=== PATIENT | male | born 1950 | race Caucasian/White ===

== ENCOUNTER 2016-05-26 12:42 | Inpatient (IN) | payer MEDICARE, MEDICAID ==
[~2016-05-26] VITALS: Ht 195.6 cm; Wt 54.9 kg
[~2016-05-26 12:42] MED LIST: ALPR0.254 PO; ASPI-482 PO; CLOP75TA PO; HYDR-2666 PO; LORA0.5T96 PO; METO100T11 PO; NITR1OIN TD; OMEP20CA5 PO; SIMV80TA3 PO; TAMS0.4C2 PO; [UNRECOGNIZED DRUG - OTHER]
[2016-05-26] MEDS ORDERED: IV NORMAL SALINE 1000ML BAG 1,000 ML IV SCH (13:03)
--- NOTE | 2016-05-26 13:03 | PHYS DOC ---
Past Medical History Past Medical History: Arthritis, GERD, High Cholesterol, Hypertension, NV, Other Additional Past Medical Histor: Marfan syndrome, chronic pain, prostate problems, VERTIGO Past Surgical History: Other Additional Past Surgical Histo: Lower Back, Neck Alcohol Use: None Drug Use: None Adult General Chief Complaint Chief Complaint: CHEST PAIN HPI HPI Patient is a 65 year old male who presents with chest pain and shortness of breath. Past medical history notable for Marfan syndrome. Patient reports he started having some sharp left-sided chest pain while lying down last night that radiates to his back. He also feels short of breath. No clear inciting or mitigating factors. He has not taken anything for symptoms. He received a phone call from the cardiology office today telling him to coming to the hospital since his cremator showed a heart rate in the 150s. Heart rate around 100 on arrival to ED. Review of Systems Review of Systems Constitutional: Denies fever or chills Eyes: Denies change in visual acuity or eye pain HENT: Denies nasal congestion or sore throat Respiratory: Shortness of breath Cardiovascular: L side chest pain GI: Denies abdominal pain, nausea, vomiting, bloody stools or diarrhea : Denies dysuria or hematuria Musculoskeletal: Denies back pain or joint pain Integument: Denies rash or skin lesions Neurologic: Denies headache, focal weakness or sensory changes Current Medications Current Medications Current Medications Medications (Trade) Dose Ordered Sig/Marcia Start Time Stop Time Status Last Admin Dose Admin Acetaminophen (Tylenol) 650 mg PRN Q4HRS PRN 05/26/16 15:30 05/27/16 15:29 Aspirin (Ecotrin) 81 mg DAILY 05/27/16 09:00 UNV Iohexol (Omnipaque 350 Mg/ml) 100 ml 1X ONCE 05/26/16 14:15 05/26/16 14:16 DC 05/26/16 14:13 100 ML Metoprolol Succinate (Toprol Xl) 50 mg 1X ONCE 05/26/16 17:00 05/26/16 17:01 Morphine Sulfate 4 mg PRN Q2HR PRN 05/26/16 15:30 05/27/16 15:29 Non-Formulary Medication 20 mg DAILY 05/27/16 09:00 UNV Ondansetron HCl (Zofran) 4 mg PRN Q8HRS PRN 05/26/16 15:30 05/27/16 15:29 Sodium Chloride (Iv Sodium Chloride 0.9% 1000ml Bag) 1,000 ml @ 1,000 mls/hr Q1H 05/26/16 13:03 05/26/16 14:02 DC 05/26/16 13:15 1,000 MLS/HR Allergies Allergies Allergies Coded Allergies Type Severity Reaction Last Updated Verified No Known Drug Allergies 02/10/16 No Physical Exam Physical Exam Constitutional: Well developed, well nourished, no acute distress, non-toxic appearance HENT: Normocephalic, atraumatic, bilateral external ears normal Eyes: EOMI, conjunctiva normal, no discharge Neck: Normal range of motion, no stridor Cardiovascular: Tachycardic HR ~103, regular rhythm, no murmur; b/l radial pulses equal Lungs & Thorax: Bilateral breath sounds clear to auscultation; pectus excavatum Abdomen: Bowel sounds normal, soft, non-distended, no TTP Skin: Warm, dry, no erythema, no rash Extremities: No obvious deformity, no edema Neurologic: Alert and oriented X 3, no gross deficits noted Current Patient Data Vital Signs Vital Signs Date Time Temp Pulse Resp B/P Pulse Ox O2 Delivery O2 Flow Rate FiO2 05/26/16 13:15 98 22 114/82 100 Room Air 05/26/16 12:50 97.5 97.5 Lab Values Laboratory Tests Test 05/26/16 12:51 White Blood Count 11.6x10^3/uL (4.0-11.0) H Red Blood Count 5.26x10^6/uL (4.30-5.70) Hemoglobin 16.0g/dL (13.0-17.5) Hematocrit 47.9% (39.0-53.0) Mean Corpuscular Volume 91fL (79-100) Mean Corpuscular Hemoglobin 30pg (25-35) Mean Corpuscular Hemoglobin Concent 33g/dL (31-37) Red Cell Distribution Width 13.2% (11.5-14.5) Platelet Count 131x10^3/uL (140-400) L Neutrophils (%) (Auto) 64% (31-73) Lymphocytes (%) (Auto) 24% (24-48) Monocytes (%) (Auto) 10% (0-9) H Eosinophils (%) (Auto) 2% (0-3) Basophils (%) (Auto) 1% (0-3) Neutrophils # (Auto) 7.5x10^3uL (1.8-7.7) Lymphocytes # (Auto) 2.8x10^3/uL (1.0-4.8) Monocytes # (Auto) 1.1x10^3/uL (0.0-1.1) Eosinophils # (Auto) 0.2x10^3/uL (0.0-0.7) Basophils # (Auto) 0.1x10^3/uL (0.0-0.2) Platelet Estimate Decreased (ADEQUATE) Sodium Level 141mmol/L (136-145) Potassium Level 3.5mmol/L (3.5-5.1) Chloride Level 101mmol/L (98-107) Carbon Dioxide Level 26mmol/L (21-32) Anion Gap 14 (6-14) Blood Urea Nitrogen 19mg/dL (8-26) Creatinine 1.1mg/dL (0.7-1.3) Estimated GFR (Cockcroft-Gault) 67.4 Glucose Level 116mg/dL (70-99) H Calcium Level 9.9mg/dL (8.5-10.1) Magnesium Level 1.8mg/dL (1.8-2.4) Troponin I Quantitative < 0.017ng/mL (0.000-0.055) Thyroid Stimulating Hormone (TSH) 1.328uIU/mL (0.358-3.74) Laboratory Tests 05/26/16 12:51 Laboratory Tests 05/26/16 12:51 EKG EKG EKG (my read): sinus rhythm, rate 108, borderline RAD, nonspecific ST/T changes Radiology/Procedures Radiology/Procedures CXR: Impression: Emphysematous lungs No acute cardiopulmonary process is detected. CTA chest: IMPRESSION: 1. No evidence of aortic aneurysm or dissection. 2. 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 3. Moderate bilateral apical pleural-parenchymal scarring. 4. Pectus excavatum. Course & Med Decision Making Course & Med Decision Making Pertinent Labs and Imaging studies reviewed. (See chart for details) Patient is 65-year-old male who presents with chest pain and shortness of breath. Also reportedly had high heart rate earlier, although this is around 100 right now. Will check EKG, chest x-ray, labs to evaluate. CTA chest ordered to rule out aortic dissection given history of Marfan syndrome. Will hold on aspirin until CTA results. Pain meds ordered for relief pain. EKG and imaging results as above. Labs notable for minimal leukocytosis. Discussed results with patient. Discussed with Dr. Potter, will admit under his care for further evaluation and treatment. Dragon Disclaimer Dragon Disclaimer This electronic medical record was generated, in whole or in part, using a voice recognition dictation system. Departure Departure Impression: Primary Impression: Chest pain Additional Impression: SOB (shortness of breath) Disposition: ADMITTED INPATIENT Admitting Physician: Tiana Potter Condition: STABLE Referrals: TIANA POTTER MD (PCP) Problem Qualifiers AUSTIN RHODES MD May 26, 2016 13:03
[2016-05-26] MEDS ORDERED: MORPHINE SULFATE 4 MG/ML DISP.SYRIN. IV ONE ×2 (13:15→14:00)
[2016-05-26 13:16] LABS: BASO # 0.1 x10^3/uL (0.0-0.2); BASO % 1 % (0-3); EOS % 2 % (0-3); HEMATOCRIT 47.9 % (39.0-53.0); LYMPH # 2.8 x10^3/uL (1.0-4.8); LYMPH % 24 % (24-48); MEAN CORPUSCULAR HEMOGLOBIN 30 pg (25-35); MEAN CORPUSCULAR HGB CONC 33 g/dL (31-37); MEAN CORPUSCULAR VOLUME 91 fL (79-100); MONO % 10 % (0-9); NEUT % 64 % (31-73); PLATELET COUNT 131 x10^3/uL (140-400); RED BLOOD COUNT 5.26 x10^6/uL (4.30-5.70); RED CELL DISTRIBUTION WIDTH 13.2 % (11.5-14.5); WHITE BLOOD COUNT 11.6 x10^3/uL (4.0-11.0)
--- NOTE | 2016-05-26 13:20 | RAD ---
Exam performed: One view chest. Indication: chest pain, SOB, r/o acute process Date of Service: 05/26/2016 3:03 PM Comparison: Single view chest from 03/13/15. Single AP upright portable view chest findings: Cardiomediastinal silhouette is within limits of normal. No acute infiltrates, effusion or pneumothorax is detected. Stable mild emphysematous changes are noted. The bony structures are normal. Impression: Emphysematous lungs No acute cardiopulmonary process is detected.
[2016-05-26 13:29] LABS: CALCIUM 9.9 mg/dL (8.5-10.1); CREATININE 1.1 mg/dL (0.7-1.3); GFR 67.4; MAGNESIUM 1.8 mg/dL (1.8-2.4); POTASSIUM 3.5 mmol/L (3.5-5.1)
--- NOTE | 2016-05-26 13:42 | EKG ---
[facility] [address] [place] [address] Test Date: 2016-05-26 Test Time: 12:56:29 Pat Name: MARNIE FRIEDMAN Department: Room: Gender: M Exhibits Manager: : [id number] Requested By: AUSTIN RHODES Order Number: [id number] Reading MD: Eder Villegas Measurements Intervals Payne Rate: 108 P: 79 [place]: 168 QRS: -52 QRSD: 86 T: 82 QT: 342 QTc: 462 Interpretive Statements SINUS TACHYCARDIA ATRIAL PREMATURE COMPLEX(ES) LEFT ATRIAL ABNORMALITY CONSIDER LEFT VENTRICULAR HYPERTROPHY QRS(T) CONTOUR ABNORMALITY CONSIDER ANTEROSEPTAL MYOCARDIAL DAMAGE T ABNORMALITY IN HIGH LATERAL LEADS RI6.01 Unconfirmed report Electronically Signed On 06-01-2016 10:53:58 THERMOMETER MAKER by Eder Villegas
[2016-05-26 14:09] LABS: PLT ESTIMATE DECREASED (ADEQUATE)
[2016-05-26] MEDS ORDERED: IOHEXOL 350 MG/ML 100ML VIAL. IV ONE (14:15)
--- NOTE | 2016-05-26 15:09 | RAD ---
CTA of the chest with and without contrast, 05/26/2016: History: Chest pain, Marfan's syndrome Multidetector CT imaging was performed prior to and following an IV bolus injection of iodinated contrast material. Multiplanar reconstructions were produced including 3-D volume rendered reconstructions of the aorta. There is a moderate pectus excavatum deformity. The ascending aorta is within normal limits in size measuring 3.7 cm in greatest width. There is no evidence of aortic dissection. The aortic arch and descending thoracic aorta are unremarkable. The left vertebral artery originates from the aortic arch between the left common carotid artery and the subclavian artery which is a normal variant. There appears to be severe stenosis at its origin. No mediastinal or hilar adenopathy is seen. Granulomatous calcifications are present in the right chest. There are moderate pleural-parenchymal opacities in both apices compatible with scarring on a postinflammatory basis. A few other scattered linear parenchymal scars are noted. No pulmonary mass or acute consolidation is seen. There is no evidence of pleural fluid. There is a mild thoracic scoliosis with mild scattered degenerative change. Postsurgical changes are incompletely delineated in the lower cervical spine. IMPRESSION: 1. No evidence of aortic aneurysm or dissection. 2. 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 3. Moderate bilateral apical pleural-parenchymal scarring. 4. Pectus excavatum. PQRS Compliance Statement: One or more of the following individualized dose reduction techniques were utilized for this examination: 1. Automated exposure control 2. Adjustment of the mA and/or kV according to patient size 3. Use of iterative reconstruction technique
[2016-05-26] MEDS ORDERED: ACETAMINOPHEN 325 MG TABLET. PO PRN (15:30)
[2016-05-26] MEDS ORDERED: MORPHINE SULFATE 4 MG/ML DISP.SYRIN. IV PRN (15:30)
[2016-05-26] MEDS ORDERED: ONDANSETRON PF 4 MG/2 ML VIAL. IV PRN (15:30)
--- NOTE | 2016-05-26 15:45 | PDOC2 ---
CARDIAC CONSULT DATE OF CONSULT Date of Consult DATE: 05/26/16 TIME: 15:36 REASON FOR CONSULT Reason for Consult: Chest Pain SOA REFERRING PHYSICIAN Referring Physician: Dr. Gama SOURCE Source: Chart review, Patient HISTORY OF PRESENT ILLNESS HISTORY OF PRESENT ILLNESS This is a 65 yo male, with a h/o Marfan's syndrome, NICM, mitral valve prolapse , and HTN, who presented due to fast heart rate. Patient on event monitor due to tachycardia. Was contacted by [facility] and our office this morning as HR was noted in the 150's and 160's. Lluvia reports chest pain and shortness of breath and was referred to the ED for further evaluation. Heart rate around 100 on arrival to ED. Patient reports sharp pain in his left chest this morning that was associated with shortness of breath, palpitations, and dizziness. Denies any diaphoresis, nausea/vomiting, orthopnea, or LE edema. Does report that he ran out of his "heart pill" about a week ago and did not have refilled. Appetite/intake has been decreased recently. Lives at home with bother, but takes care of his own medications. PAST MEDICAL HISTORY Cardiovascular: HTN, Hyperlipidemia, Valve insufficiency (mitral valve prolapse ), Other (Marfan's syndrome, NICM, ) Pulmonary: No pertinent hx, Other (emphysema ) GI: No pertinent hx Heme/Onc: Anemia NOS Musculoskeletal: Osteoarthritis Infectious disease: No pertinent hx ENT: No pertinent hx Renal/: Benign prostatic enlarg. Endocrine: No pertinent hx Dermatology: No pertinent hx PAST SURGICAL HISTORY Past Surgical History: Other (neck sx, back sx) FAMILY HISTORY Family History: Stroke SOCIAL HISTORY Smoke: No ALCOHOL: none Drugs: None Lives: with Family CURRENT MEDICATIONS CURRENT MEDICATIONS Current Medications Medications (Trade) Dose Ordered Sig/Marcia Route PRN Reason Start Time Stop Time Status Last Admin Dose Admin Sodium Chloride (Iv Sodium Chloride 0.9% 1000ml Bag) 1,000 ml @ 1,000 mls/hr Q1H IV 05/26/16 13:03 05/26/16 14:02 DC 05/26/16 13:15 Morphine Sulfate 4 mg 1X ONCE IV 05/26/16 13:15 05/26/16 13:16 DC 05/26/16 13:15 Morphine Sulfate 4 mg 1X ONCE IV 05/26/16 14:00 05/26/16 14:01 DC 05/26/16 14:10 Iohexol (Omnipaque 350 Mg/ml) 100 ml 1X ONCE IV 05/26/16 14:15 05/26/16 14:16 DC 05/26/16 14:13 ALLERGIES ALLERGIES: Coded Allergies: No Known Drug Allergies (Unverified , 02/10/16) ROS Review of System 14 point ROS conducted with pertinent positives noted above in HPI. PHYSICAL EXAM General: Alert, Oriented X3, Cooperative, No acute distress HEENT: Mucous membr. moist/pink Lungs: Clear to auscultation, Normal air movement, Other (central chest tender upon palpation) Heart: Regular rate, Normal S1, Normal S2 Abdomen: Soft, No tenderness Extremities: No edema, Normal pulses Skin: No significant lesion Neuro: Normal speech, Sensation intact Psych/Mental Status: Mental status NL, Mood NL MUSCULOSKELETAL: Osteoarthritic changes both hands VITALS VITALS Vital Signs Date Time Temp Pulse Resp B/P Pulse Ox O2 Delivery O2 Flow Rate FiO2 05/26/16 13:15 98 22 114/82 100 Room Air 05/26/16 12:50 97.5 97.5 LABS Lab: Laboratory Tests Test 05/26/16 12:51 White Blood Count 11.6x10^3/uL (4.0-11.0) Red Blood Count 5.26x10^6/uL (4.30-5.70) Hemoglobin 16.0g/dL (13.0-17.5) Hematocrit 47.9% (39.0-53.0) Mean Corpuscular Volume 91fL (79-100) Mean Corpuscular Hemoglobin 30pg (25-35) Mean Corpuscular Hemoglobin Concent 33g/dL (31-37) Red Cell Distribution Width 13.2% (11.5-14.5) Platelet Count 131x10^3/uL (140-400) Neutrophils (%) (Auto) 64% (31-73) Lymphocytes (%) (Auto) 24% (24-48) Monocytes (%) (Auto) 10% (0-9) Eosinophils (%) (Auto) 2% (0-3) Basophils (%) (Auto) 1% (0-3) Neutrophils # (Auto) 7.5x10^3uL (1.8-7.7) Lymphocytes # (Auto) 2.8x10^3/uL (1.0-4.8) Monocytes # (Auto) 1.1x10^3/uL (0.0-1.1) Eosinophils # (Auto) 0.2x10^3/uL (0.0-0.7) Basophils # (Auto) 0.1x10^3/uL (0.0-0.2) Platelet Estimate Decreased (ADEQUATE) Sodium Level 141mmol/L (136-145) Potassium Level 3.5mmol/L (3.5-5.1) Chloride Level 101mmol/L (98-107) Carbon Dioxide Level 26mmol/L (21-32) Anion Gap 14 (6-14) Blood Urea Nitrogen 19mg/dL (8-26) Creatinine 1.1mg/dL (0.7-1.3) Estimated GFR (Cockcroft-Gault) 67.4 Glucose Level 116mg/dL (70-99) Calcium Level 9.9mg/dL (8.5-10.1) Magnesium Level 1.8mg/dL (1.8-2.4) Troponin I Quantitative < 0.017ng/mL (0.000-0.055) Thyroid Stimulating Hormone (TSH) 1.328uIU/mL (0.358-3.74) ECHOCARDIOGRAM ECHOCARDIOGRAM Left ventricle systolic function is normal. The Ejection Fraction is 55-60%. There is normal LV segmental wall motion. The mitral valve leaflets are thickened and redundant with mild prolapse. Mild mitral regurgitation. Mild tricuspid regurgitation. The PA pressure was estimated at 17 mmHg. There is no evidence of significant pericardial effusion. DATE: 05/13/16 1510 STRESS TEST STRESS TEST Conclusion 1. Regadenoson cardioisotope stress test did not show any evidence of ischemia or infarct. 2. Normal left ventricular systolic function with ejection fraction calculated at 78%. 3. Low risk for cardiovascular events. DATE: 10/12/14 1626 ASSESSMENT/PLAN ASSESSMENT/PLAN 1. Chest Pain, atypical initial trop negative- continue with series. Doubt ACS. MPI 10/10 with no evidence of ischemia recent echo with normal wall motion; LVEF 55-60% pain likely MSK in origin 2. Sinus tachycardia event monitor noted HR 150-160 secondary to med noncompliance TSH WNL resume BB 3. Marfan syndrome 4. Non-ischemic cardiomyopathy clinically compensated most recent echo with normalized EF 5. Mitral valve prolapse associated with mitral regurg. stable 6. Hypertension controlled 7. Hyperlipidemia statin therapy resumed Problems: DESTINY HANNON APRN May 26, 2016 15:45
[2016-05-26] MEDS ORDERED: METOPROLOL SUCC 24HR ER 50 MG TAB.ER.24H. PO ONE (17:00)
[2016-05-26] MEDS ORDERED: ASPIRIN 81 MG TAB.CHEW PO ONE (17:00)
--- NOTE | 2016-05-26 17:47 | ACF ---
Admission Forms Criteria CHEST PAIN Clinical Indications for Admission to Inpatient Care (Place 'X' for any and all applicable criteria): Admission is indicated for chest pain and ANY ONE of the following(1)(2)(3)(4)(5 ): [ ]I. Angina with acute coronary syndrome (Also use Myocardial Infarction or Angina guideline) [ ]II. Hemodynamic instability [ ]III. Angina needing acute intervention as indicated by ALL of the following( 11)(12): [ ]a) Unstable angina is present as indicated by angina that is ANY ONE of the following: [ ]i) New onset [ ]ii) Nocturnal [ ]iii) Prolonged at rest [ ]iv) Progressive [ ]b) Angina warrants acute intervention as indicated by ANY ONE of the following: [ ]i) Recurrent angina (e.g, not responding as previously to treatment) [ ]ii) Angina at rest or with low-level activities despite initial medical therapy [ ]iii) New or presumably new ST-segment depression on ECG [ ]iv) Signs or symptoms of heart failure (eg, dyspnea, pulmonary edema) [ ]v) New or worsening mitral regurgitation [ ]vi) Hemodynamic instability [ ]vii) Dangerous arrhythmia (eg, sustained ventricular tachycardia) [ ]viii) History of percutaneous coronary intervention within 6 months [ ]ix) History of coronary artery bypass graft surgery [ ]x) GUNNER risk score of 2 or greater[A] [ ]xi) History of Diabetes(14) [ ]xii) High-risk cardiac ischemia findings on noninvasive testing (e.g, echocardiogram, treadmill testing, nuclear scan) [ ]xiii) Chronic renal insufficiency (ie, estimated GFR less than 60 mL/min/1.732m) [ ]xiv) Left ventricular ejection fraction less than 40% [ ]IV. Evidence of [place] (eg, cardiac biomarkers positive, ST-segment elevation on ECG) also use Myocardial Infarction Criteria Form. [ ]V. Pulmonary edema [ ]. Respiratory distress [ ]VII. Chest pain indicative of serious diagnosis other than coronary artery disease (eg, aortic dissection) [ ]VIII. Contraindications and/or Inappropriate clinical situations for Observational Care in patients with Chest Pain, when ANY ONE of the following is required: [ ]a) Patient with risk factor for pulmonary embolism, acute coronary syndrome and myocardial infarction (18) [ ]b) Patient with Pulmonary embolism require an average LOS of 4.3 days, therefore emergency department observation management is inappropriate 18,23 [ ]c) Painful condition/s in the elderly, have the highest rate of recidivism after emergency department observation management (10.8%) 20,21,22 [ ]d) Elevated cardiac biomarker requires intensive and exhaustive care (19) [X]IX. General contraindications and/or Inappropriate clinical situations for Observational Care in patients with Chest Pain, when ANY ONE of the following is required: [X]a) Prediction of prolongation of LOS based on ANY ONE of the following may be considered as a contraindication for observational care 2, 3, 4, 5, 6, 7, 8, 9, 10, 11 [ ]i) Age > 65 yrs. [ ]ii) Patient arriving by ambulance [ ]iii) Patient with high acuity [X]iv) Patient requiring vital sign monitoring [ ]v) Patient on IV medication [ ]b) Systolic blood pressures 180mmHg 3,12 [ ]c) Patient with altered mental status including delirium and other alteration of consciousness, (3) [ ]d) Patient whose discharge disposition will be to a custodial home or rehabilitation home should not be managed in Emergency Department Observation Unit. CMS rule requires 3 days hospital stay before such placement. 3,13 [ ]e) Patient with failure to thrive due to broad array of etiologies 3,16,17 [ ]f) Inability to ambulate 3,14 Extended stay beyond goal length of stay may be needed for (1)(28): [ ]a) Specific condition diagnosed after evaluation (eg, pulmonary embolism, aortic dissection) [ ]b) Unstable angina [ ]c) Continued suspicion of acute coronary syndrome with inability to complete needed cardiac evaluation (eg, patient clinically unable to undergo stress testing) [ ]d) Myocardial infarction (Contents from ANGINA and CHEST PAIN clinical indications for admission to inpatient care have been integrated in this form) The original [facility] content created by [employer] has been revised. The portions of the content which have been revised are identified through the use of italic text or in bold, and [facility] [employer] has neither reviewed nor approved the modified material. All other unmodified content is copyright [facility]. Please see references footnoted in the original [facility] [employer] edition 2016 Admission Criteria Met?: Yes BRAXTON WOODWARD May 26, 2016 17:47
[2016-05-26] MEDS ORDERED: INFLUENZA VAX SCREEN BY RX. MC ONE (18:30)
[2016-05-26 19:00] VITALS: BP 130/91
[2016-05-26] MEDS: SIMVASTATIN 20 MG TABLET PO SCH (21:29)
[2016-05-26 23:00] VITALS: BP 109/73
[2016-05-27] VITALS (7 sets, daily range): BP systolic 83–110; BP diastolic 50–64
[2016-05-27] MEDS ORDERED: ALPRAZOLAM 0.25 MG TABLET PO PRN (08:15)
--- NOTE | 2016-05-27 08:18 | PDOC1 ---
GAYATHRI FAIRCHILD MOTION DESIGNER 05/27/16 0818: HISTORY AND PHYSICAL Chief Complaint Chief Complaint This 65 year old male has been admitted with a chief complaint of chest pain. He reports pain onset 2 nights ago while he was just sitting and it was sharp, like someone sticking needles into chest. It was left sided and non radiating with dyspnea. There was no sweating, rapid HR, or palpitations. He was contacted by the boat camp operator to come to ED for increased HR in 150s. He has been out of his metoprolol succinate for almost 2 weeks. He continues to c/ o intermittent dizziness not dependent on position. Most of the time it occurs while he is walking. In the ED EKG was SR no acute changed, CE and troponin negative, and CXR emphysema changes. CTA of the chest severe L vertebral artery stenosis from aortic arch not mentioned in last CTA 10/21/15. He has intermittently c/o dizziness, numbness tingling bilateral hands/feet and acute weakness affecting his whole body. In the ED he was given Metoprolol Succinate 50mg x1, ASA 324mg x1 and IVF. Cardiology has been consulted. His WBC was noted to be 11.4 on admission. Denies any upper respiratory symptoms other than chronic intermittent sinus congestion, cough that is chronic/non productive and no urinary symptoms. He is admitted to [facility]. Problem List Problems Medical Problems: (1) Chest pain Status: Acute (2) SOB (shortness of breath) Status: Acute Past Medical History Cardiovascular: HTN, [place] (03/29/09), Hyperlipidemia, Valve insufficiency (mild MR, mild TR ), Other (Marfan's syndrome, NICM, mild pulmonary HTN ) Pulmonary: Asthma, Other (emphysema ) CENTRAL NERVOUS SYSTEM: Other (chronic dizziness) GI: Diverticulosis, GERD, Other (Schatski ring, esophageal stricture last dilation 02/10/16) Heme/Onc: Anemia NOS Psych: Anxiety Musculoskeletal: low back pain (lumbar stenosis with lumbar radiculopathy bilateral LE ), Osteoarthritis, Other (kyphosis/scoliosis/throacic spondylosis with myelopathy; cervical radiculopathy; chronic costochrondritis ) Renal/: Chronic renal insuff (CKD II ), Benign prostatic enlarg. Past Surgical History PSH cervical spine surgery, lumbar spine surgery. loop recorder. Past Surgical History: Other (neck sx, back sx) Past Family History PFH Brother - Marfan syndrome Family History: Coronary Artery Disease, Stroke Past Social History PSH lives with brother, remote h/o tobacco (quit 1984) neg ETOH or illicit drug use Review of Symptoms Review of Symptoms A 14 point ROS was completed with the following noted as positive: per HPI Other systems reviewed and negative. Medications Medications reviewed and reconciled. Allergy Allergies Coded Allergies Type Severity Reaction Last Updated Verified No Known Drug Allergies 02/10/16 No Physical Exam Physical Exam General appearance - alert, chronically ill appearing, and in no distress Mental Status - alert, oriented to person, place, and time, affect appropriate to mood Head - normal Chest - clear to auscultation, no wheezes, rales or rhonchi; loop recorder present Heart - S1 and S2 normal Abdomen - soft, nontender, nondistended, + BS Neurological - no acute focal neurological deficit noted Musculoskeletal - chest wall tenderness L sided chest wall similar to chest pain from 2 nights ago. tender LS and neck Extremities - no pedal edema Skin - warm and dry VTE Prophylaxis Ordered VTE Prophylaxis Devices: Yes VTE Pharmacological Prophylaxi: No Assessment Labs Laboratory Tests Test 05/26/16 12:51 05/26/16 21:35 05/27/16 03:38 White Blood Count 11.6x10^3/uL (4.0-11.0) Red Blood Count 5.26x10^6/uL (4.30-5.70) Hemoglobin 16.0g/dL (13.0-17.5) Hematocrit 47.9% (39.0-53.0) Mean Corpuscular Volume 91fL (79-100) Mean Corpuscular Hemoglobin 30pg (25-35) Mean Corpuscular Hemoglobin Concent 33g/dL (31-37) Red Cell Distribution Width 13.2% (11.5-14.5) Platelet Count 131x10^3/uL (140-400) Neutrophils (%) (Auto) 64% (31-73) Lymphocytes (%) (Auto) 24% (24-48) Monocytes (%) (Auto) 10% (0-9) Eosinophils (%) (Auto) 2% (0-3) Basophils (%) (Auto) 1% (0-3) Neutrophils # (Auto) 7.5x10^3uL (1.8-7.7) Lymphocytes # (Auto) 2.8x10^3/uL (1.0-4.8) Monocytes # (Auto) 1.1x10^3/uL (0.0-1.1) Eosinophils # (Auto) 0.2x10^3/uL (0.0-0.7) Basophils # (Auto) 0.1x10^3/uL (0.0-0.2) Platelet Estimate Decreased (ADEQUATE) Sodium Level 141mmol/L (136-145) Potassium Level 3.5mmol/L (3.5-5.1) Chloride Level 101mmol/L (98-107) Carbon Dioxide Level 26mmol/L (21-32) Anion Gap 14 (6-14) Blood Urea Nitrogen 19mg/dL (8-26) Creatinine 1.1mg/dL (0.7-1.3) Estimated GFR (Cockcroft-Gault) 67.4 Glucose Level 116mg/dL (70-99) Calcium Level 9.9mg/dL (8.5-10.1) Magnesium Level 1.8mg/dL (1.8-2.4) Troponin I Quantitative < 0.017ng/mL (0.000-0.055) < 0.017ng/mL (0.000-0.055) < 0.017ng/mL (0.000-0.055) Thyroid Stimulating Hormone (TSH) 1.328uIU/mL (0.358-3.74) Laboratory Tests Test 05/26/16 12:51 05/26/16 21:35 05/27/16 03:38 White Blood Count 11.6x10^3/uL (4.0-11.0) Red Blood Count 5.26x10^6/uL (4.30-5.70) Hemoglobin 16.0g/dL (13.0-17.5) Hematocrit 47.9% (39.0-53.0) Mean Corpuscular Volume 91fL (79-100) Mean Corpuscular Hemoglobin 30pg (25-35) Mean Corpuscular Hemoglobin Concent 33g/dL (31-37) Red Cell Distribution Width 13.2% (11.5-14.5) Platelet Count 131x10^3/uL (140-400) Neutrophils (%) (Auto) 64% (31-73) Lymphocytes (%) (Auto) 24% (24-48) Monocytes (%) (Auto) 10% (0-9) Eosinophils (%) (Auto) 2% (0-3) Basophils (%) (Auto) 1% (0-3) Neutrophils # (Auto) 7.5x10^3uL (1.8-7.7) Lymphocytes # (Auto) 2.8x10^3/uL (1.0-4.8) Monocytes # (Auto) 1.1x10^3/uL (0.0-1.1) Eosinophils # (Auto) 0.2x10^3/uL (0.0-0.7) Basophils # (Auto) 0.1x10^3/uL (0.0-0.2) Platelet Estimate Decreased (ADEQUATE) Sodium Level 141mmol/L (136-145) Potassium Level 3.5mmol/L (3.5-5.1) Chloride Level 101mmol/L (98-107) Carbon Dioxide Level 26mmol/L (21-32) Anion Gap 14 (6-14) Blood Urea Nitrogen 19mg/dL (8-26) Creatinine 1.1mg/dL (0.7-1.3) Estimated GFR (Cockcroft-Gault) 67.4 Glucose Level 116mg/dL (70-99) Calcium Level 9.9mg/dL (8.5-10.1) Magnesium Level 1.8mg/dL (1.8-2.4) Troponin I Quantitative < 0.017ng/mL (0.000-0.055) < 0.017ng/mL (0.000-0.055) < 0.017ng/mL (0.000-0.055) Thyroid Stimulating Hormone (TSH) 1.328uIU/mL (0.358-3.74) Plan Plan 1. chest pain with h/o CAD/ME 03/29/09 2. acute on chronic chest wall pain-costochondritis 3. cardiac arrhythmia managed with metoprolol succinate 4. severe L vertebral artery stenosis aortic arch 5. h/o hypotension/bradycardia with metoprolol 6. noncompliance with medication due to finances 7. BPH 8. chronic low back pain with radiculopathy, LE weakness bilaterally chronic 9. moderate chronic PCL malnutrition 10. neck pain chronic with radiculopathy bilateral arms, weakness chronic 11. CKD II 12. leukocytosis w/o fever 13. diverticulosis 14. GERD 15. Schatzki ring 16. HH 17. h/o esophageal stricture dilation 02/10/16 18, mild pulmonary HTN 19. valvular insufficiency mild MR TR 20 CAD with EF 55-60% 21. accelerated HTN POA 22. dizziness chronic 23. COPD with emphysema PLAN: chest pain cardiology consult CE/troponin, EKG negative suspect r/t chronic costochondritis h/o CAD -low dose ASA 81mg daily severe L vertebral artery stenosis aortic arch ?cardiac intervention-?stent cardiac arrhythmia med tele metoprolol succinate 50mg x 1 ED now SB-SR rate 50s low 60s monitor orthostatics dizziness cardiac arrhythmia vs vertebral artery stenosis a/c costochondritis resume voltaren gel topically continue pain medication oral leukocytosis w/o fever Admit WBC 11.6 recheck check UA CXR clear dyspnea multifactorial DVT/GI prophylaxis SCD/LUDMILA PPI For more details regarding further plans, please refer to the orders. TIANA POTTER MD 05/27/16 0958: HISTORY AND PHYSICAL Plan Plan Marfan syndrome Vertebral artery stenosis- consult vascular surgery- . The patient was seen and examined by me. Chart reviewed and plan of care formulated. Discussed with, reviewed and agree with MANAGER STORAGE's notes, plan of care and orders with modifications as necessary. For more details regarding further plans, please refer to the orders. GAYATHRI FAIRCHILD APRN May 27, 2016 08:18 TIANA POTTER MD May 27, 2016 09:58
[2016-05-27 08:46] LABS: BASO # 0.1 x10^3/uL (0.0-0.2); BASO % 1 % (0-3); EOS % 4 % (0-3); HEMATOCRIT 39.3 % (39.0-53.0); HEMOGLOBIN 12.9 g/dL (13.0-17.5); LYMPH # 2.4 x10^3/uL (1.0-4.8); LYMPH % 37 % (24-48); MEAN CORPUSCULAR HEMOGLOBIN 30 pg (25-35); MEAN CORPUSCULAR HGB CONC 33 g/dL (31-37); MEAN CORPUSCULAR VOLUME 91 fL (79-100); MONO % 9 % (0-9); NEUT % 50 % (31-73); PLATELET COUNT 101 x10^3/uL (140-400); RED CELL DISTRIBUTION WIDTH 13.5 % (11.5-14.5); WHITE BLOOD COUNT 6.6 x10^3/uL (4.0-11.0)
[2016-05-27 08:49] LABS: CALCIUM 8.9 mg/dL (8.5-10.1); CREATININE 0.9 mg/dL (0.7-1.3); POTASSIUM 3.9 mmol/L (3.5-5.1)
[2016-05-27] MEDS: HYDROCODONE/APAP 5/325MG TABLET. PO PRN ×2 (08:49→19:33)
[2016-05-27] MEDS: ASPIRIN ENTERIC COATED 81 MG TABLET.DR. PO SCH (08:50)
[2016-05-27] MEDS: PANTOPRAZOLE 40 MG TABLET. PO SCH (08:50)
[2016-05-27] MEDS: TAMSULOSIN 0.4 MG CAP.ER.24H. PO SCH (08:50)
[2016-05-27] MEDS ORDERED: FLU VACC QUAD 2016-17 (36MOS+)/PF 0.5 ML SYRINGE. VAX IM ONE (09:00)
[2016-05-27] MEDS ORDERED: METOPROLOL SUCC 24HR ER 50 MG TAB.ER.24H. PO SCH (09:30)
[2016-05-27] MEDS: DICLOFENAC SODIUM 1% TOPICAL GEL 100GM TUBE. TP SCH ×3 (10:09→21:23)
--- NOTE | 2016-05-27 10:36 | PDOC ---
VAHE ROTHMAN MAJOR ASSEMBLY LINEMAN 05/27/16 1036: CARDIO Progress Notes Date and Time Date of Service 05/27/2016 Time of Evaluation 0950 Subjective Subjective: No Chest Pain, No shortness of breath, No Palpitations, No Dizziness Vitals Vitals Vital Signs Date Time Temp Pulse Resp B/P Pulse Ox O2 Delivery O2 Flow Rate FiO2 05/27/16 09:50 Room Air 05/27/16 09:30 55 96/64 05/27/16 07:15 97.4 18 95 97.4 Weight Weight [ ] Input and Output Intake and Output Intake and Output 05/27/16 07:00 Intake Total 1150 ml Balance 1150 ml Intake Oral 150 ml IV Total 1000 ml Laboratory Labs Laboratory Tests Test 05/26/16 12:51 05/26/16 21:35 05/27/16 03:38 White Blood Count 11.6x10^3/uL (4.0-11.0) 6.6x10^3/uL (4.0-11.0) Red Blood Count 5.26x10^6/uL (4.30-5.70) 4.30x10^6/uL (4.30-5.70) Hemoglobin 16.0g/dL (13.0-17.5) 12.9g/dL (13.0-17.5) Hematocrit 47.9% (39.0-53.0) 39.3% (39.0-53.0) Mean Corpuscular Volume 91fL (79-100) 91fL (79-100) Mean Corpuscular Hemoglobin 30pg (25-35) 30pg (25-35) Mean Corpuscular Hemoglobin Concent 33g/dL (31-37) 33g/dL (31-37) Red Cell Distribution Width 13.2% (11.5-14.5) 13.5% (11.5-14.5) Platelet Count 131x10^3/uL (140-400) 101x10^3/uL (140-400) Neutrophils (%) (Auto) 64% (31-73) 50% (31-73) Lymphocytes (%) (Auto) 24% (24-48) 37% (24-48) Monocytes (%) (Auto) 10% (0-9) 9% (0-9) Eosinophils (%) (Auto) 2% (0-3) 4% (0-3) Basophils (%) (Auto) 1% (0-3) 1% (0-3) Neutrophils # (Auto) 7.5x10^3uL (1.8-7.7) 3.3x10^3uL (1.8-7.7) Lymphocytes # (Auto) 2.8x10^3/uL (1.0-4.8) 2.4x10^3/uL (1.0-4.8) Monocytes # (Auto) 1.1x10^3/uL (0.0-1.1) 0.6x10^3/uL (0.0-1.1) Eosinophils # (Auto) 0.2x10^3/uL (0.0-0.7) 0.2x10^3/uL (0.0-0.7) Basophils # (Auto) 0.1x10^3/uL (0.0-0.2) 0.1x10^3/uL (0.0-0.2) Platelet Estimate Decreased (ADEQUATE) Sodium Level 141mmol/L (136-145) 143mmol/L (136-145) Potassium Level 3.5mmol/L (3.5-5.1) 3.9mmol/L (3.5-5.1) Chloride Level 101mmol/L (98-107) 107mmol/L (98-107) Carbon Dioxide Level 26mmol/L (21-32) 23mmol/L (21-32) Anion Gap 14 (6-14) 13 (6-14) Blood Urea Nitrogen 19mg/dL (8-26) 21mg/dL (8-26) Creatinine 1.1mg/dL (0.7-1.3) 0.9mg/dL (0.7-1.3) Estimated GFR (Cockcroft-Gault) 67.4 85.0 Glucose Level 116mg/dL (70-99) 85mg/dL (70-99) Calcium Level 9.9mg/dL (8.5-10.1) 8.9mg/dL (8.5-10.1) Magnesium Level 1.8mg/dL (1.8-2.4) Troponin I Quantitative < 0.017ng/mL (0.000-0.055) < 0.017ng/mL (0.000-0.055) < 0.017ng/mL (0.000-0.055) Thyroid Stimulating Hormone (TSH) 1.328uIU/mL (0.358-3.74) Physical Exam HEENT: Neck Supple W Full Motion Chest: Symmetric, Other (pectus excavatum) LUNGS: Clear to Auscultation Heart: S1S2, RRR (SR/SB with PACs), murmurs (2/6 systolic murmur to apical site ) Abdomen: Soft N/T Extremities: No Edema, No Calf Tenderness Neurology: alert, oriented, follow commands Assessment Assessment 1. Atypical chest pain: doubt ACS, suspect due to anxiety and palpitations 2. SVT: Ran out of BB and stopped taking. noted via event monitor placed 2 days ago. 3. Asymptomatic bradycardia: HR noted 30-40s. likely from BB. 4. NICM: compensated and much better. Recent echo with normal wall motion; LVEF 55-60% 5. Marfan syndrome/pectus excavatum 6. Mitral valve prolapse: stable 6. Hypertension: controlled 7. Hyperlipidemia 8. Severe stenosis at the origin of the left vertebral artery from the aortic arch via current CTA not noted on previous imaging 02/2015 Recommendations 1. Decrease metoprolol 2. Continue secondary prevention 3. Continue with event monitor 4. Discussed adherence to treatment 5. Recommend vascular consult KAMARI MENON MD 05/28/16 0822: CARDIO Progress Notes Assessment Assessment Patient seen and examined 05/27/16. Agree with ANIMAL LABORATORY TECHNICIAN's assessment and plan. Telemetry did not show any further episodes of SVT. Start flecainide for rhythm maintenance. Chest pain atypical and most probably musculoskeletal. VAHE ROTHMAN APRN May 27, 2016 10:36 KAMARI MENON MD May 28, 2016 08:22
[2016-05-27 12:52] LABS: PLT ESTIMATE DECREASED (ADEQUATE)
[2016-05-27 13:21] LABS: BILIRUBIN,URINE NEGATIVE (NEG); GLUCOSE,URINE NEGATIVE (NEG); NITRITE,URINE POSITIVE (NEG); PH,URINE 5.5; PROTEIN,URINE NEGATIVE (NEG-TRACE); UROBILINOGEN,URINE 0.2 mg/dL (0.2 mg/dL)
[2016-05-27 13:35] LABS: BACTERIA,URINE 0 /HPF (0-FEW); RBC,URINE 0 /HPF (0-2); SQUAMOUS EPITHELIAL CELL,UR FEW /LPF
--- NOTE | 2016-05-27 19:12 | PDOC2 ---
CONSULT Date of Consult Date of Consult DATE: 05/27/16 TIME: 19:10 Past Medical History Cardiovascular: HTN, [place] (03/29/09), Hyperlipidemia, Valve insufficiency (mild MR, mild TR ), Other (Marfan's syndrome, NICM, mild pulmonary HTN ) Pulmonary: Asthma, Other (emphysema ) CENTRAL NERVOUS SYSTEM: Other (chronic dizziness) GI: Diverticulosis, GERD, Other (Schatski ring, esophageal stricture last dilation 02/10/16) Heme/Onc: Anemia NOS Psych: Anxiety Musculoskeletal: low back pain (lumbar stenosis with lumbar radiculopathy bilateral LE ), Osteoarthritis, Other (kyphosis/scoliosis/throacic spondylosis with myelopathy; cervical radiculopathy; chronic costochrondritis ) Renal/: Chronic renal insuff (CKD II ), Benign prostatic enlarg. Past Surgical History Past Surgical History: Other (neck sx, back sx) Family History Family History: Coronary Artery Disease, Stroke Social History No ALCOHOL: none Drugs: None Lives: with Family Domestic Violence: Neg Current Problem List Problem List Problems Medical Problems: (1) Chest pain Status: Acute (2) SOB (shortness of breath) Status: Acute Current Medications Current Medications Current Medications Sodium Chloride (Iv Sodium Chloride 0.9% 1000ml Bag) 1,000 ml @ 1,000 mls/hr Q1H IV Last administered on 05/26/16 13:15; Start 05/26/16 at 13:03; Stop at 14:02; Status DC Morphine Sulfate 4 mg 1X ONCE IV Last administered on 05/26/16 13:15; Start 05/26/16 at 13:15; Stop 05/26/16 at 13:16; Status DC Morphine Sulfate 4 mg 1X ONCE IV Last administered on 05/26/16 14:10; Start 05/26/16 at 14:00; Stop 05/26/16 at 14:01; Status DC Iohexol (Omnipaque 350 Mg/ml) 100 ml 1X ONCE IV Last administered on 14:13; Start 05/26/16 at 14:15; Stop 05/26/16 at 14:16; Status DC Ondansetron HCl (Zofran) 4 mg PRN Q8HRS PRN IV NAUSEA/VOMITING; Start 05/26/16 at 15:30; Stop 05/27/16 at 15:29; Status DC Morphine Sulfate 4 mg PRN Q2HR PRN IV PAIN Last administered on 05/26/16 21:38 ; Start 05/26/16 at 15:30; Stop 05/27/16 at 08:13; Status DC Acetaminophen (Tylenol) 650 mg PRN Q4HRS PRN PO FEVER; Start 05/26/16 at 15:30 ; Stop 05/27/16 at 15:29; Status DC Aspirin (Ecotrin) 81 mg DAILY PO Last administered on 05/27/16 08:50; Start 05/27/16 at 09:00 Simvastatin (Zocor) 20 mg HS PO Last administered on 05/26/16 21:29; Start at 21:00 Metoprolol Succinate (Toprol Xl) 50 mg 1X ONCE PO Last administered on 16:58; Start 05/26/16 at 17:00; Stop 05/26/16 at 17:01; Status DC Aspirin (Children'S Aspirin) 324 mg 1X ONCE PO Last administered on 05/26/16 16:57; Start 05/26/16 at 17:00; Stop 05/26/16 at 17:01; Status DC Info (Do NOT chart on this placeholder) 1 each 1X ONCE MC ; Start 05/26/16 at 18:30; Stop 05/26/16 at 18:31; Status UNV Influenza Virus Vaccine Quadrival (Fluarix Quad [id number] Syringe) 0.5 ml ONCE ONCE VAX IM ; Start 05/27/16 at 09:00; Stop 05/27/16 at 09:01; Status DC Alprazolam (Xanax) 0.5 mg PRN BID PRN PO ANXIETY / AGITATION; Start 05/27/16 at 08:15 Acetaminophen/ Hydrocodone Bitart (Lortab 5/325) 1 tab PRN Q6HRS PRN PO PAIN Last administered on 05/27/16 08:49; Start 05/27/16 at 08:15 Tamsulosin HCl (Flomax) 0.4 mg DAILY PO Last administered on 05/27/16 08:50; Start 05/27/16 at 09:00 Pantoprazole Sodium (Protonix) 40 mg DAILYAC PO Last administered on 05/27/16 08:50; Start 05/27/16 at 09:00 Diclofenac Sodium (Voltaren) 1 jesus TID TP Last administered on 05/27/16 13:46; Start 05/27/16 at 09:00 Metoprolol Succinate (Toprol Xl) 50 mg DAILY PO ; Start 05/27/16 at 09:30; Stop 05/27/16 at 12:41; Status DC Metoprolol Succinate (Toprol Xl) 25 mg DAILY PO ; Start 05/28/16 at 09:00 Active Scripts Active Reported Tamsulosin Hcl 0.4 Mg Cap.er.24h 0.4 Mg PO DAILY Alprazolam 0.25 Mg Tablet 1 Tab PO BID Hydrocodone-Apap 5-325 (Hydrocodone Bit/Acetaminophen) 1 Each Tablet 1 Each PO PRN Q6HRS PRN Simvastatin 80 Mg Tablet 20 Mg PO DAILY Aspir 81 (Aspirin) 81 Mg Tablet. 81 Mg PO DAILY Prilosec (Omeprazole) 20 Mg Capsule. 20 Mg PO DAILY Allergies Allergies: Coded Allergies: No Known Drug Allergies (Unverified , 02/10/16) Vitals VITALS Vital Signs Date Time Temp Pulse Resp B/P Pulse Ox O2 Delivery O2 Flow Rate FiO2 05/27/16 15:15 94 90/58 05/27/16 15:15 97.4 18 97 Room Air 97.4 Labs Labs Laboratory Tests Test 05/26/16 12:51 05/26/16 21:35 05/27/16 03:38 05/27/16 11:50 White Blood Count 11.6x10^3/uL (4.0-11.0) 6.6x10^3/uL (4.0-11.0) Red Blood Count 5.26x10^6/uL (4.30-5.70) 4.30x10^6/uL (4.30-5.70) Hemoglobin 16.0g/dL (13.0-17.5) 12.9g/dL (13.0-17.5) Hematocrit 47.9% (39.0-53.0) 39.3% (39.0-53.0) Mean Corpuscular Volume 91fL (79-100) 91fL (79-100) Mean Corpuscular Hemoglobin 30pg (25-35) 30pg (25-35) Mean Corpuscular Hemoglobin Concent 33g/dL (31-37) 33g/dL (31-37) Red Cell Distribution Width 13.2% (11.5-14.5) 13.5% (11.5-14.5) Platelet Count 131x10^3/uL (140-400) 101x10^3/uL (140-400) Neutrophils (%) (Auto) 64% (31-73) 50% (31-73) Lymphocytes (%) (Auto) 24% (24-48) 37% (24-48) Monocytes (%) (Auto) 10% (0-9) 9% (0-9) Eosinophils (%) (Auto) 2% (0-3) 4% (0-3) Basophils (%) (Auto) 1% (0-3) 1% (0-3) Neutrophils # (Auto) 7.5x10^3uL (1.8-7.7) 3.3x10^3uL (1.8-7.7) Lymphocytes # (Auto) 2.8x10^3/uL (1.0-4.8) 2.4x10^3/uL (1.0-4.8) Monocytes # (Auto) 1.1x10^3/uL (0.0-1.1) 0.6x10^3/uL (0.0-1.1) Eosinophils # (Auto) 0.2x10^3/uL (0.0-0.7) 0.2x10^3/uL (0.0-0.7) Basophils # (Auto) 0.1x10^3/uL (0.0-0.2) 0.1x10^3/uL (0.0-0.2) Platelet Estimate Decreased (ADEQUATE) Decreased (ADEQUATE) Sodium Level 141mmol/L (136-145) 143mmol/L (136-145) Potassium Level 3.5mmol/L (3.5-5.1) 3.9mmol/L (3.5-5.1) Chloride Level 101mmol/L (98-107) 107mmol/L (98-107) Carbon Dioxide Level 26mmol/L (21-32) 23mmol/L (21-32) Anion Gap 14 (6-14) 13 (6-14) Blood Urea Nitrogen 19mg/dL (8-26) 21mg/dL (8-26) Creatinine 1.1mg/dL (0.7-1.3) 0.9mg/dL (0.7-1.3) Estimated GFR (Cockcroft-Gault) 67.4 85.0 Glucose Level 116mg/dL (70-99) 85mg/dL (70-99) Calcium Level 9.9mg/dL (8.5-10.1) 8.9mg/dL (8.5-10.1) Magnesium Level 1.8mg/dL (1.8-2.4) Troponin I Quantitative < 0.017ng/mL (0.000-0.055) < 0.017ng/mL (0.000-0.055) < 0.017ng/mL (0.000-0.055) Thyroid Stimulating Hormone (TSH) 1.328uIU/mL (0.358-3.74) Large Platelets Present Urine Collection Type Unknown Urine Color Zoe Urine Clarity Clear Urine pH 5.5 Urine Specific [place] >=1.030 Urine Protein Negativemg/dL (NEG-TRACE) Urine Glucose (UA) Negativemg/dL (NEG) Urine Ketones (Stick) Negativemg/dL (NEG) Urine Blood Small (NEG) Urine Nitrite Positive (NEG) Urine Bilirubin Negative (NEG) Urine Urobilinogen Dipstick 0.2mg/dL (0.2 mg/dL) Urine Leukocyte Esterase Negative (NEG) Urine RBC 0/HPF (0-2) Urine WBC 1-4/HPF (0-4) Urine Squamous Epithelial Cells Few/LPF Urine Amorphous Sediment Present/HPF Urine Bacteria 0/HPF (0-FEW) Urine Mucus Marked/LPF Laboratory Tests Test 05/26/16 21:35 05/27/16 03:38 05/27/16 11:50 Troponin I Quantitative < 0.017ng/mL (0.000-0.055) < 0.017ng/mL (0.000-0.055) White Blood Count 6.6x10^3/uL (4.0-11.0) Red Blood Count 4.30x10^6/uL (4.30-5.70) Hemoglobin 12.9g/dL (13.0-17.5) Hematocrit 39.3% (39.0-53.0) Mean Corpuscular Volume 91fL (79-100) Mean Corpuscular Hemoglobin 30pg (25-35) Mean Corpuscular Hemoglobin Concent 33g/dL (31-37) Red Cell Distribution Width 13.5% (11.5-14.5) Platelet Count 101x10^3/uL (140-400) Neutrophils (%) (Auto) 50% (31-73) Lymphocytes (%) (Auto) 37% (24-48) Monocytes (%) (Auto) 9% (0-9) Eosinophils (%) (Auto) 4% (0-3) Basophils (%) (Auto) 1% (0-3) Neutrophils # (Auto) 3.3x10^3uL (1.8-7.7) Lymphocytes # (Auto) 2.4x10^3/uL (1.0-4.8) Monocytes # (Auto) 0.6x10^3/uL (0.0-1.1) Eosinophils # (Auto) 0.2x10^3/uL (0.0-0.7) Basophils # (Auto) 0.1x10^3/uL (0.0-0.2) Platelet Estimate Decreased (ADEQUATE) Large Platelets Present Sodium Level 143mmol/L (136-145) Potassium Level 3.9mmol/L (3.5-5.1) Chloride Level 107mmol/L (98-107) Carbon Dioxide Level 23mmol/L (21-32) Anion Gap 13 (6-14) Blood Urea Nitrogen 21mg/dL (8-26) Creatinine 0.9mg/dL (0.7-1.3) Estimated GFR (Cockcroft-Gault) 85.0 Glucose Level 85mg/dL (70-99) Calcium Level 8.9mg/dL (8.5-10.1) Urine Collection Type Unknown Urine Color Zoe Urine Clarity Clear Urine pH 5.5 Urine Specific [place] >=1.030 Urine Protein Negativemg/dL (NEG-TRACE) Urine Glucose (UA) Negativemg/dL (NEG) Urine Ketones (Stick) Negativemg/dL (NEG) Urine Blood Small (NEG) Urine Nitrite Positive (NEG) Urine Bilirubin Negative (NEG) Urine Urobilinogen Dipstick 0.2mg/dL (0.2 mg/dL) Urine Leukocyte Esterase Negative (NEG) Urine RBC 0/HPF (0-2) Urine WBC 1-4/HPF (0-4) Urine Squamous Epithelial Cells Few/LPF Urine Amorphous Sediment Present/HPF Urine Bacteria 0/HPF (0-FEW) Urine Mucus Marked/LPF Assessment/Plan Assessment/Plan Imp: 1. left origin vertebral artery stenosis. 2. Marfan's syndrome Rec: obtain carotid duplex scan with imaging of the right vertebral artery. It was not visualized on the CTA of the chest. F/u after results of that study. JUSTIN KUHN II, MD May 27, 2016 19:12
[2016-05-27] MEDS: SIMVASTATIN 20 MG TABLET PO SCH (21:22)
[2016-05-28] VITALS (10 sets, daily range): BP systolic 85–111; BP diastolic 46–66
[2016-05-28 03:35] LABS: BASO % 1 % (0-3); EOS % 5 % (0-3); HEMATOCRIT 38.3 % (39.0-53.0); HEMOGLOBIN 12.8 g/dL (13.0-17.5); LYMPH # 1.9 x10^3/uL (1.0-4.8); LYMPH % 31 % (24-48); MEAN CORPUSCULAR HEMOGLOBIN 30 pg (25-35); MEAN CORPUSCULAR HGB CONC 33 g/dL (31-37); MEAN CORPUSCULAR VOLUME 91 fL (79-100); MONO % 9 % (0-9); NEUT % 55 % (31-73); PLATELET COUNT 97 x10^3/uL (140-400); RED BLOOD COUNT 4.24 x10^6/uL (4.30-5.70); RED CELL DISTRIBUTION WIDTH 13.4 % (11.5-14.5); WHITE BLOOD COUNT 6.2 x10^3/uL (4.0-11.0)
[2016-05-28 03:58] LABS: ALBUMIN 3.3 g/dL (3.4-5.0); ALBUMIN/GLOBULIN RATIO 1.4 (1.0-1.7); GFR 75.2; POTASSIUM 4.2 mmol/L (3.5-5.1); TOTAL BILIRUBIN 0.2 mg/dL (0.2-1.0); TOTAL PROTEIN 5.7 g/dL (6.4-8.2)
--- NOTE | 2016-05-28 07:48 | PDOC ---
GAYATHRI FAIRCHILD ZIGZAGGER 05/28/16 0748: IM PROGRESS NOTES- Objective Vitals Vital Signs Date Time Temp Pulse Resp B/P Pulse Ox O2 Delivery O2 Flow Rate FiO2 05/28/16 06:00 97.5 93 16 95/62 98 Room Air 97.5 05/28/16 03:00 2.0 Input & Output Intake and Output 05/28/16 07:00 Intake Total 1240 ml Output Total 1251 ml Balance -11 ml Intake Oral 1240 ml Output Urine Total 1251 ml Physical Exam Physical Exam General appearance - alert,well appearing, and in no distress and oriented to person, place, and time Mental Status - alert, oriented to person, place, and time, affect appropriate to mood Head - normal Chest - clear to auscultation, no wheezes, rales or rhonchi, symmetric air entry Heart - S1 and S2 normal Abdomen - soft, nontender, nondistended, no masses or organomegaly Neurological - alert and oriented Musculoskeletal - no muscular tenderness noted Extremities - no pedal edema Skin - warm and dry Labs Laboratory Tests Test 05/26/16 12:51 05/26/16 21:35 05/27/16 03:38 05/27/16 11:50 White Blood Count 11.6x10^3/uL (4.0-11.0) 6.6x10^3/uL (4.0-11.0) Red Blood Count 5.26x10^6/uL (4.30-5.70) 4.30x10^6/uL (4.30-5.70) Hemoglobin 16.0g/dL (13.0-17.5) 12.9g/dL (13.0-17.5) Hematocrit 47.9% (39.0-53.0) 39.3% (39.0-53.0) Mean Corpuscular Volume 91fL (79-100) 91fL (79-100) Mean Corpuscular Hemoglobin 30pg (25-35) 30pg (25-35) Mean Corpuscular Hemoglobin Concent 33g/dL (31-37) 33g/dL (31-37) Red Cell Distribution Width 13.2% (11.5-14.5) 13.5% (11.5-14.5) Platelet Count 131x10^3/uL (140-400) 101x10^3/uL (140-400) Neutrophils (%) (Auto) 64% (31-73) 50% (31-73) Lymphocytes (%) (Auto) 24% (24-48) 37% (24-48) Monocytes (%) (Auto) 10% (0-9) 9% (0-9) Eosinophils (%) (Auto) 2% (0-3) 4% (0-3) Basophils (%) (Auto) 1% (0-3) 1% (0-3) Neutrophils # (Auto) 7.5x10^3uL (1.8-7.7) 3.3x10^3uL (1.8-7.7) Lymphocytes # (Auto) 2.8x10^3/uL (1.0-4.8) 2.4x10^3/uL (1.0-4.8) Monocytes # (Auto) 1.1x10^3/uL (0.0-1.1) 0.6x10^3/uL (0.0-1.1) Eosinophils # (Auto) 0.2x10^3/uL (0.0-0.7) 0.2x10^3/uL (0.0-0.7) Basophils # (Auto) 0.1x10^3/uL (0.0-0.2) 0.1x10^3/uL (0.0-0.2) Platelet Estimate Decreased (ADEQUATE) Decreased (ADEQUATE) Sodium Level 141mmol/L (136-145) 143mmol/L (136-145) Potassium Level 3.5mmol/L (3.5-5.1) 3.9mmol/L (3.5-5.1) Chloride Level 101mmol/L (98-107) 107mmol/L (98-107) Carbon Dioxide Level 26mmol/L (21-32) 23mmol/L (21-32) Anion Gap 14 (6-14) 13 (6-14) Blood Urea Nitrogen 19mg/dL (8-26) 21mg/dL (8-26) Creatinine 1.1mg/dL (0.7-1.3) 0.9mg/dL (0.7-1.3) Estimated GFR (Cockcroft-Gault) 67.4 85.0 Glucose Level 116mg/dL (70-99) 85mg/dL (70-99) Calcium Level 9.9mg/dL (8.5-10.1) 8.9mg/dL (8.5-10.1) Magnesium Level 1.8mg/dL (1.8-2.4) Troponin I Quantitative < 0.017ng/mL (0.000-0.055) < 0.017ng/mL (0.000-0.055) < 0.017ng/mL (0.000-0.055) Thyroid Stimulating Hormone (TSH) 1.328uIU/mL (0.358-3.74) Large Platelets Present Urine Collection Type Unknown Urine Color Zoe Urine Clarity Clear Urine pH 5.5 Urine Specific [place] >=1.030 Urine Protein Negativemg/dL (NEG-TRACE) Urine Glucose (UA) Negativemg/dL (NEG) Urine Ketones (Stick) Negativemg/dL (NEG) Urine Blood Small (NEG) Urine Nitrite Positive (NEG) Urine Bilirubin Negative (NEG) Urine Urobilinogen Dipstick 0.2mg/dL (0.2 mg/dL) Urine Leukocyte Esterase Negative (NEG) Urine RBC 0/HPF (0-2) Urine WBC 1-4/HPF (0-4) Urine Squamous Epithelial Cells Few/LPF Urine Amorphous Sediment Present/HPF Urine Bacteria 0/HPF (0-FEW) Urine Mucus Marked/LPF Test 05/28/16 03:00 White Blood Count 6.2x10^3/uL (4.0-11.0) Red Blood Count 4.24x10^6/uL (4.30-5.70) Hemoglobin 12.8g/dL (13.0-17.5) Hematocrit 38.3% (39.0-53.0) Mean Corpuscular Volume 91fL (79-100) Mean Corpuscular Hemoglobin 30pg (25-35) Mean Corpuscular Hemoglobin Concent 33g/dL (31-37) Red Cell Distribution Width 13.4% (11.5-14.5) Platelet Count 97x10^3/uL (140-400) Neutrophils (%) (Auto) 55% (31-73) Lymphocytes (%) (Auto) 31% (24-48) Monocytes (%) (Auto) 9% (0-9) Eosinophils (%) (Auto) 5% (0-3) Basophils (%) (Auto) 1% (0-3) Neutrophils # (Auto) 3.4x10^3uL (1.8-7.7) Lymphocytes # (Auto) 1.9x10^3/uL (1.0-4.8) Monocytes # (Auto) 0.6x10^3/uL (0.0-1.1) Eosinophils # (Auto) 0.3x10^3/uL (0.0-0.7) Basophils # (Auto) 0.0x10^3/uL (0.0-0.2) Sodium Level 141mmol/L (136-145) Potassium Level 4.2mmol/L (3.5-5.1) Chloride Level 106mmol/L (98-107) Carbon Dioxide Level 27mmol/L (21-32) Anion Gap 8 (6-14) Blood Urea Nitrogen 28mg/dL (8-26) Creatinine 1.0mg/dL (0.7-1.3) Estimated GFR (Cockcroft-Gault) 75.2 BUN/Creatinine Ratio 28 (6-20) Glucose Level 95mg/dL (70-99) Calcium Level 9.0mg/dL (8.5-10.1) Magnesium Level 1.9mg/dL (1.8-2.4) Total Bilirubin 0.2mg/dL (0.2-1.0) Aspartate Amino Transf (AST/SGOT) 15U/L (15-37) Alanine Aminotransferase (ALT/SGPT) 19U/L (16-63) Alkaline Phosphatase 61U/L (46-116) Total Protein 5.7g/dL (6.4-8.2) Albumin 3.3g/dL (3.4-5.0) Albumin/Globulin Ratio 1.4 (1.0-1.7) Laboratory Tests Test 05/27/16 11:50 05/28/16 03:00 Urine Collection Type Unknown Urine Color Zoe Urine Clarity Clear Urine pH 5.5 Urine Specific [place] >=1.030 Urine Protein Negativemg/dL (NEG-TRACE) Urine Glucose (UA) Negativemg/dL (NEG) Urine Ketones (Stick) Negativemg/dL (NEG) Urine Blood Small (NEG) Urine Nitrite Positive (NEG) Urine Bilirubin Negative (NEG) Urine Urobilinogen Dipstick 0.2mg/dL (0.2 mg/dL) Urine Leukocyte Esterase Negative (NEG) Urine RBC 0/HPF (0-2) Urine WBC 1-4/HPF (0-4) Urine Squamous Epithelial Cells Few/LPF Urine Amorphous Sediment Present/HPF Urine Bacteria 0/HPF (0-FEW) Urine Mucus Marked/LPF White Blood Count 6.2x10^3/uL (4.0-11.0) Red Blood Count 4.24x10^6/uL (4.30-5.70) Hemoglobin 12.8g/dL (13.0-17.5) Hematocrit 38.3% (39.0-53.0) Mean Corpuscular Volume 91fL (79-100) Mean Corpuscular Hemoglobin 30pg (25-35) Mean Corpuscular Hemoglobin Concent 33g/dL (31-37) Red Cell Distribution Width 13.4% (11.5-14.5) Platelet Count 97x10^3/uL (140-400) Neutrophils (%) (Auto) 55% (31-73) Lymphocytes (%) (Auto) 31% (24-48) Monocytes (%) (Auto) 9% (0-9) Eosinophils (%) (Auto) 5% (0-3) Basophils (%) (Auto) 1% (0-3) Neutrophils # (Auto) 3.4x10^3uL (1.8-7.7) Lymphocytes # (Auto) 1.9x10^3/uL (1.0-4.8) Monocytes # (Auto) 0.6x10^3/uL (0.0-1.1) Eosinophils # (Auto) 0.3x10^3/uL (0.0-0.7) Basophils # (Auto) 0.0x10^3/uL (0.0-0.2) Sodium Level 141mmol/L (136-145) Potassium Level 4.2mmol/L (3.5-5.1) Chloride Level 106mmol/L (98-107) Carbon Dioxide Level 27mmol/L (21-32) Anion Gap 8 (6-14) Blood Urea Nitrogen 28mg/dL (8-26) Creatinine 1.0mg/dL (0.7-1.3) Estimated GFR (Cockcroft-Gault) 75.2 BUN/Creatinine Ratio 28 (6-20) Glucose Level 95mg/dL (70-99) Calcium Level 9.0mg/dL (8.5-10.1) Magnesium Level 1.9mg/dL (1.8-2.4) Total Bilirubin 0.2mg/dL (0.2-1.0) Aspartate Amino Transf (AST/SGOT) 15U/L (15-37) Alanine Aminotransferase (ALT/SGPT) 19U/L (16-63) Alkaline Phosphatase 61U/L (46-116) Total Protein 5.7g/dL (6.4-8.2) Albumin 3.3g/dL (3.4-5.0) Albumin/Globulin Ratio 1.4 (1.0-1.7) Meds Current Medications Acetaminophen/ Hydrocodone Bitart (Lortab 5/325) 1 tab PRN Q6HRS PRN PO PAIN Last administered on 05/27/16 19:33; Start 05/27/16 at 08:15 Alprazolam (Xanax) 0.5 mg PRN BID PRN PO ANXIETY / AGITATION; Start 05/27/16 at 08:15 Aspirin (Ecotrin) 81 mg DAILY PO Last administered on 05/27/16 08:50; Start 05/27/16 at 09:00 Ceftriaxone Sodium/Sodium Chloride (Rocephin/Iv Sodium Chloride 0.9% 50ml) 50 ml @ 100 mls/hr Q24H IV ; Start 05/28/16 at 07:45; Status UNV Diclofenac Sodium (Voltaren) 1 jesus TID TP Last administered on 05/27/16 21:23; Start 05/27/16 at 09:00 Influenza Virus Vaccine Quadrival (Fluarix Quad 2111-1935 Syringe) 0.5 ml ONCE ONCE VAX IM ; Start 05/27/16 at 09:00; Stop 05/27/16 at 09:01; Status DC Metoprolol Succinate (Toprol Xl) 50 mg DAILY PO ; Start 05/27/16 at 09:30; Stop 05/27/16 at 12:41; Status DC Metoprolol Succinate 25 mg 25 mg DAILY PO ; Start 05/28/16 at 09:00 Pantoprazole Sodium (Protonix) 40 mg DAILYAC PO Last administered on 05/27/16 08:50; Start 05/27/16 at 09:00 Sodium Chloride 1,000 ml @ 75 mls/hr [id number] IV ; Start 05/28/16 at 07:45; Status UNV Tamsulosin HCl (Flomax) 0.4 mg DAILY PO Last administered on 05/27/16 08:50; Start 05/27/16 at 09:00 Assessment Assessment 1. chest pain with h/o CAD/IL 03/29/09 2. acute on chronic chest wall pain-costochondritis 3. cardiac arrhythmia managed with metoprolol succinate 4. severe L vertebral artery stenosis aortic arch 5. h/o hypotension/bradycardia with metoprolol 6. noncompliance with medication due to finances 7. BPH 8. chronic low back pain with radiculopathy, LE weakness bilaterally chronic 9. moderate chronic PCL malnutrition 10. neck pain chronic with radiculopathy bilateral arms, weakness chronic 11. CKD II 12. leukocytosis w/o fever 13. diverticulosis 14. GERD 15. Schatzki ring 16. HH 17. h/o esophageal stricture dilation 02/10/16 18, mild pulmonary HTN 19. valvular insufficiency mild MR TR 20 CAD with EF 55-60% 21. accelerated HTN POA 22. dizziness chronic 23. COPD with emphysema 24. UTI POA PLAN: chest pain-non cardiac cardiology consult CE/troponin, EKG negative suspect r/t chronic costochondritis h/o CAD -low dose ASA 81mg daily severe L vertebral artery stenosis aortic arch vascular surgeon consult carotid arterial duplex scan R vertebral artery -not seen on CTA cardiac arrhythmia med tele metoprolol succinate 50mg x 1 ED now SB-SR rate 50s low 60s monitor orthostatics ortho 05/27 90/58 lying, 89/61 sitting, 90/58 standing metoprolol held 05/28 SBP <100 HR sleeping 47-60s IV NS 75cc/hr dizziness cardiac arrhythmia vs vertebral artery stenosis hypotension IV NS 75cc/hr a/c costochondritis resume voltaren gel topically continue pain medication oral leukocytosis w/o fever Admit WBC 11.6 05/28 6.2 recheck check UA + nitrite CXR clear dyspnea multifactorial DVT/GI prophylaxis SCD/LUDMILA PPI UTI POA no sepsis UA +nitrite, small blood, WBC 1-4 Rocephin 1gm IV q12H await ID For more details regarding further plans, please refer to the orders. Plan Plan Marfan syndrome Vertebral artery stenosis- consult vascular surgery- . The patient was seen and examined by me. Chart reviewed and plan of care formulated. Discussed with, reviewed and agree with TITLE I TEACHER's notes, plan of care and orders with modifications as necessary. For more details regarding further plans, please refer to the orders. Nutrition Consultation Dietary Evaluation: Recommendations by RD: Protein supplementation Expected Outcomes/Goals: to meet > 75% est nutr needs Malnutrition Findings: Body Fat Depletion (Non Severe: Mild Depletion Weight Status: Underweight TIANA POTTER MD 05/28/16 1001: IM PROGRESS NOTES- Assessment Assessment The patient was seen and examined by me. Chart reviewed and plan of care formulated. Discussed with, reviewed and agree with TITLE I TEACHER's notes, plan of care and orders with modifications as necessary. For more details regarding further plans, please refer to the orders. GAYATHRI FAIRCHILD APRN May 28, 2016 07:48 TIANA POTTER MD May 28, 2016 10:01
--- NOTE | 2016-05-28 08:00 | RAD ---
Exam performed: Carotid Doppler. Clinical indication: Chest pain, dizziness, history of Marfan syndrome Date of Service: 05/28/16. Comparison :None available. Technique: Real-time grayscale and Doppler evaluation of the carotid system was performed and images are obtained. Color flow and spectral analysis was observed. Findings: There is mild atheromatous plaquing within both distal common carotid arteries, carotid bulbs extending into the internal carotid artery bilaterally. Doppler interrogation reveals normal waveforms and velocities as follows . Peak systolic velocity within the right common carotid artery measures 98.0 cm/sec whereas on the left measures 102.0 cm/sec . The peak systolic velocity within the right ICA measures 77.0 cm/sec whereas on the left measures 75.0 cm/sec. The ICA to CCA ratio on the right measures 0.84 whereas on the left measures 0.74. There is antegrade flow in both vertebral arteries. There is suggestion of stenosis of the left vertebral artery origin Impression: 1.Mild plaquing involving both carotid systems without any flow-limiting stenosis. 2. Suggestion of stenosis of the left vertebral artery origin. Evaluation with CT angiogram carotids may be of additional benefit to evaluate the exact extent of stenosis Note: Stenosis calculations for CT, MR and conventional angiography are based upon determination of the distal ICA diameter in accordance with the NASCET methodology. Stenosis calculations for doppler studies are derived from validated velocity criteria which are known to correlate with NASCET methodology of determining stenosis.
[2016-05-28] MEDS: CEFTRIAXONE SODIUM 1 GM in IV NORMAL SALINE 50ML 50 ML IV SCH (08:55)
[2016-05-28] MEDS: PANTOPRAZOLE 40 MG TABLET. PO SCH (08:56)
[2016-05-28] MEDS: ASPIRIN ENTERIC COATED 81 MG TABLET.DR. PO SCH (08:56)
[2016-05-28] MEDS: IV NORMAL SALINE 1000ML BAG 1,000 ML IV SCH (08:56)
[2016-05-28] MEDS: TAMSULOSIN 0.4 MG CAP.ER.24H. PO SCH (08:56)
[2016-05-28] MEDS: FLECAINIDE 50 MG TABLET. PO SCH ×2 (08:58→21:55)
[2016-05-28] MEDS: DICLOFENAC SODIUM 1% TOPICAL GEL 100GM TUBE. TP SCH ×3 (08:59→21:53)
[2016-05-28] MEDS: METOPROLOL SUCC 24HR ER 25 MG TAB.ER.24H. PO SCH (09:00)
--- NOTE | 2016-05-28 09:27 | PDOC ---
Provider Note Provider Note Vascular S: Patient without complaints O: alert and Ox3 VSS HR 50s palpable emerald radial pulses Carotid US: The ICA to CCA ratio on the right measures 0.84 whereas on the left measures 0.74. There is antegrade flow in both vertebral arteries. There is suggestion of stenosis of the left vertebral artery origin Impression: 1.Mild plaquing involving both carotid systems without any flow-limiting stenosis. 2. Suggestion of stenosis of the left vertebral artery origin. Evaluation with CT angiogram carotids may be of additional benefit to evaluate the exact extent of stenosis A/P: 1. left origin vertebral artery stenosis. 2. Marfan's syndrome Rec: obtain CT angio with imaging of the right vertebral artery. It was not visualized on the CTA of the chest and non-specific on US. F/u after results of that study. PAPITO STEWART APRN May 28, 2016 09:27
[2016-05-28] MEDS ORDERED: CONTRAST GIVEN MC PRN (10:00)
[2016-05-28] MEDS ORDERED: IOHEXOL 350 MG/ML 100ML VIAL. IV ONE (10:30)
--- NOTE | 2016-05-28 12:54 | EKG ---
[facility] [address] [place] [address] Test Date: 2016-05-28 Test Time: 12:52:48 Pat Name: MARNIE FRIEDMAN Department: Room: 512 1 Gender: M Analytics Leader: MICHAEL : 1950 Requested By: VAHE ROTHMAN Order Number: [id number] Reading MD: Eder Villegas Measurements Intervals [place] Rate: 62 P: 62 SD: 184 QRS: 63 QRSD: 88 T: 89 QT: 404 QTc: 412 Interpretive Statements SINUS RHYTHM LEFT ATRIAL ABNORMALITY S1,S2,S3 PATTERN NONSPECIFIC ST-T WAVE CHANGES. RI6.01 Electronically Signed On 06-01-2016 13:48:26 DATABASE MODELER by Eder Villegas
--- NOTE | 2016-05-28 13:53 | RAD ---
CTA of neck and CTA [place] dated 05/28/16. Comparison: [None available] Clinical Indication: Chest pain, dizziness, history of Marfan syndrome. Technical factors: Routine CTA of the neck and [place] was performed after the bolus administration of 75 cc of Omnipaque 300. Sagittal and coronal MIP images were obtained and reviewed. Study was post processed at a reformatted 3-D workstation. Findings: The contrast bolus is adequate. Aortic Arch: The aortic arch is not included on the images, however a normal three-vessel origin is seen. Left subclavian artery: [Demonstrates normal course and caliber. No atheromatous plaquing or stenosis seen.]. Left vertebral artery:: [Left vertebral artery origin is not clearly noted on the images. Normal intraforaminal and intradural course is seen. No atheromatous plaquing or stenosis identified. Left carotid artery: [Origin not clearly seen. The visualized common carotid artery, carotid bulb and internal carotid artery appears normal in course and caliber. No atheromatous plaquing or stenosis seen.] Innominate artery: Origin is not seen, however a normal bifurcation into right subclavian and right common carotid artery is seen.]. Right subclavian artery:: [Normal course and caliber without atheromatous plaquing or stenosis.]. Right vertebral artery: [Normal origin of the right vertebral artery from the right subclavian artery demonstrating normal intraforaminal and intravertebral course]. Right Carotid Artery: [Normal origin of the right common carotid artery from the innominate artery. Normal common carotid artery, carotid bifurcation and internal carotid artery is noted. No focal stenosis or aneurysm seen. [place]: [Normal bilateral distal internal carotid arteries demonstrating normal bifurcation into anterior and middle cerebral arteries is seen. No focal stenosis or aneurysm is identified. Co dominant bilateral vertebral arteries with a normal vertebrobasilar confluence. Normal basilar artery bifurcation into posterior cerebral arteries is seen. Dominant right posterior communicating artery. No focal stenosis or aneurysm is seen. The ventricles are midline without evidence of dilatation. No enhancing mass lesion is seen. The paranasal sinuses are clear. The orbits are bilaterally symmetric. The evaluated portions of the neck appears normal thyroid gland appears symmetric. Lung apices are clear. Impression CTA Neck: [Essentially unremarkable bilateral carotid arteries without evidence of atheromatous plaquing or stenosis Impression CTA [place]: [Normal [place] without evidence of stenosis or aneurysm.] Note: Stenosis calculations for CT, MR and conventional angiography are based upon determination of the distal ICA diameter in accordance with the NASCET methodology. Stenosis calculations for doppler studies are derived from validated velocity criteria which are known to correlate with NASCET methodology of determining stenosis. PQRS Compliance Statement: One or more of the following individualized dose reduction techniques were utilized for this examination: 1. Automated exposure control 2. Adjustment of the mA and/or kV according to patient size 3. Use of iterative reconstruction technique
--- NOTE | 2016-05-28 17:23 | CONS ---
DATE OF CONSULTATION: 05/27/2016 HISTORY OF PRESENT ILLNESS: A 65-year-old gentleman who was admitted with a chief complaint of chest pain. We have been asked to see him because a CT angiogram was done of the chest and proximal neck. 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 The right vertebral artery was not visualized on the study. He is not having stroke-like symptoms. He does have occasional dizziness. PAST MEDICAL HISTORY: Significant for Marfan syndrome, hyperlipidemia, mitral and tricuspid regurgitation, mild pulmonary hypertension, and lumbar stenosis and lumbar radiculopathy affecting the left leg. PAST SURGICAL HISTORY: Includes cervical spine procedure, lumbar spine operation. FAMILY HISTORY: Significant for brother who also has Marfan syndrome. Family history of coronary artery disease. SOCIAL HISTORY: He is a nonsmoker. REVIEW OF SYSTEMS: A fourteen-point review of systems, he has some numbness in the left leg, but again no stroke-like symptoms and otherwise negative. PHYSICAL EXAMINATION: GENERAL: The patient is alert and awake, edentulous, a bit hard to understand. He has pectus excavatum. ABDOMEN: Soft and nontender. He has palpable femoral, popliteal, and pedal pulses. There is no edema. NEUROLOGIC: Unremarkable. DIAGNOSTIC RADIOLOGY TESTS: As above. IMPRESSION: 1. Left origin stenosis of the vertebral artery arising from the arch of the aorta between the left subclavian and left common carotid arteries. 2. Nonvisualization of the right vertebral artery because of the imaging limitations. The brachiocephalic, right subclavian, right carotid arteries, and common carotid arteries were not visualized on this study. PLAN: Obtain a carotid duplex scan to assess the flow in the right vertebral artery. In the absence of significant stenosis there, then he would not necessarily need anything from a vascular standpoint. We will follow up after the results of the carotid duplex scan. Thank you for allowing us to evaluate him. JUSTIN KUHN MD DR: GRANT/jarocho JOB#: [id number] / [id number]
[2016-05-28] MEDS: SIMVASTATIN 20 MG TABLET PO SCH (21:56)
[2016-05-29 03:00] VITALS: BP 118/68
[2016-05-29] MEDS: IV NORMAL SALINE 1000ML BAG 1,000 ML IV SCH ×2 (04:29→10:40)
[2016-05-29] MEDS: PANTOPRAZOLE 40 MG TABLET. PO SCH (05:37)
[2016-05-29 06:29] LABS: BASO % 1 % (0-3); EOS % 5 % (0-3); HEMATOCRIT 37.9 % (39.0-53.0); HEMOGLOBIN 12.6 g/dL (13.0-17.5); LYMPH # 1.5 x10^3/uL (1.0-4.8); LYMPH % 26 % (24-48); MEAN CORPUSCULAR HEMOGLOBIN 30 pg (25-35); MEAN CORPUSCULAR HGB CONC 33 g/dL (31-37); MEAN CORPUSCULAR VOLUME 91 fL (79-100); MONO % 10 % (0-9); NEUT % 58 % (31-73); PLATELET COUNT 96 x10^3/uL (140-400); RED BLOOD COUNT 4.18 x10^6/uL (4.30-5.70); RED CELL DISTRIBUTION WIDTH 13.2 % (11.5-14.5); WHITE BLOOD COUNT 5.8 x10^3/uL (4.0-11.0)
[2016-05-29 06:44] LABS: ALBUMIN 3.3 g/dL (3.4-5.0); ALBUMIN/GLOBULIN RATIO 1.3 (1.0-1.7); CALCIUM 8.9 mg/dL (8.5-10.1); CREATININE 0.9 mg/dL (0.7-1.3); POTASSIUM 3.9 mmol/L (3.5-5.1); TOTAL BILIRUBIN 0.4 mg/dL (0.2-1.0); TOTAL PROTEIN 5.9 g/dL (6.4-8.2)
[2016-05-29 07:30] VITALS: BP_SYST 103; BP_SYST 107; BP_SYST 91; BP_DIAS 59; BP_DIAS 60; BP_DIAS 67
[2016-05-29] MEDS: CEFTRIAXONE SODIUM 1 GM in IV NORMAL SALINE 50ML 50 ML IV SCH (07:50)
--- NOTE | 2016-05-29 08:44 | PDOC3 ---
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 chest pain with h/o CAD/CA 03/29/09 secondary to chronic costochondritis 2. acute on chronic chest wall pain-costochondritis 3. cardiac arrhythmia managed with metoprolol succinate 4. severe L vertebral artery stenosis aortic arch negative per CTA 5. h/o hypotension/bradycardia with metoprolol 6. noncompliance with medication due to finances 7. BPH 8. chronic low back pain with radiculopathy, LE weakness bilaterally chronic 9. moderate chronic PCL malnutrition 10. neck pain chronic with radiculopathy bilateral arms, weakness chronic 11. CKD II 12. leukocytosis w/o fever reactive 13. diverticulosis 14. GERD 15. Schatzki ring 16. HH 17. h/o esophageal stricture dilation 02/10/16 18, mild pulmonary HTN 19. valvular insufficiency mild MR TR 20 CAD with EF 55-60% 21. accelerated HTN POA 22. dizziness chronic 23. COPD with emphysema 24. UTI negative 25. mild mitral valve prolapse Consults Consults Marquis Patricio MD Labs Labs Laboratory Tests Test 05/26/16 12:51 05/26/16 21:35 05/27/16 03:38 05/27/16 11:50 White Blood Count 11.6x10^3/uL (4.0-11.0) 6.6x10^3/uL (4.0-11.0) Red Blood Count 5.26x10^6/uL (4.30-5.70) 4.30x10^6/uL (4.30-5.70) Hemoglobin 16.0g/dL (13.0-17.5) 12.9g/dL (13.0-17.5) Hematocrit 47.9% (39.0-53.0) 39.3% (39.0-53.0) Mean Corpuscular Volume 91fL (79-100) 91fL (79-100) Mean Corpuscular Hemoglobin 30pg (25-35) 30pg (25-35) Mean Corpuscular Hemoglobin Concent 33g/dL (31-37) 33g/dL (31-37) Red Cell Distribution Width 13.2% (11.5-14.5) 13.5% (11.5-14.5) Platelet Count 131x10^3/uL (140-400) 101x10^3/uL (140-400) Neutrophils (%) (Auto) 64% (31-73) 50% (31-73) Lymphocytes (%) (Auto) 24% (24-48) 37% (24-48) Monocytes (%) (Auto) 10% (0-9) 9% (0-9) Eosinophils (%) (Auto) 2% (0-3) 4% (0-3) Basophils (%) (Auto) 1% (0-3) 1% (0-3) Neutrophils # (Auto) 7.5x10^3uL (1.8-7.7) 3.3x10^3uL (1.8-7.7) Lymphocytes # (Auto) 2.8x10^3/uL (1.0-4.8) 2.4x10^3/uL (1.0-4.8) Monocytes # (Auto) 1.1x10^3/uL (0.0-1.1) 0.6x10^3/uL (0.0-1.1) Eosinophils # (Auto) 0.2x10^3/uL (0.0-0.7) 0.2x10^3/uL (0.0-0.7) Basophils # (Auto) 0.1x10^3/uL (0.0-0.2) 0.1x10^3/uL (0.0-0.2) Platelet Estimate Decreased (ADEQUATE) Decreased (ADEQUATE) Sodium Level 141mmol/L (136-145) 143mmol/L (136-145) Potassium Level 3.5mmol/L (3.5-5.1) 3.9mmol/L (3.5-5.1) Chloride Level 101mmol/L (98-107) 107mmol/L (98-107) Carbon Dioxide Level 26mmol/L (21-32) 23mmol/L (21-32) Anion Gap 14 (6-14) 13 (6-14) Blood Urea Nitrogen 19mg/dL (8-26) 21mg/dL (8-26) Creatinine 1.1mg/dL (0.7-1.3) 0.9mg/dL (0.7-1.3) Estimated GFR (Cockcroft-Gault) 67.4 85.0 Glucose Level 116mg/dL (70-99) 85mg/dL (70-99) Calcium Level 9.9mg/dL (8.5-10.1) 8.9mg/dL (8.5-10.1) Magnesium Level 1.8mg/dL (1.8-2.4) Troponin I Quantitative < 0.017ng/mL (0.000-0.055) < 0.017ng/mL (0.000-0.055) < 0.017ng/mL (0.000-0.055) Thyroid Stimulating Hormone (TSH) 1.328uIU/mL (0.358-3.74) Large Platelets Present Urine Collection Type Unknown Urine Color Zoe Urine Clarity Clear Urine pH 5.5 Urine Specific [place] >=1.030 Urine Protein Negativemg/dL (NEG-TRACE) Urine Glucose (UA) Negativemg/dL (NEG) Urine Ketones (Stick) Negativemg/dL (NEG) Urine Blood Small (NEG) Urine Nitrite Positive (NEG) Urine Bilirubin Negative (NEG) Urine Urobilinogen Dipstick 0.2mg/dL (0.2 mg/dL) Urine Leukocyte Esterase Negative (NEG) Urine RBC 0/HPF (0-2) Urine WBC 1-4/HPF (0-4) Urine Squamous Epithelial Cells Few/LPF Urine Amorphous Sediment Present/HPF Urine Bacteria 0/HPF (0-FEW) Urine Mucus Marked/LPF Test 05/28/16 03:00 05/29/16 05:50 White Blood Count 6.2x10^3/uL (4.0-11.0) 5.8x10^3/uL (4.0-11.0) Red Blood Count 4.24x10^6/uL (4.30-5.70) 4.18x10^6/uL (4.30-5.70) Hemoglobin 12.8g/dL (13.0-17.5) 12.6g/dL (13.0-17.5) Hematocrit 38.3% (39.0-53.0) 37.9% (39.0-53.0) Mean Corpuscular Volume 91fL (79-100) 91fL (79-100) Mean Corpuscular Hemoglobin 30pg (25-35) 30pg (25-35) Mean Corpuscular Hemoglobin Concent 33g/dL (31-37) 33g/dL (31-37) Red Cell Distribution Width 13.4% (11.5-14.5) 13.2% (11.5-14.5) Platelet Count 97x10^3/uL (140-400) 96x10^3/uL (140-400) Neutrophils (%) (Auto) 55% (31-73) 58% (31-73) Lymphocytes (%) (Auto) 31% (24-48) 26% (24-48) Monocytes (%) (Auto) 9% (0-9) 10% (0-9) Eosinophils (%) (Auto) 5% (0-3) 5% (0-3) Basophils (%) (Auto) 1% (0-3) 1% (0-3) Neutrophils # (Auto) 3.4x10^3uL (1.8-7.7) 3.4x10^3uL (1.8-7.7) Lymphocytes # (Auto) 1.9x10^3/uL (1.0-4.8) 1.5x10^3/uL (1.0-4.8) Monocytes # (Auto) 0.6x10^3/uL (0.0-1.1) 0.6x10^3/uL (0.0-1.1) Eosinophils # (Auto) 0.3x10^3/uL (0.0-0.7) 0.3x10^3/uL (0.0-0.7) Basophils # (Auto) 0.0x10^3/uL (0.0-0.2) 0.0x10^3/uL (0.0-0.2) Sodium Level 141mmol/L (136-145) 142mmol/L (136-145) Potassium Level 4.2mmol/L (3.5-5.1) 3.9mmol/L (3.5-5.1) Chloride Level 106mmol/L (98-107) 107mmol/L (98-107) Carbon Dioxide Level 27mmol/L (21-32) 25mmol/L (21-32) Anion Gap 8 (6-14) 10 (6-14) Blood Urea Nitrogen 28mg/dL (8-26) 22mg/dL (8-26) Creatinine 1.0mg/dL (0.7-1.3) 0.9mg/dL (0.7-1.3) Estimated GFR (Cockcroft-Gault) 75.2 85.0 BUN/Creatinine Ratio 28 (6-20) 24 (6-20) Glucose Level 95mg/dL (70-99) 88mg/dL (70-99) Calcium Level 9.0mg/dL (8.5-10.1) 8.9mg/dL (8.5-10.1) Magnesium Level 1.9mg/dL (1.8-2.4) Total Bilirubin 0.2mg/dL (0.2-1.0) 0.4mg/dL (0.2-1.0) Aspartate Amino Transf (AST/SGOT) 15U/L (15-37) 15U/L (15-37) Alanine Aminotransferase (ALT/SGPT) 19U/L (16-63) 17U/L (16-63) Alkaline Phosphatase 61U/L (46-116) 56U/L (46-116) Total Protein 5.7g/dL (6.4-8.2) 5.9g/dL (6.4-8.2) Albumin 3.3g/dL (3.4-5.0) 3.3g/dL (3.4-5.0) Albumin/Globulin Ratio 1.4 (1.0-1.7) 1.3 (1.0-1.7) Medications Medications Medications reviewed and reconciled for discharge. Brief hospital course Brief hospital course This 65 year old male who presented with chest pain was admitted. The follow is a summary of his treatment: chest pain-non cardiac r/t chronic costochondritis cardiology consult CE/troponin, EKG negative h/o CAD -low dose ASA 81mg daily chest wall pain improved severe L vertebral artery stenosis aortic arch-negative per CTA vascular surgeon consult carotid arterial duplex scan R vertebral artery -not seen on CTA CTA-negative vertebral artery stenosis cardiac arrhythmia med tele metoprolol succinate 50mg x 1 ED now SB-SR rate 50s low 60s monitor orthostatics ortho 05/27 90/58 lying, 89/61 sitting, 90/58 standing 05/28 metoprolol held 05/28 SBP <100 HR sleeping 47-60s IV NS 100cc/hr Orthos 05/29/16 107/60-72 lying, 91/59 -69 sitting, 103/67 - 97 standing. HR 50s sleeping, 60s-100 awake, trends up with activity Flecainide 50mg daily, metoprolol Succ 25mg daily BP last 24h 85/60-118/58-?not tolerating metoprolol dizziness cardiac arrhythmia vs vertebral artery stenosis hypotension-BP last 24h 85/60-118/58 IV NS 100cc/hr a/c costochondritis resume voltaren gel topically continue pain medication oral improved leukocytosis w/o fever Admit WBC 11.6 05/29 5.8 recheck check UA + nitrite, culture negative CXR clear stop rocephin dyspnea multifactorial DVT/GI prophylaxis SCD/LUDMILA PPI UTI POA no sepsis-URINE C/S neg UA +nitrite, small blood, WBC 1-4 Rocephin 1gm IV q12H await ID -negative, stop Rocephin thrombocytopenia, chronic Admit Plt 131 05/29 96 For more details regarding the past history, family history, social history, surgical history and other details, please refer to History and Physical. Will plan home discharge with HHN PT OT when consultants in agreement. Medications adjust per cardiology. Will need updated on discharge medications if changes made. F/U in office Wednesday. Please refer to discharge orders. Subjective alert, feeling better, back hurting (chronic pain) Objective no distress Vitals Vital Signs Date Time Temp Pulse Resp B/P Pulse Ox O2 Delivery O2 Flow Rate FiO2 05/29/16 07:30 72 103/67 05/29/16 07:30 97.7 18 94 Room Air 97.7 Physical Exam General appearance - alert,well appearing, and in no distress Mental Status - alert, oriented to person, place, and time, affect appropriate to mood Head - normal Chest - clear to auscultation, no wheezes, rales or rhonchi, pectus excavatum present Heart - S1 and S2 normal Abdomen - soft, nontender, nondistended, BS+ Neurological - no acute focal neurological deficit noted Musculoskeletal - chest wall pain decreased L side, tender LS with mild pain with ROM Extremities - no pedal edema Skin - warm and dry Medications Medications reviewed. Allergy Allergies Coded Allergies Type Severity Reaction Last Updated Verified No Known Drug Allergies 02/10/[address] Potter or Riky on Wednesday Disposition: Home health services Comments Discharge Management - 35 minutes. For other details please refer to discharge instructions TIANA POTTER MD 05/29/16 1009: IM DISCHARGE & PROGRESS NOTES Brief hospital course Brief hospital course Doing better.No vertebral artery stenosis. The patient was seen and examined by me. Chart reviewed and plan of care formulated. Discussed with, reviewed and agree with PRESSER HAND's notes, plan of care and orders with modifications as necessary. Discharge Management - 35 minutes. GAYATHRI FAIRCHILD APRN May 29, 2016 08:44 TIANA POTTER MD May 29, 2016 10:09
--- NOTE | 2016-05-29 08:45 | DISCH ---
DISCHARGE FINAL DIAGNOSIS Problems Medical Problems: (1) Chest pain Status: Acute (2) SOB (shortness of breath) Status: Acute CONDITION ON DISCHARGE: Stable HOME HEALTH: Yes (PT OT) PT. HAS FUNCTIONAL LIMITATIONS: Yes FACE TO FACE ENCOUNTER: Yes POST DISCHARGE ORDERS ACTIVITY ORDERS: Activity as tolerated, Walk in house WEIGHT BEARING STATUS: No restrictions DIET AFTER DISCHARGE: Cardiac FOLLOW-UP PHYSICIAN FOLLOW-UP: Dr. Tyler or Riky on Wednesday TREATMENT/EQUIPMENT ORDERS ADAPTIVE EQUIPMENT NEEDED: Qamar Lunsford JANICE M APRN May 29, 2016 08:45
[2016-05-29] MEDS ORDERED: ASPI-482 PO (08:46)
[2016-05-29] MEDS: METOPROLOL SUCC 24HR ER 25 MG TAB.ER.24H. PO SCH (09:00)
--- NOTE | 2016-05-29 09:18 | DISCH ---
DISCHARGE WITH HOME HEALTH DISCHARGE INFORMATION: Final Diagnosis: Problems Medical Problems: (1) Chest pain Status: Acute (2) SOB (shortness of breath) Status: Acute Condition on Discharge: Stable HOME HEALTH: Face to Face: I certify this patient is under my care and that I, or a nurse practitioner or physician's res habilitation assistant working with me, had a face to face encounter that meets the physician face to face encounter requirements with this patient on 05/29/16. Medical Condition(s): Falls Intermediate For: Assess/Skilled Observatio Physical Therapy For: Evalulation/Treatment Occupational Therapy For: Evaluation/Treatment Patient meets Homebound Statu: Unsteady balance w/ amb, FOLLOW-UP: Follow up with: Dr. Tyler or Riky Wednesday TREATMENT/EQUIPMENT ORDERS Adaptive Equipment Issued: Qamar CERTIFICATION STATEMENT: Certification Statement: Certification Statement: Based on the above finding, I certify that this patient is confined to the home and needs intermittent detention care, physical therapy and/or speech therapy, or continues to need occupational therapy.~ This patient is under my care, and I have initiated the establishment of the plan of care.~ This patient will be followed by myself or a community physician who will periodically review the plan of care. GAYATHRI FAIRCHILD APRN May 29, 2016 09:18
[2016-05-29] MEDS: TAMSULOSIN 0.4 MG CAP.ER.24H. PO SCH (09:24)
[2016-05-29] MEDS: DICLOFENAC SODIUM 1% TOPICAL GEL 100GM TUBE. TP SCH (09:24)
[2016-05-29] MEDS: FLECAINIDE 50 MG TABLET. PO SCH (09:24)
[2016-05-29] MEDS: ASPIRIN ENTERIC COATED 81 MG TABLET.DR. PO SCH (09:25)
[2016-05-29] MEDS: HYDROCODONE/APAP 5/325MG TABLET. PO PRN (09:28)
[2016-05-29 10:20] VITALS: BP 108/66
--- NOTE | 2016-05-29 10:20 | PDOC ---
Provider Note Provider Note VascularVascular S: Patient without complaints, states he is d/c today O: alert and Ox3 VSS HRR palpable emerald radial pulses CTA Aortic Arch: The aortic arch is not included on the images, however a normal three-vessel origin is seen. Left subclavian artery: [Demonstrates normal course and caliber. No atheromatous plaquing or stenosis seen.]. Left vertebral artery:: [Left vertebral artery origin is not clearly noted on the images. Normal intraforaminal and intradural course is seen. No atheromatous plaquing or stenosis identified. Left carotid artery: [Origin not clearly seen. The visualized common carotid artery, carotid bulb and internal carotid artery appears normal in course and caliber. No atheromatous plaquing or stenosis seen.] Innominate artery: Origin is not seen, however a normal bifurcation into right subclavian and right common carotid artery is seen.]. Right subclavian artery:: [Normal course and caliber without atheromatous plaquing or stenosis.]. Right vertebral artery: [Normal origin of the right vertebral artery from the right subclavian artery demonstrating normal intraforaminal and intravertebral course]. Right Carotid Artery: [Normal origin of the right common carotid artery from the innominate artery. Normal common carotid artery, carotid bifurcation and internal carotid artery is noted. No focal stenosis or aneurysm seen. [place]: [Normal bilateral distal internal carotid arteries demonstrating normal bifurcation into anterior and middle cerebral arteries is seen. No focal stenosis or aneurysm is identified. Co dominant bilateral vertebral arteries with a normal vertebrobasilar confluence. Normal basilar artery bifurcation into posterior cerebral arteries is seen. Dominant right posterior communicating artery. No focal stenosis or aneurysm is seen. Impression CTA Neck: [Essentially unremarkable bilateral carotid arteries without evidence of atheromatous plaquing or stenosis Impression CTA [place]: [Normal [place] without evidence of stenosis or aneurysm.] A/P: 1. left origin vertebral artery stenosis. 2. Marfan's syndrome Rec: Discussed imaging results with Dr. Buitrago, no surgical intervention recommended for left vertebral stenosis, normal vertebrobasilar forward flow. Will sign off for now. PAPITO STEWART APRN May 29, 2016 10:20
--- NOTE | 2016-05-29 10:37 | PDOC ---
CARDIO Progress Notes Date and Time Date of Service 05/29/2016 Time of Evaluation 1030 Subjective Subjective: No Chest Pain, No shortness of breath, No Palpitations, No Dizziness Vitals Vitals Vital Signs Date Time Temp Pulse Resp B/P Pulse Ox O2 Delivery O2 Flow Rate FiO2 05/29/16 09:28 Room Air 05/29/16 09:24 72 103/67 05/29/16 07:30 97.7 18 94 97.7 Weight Weight [ ] Input and Output Intake and Output Intake and Output 05/29/16 07:00 Intake Total 1300 ml Output Total 1350 ml Balance -50 ml Intake Oral 1300 ml Output Urine Total 1350 ml Laboratory Labs Laboratory Tests Test 05/29/16 05:50 White Blood Count 5.8x10^3/uL (4.0-11.0) Red Blood Count 4.18x10^6/uL (4.30-5.70) Hemoglobin 12.6g/dL (13.0-17.5) Hematocrit 37.9% (39.0-53.0) Mean Corpuscular Volume 91fL (79-100) Mean Corpuscular Hemoglobin 30pg (25-35) Mean Corpuscular Hemoglobin Concent 33g/dL (31-37) Red Cell Distribution Width 13.2% (11.5-14.5) Platelet Count 96x10^3/uL (140-400) Neutrophils (%) (Auto) 58% (31-73) Lymphocytes (%) (Auto) 26% (24-48) Monocytes (%) (Auto) 10% (0-9) Eosinophils (%) (Auto) 5% (0-3) Basophils (%) (Auto) 1% (0-3) Neutrophils # (Auto) 3.4x10^3uL (1.8-7.7) Lymphocytes # (Auto) 1.5x10^3/uL (1.0-4.8) Monocytes # (Auto) 0.6x10^3/uL (0.0-1.1) Eosinophils # (Auto) 0.3x10^3/uL (0.0-0.7) Basophils # (Auto) 0.0x10^3/uL (0.0-0.2) Sodium Level 142mmol/L (136-145) Potassium Level 3.9mmol/L (3.5-5.1) Chloride Level 107mmol/L (98-107) Carbon Dioxide Level 25mmol/L (21-32) Anion Gap 10 (6-14) Blood Urea Nitrogen 22mg/dL (8-26) Creatinine 0.9mg/dL (0.7-1.3) Estimated GFR (Cockcroft-Gault) 85.0 BUN/Creatinine Ratio 24 (6-20) Glucose Level 88mg/dL (70-99) Calcium Level 8.9mg/dL (8.5-10.1) Total Bilirubin 0.4mg/dL (0.2-1.0) Aspartate Amino Transf (AST/SGOT) 15U/L (15-37) Alanine Aminotransferase (ALT/SGPT) 17U/L (16-63) Alkaline Phosphatase 56U/L (46-116) Total Protein 5.9g/dL (6.4-8.2) Albumin 3.3g/dL (3.4-5.0) Albumin/Globulin Ratio 1.3 (1.0-1.7) Microbiology Micro Microbiology 05/27/16 Urine Culture - Final, Complete 05/27/16 Urine Culture Result 1 (ABRAM) - Final, Complete Physical Exam HEENT: Neck Supple W Full Motion Chest: Symmetric, Other (pectus excavatum) LUNGS: Clear to Auscultation Heart: S1S2, RRR (SR/ST), murmurs (2/6 systolic murmur to apical site) Abdomen: Soft N/T Extremities: No Edema, No Calf Tenderness Neurology: alert, oriented, follow commands Assessment Assessment 1. Atypical chest pain: doubt ACS, suspect due to anxiety and palpitations 2. SVT: Due to missed doses of BB. intermittent sinus tach with activity otherwise no further SVTs. 3. Asymptomatic bradycardia: BB not given yesterday due to low BP. No further episodes of SB overnight 4. NICM: compensated and much better. Recent echo with normal wall motion; LVEF 55-60% 5. Marfan syndrome/pectus excavatum 6. Mitral valve prolapse: stable 6. Hypertension: no orthostasis. BP at low end. Poor hydration. No orthostasis 7. Hyperlipidemia Recommendations 1. Continue with toprol lower dose at 12.5 mg and flecainide 2. Continue secondary prevention 3. Continue with event monitor, follow up in office as scheduled. Further recommendation upon completion of event monitor. 4. Discussed adherence to treatment 5. Encourage support stocking if it fits. 6. Significant discussion regarding hydration adequacy VAHE ROTHMAN APRN May 29, 2016 10:37
[2016-05-30] MEDS ORDERED: METOPROLOL SUCC 24HR ER 25 MG TAB.ER.24H. PO SCH (09:00)
== END 2016-05-29 13:01 | disposition home health service (06) | DRG 206 ==
LOC: ER 12:42 → 5 NORTH 15:28
PROVIDERS: ADMIT Internal Medicine; ATTEND Internal Medicine
DX: M94.0 Chondrocostal junction syndrome [Tietze] (principal); N39.0 Urinary tract infection, site not specified; Z68.1 Body mass index [BMI] 19.9 or less, adult; I42.9 Cardiomyopathy, unspecified; I47.1 Supraventricular tachycardia; E44.0 Moderate protein-calorie malnutrition; D69.6 Thrombocytopenia, unspecified; E78.00 Pure hypercholesterolemia, unspecified; E78.5 Hyperlipidemia, unspecified; G89.4 Chronic pain syndrome; I08.1 Rheumatic disorders of both mitral and tricuspid valves; I12.9 Hypertensive chronic kidney disease with stage 1 through stage 4 chronic kidney disease, or unspecified chronic kidney disease; I25.10 Atherosclerotic heart disease of native coronary artery without angina pectoris; I27.2 Other secondary pulmonary hypertension; F41.9 Anxiety disorder, unspecified; K57.90 Diverticulosis of intestine, part unspecified, without perforation or abscess without bleeding; M19.90 Unspecified osteoarthritis, unspecified site; M54.5 Low back pain; I49.9 Cardiac arrhythmia, unspecified; J44.9 Chronic obstructive pulmonary disease, unspecified; J45.909 Unspecified asthma, uncomplicated; K21.9 Gastro-esophageal reflux disease without esophagitis; K22.2 Esophageal obstruction; M41.9 Scoliosis, unspecified; M54.10 Radiculopathy, site unspecified; N18.2 Chronic kidney disease, stage 2 (mild); N40.0 Benign prostatic hyperplasia without lower urinary tract symptoms; I25.2 Old myocardial infarction; Z82.3 Family history of stroke; Z82.49 Family history of ischemic heart disease and other diseases of the circulatory system; Z91.14 Patient's other noncompliance with medication regimen; Z79.899 Other long term (current) drug therapy
CPT/HCPCS: 36415; 70496; 70498; 71010; 71275; 80048; 80053; 81001; 83735; 84443; 84484; 85007; 85027; 87086; 93005; 93880; 96361; 96374; 96376; J0696; J2270; J7030; Q9967; 97110; 97535; 99285-25

== ENCOUNTER 2016-06-25 11:36 | Inpatient (IN) | payer MEDICARE, MEDICAID ==
[~2016-06-25] VITALS: Ht 195.6 cm; Wt 59.4 kg
[2016-06-25] MEDS ORDERED: ASPIRIN 325 MG TABLET PO ONE (11:45)
[2016-06-25 12:33] LABS: BASO # 0.1 x10^3/uL (0.0-0.2); BASO % 1 % (0-3); EOS % 2 % (0-3); HEMATOCRIT 44.5 % (39.0-53.0); HEMOGLOBIN 14.8 g/dL (13.0-17.5); LYMPH # 1.3 x10^3/uL (1.0-4.8); LYMPH % 15 % (24-48); MEAN CORPUSCULAR HEMOGLOBIN 30 pg (25-35); MEAN CORPUSCULAR HGB CONC 33 g/dL (31-37); MEAN CORPUSCULAR VOLUME 92 fL (79-100); MONO % 11 % (0-9); NEUT % 72 % (31-73); PLATELET COUNT 117 x10^3/uL (140-400); RED BLOOD COUNT 4.86 x10^6/uL (4.30-5.70); RED CELL DISTRIBUTION WIDTH 13.4 % (11.5-14.5); WHITE BLOOD COUNT 8.3 x10^3/uL (4.0-11.0)
--- NOTE | 2016-06-25 12:33 | RAD ---
Portable chest, 06/25/2016: History: Chest pain, shortness of breath Comparison is made to a study from 05/26/2016. The heart size is normal. The lungs are hyperexpanded. There is bilateral apical pleural/parenchymal scarring, right great than left. There are calcified granulomata in the right chest. No acute infiltrate is seen. There is no evidence of pleural fluid. IMPRESSION: No acute cardiopulmonary abnormality is detected.
--- NOTE | 2016-06-25 12:54 | EKG ---
[facility] [address] [place] [address] Test Date: 2016-06-25 Test Time: 11:48:53 Pat Name: MARNIE FRIEDMAN Department: Room: Gender: M Account Leader: : 1950 Requested By: ANGIE OHARA Order Number: [id number] Reading MD: Glo Acosta Measurements Intervals [place] Rate: 84 P: 67 MT: 184 QRS: 71 QRSD: 92 T: 88 QT: 386 QTc: 460 Interpretive Statements SINUS RHYTHM LEFT ATRIAL ABNORMALITY ABNORMAL ECG Electronically Signed On 06-28-2016 18:36:39 CDT by Glo Acosta
[2016-06-25 13:12] LABS: INR 1.2 (0.8-1.1); PROTHROMBIN TIME PATIENT 14.5 SEC (11.7-14.0)
[2016-06-25 13:14] LABS: CALCIUM 9.6 mg/dL (8.5-10.1); CREATININE 0.9 mg/dL (0.7-1.3); POTASSIUM 3.8 mmol/L (3.5-5.1)
[2016-06-25 13:20] LABS: ALBUMIN/GLOBULIN RATIO 1.1 (1.0-1.7); TOTAL BILIRUBIN 0.5 mg/dL (0.2-1.0); TOTAL PROTEIN 7.5 g/dL (6.4-8.2)
[2016-06-25] MEDS ORDERED: NITROGLYCERIN SUBLINGUAL 0.4 MG BOTTLE OF 25. SL PRN (13:45)
[2016-06-25] MEDS ORDERED: MORPHINE SULFATE 2 MG/ML DISP.SYRIN. IV PRN (13:45)
[2016-06-25] MEDS ORDERED: ONDANSETRON PF 4 MG/2 ML VIAL. IV PRN (13:45)
[2016-06-25] MEDS ORDERED: ACETAMINOPHEN 325 MG TABLET. PO PRN (13:45)
--- NOTE | 2016-06-25 14:05 | PDOC2 ---
CARDIAC CONSULT DATE OF CONSULT Date of Consult DATE: 06/25/16 TIME: 13:20 REASON FOR CONSULT Reason for Consult: Chest pain REFERRING PHYSICIAN Referring Physician: Felicitas SOURCE Source: Chart review, Patient HISTORY OF PRESENT ILLNESS HISTORY OF PRESENT ILLNESS This is a pleasant 65 yo male admitted for complains of chest pain. His chest pain is intermittent and midsternal without radiation. Reports getting dizzy at home and felt some palpitations. Also some mild SOA which all have resolved. No n/v. He has multiple hospitalization in relation to SVTs with multiple modifications on his PSVT controlling medications due to recurrent symptoms of dizziness and low BP. Event monitor was then able to warehouse picker further information and he has been deemed with SSS, tachy jay type. Pacemaker has been scheduled for tomorrow and this has been discussed with pt and is agreeable to proceed. Denies any recent fever, chills, no recent falls. Pls see recent attached office note for further details. CURRENT MEDICATIONS CURRENT MEDICATIONS Current Medications Medications (Trade) Dose Ordered Sig/Marcia Route PRN Reason Start Time Stop Time Status Last Admin Dose Admin Aspirin (Andie Aspirin) 325 mg 1X ONCE PO 06/25/16 11:45 06/25/16 11:46 DC 06/25/16 12:49 ALLERGIES ALLERGIES: Coded Allergies: No Known Drug Allergies (Unverified , 02/10/16) ROS Review of System 14 point ROS evaluated with pertinent positives noted per HPI PHYSICAL EXAM General: Alert, Oriented X3, Cooperative, No acute distress HEENT: Atraumatic, Mucous membr. moist/pink Lungs: Clear to auscultation Heart: Regular rate, Normal S1, Normal S2, Other (2-3/6 systolic murmur to apex /LLS border) Abdomen: Soft Extremities: No cyanosis, Other (trace LE edema) Skin: No breakdown, No significant lesion Neuro: Normal speech, Sensation intact Psych/Mental Status: Mental status NL, Mood NL MUSCULOSKELETAL: Osteoarthritic changes both hands, Other (pectus excavatum; Marfan features) VITALS VITALS Vital Signs Date Time Temp Pulse Resp B/P Pulse Ox O2 Delivery O2 Flow Rate FiO2 06/25/16 11:51 98.0 83 20 118/66 98 Room Air 98.0 LABS Lab: Laboratory Tests Test 06/25/16 12:20 White Blood Count 8.3x10^3/uL (4.0-11.0) Red Blood Count 4.86x10^6/uL (4.30-5.70) Hemoglobin 14.8g/dL (13.0-17.5) Hematocrit 44.5% (39.0-53.0) Mean Corpuscular Volume 92fL (79-100) Mean Corpuscular Hemoglobin 30pg (25-35) Mean Corpuscular Hemoglobin Concent 33g/dL (31-37) Red Cell Distribution Width 13.4% (11.5-14.5) Platelet Count 117x10^3/uL (140-400) Neutrophils (%) (Auto) 72% (31-73) Lymphocytes (%) (Auto) 15% (24-48) Monocytes (%) (Auto) 11% (0-9) Eosinophils (%) (Auto) 2% (0-3) Basophils (%) (Auto) 1% (0-3) Neutrophils # (Auto) 6.0x10^3uL (1.8-7.7) Lymphocytes # (Auto) 1.3x10^3/uL (1.0-4.8) Monocytes # (Auto) 0.9x10^3/uL (0.0-1.1) Eosinophils # (Auto) 0.2x10^3/uL (0.0-0.7) Basophils # (Auto) 0.1x10^3/uL (0.0-0.2) Prothrombin Time 14.5SEC (11.7-14.0) Prothromb Time International Ratio 1.2 (0.8-1.1) Activated Partial Thromboplast Time 32SEC (24-38) Sodium Level 144mmol/L (136-145) Potassium Level 3.8mmol/L (3.5-5.1) Chloride Level 104mmol/L (98-107) Carbon Dioxide Level 26mmol/L (21-32) Anion Gap 14 (6-14) Blood Urea Nitrogen 22mg/dL (8-26) Creatinine 0.9mg/dL (0.7-1.3) Estimated GFR (Cockcroft-Gault) 85.0 BUN/Creatinine Ratio 24 (6-20) Glucose Level 97mg/dL (70-99) Calcium Level 9.6mg/dL (8.5-10.1) Total Bilirubin 0.5mg/dL (0.2-1.0) Aspartate Amino Transf (AST/SGOT) 17U/L (15-37) Alanine Aminotransferase (ALT/SGPT) 27U/L (16-63) Alkaline Phosphatase 76U/L (46-116) Troponin I Quantitative < 0.017ng/mL (0.000-0.055) ED-Pat-X-Type Natriuretic Peptide 83pg/mL (0-124) Total Protein 7.5g/dL (6.4-8.2) Albumin 4.0g/dL (3.4-5.0) Albumin/Globulin Ratio 1.1 (1.0-1.7) ASSESSMENT/PLAN ASSESSMENT/PLAN 1. Chest pain with dizziness: related to palpitations and likely SVT episodes at home. Troponin normal, EKG SR without acute changes. 2. Tachy-Jay syndrome with known PSVT: verified with event monitor. 3. Hx of NICM: EF now at 55-60% 4. Marfan syndrome/pectus excavatum 5. MVP/MR: stable 6. Hypertension: controlled 7. Hyperlipidemia 8. Recently known left vertebral artery stenosis, no surgical recommendation at that time per vascular surgery. Noted with normal vertebrobasilar forward flow. 9. Recent UTI Recommendations 1. Planned PPM, discussed with pt and agreeable. 2. Continue secondary prevention 3. Discussed adherence to treatment 4. Repeat UA. Problems: VAHE ROTHMAN APRN Jun 25, 2016 14:05
--- NOTE | 2016-06-25 15:21 | PHYS DOC ---
Past Medical History Past Medical History: Arthritis, GERD, High Cholesterol, Hypertension, [place], Other Additional Past Medical Histor: Marfan syndrome, chronic pain, prostate problems, VERTIGO Past Surgical History: Other Additional Past Surgical Histo: Lower Back, Neck Additional Information: chews Alcohol Use: None Drug Use: None Adult General Chief Complaint Chief Complaint: CHEST PAIN HPI HPI Patient is a 65 year old female who presents with chest pain & dizziness. Patient reports substernal chest pressure since this morning at unknown time, radiating to left arm. Reports nausea & shortness of breath, denies diaphoresis. Similar to previous chest pain, states he has had "mild heart attack" in the past. Denies fevers/chills, cough, vomiting, lower extremity pain/swelling. Also reports dizziness, no syncope or falls. Has history of sick sinus syndrome & scheduled to have pacemaker placed in the morning by Dr. Perales, wearing a holter monitor today. PCP is Dr. Tyler. Review of Systems Review of Systems Constitutional: Denies fever or chills Eyes: Denies change in visual acuity HENT: Denies nasal congestion or sore throat Respiratory: Denies cough, reports shortness of breath Cardiovascular: Reports chest pain, denies edema GI: Denies abdominal pain, nausea, vomiting, bloody stools or diarrhea : Denies dysuria Musculoskeletal: Denies back pain or joint pain Integument: Denies rash or skin lesions Neurologic: Reports dizziness. Denies headache, focal weakness or sensory changes Current Medications Current Medications Current Medications Medications (Trade) Dose Ordered Sig/Marcia Start Time Stop Time Status Last Admin Dose Admin Aspirin (Andie Aspirin) 325 mg 1X ONCE 06/25/16 11:45 06/25/16 11:46 DC 06/25/16 12:49 325 MG Allergies Allergies Allergies Coded Allergies Type Severity Reaction Last Updated Verified No Known Drug Allergies 02/10/16 No Physical Exam Physical Exam Constitutional: thin, no acute distress, non-toxic appearance. HENT: Normocephalic, atraumatic, bilateral external ears normal, oropharynx moist, nose normal. Eyes: conjunctiva normal, no discharge. Neck: supple, no stridor. Cardiovascular: RRR, no murmurs, no edema. Lungs & Thorax: LCTAB, no wheezing, no respiratory distress. reproducible tenderness with palpation over the sternum. Abdomen: soft, nontender, nondistended. Skin: Warm, dry, no erythema, no rash. Back: No tenderness. Extremities: No tenderness, no edema. no calf tenderness or swelling. Neurologic: Alert and oriented X 3, CN2-12 grossly intact, symmetric strength/ sensation to UE & LE, no focal deficits noted. Psychologic: Affect normal, judgement normal, mood normal. Current Patient Data Vital Signs Vital Signs Date Time Temp Pulse Resp B/P Pulse Ox O2 Delivery O2 Flow Rate FiO2 06/25/16 11:51 98.0 83 20 118/66 98 Room Air 98.0 Lab Values Laboratory Tests Test 06/25/16 12:20 White Blood Count 8.3x10^3/uL (4.0-11.0) Red Blood Count 4.86x10^6/uL (4.30-5.70) Hemoglobin 14.8g/dL (13.0-17.5) Hematocrit 44.5% (39.0-53.0) Mean Corpuscular Volume 92fL (79-100) Mean Corpuscular Hemoglobin 30pg (25-35) Mean Corpuscular Hemoglobin Concent 33g/dL (31-37) Red Cell Distribution Width 13.4% (11.5-14.5) Platelet Count 117x10^3/uL (140-400) L Neutrophils (%) (Auto) 72% (31-73) Lymphocytes (%) (Auto) 15% (24-48) L Monocytes (%) (Auto) 11% (0-9) H Eosinophils (%) (Auto) 2% (0-3) Basophils (%) (Auto) 1% (0-3) Neutrophils # (Auto) 6.0x10^3uL (1.8-7.7) Lymphocytes # (Auto) 1.3x10^3/uL (1.0-4.8) Monocytes # (Auto) 0.9x10^3/uL (0.0-1.1) Eosinophils # (Auto) 0.2x10^3/uL (0.0-0.7) Basophils # (Auto) 0.1x10^3/uL (0.0-0.2) Prothrombin Time 14.5SEC (11.7-14.0) H Prothrombin Time INR 1.2 (0.8-1.1) H PTT 32SEC (24-38) Sodium Level 144mmol/L (136-145) Potassium Level 3.8mmol/L (3.5-5.1) Chloride Level 104mmol/L (98-107) Carbon Dioxide Level 26mmol/L (21-32) Anion Gap 14 (6-14) Blood Urea Nitrogen 22mg/dL (8-26) Creatinine 0.9mg/dL (0.7-1.3) Estimated GFR (Cockcroft-Gault) 85.0 BUN/Creatinine Ratio 24 (6-20) H Glucose Level 97mg/dL (70-99) Calcium Level 9.6mg/dL (8.5-10.1) Total Bilirubin 0.5mg/dL (0.2-1.0) Aspartate Amino Transferase (AST) 17U/L (15-37) Alanine Aminotransferase (ALT) 27U/L (16-63) Alkaline Phosphatase 76U/L (46-116) Troponin I Quantitative < 0.017ng/mL (0.000-0.055) LS-Efv-Z-Type Natriuretic Peptide 83pg/mL (0-124) Total Protein 7.5g/dL (6.4-8.2) Albumin 4.0g/dL (3.4-5.0) Albumin/Globulin Ratio 1.1 (1.0-1.7) Laboratory Tests 06/25/16 12:20 Laboratory Tests 06/25/16 12:20 EKG EKG Abdomen the: Normal sinus rhythm rate 84, no acute ST or T wave changes, normal intervals, no ectopy, artifact present throughout [] Radiology/Procedures Radiology/Procedures PROCEDURE: CHEST AP ONLY Portable chest, 06/25/2016: History: Chest pain, shortness of breath Comparison is made to a study from 05/26/2016. The heart size is normal. The lungs are hyperexpanded. There is bilateral apical pleural/parenchymal scarring, right great than left. There are calcified granulomata in the right chest. No acute infiltrate is seen. There is no evidence of pleural fluid. IMPRESSION: No acute cardiopulmonary abnormality is detected. DICTATED and SIGNED BY: JANAY SMITH MD DATE: 06/25/16 1228[] Course & Med Decision Making Course & Med Decision Making Pertinent Labs and Imaging studies reviewed. (See chart for details) Patient doesn't with chest pain and dizziness. Vitals stable here. Administered aspirin upon arrival. Obtained labs, EKG, chest x-ray. No acute abnormality was identified. Consulted with Zachariah Pierre of cardiology who in turn consulted with Dr. Perales, recommends admission to the hospital for further evaluation and treatment, to undergo pacemaker placement in the morning as scheduled. Patient agrees with plan of care. Patient admitted in stable condition. [] Dragon Disclaimer Dragon Disclaimer This electronic medical record was generated, in whole or in part, using a voice recognition dictation system. Departure Departure Referrals: TIANA TYLER MD (PCP) ANGIE OHARA MD Jun 25, 2016 15:21
[2016-06-25 17:55] VITALS: BP 119/70
--- NOTE | 2016-06-25 18:37 | ACF ---
Admission Forms Criteria CHEST PAIN Clinical Indications for Admission to Inpatient Care (Place 'X' for any and all applicable criteria): Admission is indicated for chest pain and ANY ONE of the following(1)(2)(3)(4)(5 ): [ ]I. Angina with acute coronary syndrome (Also use Myocardial Infarction or Angina guideline) [ ]II. Hemodynamic instability [ ]III. Angina needing acute intervention as indicated by ALL of the following( 11)(12): [ ]a) Unstable angina is present as indicated by angina that is ANY ONE of the following: [ ]i) New onset [ ]ii) Nocturnal [ ]iii) Prolonged at rest [ ]iv) Progressive [ ]b) Angina warrants acute intervention as indicated by ANY ONE of the following: [ ]i) Recurrent angina (e.g, not responding as previously to treatment) [ ]ii) Angina at rest or with low-level activities despite initial medical therapy [ ]iii) New or presumably new ST-segment depression on ECG [ ]iv) Signs or symptoms of heart failure (eg, dyspnea, pulmonary edema) [ ]v) New or worsening mitral regurgitation [ ]vi) Hemodynamic instability [ ]vii) Dangerous arrhythmia (eg, sustained ventricular tachycardia) [ ]viii) History of percutaneous coronary intervention within 6 months [ ]ix) History of coronary artery bypass graft surgery [ ]x) GUNNER risk score of 2 or greater[A] [ ]xi) History of Diabetes(14) [ ]xii) High-risk cardiac ischemia findings on noninvasive testing (e.g, echocardiogram, treadmill testing, nuclear scan) [ ]xiii) Chronic renal insufficiency (ie, estimated GFR less than 60 mL/min/1.732m) [ ]xiv) Left ventricular ejection fraction less than 40% [ ]IV. Evidence of MD (eg, cardiac biomarkers positive, ST-segment elevation on ECG) also use Myocardial Infarction Criteria Form. [ ]V. Pulmonary edema [ ]. Respiratory distress [ ]VII. Chest pain indicative of serious diagnosis other than coronary artery disease (eg, aortic dissection) [ ]VIII. Contraindications and/or Inappropriate clinical situations for Observational Care in patients with Chest Pain, when ANY ONE of the following is required: [ ]a) Patient with risk factor for pulmonary embolism, acute coronary syndrome and myocardial infarction (18) [ ]b) Patient with Pulmonary embolism require an average LOS of 4.3 days, therefore emergency department observation management is inappropriate 18,23 [ ]c) Painful condition/s in the elderly, have the highest rate of recidivism after emergency department observation management (10.8%) 20,21,22 [ ]d) Elevated cardiac biomarker requires intensive and exhaustive care (19) [X]IX. General contraindications and/or Inappropriate clinical situations for Observational Care in patients with Chest Pain, when ANY ONE of the following is required: [X]a) Prediction of prolongation of LOS based on ANY ONE of the following may be considered as a contraindication for observational care 2, 3, 4, 5, 6, 7, 8, 9, 10, 11 [ ]i) Age > 65 yrs. [ ]ii) Patient arriving by ambulance [ ]iii) Patient with high acuity [ ]iv) Patient requiring vital sign monitoring [X]v) Patient on IV medication [ ]b) Systolic blood pressures 180mmHg 3,12 [ ]c) Patient with altered mental status including delirium and other alteration of consciousness, (3) [ ]d) Patient whose discharge disposition will be to a half-way home or rehabilitation home should not be managed in Emergency Department Observation Unit. CMS rule requires 3 days hospital stay before such placement. 3,13 [ ]e) Patient with failure to thrive due to broad array of etiologies 3,16,17 [ ]f) Inability to ambulate 3,14 Extended stay beyond goal length of stay may be needed for (1)(28): [ ]a) Specific condition diagnosed after evaluation (eg, pulmonary embolism, aortic dissection) [ ]b) Unstable angina [ ]c) Continued suspicion of acute coronary syndrome with inability to complete needed cardiac evaluation (eg, patient clinically unable to undergo stress testing) [ ]d) Myocardial infarction (Contents from ANGINA and CHEST PAIN clinical indications for admission to inpatient care have been integrated in this form) The original [facility] content created by [employer] has been revised. The portions of the content which have been revised are identified through the use of italic text or in bold, and [facility] has neither reviewed nor approved the modified material. All other unmodified content is copyright [facility]. Please see references footnoted in the original [facility] edition 2016 Admission Criteria Met?: Yes LAMAR ABBOTT Jun 25, 2016 18:37
[2016-06-25 19:25] VITALS: BP 104/68
[2016-06-25] MEDS: SIMVASTATIN 20 MG TABLET PO SCH (21:27)
[2016-06-25] MEDS: ALPRAZOLAM 0.25 MG TABLET. PO SCH (21:27)
[2016-06-25 23:35] VITALS: BP 99/64
[2016-06-26] VITALS (18 sets, daily range): BP systolic 82–127; BP diastolic 58–82
[2016-06-26 03:16] LABS: BASO # 0.1 x10^3/uL (0.0-0.2); BASO % 1 % (0-3); EOS % 4 % (0-3); HEMATOCRIT 41.1 % (39.0-53.0); HEMOGLOBIN 13.5 g/dL (13.0-17.5); LYMPH # 2.3 x10^3/uL (1.0-4.8); LYMPH % 27 % (24-48); MEAN CORPUSCULAR HEMOGLOBIN 30 pg (25-35); MEAN CORPUSCULAR HGB CONC 33 g/dL (31-37); MEAN CORPUSCULAR VOLUME 92 fL (79-100); MONO % 12 % (0-9); NEUT % 56 % (31-73); PLATELET COUNT 116 x10^3/uL (140-400); RED BLOOD COUNT 4.48 x10^6/uL (4.30-5.70); RED CELL DISTRIBUTION WIDTH 13.6 % (11.5-14.5); WHITE BLOOD COUNT 8.4 x10^3/uL (4.0-11.0)
[2016-06-26 04:12] LABS: ALBUMIN 3.4 g/dL (3.4-5.0); ALBUMIN/GLOBULIN RATIO 1.1 (1.0-1.7); CALCIUM 8.8 mg/dL (8.5-10.1); CREATININE 0.9 mg/dL (0.7-1.3); POTASSIUM 4.1 mmol/L (3.5-5.1); TOTAL BILIRUBIN 0.5 mg/dL (0.2-1.0); TOTAL PROTEIN 6.6 g/dL (6.4-8.2)
[2016-06-26] MEDS ORDERED: CEFAZOLIN 1GM IVPB FOR OMNI 50 ML IV ONE ×2 (06:00→08:30)
[2016-06-26] MEDS ORDERED: CEFAZOLIN SODIUM 1 GM in IV NORMAL SALINE 50ML 50 ML IV ONE ×2 (06:00→17:00)
[2016-06-26] MEDS ORDERED: ACETAMINOPHEN 325 MG TABLET. PO PRN (08:00)
[2016-06-26] MEDS ORDERED: ONDANSETRON PF 4 MG/2 ML VIAL. IV PRN (08:00)
[2016-06-26] MEDS ORDERED: NITROGLYCERIN SUBLINGUAL 0.4 MG BOTTLE OF 25. SL PRN (08:00)
--- NOTE | 2016-06-26 08:26 | PDOC1 ---
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 He has a h/o costochondritis L chest wall. This morning he reports chest pain is associated with chest wall pain. His dizziness has been a chronic issue with orthostatic hypotension. He was started on Florinef 0.1mg within the last 3 weeks. When he takes his BB for his SVT he is orthostatic and Florinef was started to attempt to stabilize BP while taking BB. He reports he has been contacted by cardiology for fast HR and slow HR. A PPM was scheduled to be placed today. In the ED he c/o intermittent chest pain mid sternal with radiation to L shoulder along with nausea and SOA. Cardiology noted he c/o chest pain intermittent without radiation, dizzy, palpitations, and SOA. This morning he reports the chest pain is L sided non radiating and similar to past admissions for costochondritis. His L chest wall is persistently tender and he has used Voltaren Gel in the past with relief of chest pain. He has been admitted to [facility]. Problem List Problems Medical Problems: (1) Chest pain Status: Acute Past Medical History PMH Marfan syndrome, NICM, pulmonary HTN, orthostatic hypotension Cardiovascular: HTN, [place] (03/29/09), Hyperlipidemia, Valve insufficiency (trace MR, TR), Other Pulmonary: Asthma, COPD (emphysema ), Other CENTRAL NERVOUS SYSTEM: Other GI: Diverticulosis, GERD, Other (Schatski ring, esophageal stricture with last dilation 02/10/16) Heme/Onc: Anemia NOS Psych: Anxiety Musculoskeletal: low back pain (lumbar stenosis with radiculopathy bilateral LE, kyphosis and scoliosis, thoracic spondylosis/myleopathy, cervical neck pain with radicuolpathy bilateral UE, chornic costrochondritis ), Osteoarthritis, Other Renal/: Chronic renal insuff (CKD II ), Benign prostatic enlarg. Past Surgical History PSH loop recorder, lumbar and cervical surgeries. Past Surgical History: Other Past Family History PFH Brother Marfan syndrome Family History: Coronary Artery Disease, Stroke Past Social History PSH lives with brother, no h/o tobacco, ETOH, or illicit drug use Review of Symptoms Review of Symptoms A 14 point ROS was completed with the following noted as positive: per HPI and chronic neck pain, low back pain, dizziness, and chronic L chest wall pain Other systems reviewed and negative. Medications Medications reviewed and reconciled Allergy Allergies Coded Allergies Type Severity Reaction Last Updated Verified No Known Drug Allergies 02/10/16 No Physical Exam Physical Exam General appearance - alert,well appearing, and in no distress Mental Status - alert, oriented to person, place, and time, affect appropriate to mood Head - normal Chest - clear to auscultation, no wheezes, rales or rhonchi, symmetric air entry , pectus excavatum Heart - S1 and S2 normal Abdomen - soft, nontender, nondistended, BS + Neurological - no acute focal neurological deficit Musculoskeletal - tender neck and lumbar, + pain with palpation L chest wall Extremities - no pedal edema Skin - warm and dry VTE Prophylaxis Ordered VTE Prophylaxis Devices: Yes VTE Pharmacological Prophylaxi: No Assessment Labs Laboratory Tests Test 06/25/16 12:20 06/25/16 19:00 06/26/16 01:30 White Blood Count 8.3x10^3/uL (4.0-11.0) 8.4x10^3/uL (4.0-11.0) Red Blood Count 4.86x10^6/uL (4.30-5.70) 4.48x10^6/uL (4.30-5.70) Hemoglobin 14.8g/dL (13.0-17.5) 13.5g/dL (13.0-17.5) Hematocrit 44.5% (39.0-53.0) 41.1% (39.0-53.0) Mean Corpuscular Volume 92fL (79-100) 92fL (79-100) Mean Corpuscular Hemoglobin 30pg (25-35) 30pg (25-35) Mean Corpuscular Hemoglobin Concent 33g/dL (31-37) 33g/dL (31-37) Red Cell Distribution Width 13.4% (11.5-14.5) 13.6% (11.5-14.5) Platelet Count 117x10^3/uL (140-400) 116x10^3/uL (140-400) Neutrophils (%) (Auto) 72% (31-73) 56% (31-73) Lymphocytes (%) (Auto) 15% (24-48) 27% (24-48) Monocytes (%) (Auto) 11% (0-9) 12% (0-9) Eosinophils (%) (Auto) 2% (0-3) 4% (0-3) Basophils (%) (Auto) 1% (0-3) 1% (0-3) Neutrophils # (Auto) 6.0x10^3uL (1.8-7.7) 4.8x10^3uL (1.8-7.7) Lymphocytes # (Auto) 1.3x10^3/uL (1.0-4.8) 2.3x10^3/uL (1.0-4.8) Monocytes # (Auto) 0.9x10^3/uL (0.0-1.1) 1.0x10^3/uL (0.0-1.1) Eosinophils # (Auto) 0.2x10^3/uL (0.0-0.7) 0.4x10^3/uL (0.0-0.7) Basophils # (Auto) 0.1x10^3/uL (0.0-0.2) 0.1x10^3/uL (0.0-0.2) Prothrombin Time 14.5SEC (11.7-14.0) Prothromb Time International Ratio 1.2 (0.8-1.1) Activated Partial Thromboplast Time 32SEC (24-38) Sodium Level 144mmol/L (136-145) 142mmol/L (136-145) Potassium Level 3.8mmol/L (3.5-5.1) 4.1mmol/L (3.5-5.1) Chloride Level 104mmol/L (98-107) 106mmol/L (98-107) Carbon Dioxide Level 26mmol/L (21-32) 26mmol/L (21-32) Anion Gap 14 (6-14) 10 (6-14) Blood Urea Nitrogen 22mg/dL (8-26) 25mg/dL (8-26) Creatinine 0.9mg/dL (0.7-1.3) 0.9mg/dL (0.7-1.3) Estimated GFR (Cockcroft-Gault) 85.0 85.0 BUN/Creatinine Ratio 24 (6-20) 28 (6-20) Glucose Level 97mg/dL (70-99) 86mg/dL (70-99) Calcium Level 9.6mg/dL (8.5-10.1) 8.8mg/dL (8.5-10.1) Total Bilirubin 0.5mg/dL (0.2-1.0) 0.5mg/dL (0.2-1.0) Aspartate Amino Transf (AST/SGOT) 17U/L (15-37) 15U/L (15-37) Alanine Aminotransferase (ALT/SGPT) 27U/L (16-63) 26U/L (16-63) Alkaline Phosphatase 76U/L (46-116) 66U/L (46-116) Troponin I Quantitative < 0.017ng/mL (0.000-0.055) < 0.017ng/mL (0.000-0.055) < 0.017ng/mL (0.000-0.055) DJ-Gul-I-Type Natriuretic Peptide 83pg/mL (0-124) Total Protein 7.5g/dL (6.4-8.2) 6.6g/dL (6.4-8.2) Albumin 4.0g/dL (3.4-5.0) 3.4g/dL (3.4-5.0) Albumin/Globulin Ratio 1.1 (1.0-1.7) 1.1 (1.0-1.7) Laboratory Tests Test 06/25/16 12:20 06/25/16 19:00 06/26/16 01:30 White Blood Count 8.3x10^3/uL (4.0-11.0) 8.4x10^3/uL (4.0-11.0) Red Blood Count 4.86x10^6/uL (4.30-5.70) 4.48x10^6/uL (4.30-5.70) Hemoglobin 14.8g/dL (13.0-17.5) 13.5g/dL (13.0-17.5) Hematocrit 44.5% (39.0-53.0) 41.1% (39.0-53.0) Mean Corpuscular Volume 92fL (79-100) 92fL (79-100) Mean Corpuscular Hemoglobin 30pg (25-35) 30pg (25-35) Mean Corpuscular Hemoglobin Concent 33g/dL (31-37) 33g/dL (31-37) Red Cell Distribution Width 13.4% (11.5-14.5) 13.6% (11.5-14.5) Platelet Count 117x10^3/uL (140-400) 116x10^3/uL (140-400) Neutrophils (%) (Auto) 72% (31-73) 56% (31-73) Lymphocytes (%) (Auto) 15% (24-48) 27% (24-48) Monocytes (%) (Auto) 11% (0-9) 12% (0-9) Eosinophils (%) (Auto) 2% (0-3) 4% (0-3) Basophils (%) (Auto) 1% (0-3) 1% (0-3) Neutrophils # (Auto) 6.0x10^3uL (1.8-7.7) 4.8x10^3uL (1.8-7.7) Lymphocytes # (Auto) 1.3x10^3/uL (1.0-4.8) 2.3x10^3/uL (1.0-4.8) Monocytes # (Auto) 0.9x10^3/uL (0.0-1.1) 1.0x10^3/uL (0.0-1.1) Eosinophils # (Auto) 0.2x10^3/uL (0.0-0.7) 0.4x10^3/uL (0.0-0.7) Basophils # (Auto) 0.1x10^3/uL (0.0-0.2) 0.1x10^3/uL (0.0-0.2) Prothrombin Time 14.5SEC (11.7-14.0) Prothromb Time International Ratio 1.2 (0.8-1.1) Activated Partial Thromboplast Time 32SEC (24-38) Sodium Level 144mmol/L (136-145) 142mmol/L (136-145) Potassium Level 3.8mmol/L (3.5-5.1) 4.1mmol/L (3.5-5.1) Chloride Level 104mmol/L (98-107) 106mmol/L (98-107) Carbon Dioxide Level 26mmol/L (21-32) 26mmol/L (21-32) Anion Gap 14 (6-14) 10 (6-14) Blood Urea Nitrogen 22mg/dL (8-26) 25mg/dL (8-26) Creatinine 0.9mg/dL (0.7-1.3) 0.9mg/dL (0.7-1.3) Estimated GFR (Cockcroft-Gault) 85.0 85.0 BUN/Creatinine Ratio 24 (6-20) 28 (6-20) Glucose Level 97mg/dL (70-99) 86mg/dL (70-99) Calcium Level 9.6mg/dL (8.5-10.1) 8.8mg/dL (8.5-10.1) Total Bilirubin 0.5mg/dL (0.2-1.0) 0.5mg/dL (0.2-1.0) Aspartate Amino Transf (AST/SGOT) 17U/L (15-37) 15U/L (15-37) Alanine Aminotransferase (ALT/SGPT) 27U/L (16-63) 26U/L (16-63) Alkaline Phosphatase 76U/L (46-116) 66U/L (46-116) Troponin I Quantitative < 0.017ng/mL (0.000-0.055) < 0.017ng/mL (0.000-0.055) < 0.017ng/mL (0.000-0.055) DR-Bwp-Y-Type Natriuretic Peptide 83pg/mL (0-124) Total Protein 7.5g/dL (6.4-8.2) 6.6g/dL (6.4-8.2) Albumin 4.0g/dL (3.4-5.0) 3.4g/dL (3.4-5.0) Albumin/Globulin Ratio 1.1 (1.0-1.7) 1.1 (1.0-1.7) Plan Plan IMPRESSION: 1. cardiac arrythmia with tachy/b zahida syndrome 2. chest pain with h/o CAD/[place] 03/29/09 secondary to chronic costochondritis 3. chronic chest wall pain-costochondritis 4. cardiac arrhythmia SVT/ metoprolol succinate tx 5. severe L vertebral artery stenosis aortic arch negative per CTA 6. orthostatic hypotension with/bradycardia with metoprolol 6. noncompliance with medication due to finances 7. BPH 8. chronic low back pain with radiculopathy, LE weakness bilaterally chronic 9. moderate chronic PCL malnutrition 10. neck pain chronic with radiculopathy bilateral arms, weakness chronic 11. CKD II 12. mild mitral valve prolapse 13. diverticulosis 14. GERD 15. Schatzki ring 16. HH 17. h/o esophageal stricture dilation 02/10/16 18, mild pulmonary HTN 19. valvular insufficiency mild MR TR 20 CAD with EF 55-60% 21. HTN 22. dizziness chronic r/t orthostatic hypotension 23. COPD with emphysema PLAN: chest pain/tachy zahida syndrome cardiology consult PPM planned today orthostatic hypotension/dizziness hold Florinef PPM to be placed check orthostatic BP daily costochondritis PPM planned to L chest wall hold Voltaren gel DVT/GI prophylaxis SCD/LUDMILA PPI For more details regarding further plans, please refer to the orders. TIANA POTTER MD 06/26/16 1048: HISTORY AND PHYSICAL Plan Plan Marfan syndrome. The patient was seen and examined by me. Chart reviewed and plan of care formulated. 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 For more details regarding further plans, please refer to the orders. GAYATHRI FAIRCHILD APRN Jun 26, 2016 08:26 TIANA POTTER MD Jun 26, 2016 10:48
[2016-06-26] MEDS ORDERED: BACITRACIN 50,000 UNIT in IV NORMAL SALINE 250ML 250 ML IRR ONE (08:30)
--- NOTE | 2016-06-26 09:14 | PDOC ---
MODERATE SEDATION ASSESSMENT RISKS/ALTERNATIVES Risks/Alternatives Risks and alternatives of this type of sedation and procedure discussed with: RISK/ALTERNATIVES: Patient H & P ON CHART H & P H & P on chart and reviewed for co-morbid conditions and appropriate labs. H&P ON CHART: Yes STATUS PREG STATUS ASSESSED: N/A MEDS/ALLERGIES REVIEWED Meds/Allergies Reviewed Medications and Allergies including time and route of recently administered narcotics and sedatives. MEDS/ALLERGIES REVIEWED: Yes ASA RATING ASA RATING: II AIRWAY ASSESSMENT Airway Assessment Airway patency, oral function limitations, presence of caps, crowns, dentures, partials, and ability to extend neck assessed. AIRWAY ASSESSMENT: Yes MALLAMPATI SCORE MALLAMPATI SCORE: II PRE-SEDATION ASSESSMENT PRE-SEDATION ASSESSMENT: Yes KAMARI MENON MD Jun 26, 2016 09:14
[2016-06-26] MEDS ORDERED: LIDOCAINE 2%/EPI 1:100,000 20 ML VIAL. IJ ONE (09:15)
[2016-06-26] MEDS ORDERED: FENTANYL PF 250 MCG/5 ML VIAL. IV ONE (09:15)
[2016-06-26] MEDS ORDERED: MIDAZOLAM HCL/PF 5 MG/5 ML VIAL. IV ONE (09:15)
--- NOTE | 2016-06-26 10:10 | CARD ---
APPROVED REPORT PROCEDURES Successful implantation of Biotronik dual-chamber permanent pacemaker INDICATIONS Symptomatic Tachycardia-bradycardia syndrome, sick sinus syndrome PROCEDURE After explaining the risks, benefits, and alternative options, informed consent was obtained from the patient. The patient was brought to the cardiac catheterization lab and the left chest and shoulder were prepp ed and draped in a sterile manner. 30 mL of 2% lidocaine was infiltrated into the skin and subcutaneous tissues for local anesthesia. A n incision was made over the left infraclavicular fossa and using blunt dissection and cautery a pock et was created. Venous access was obtained in the left subclavian vein and 9 and 7 Tunisian sheaths we re inserted. Subsequently, a Biotronik bipolar active fixation right ventricular lead model Solia serial number [id number] was advanced under fluoroscopic guidance and the tip was positioned in the right ventricular a pex. Following this, a Biotronik bipolar active fixation right atrial lead model Solia serial number [id number] was placed in the right atrial appendage under fluoroscopy guidance. The leads were secure d into place and were attached to a ....dual-chamber permanent pacemaker generator model .... serial number ..... This was placed in the pocket that was subsequently closed in 3 layers. Hemostasis was secured. At the end of procedure, the right ventricular lead showed sensing amplitude of 20 mV, impedance of 8 21 ohms and a threshold of 0.5 volts. The right atrial lead showed a sensing amplitude of 5 millivol ts, impedance of 521 ohms and a threshold of 0.7 volts. Patient tolerated the procedure well. There were no immediate complications. CONCLUSION Successful implantation of Biotronik dual-chamber permanent pacemaker for symptomatic tachycardia-bra dycardia syndrome.
--- NOTE | 2016-06-26 10:46 | RAD ---
Indication post pacemaker placement. A single view of the chest was obtained and is compared to a study one day earlier. In the interval a bipolar cardiac pacing device has been placed. No complication is seen and specifically there is no evidence of pneumothorax. An acute finding in the chest is not apparent. There are marked background changes compatible with emphysema. IMPRESSION: Interval placement of bipolar cardiac pacing device. No complication seen
[2016-06-26] MEDS: ALPRAZOLAM 0.25 MG TABLET. PO SCH ×2 (10:59→20:17)
[2016-06-26] MEDS: PANTOPRAZOLE 40 MG TABLET.DR. PO SCH (10:59)
[2016-06-26] MEDS: ASPIRIN ENTERIC COATED 81 MG TABLET.DR. PO SCH (10:59)
[2016-06-26] MEDS: TAMSULOSIN 0.4 MG CAP.ER.24H. PO SCH (10:59)
[2016-06-26] MEDS: HYDROCODONE/APAP 5/325MG TABLET. PO PRN ×2 (14:50→20:18)
[2016-06-26] MEDS: SIMVASTATIN 20 MG TABLET PO SCH (20:18)
[2016-06-26] MEDS: MORPHINE SULFATE 2 MG/ML DISP.SYRIN. IV PRN ×2 (20:19→23:39)
[2016-06-27] VITALS (8 sets, daily range): BP systolic 85–130; BP diastolic 55–72
[2016-06-27 05:27] LABS: CALCIUM 8.9 mg/dL (8.5-10.1); CREATININE 0.9 mg/dL (0.7-1.3); POTASSIUM 3.9 mmol/L (3.5-5.1)
[2016-06-27 05:51] LABS: BASO # 0.1 x10^3/uL (0.0-0.2); BASO % 1 % (0-3); EOS % 2 % (0-3); HEMATOCRIT 39.5 % (39.0-53.0); HEMOGLOBIN 12.9 g/dL (13.0-17.5); LYMPH % 22 % (24-48); MEAN CORPUSCULAR HEMOGLOBIN 30 pg (25-35); MEAN CORPUSCULAR HGB CONC 33 g/dL (31-37); MEAN CORPUSCULAR VOLUME 92 fL (79-100); MONO % 13 % (0-9); NEUT % 63 % (31-73); PLATELET COUNT 103 x10^3/uL (140-400); RED BLOOD COUNT 4.29 x10^6/uL (4.30-5.70); RED CELL DISTRIBUTION WIDTH 13.5 % (11.5-14.5); WHITE BLOOD COUNT 9.3 x10^3/uL (4.0-11.0)
--- NOTE | 2016-06-27 08:00 | PDOC ---
TRESALalyJUSTINGAYATHRI JOINTER SUBMARINE CABLE 06/27/16 0800: IM PROGRESS NOTES- Subjective Subjective pain L chest wall worse since PPM Morphine and pain pill help Objective Objective mild distress Vitals Vital Signs Date Time Temp Pulse Resp B/P Pulse Ox O2 Delivery O2 Flow Rate FiO2 06/27/16 03:40 97.7 69 16 96/66 98 Room Air 97.7 06/26/16 09:49 2.0 Input & Output Intake and Output 06/27/16 07:00 Intake Total 750 ml Output Total 950 ml Balance -200 ml Intake Oral 700 ml IV Total 50 ml Output Urine Total 950 ml Physical Exam Physical Exam General appearance - alert,well appearing, and in no distress Mental Status - alert, oriented to person, place, and time, affect appropriate to mood Head - normal Chest - clear to auscultation, no wheezes, rales or rhonchi, symmetric air entry , pectus excavatum, PPM L chest wall + tenderness Heart - S1 and S2 normal Abdomen - soft, nontender, nondistended, BS + Neurological - no acute focal neurological deficit Musculoskeletal - tender neck and lumbar, + pain with palpation L chest wall, arm immobilizer LA Extremities - no pedal edema Skin - warm and dry Labs Laboratory Tests Test 06/25/16 12:20 06/25/16 19:00 06/26/16 01:30 06/27/16 03:15 White Blood Count 8.3x10^3/uL (4.0-11.0) 8.4x10^3/uL (4.0-11.0) Red Blood Count 4.86x10^6/uL (4.30-5.70) 4.48x10^6/uL (4.30-5.70) Hemoglobin 14.8g/dL (13.0-17.5) 13.5g/dL (13.0-17.5) Hematocrit 44.5% (39.0-53.0) 41.1% (39.0-53.0) Mean Corpuscular Volume 92fL (79-100) 92fL (79-100) Mean Corpuscular Hemoglobin 30pg (25-35) 30pg (25-35) Mean Corpuscular Hemoglobin Concent 33g/dL (31-37) 33g/dL (31-37) Red Cell Distribution Width 13.4% (11.5-14.5) 13.6% (11.5-14.5) Platelet Count 117x10^3/uL (140-400) 116x10^3/uL (140-400) Neutrophils (%) (Auto) 72% (31-73) 56% (31-73) Lymphocytes (%) (Auto) 15% (24-48) 27% (24-48) Monocytes (%) (Auto) 11% (0-9) 12% (0-9) Eosinophils (%) (Auto) 2% (0-3) 4% (0-3) Basophils (%) (Auto) 1% (0-3) 1% (0-3) Neutrophils # (Auto) 6.0x10^3uL (1.8-7.7) 4.8x10^3uL (1.8-7.7) Lymphocytes # (Auto) 1.3x10^3/uL (1.0-4.8) 2.3x10^3/uL (1.0-4.8) Monocytes # (Auto) 0.9x10^3/uL (0.0-1.1) 1.0x10^3/uL (0.0-1.1) Eosinophils # (Auto) 0.2x10^3/uL (0.0-0.7) 0.4x10^3/uL (0.0-0.7) Basophils # (Auto) 0.1x10^3/uL (0.0-0.2) 0.1x10^3/uL (0.0-0.2) Prothrombin Time 14.5SEC (11.7-14.0) Prothromb Time International Ratio 1.2 (0.8-1.1) Activated Partial Thromboplast Time 32SEC (24-38) Sodium Level 144mmol/L (136-145) 142mmol/L (136-145) 139mmol/L (136-145) Potassium Level 3.8mmol/L (3.5-5.1) 4.1mmol/L (3.5-5.1) 3.9mmol/L (3.5-5.1) Chloride Level 104mmol/L (98-107) 106mmol/L (98-107) 103mmol/L (98-107) Carbon Dioxide Level 26mmol/L (21-32) 26mmol/L (21-32) 25mmol/L (21-32) Anion Gap 14 (6-14) 10 (6-14) 11 (6-14) Blood Urea Nitrogen 22mg/dL (8-26) 25mg/dL (8-26) 19mg/dL (8-26) Creatinine 0.9mg/dL (0.7-1.3) 0.9mg/dL (0.7-1.3) 0.9mg/dL (0.7-1.3) Estimated GFR (Cockcroft-Gault) 85.0 85.0 85.0 BUN/Creatinine Ratio 24 (6-20) 28 (6-20) Glucose Level 97mg/dL (70-99) 86mg/dL (70-99) 94mg/dL (70-99) Calcium Level 9.6mg/dL (8.5-10.1) 8.8mg/dL (8.5-10.1) 8.9mg/dL (8.5-10.1) Total Bilirubin 0.5mg/dL (0.2-1.0) 0.5mg/dL (0.2-1.0) Aspartate Amino Transf (AST/SGOT) 17U/L (15-37) 15U/L (15-37) Alanine Aminotransferase (ALT/SGPT) 27U/L (16-63) 26U/L (16-63) Alkaline Phosphatase 76U/L (46-116) 66U/L (46-116) Troponin I Quantitative < 0.017ng/mL (0.000-0.055) < 0.017ng/mL (0.000-0.055) < 0.017ng/mL (0.000-0.055) [id number]-Type Natriuretic Peptide 83pg/mL (0-124) Total Protein 7.5g/dL (6.4-8.2) 6.6g/dL (6.4-8.2) Albumin 4.0g/dL (3.4-5.0) 3.4g/dL (3.4-5.0) Albumin/Globulin Ratio 1.1 (1.0-1.7) 1.1 (1.0-1.7) Magnesium Level 2.0mg/dL (1.8-2.4) Test 06/27/16 05:00 White Blood Count 9.3x10^3/uL (4.0-11.0) Red Blood Count 4.29x10^6/uL (4.30-5.70) Hemoglobin 12.9g/dL (13.0-17.5) Hematocrit 39.5% (39.0-53.0) Mean Corpuscular Volume 92fL (79-100) Mean Corpuscular Hemoglobin 30pg (25-35) Mean Corpuscular Hemoglobin Concent 33g/dL (31-37) Red Cell Distribution Width 13.5% (11.5-14.5) Platelet Count 103x10^3/uL (140-400) Neutrophils (%) (Auto) 63% (31-73) Lymphocytes (%) (Auto) 22% (24-48) Monocytes (%) (Auto) 13% (0-9) Eosinophils (%) (Auto) 2% (0-3) Basophils (%) (Auto) 1% (0-3) Neutrophils # (Auto) 5.8x10^3uL (1.8-7.7) Lymphocytes # (Auto) 2.0x10^3/uL (1.0-4.8) Monocytes # (Auto) 1.2x10^3/uL (0.0-1.1) Eosinophils # (Auto) 0.2x10^3/uL (0.0-0.7) Basophils # (Auto) 0.1x10^3/uL (0.0-0.2) Laboratory Tests Test 06/27/16 03:15 06/27/16 05:00 Sodium Level 139mmol/L (136-145) Potassium Level 3.9mmol/L (3.5-5.1) Chloride Level 103mmol/L (98-107) Carbon Dioxide Level 25mmol/L (21-32) Anion Gap 11 (6-14) Blood Urea Nitrogen 19mg/dL (8-26) Creatinine 0.9mg/dL (0.7-1.3) Estimated GFR (Cockcroft-Gault) 85.0 Glucose Level 94mg/dL (70-99) Calcium Level 8.9mg/dL (8.5-10.1) Magnesium Level 2.0mg/dL (1.8-2.4) White Blood Count 9.3x10^3/uL (4.0-11.0) Red Blood Count 4.29x10^6/uL (4.30-5.70) Hemoglobin 12.9g/dL (13.0-17.5) Hematocrit 39.5% (39.0-53.0) Mean Corpuscular Volume 92fL (79-100) Mean Corpuscular Hemoglobin 30pg (25-35) Mean Corpuscular Hemoglobin Concent 33g/dL (31-37) Red Cell Distribution Width 13.5% (11.5-14.5) Platelet Count 103x10^3/uL (140-400) Neutrophils (%) (Auto) 63% (31-73) Lymphocytes (%) (Auto) 22% (24-48) Monocytes (%) (Auto) 13% (0-9) Eosinophils (%) (Auto) 2% (0-3) Basophils (%) (Auto) 1% (0-3) Neutrophils # (Auto) 5.8x10^3uL (1.8-7.7) Lymphocytes # (Auto) 2.0x10^3/uL (1.0-4.8) Monocytes # (Auto) 1.2x10^3/uL (0.0-1.1) Eosinophils # (Auto) 0.2x10^3/uL (0.0-0.7) Basophils # (Auto) 0.1x10^3/uL (0.0-0.2) Meds Current Medications Acetaminophen (Tylenol) 650 mg PRN Q4HRS PRN PO FEVER Last administered on 06/26 23:35; Start 06/26/16 at 08:00 Aspirin (Ecotrin) 81 mg [id number] PO Last administered on 06/26/16 10:59; Start 06/26/16 at 08:00 Bacitracin 50253 unit/Sodium Chloride 250 ml @ 0 mls/hr 1X ONCE IRR Last administered on 06/26/16 09:47; Start 06/26/16 at 08:30; Stop 06/26/16 at 08:43 ; Status DC Cefazolin Sodium (Ancef 1gm Ivpb For Omni) 50 ml @ 100 mls/hr 1X ONCE IV ; Start 06/26/16 at 08:30; Stop 06/26/16 at 08:59; Status Cancel Cefazolin Sodium/ Sodium Chloride (Ancef/Iv Sodium Chloride 0.9% 50ml) 50 ml @ 100 mls/hr 1X ONCE IV Last administered on 06/26/16 16:21; Start 06/26/16 at 17:00; Stop 06/26/16 at 17:29; Status DC Fentanyl Citrate (Fentanyl 5ml Vial) 200 mcg 1X ONCE IV Last administered on 09:48; Start 06/26/16 at 09:15; Stop 06/26/16 at 09:16; Status DC Lidocaine/ Epinephrine 20 ml 20 ml 1X ONCE IJ Last administered on 06/26/16 09:47; Start 06/26/16 at 09:15; Stop 06/26/16 at 09:16; Status DC Midazolam HCl (Versed) 5 mg 1X ONCE IV Last administered on 06/26/16 09:48; Start 06/26/16 at 09:15; Stop 06/26/16 at 09:16; Status DC Morphine Sulfate 2 mg PRN Q2HR PRN IV PAIN SEVERE Last administered on 23:39; Start 06/26/16 at 08:00 Nitroglycerin (Nitrostat) 0.4 mg PRN Q5MIN PRN SL CHEST PAIN; Start 06/26/16 at 08:00 Ondansetron HCl 4 mg 4 mg PRN Q8HRS PRN IV NAUSEA/VOMITING; Start 06/26/16 at 08:00 Tamsulosin HCl (Flomax) 0.4 mg DAILY PO Last administered on 06/26/16 10:59; Start 06/26/16 at 09:00 Assessment Assessment IMPRESSION: 1. cardiac arrythmia with tachy/b zahida syndrome 2. chest pain with h/o CAD/HI 03/29/09 secondary to chronic costochondritis 3. chronic chest wall pain-costochondritis 4. cardiac arrhythmia SVT/ metoprolol succinate tx 5. severe L vertebral artery stenosis aortic arch negative per CTA 6. orthostatic hypotension with/bradycardia with metoprolol 6. noncompliance with medication due to finances 7. BPH 8. chronic low back pain with radiculopathy, LE weakness bilaterally chronic 9. moderate chronic PCL malnutrition 10. neck pain chronic with radiculopathy bilateral arms, weakness chronic 11. CKD II 12. mild mitral valve prolapse 13. diverticulosis 14. GERD 15. Schatzki ring 16. HH 17. h/o esophageal stricture dilation 02/10/16 18, mild pulmonary HTN 19. valvular insufficiency mild MR TR 20 CAD with EF 55-60% 21. HTN 22. 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 thrombocytopenia PLAN: chest pain/tachy zahida syndrome cardiology consult PPM placed 06/26 Biotronik dual-chamber permanent pacemaker orthostatic hypotension/dizziness hold Florinef PPM placed 06/26 check orthostatic BP daily orthostatic 06/26: lying 114/79 -91, sitting 95/47-76; 82/58 -66 dizzy when ambulated in room 06/26 with staff, near fall place abdominal binder ?restart Florinef-staff advised to check with cardiology MS for pain contributing? IV NS 1L to be infused costochondritis PPM planned to L chest wall hold Voltaren gel staff advised to check with cardio about restarting voltaren gel to L chest wall DVT/GI prophylaxis SCD/LUDMILA PPI thrombocytopenia POA Admit Plt 117 06/27 103 For more details regarding further plans, please refer to the orders. May need SNU at discharge due to self care deficits, orthostasis and risk for falls. Plan Plan For more details regarding further plans, please refer to the orders. TIANA POTTER MD 06/27/16 1016: PROGRESS NOTES- Assessment Assessment The patient was seen and examined by me. Chart reviewed and plan of care formulated. Discussed with, reviewed and agree with RECEPTIONIST's notes, plan of care and orders with modifications as necessary. For more details regarding further plans, please refer to the orders. GAYATHRI FAIRCHILD JOINTER SUBMARINE CABLE Jun 27, 2016 08:00 TIANA POTTER MD Jun 27, 2016 10:16
--- NOTE | 2016-06-27 08:33 | RAD ---
EXAM: Chest, single view. HISTORY: Cardiac pacemaker placement. COMPARISON: 06/26/2016. FINDINGS: A frontal view of the chest is obtained. There is a left cardiac pacemaker with leads unchanged in position. There is right apical pleural parenchymal scarring. There is emphysema. There are a few calcified granulomas. The heart is normal in size. There is no pleural effusion or pneumothorax. There is cervical spinal fusion instrumentation. IMPRESSION: 1. Dual lead left cardiac pacemaker unchanged in position. 2. Emphysema with right apical scarring.
[2016-06-27] MEDS: PANTOPRAZOLE 40 MG TABLET.DR. PO SCH (09:20)
[2016-06-27] MEDS: ALPRAZOLAM 0.25 MG TABLET. PO SCH ×2 (09:20→21:00)
[2016-06-27] MEDS: ASPIRIN ENTERIC COATED 81 MG TABLET.DR. PO SCH (09:20)
[2016-06-27] MEDS: TAMSULOSIN 0.4 MG CAP.ER.24H. PO SCH (09:20)
--- NOTE | 2016-06-27 10:04 | PDOC ---
CARDIO Progress Notes Date and Time Date of Service 06/27/2016 Time of Evaluation 1004 Subjective Subjective: No shortness of breath, No Palpitations, No Dizziness Vitals Vitals Vital Signs Date Time Temp Pulse Resp B/P Pulse Ox O2 Delivery O2 Flow Rate FiO2 06/27/16 07:40 93 85/58 06/27/16 07:30 97.6 20 Room Air 97.6 06/27/16 03:40 98 06/26/16 09:49 2.0 Weight Weight [ ] Input and Output Intake and Output Intake and Output 06/27/16 06:59 Intake Total 750 ml Output Total 950 ml Balance -200 ml Intake Oral 700 ml IV Total 50 ml Output Urine Total 950 ml Laboratory Labs Laboratory Tests Test 06/27/16 03:15 06/27/16 05:00 Sodium Level 139mmol/L (136-145) Potassium Level 3.9mmol/L (3.5-5.1) Chloride Level 103mmol/L (98-107) Carbon Dioxide Level 25mmol/L (21-32) Anion Gap 11 (6-14) Blood Urea Nitrogen 19mg/dL (8-26) Creatinine 0.9mg/dL (0.7-1.3) Estimated GFR (Cockcroft-Gault) 85.0 Glucose Level 94mg/dL (70-99) Calcium Level 8.9mg/dL (8.5-10.1) Magnesium Level 2.0mg/dL (1.8-2.4) White Blood Count 9.3x10^3/uL (4.0-11.0) Red Blood Count 4.29x10^6/uL (4.30-5.70) Hemoglobin 12.9g/dL (13.0-17.5) Hematocrit 39.5% (39.0-53.0) Mean Corpuscular Volume 92fL (79-100) Mean Corpuscular Hemoglobin 30pg (25-35) Mean Corpuscular Hemoglobin Concent 33g/dL (31-37) Red Cell Distribution Width 13.5% (11.5-14.5) Platelet Count 103x10^3/uL (140-400) Neutrophils (%) (Auto) 63% (31-73) Lymphocytes (%) (Auto) 22% (24-48) Monocytes (%) (Auto) 13% (0-9) Eosinophils (%) (Auto) 2% (0-3) Basophils (%) (Auto) 1% (0-3) Neutrophils # (Auto) 5.8x10^3uL (1.8-7.7) Lymphocytes # (Auto) 2.0x10^3/uL (1.0-4.8) Monocytes # (Auto) 1.2x10^3/uL (0.0-1.1) Eosinophils # (Auto) 0.2x10^3/uL (0.0-0.7) Basophils # (Auto) 0.1x10^3/uL (0.0-0.2) Physical Exam HEENT: Neck Supple W Full Motion Chest: Symmetric LUNGS: Clear to Auscultation Heart: RRR, other (PPM site in left pectoral - C/D/I; steri-strips intact; no erythema, edema, ecchymosis) Abdomen: Other Extremities: No Edema Neurology: alert Assessment Assessment 1. Tachy-Jay syndrome with known PSVT: verified with event monitor s/p dual chamber PPM interrogation this a.m. without events CXR without evidence of ptx this a.m. ABSOLUTELY NO creams, oils, lotions, ointments to left pectoral region for at least 6 weeks or until site is completely healed 2. NICM EF recovered & now at 55-60% continue medical management 3. Marfan syndrome/pectus excavatum 4. MVP/MR: stable 5. Hypertension: controlled now with orthostatic hypotension - may resume florinef per primary service May discharge Follow up in one week for wound check Follow up with commercial energy auditor in 3 months. CAROLINA BOOKER APRN Jun 27, 2016 10:04
[2016-06-27] MEDS: HYDROCODONE/APAP 5/325MG TABLET. PO PRN ×2 (12:46→21:03)
[2016-06-27] MEDS: MORPHINE SULFATE 2 MG/ML DISP.SYRIN. IV PRN (18:13)
[2016-06-27] MEDS ORDERED: HYDROCODONE/APAP 5/325MG TABLET. PO PRN (18:15)
[2016-06-27] MEDS: SIMVASTATIN 20 MG TABLET PO SCH (21:00)
[2016-06-28 03:50] VITALS: BP 116/74
[2016-06-28] MEDS: HYDROCODONE/APAP 5/325MG TABLET. PO PRN ×4 (04:05→22:46)
[2016-06-28 05:31] LABS: CALCIUM 9.1 mg/dL (8.5-10.1); CREATININE 0.9 mg/dL (0.7-1.3); POTASSIUM 4.3 mmol/L (3.5-5.1)
[2016-06-28 06:11] LABS: BASO % 1 % (0-3); EOS % 3 % (0-3); HEMATOCRIT 41.9 % (39.0-53.0); HEMOGLOBIN 13.9 g/dL (13.0-17.5); LYMPH # 2.2 x10^3/uL (1.0-4.8); LYMPH % 28 % (24-48); MEAN CORPUSCULAR HEMOGLOBIN 30 pg (25-35); MEAN CORPUSCULAR HGB CONC 33 g/dL (31-37); MEAN CORPUSCULAR VOLUME 92 fL (79-100); MONO % 12 % (0-9); NEUT % 57 % (31-73); PLATELET COUNT 103 x10^3/uL (140-400); RED BLOOD COUNT 4.58 x10^6/uL (4.30-5.70); RED CELL DISTRIBUTION WIDTH 13.4 % (11.5-14.5); WHITE BLOOD COUNT 7.8 x10^3/uL (4.0-11.0)
[2016-06-28 07:24] LABS: PLT ESTIMATE DECREASED (ADEQUATE)
[2016-06-28 07:59] VITALS: BP_SYST 117; BP_SYST 82; BP_SYST 86; BP_DIAS 64; BP_DIAS 65; BP_DIAS 72
[2016-06-28] MEDS: PANTOPRAZOLE 40 MG TABLET.DR. PO SCH (08:57)
[2016-06-28] MEDS: ASPIRIN ENTERIC COATED 81 MG TABLET.DR. PO SCH (08:57)
[2016-06-28] MEDS: TAMSULOSIN 0.4 MG CAP.ER.24H. PO SCH (08:57)
[2016-06-28] MEDS: ALPRAZOLAM 0.25 MG TABLET. PO SCH ×2 (08:57→20:45)
--- NOTE | 2016-06-28 10:01 | PDOC ---
IM PROGRESS NOTES- Subjective Subjective Left upper chest pain worse. Objective Vitals Vital Signs Date Time Temp Pulse Resp B/P Pulse Ox O2 Delivery O2 Flow Rate FiO2 06/28/16 08:56 18 Room Air 06/28/16 07:59 97.5 73 117/72 98 97.5 86/65 82/64 Input & Output Intake and Output 06/28/16 07:00 Intake Total 1200 ml Output Total 1625 ml Balance -425 ml Intake Oral 1200 ml Output Urine Total 1625 ml Physical Exam Physical Exam General appearance - alert,well appearing, and in no distress Mental Status - alert, oriented to person, place, and time, affect appropriate to mood Head - normal Chest - clear to auscultation, no wheezes, rales or rhonchi, symmetric air entry , pectus excavatum, PPM L chest wall + tenderness Heart - S1 and S2 normal Abdomen - soft, nontender, nondistended, BS + Neurological - no acute focal neurological deficit Musculoskeletal - tender neck and lumbar, + pain with palpation L chest wall, arm immobilizer LA Extremities - no pedal edema Skin - warm and dry Labs Laboratory Tests Test 06/27/16 03:15 06/27/16 05:00 06/28/16 04:00 06/28/16 05:00 Sodium Level 139mmol/L (136-145) 138mmol/L (136-145) Potassium Level 3.9mmol/L (3.5-5.1) 4.3mmol/L (3.5-5.1) Chloride Level 103mmol/L (98-107) 103mmol/L (98-107) Carbon Dioxide Level 25mmol/L (21-32) 26mmol/L (21-32) Anion Gap 11 (6-14) 9 (6-14) Blood Urea Nitrogen 19mg/dL (8-26) 20mg/dL (8-26) Creatinine 0.9mg/dL (0.7-1.3) 0.9mg/dL (0.7-1.3) Estimated GFR (Cockcroft-Gault) 85.0 85.0 Glucose Level 94mg/dL (70-99) 91mg/dL (70-99) Calcium Level 8.9mg/dL (8.5-10.1) 9.1mg/dL (8.5-10.1) Magnesium Level 2.0mg/dL (1.8-2.4) White Blood Count 9.3x10^3/uL (4.0-11.0) 7.8x10^3/uL (4.0-11.0) Red Blood Count 4.29x10^6/uL (4.30-5.70) 4.58x10^6/uL (4.30-5.70) Hemoglobin 12.9g/dL (13.0-17.5) 13.9g/dL (13.0-17.5) Hematocrit 39.5% (39.0-53.0) 41.9% (39.0-53.0) Mean Corpuscular Volume 92fL (79-100) 92fL (79-100) Mean Corpuscular Hemoglobin 30pg (25-35) 30pg (25-35) Mean Corpuscular Hemoglobin Concent 33g/dL (31-37) 33g/dL (31-37) Red Cell Distribution Width 13.5% (11.5-14.5) 13.4% (11.5-14.5) Platelet Count 103x10^3/uL (140-400) 103x10^3/uL (140-400) Neutrophils (%) (Auto) 63% (31-73) 57% (31-73) Lymphocytes (%) (Auto) 22% (24-48) 28% (24-48) Monocytes (%) (Auto) 13% (0-9) 12% (0-9) Eosinophils (%) (Auto) 2% (0-3) 3% (0-3) Basophils (%) (Auto) 1% (0-3) 1% (0-3) Neutrophils # (Auto) 5.8x10^3uL (1.8-7.7) 4.4x10^3uL (1.8-7.7) Lymphocytes # (Auto) 2.0x10^3/uL (1.0-4.8) 2.2x10^3/uL (1.0-4.8) Monocytes # (Auto) 1.2x10^3/uL (0.0-1.1) 0.9x10^3/uL (0.0-1.1) Eosinophils # (Auto) 0.2x10^3/uL (0.0-0.7) 0.3x10^3/uL (0.0-0.7) Basophils # (Auto) 0.1x10^3/uL (0.0-0.2) 0.0x10^3/uL (0.0-0.2) Platelet Estimate Decreased (ADEQUATE) Giant Platelets Few Laboratory Tests Test 06/28/16 04:00 06/28/16 05:00 Sodium Level 138mmol/L (136-145) Potassium Level 4.3mmol/L (3.5-5.1) Chloride Level 103mmol/L (98-107) Carbon Dioxide Level 26mmol/L (21-32) Anion Gap 9 (6-14) Blood Urea Nitrogen 20mg/dL (8-26) Creatinine 0.9mg/dL (0.7-1.3) Estimated GFR (Cockcroft-Gault) 85.0 Glucose Level 91mg/dL (70-99) Calcium Level 9.1mg/dL (8.5-10.1) White Blood Count 7.8x10^3/uL (4.0-11.0) Red Blood Count 4.58x10^6/uL (4.30-5.70) Hemoglobin 13.9g/dL (13.0-17.5) Hematocrit 41.9% (39.0-53.0) Mean Corpuscular Volume 92fL (79-100) Mean Corpuscular Hemoglobin 30pg (25-35) Mean Corpuscular Hemoglobin Concent 33g/dL (31-37) Red Cell Distribution Width 13.4% (11.5-14.5) Platelet Count 103x10^3/uL (140-400) Neutrophils (%) (Auto) 57% (31-73) Lymphocytes (%) (Auto) 28% (24-48) Monocytes (%) (Auto) 12% (0-9) Eosinophils (%) (Auto) 3% (0-3) Basophils (%) (Auto) 1% (0-3) Neutrophils # (Auto) 4.4x10^3uL (1.8-7.7) Lymphocytes # (Auto) 2.2x10^3/uL (1.0-4.8) Monocytes # (Auto) 0.9x10^3/uL (0.0-1.1) Eosinophils # (Auto) 0.3x10^3/uL (0.0-0.7) Basophils # (Auto) 0.0x10^3/uL (0.0-0.2) Platelet Estimate Decreased (ADEQUATE) Giant Platelets Few Meds Current Medications Acetaminophen/ Hydrocodone Bitart (Lortab 5/325) 1 tab PRN Q4HRS PRN PO MILD PAIN; Start 06/27/16 at 18:15 Acetaminophen/ Hydrocodone Bitart (Lortab 5/325) 2 tab PRN Q4HRS PRN PO SEVERE PAIN Last administered on 06/28/16t 08:56; Start 06/27/16 at 18:15 Assessment Assessment 1. cardiac arrythmia with tachy/b zahida syndrome 2. chest pain with h/o CAD/MO 03/29/09 secondary to chronic costochondritis 3. chronic chest wall pain-costochondritis 4. cardiac arrhythmia SVT/ metoprolol succinate tx 5. severe L vertebral artery stenosis aortic arch negative per CTA 6. orthostatic hypotension with/bradycardia with metoprolol 6. noncompliance with medication due to finances 7. BPH 8. chronic low back pain with radiculopathy, LE weakness bilaterally chronic 9. moderate chronic PCL malnutrition 10. neck pain chronic with radiculopathy bilateral arms, weakness chronic 11. CKD II 12. mild mitral valve prolapse 13. diverticulosis 14. GERD 15. Schatzki ring 16. HH 17. h/o esophageal stricture dilation 02/10/16 18, mild pulmonary HTN 19. valvular insufficiency mild MR TR 20 CAD with EF 55-60% 21. HTN 22. 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 thrombocytopenia PLAN: chest pain/tachy zahida syndrome cardiology consult PPM placed 06/26 Biotronik dual-chamber permanent pacemaker orthostatic hypotension/dizziness hold Florinef PPM placed 06/26 check orthostatic BP daily orthostatic 06/26: lying 114/79 -91, sitting 95/47-76; 82/58 -66 dizzy when ambulated in room 06/26 with staff, near fall place abdominal binder MS for pain contributing? IV NS 1L to be infused costochondritis PPM planned to L chest wall hold Voltaren gel for 6 weeks. DVT/GI prophylaxis SCD/LUDMILA PPI thrombocytopenia POA Admit Plt 117 06/27 103 Chest pain worse- Hydrocodone increased. Plan Plan For more details regarding further plans, please refer to the orders. TIANA POTTER MD Jun 28, 2016 10:01
[2016-06-28 11:02] VITALS: BP 105/73
[2016-06-28 15:00] VITALS: BP 112/75
[2016-06-28 19:35] VITALS: BP 117/67
[2016-06-28] MEDS: SIMVASTATIN 20 MG TABLET PO SCH (20:45)
[2016-06-28 23:40] VITALS: BP 103/85
[2016-06-29 03:10] VITALS: BP 131/77
[2016-06-29] MEDS: HYDROCODONE/APAP 5/325MG TABLET. PO PRN ×2 (03:58→09:25)
[2016-06-29 04:02] LABS: BASO # 0.1 x10^3/uL (0.0-0.2); BASO % 1 % (0-3); EOS % 4 % (0-3); HEMOGLOBIN 13.5 g/dL (13.0-17.5); LYMPH # 1.9 x10^3/uL (1.0-4.8); LYMPH % 29 % (24-48); MEAN CORPUSCULAR HEMOGLOBIN 30 pg (25-35); MEAN CORPUSCULAR HGB CONC 33 g/dL (31-37); MEAN CORPUSCULAR VOLUME 91 fL (79-100); MONO % 12 % (0-9); NEUT % 55 % (31-73); PLATELET COUNT 107 x10^3/uL (140-400); RED CELL DISTRIBUTION WIDTH 13.2 % (11.5-14.5); WHITE BLOOD COUNT 6.8 x10^3/uL (4.0-11.0)
[2016-06-29 04:22] LABS: CALCIUM 9.2 mg/dL (8.5-10.1); CREATININE 0.9 mg/dL (0.7-1.3); POTASSIUM 4.4 mmol/L (3.5-5.1)
[2016-06-29] MEDS: PANTOPRAZOLE 40 MG TABLET.DR. PO SCH (06:32)
[2016-06-29 07:00] VITALS: BP 131/77
--- NOTE | 2016-06-29 07:45 | PDOC ---
GAYATHRI FAIRCHILD CHEMIST PHYSICAL 06/29/16 0745: IM PROGRESS NOTES- Subjective Subjective L chest wall pain r/t pacemaker and costochondritis Objective Objective no distress Vitals Vital Signs Date Time Temp Pulse Resp B/P Pulse Ox O2 Delivery O2 Flow Rate FiO2 06/29/16 05:00 16 Room Air 06/29/16 03:58 97 06/29/16 03:10 98.4 80 131/77 98.4 06/28/16 08:00 2.0 Input & Output Intake and Output 06/29/16 07:00 Intake Total 1920 ml Output Total 200 ml Balance 1720 ml Intake Oral 1920 ml Output Urine Total 200 ml # Voids 2 Physical Exam Physical Exam General appearance - alert,well appearing, and in no distress Mental Status - alert, oriented to person, place, and time, affect appropriate to mood Head - normal Chest - clear to auscultation, no wheezes, rales or rhonchi, symmetric air entry , pectus excavatum, PPM L chest wall + tenderness Heart - S1 and S2 normal 100% paced per telemetry Abdomen - soft, nontender, nondistended, BS + Neurological - no acute focal neurological deficit Musculoskeletal - tender neck and lumbar, + pain with palpation L chest wall, arm immobilizer LA Extremities - no pedal edema Skin - warm and dry Labs Laboratory Tests Test 06/28/16 04:00 06/28/16 05:00 06/29/16 03:40 Sodium Level 138mmol/L (136-145) 138mmol/L (136-145) Potassium Level 4.3mmol/L (3.5-5.1) 4.4mmol/L (3.5-5.1) Chloride Level 103mmol/L (98-107) 102mmol/L (98-107) Carbon Dioxide Level 26mmol/L (21-32) 29mmol/L (21-32) Anion Gap 9 (6-14) 7 (6-14) Blood Urea Nitrogen 20mg/dL (8-26) 21mg/dL (8-26) Creatinine 0.9mg/dL (0.7-1.3) 0.9mg/dL (0.7-1.3) Estimated GFR (Cockcroft-Gault) 85.0 85.0 Glucose Level 91mg/dL (70-99) 93mg/dL (70-99) Calcium Level 9.1mg/dL (8.5-10.1) 9.2mg/dL (8.5-10.1) White Blood Count 7.8x10^3/uL (4.0-11.0) 6.8x10^3/uL (4.0-11.0) Red Blood Count 4.58x10^6/uL (4.30-5.70) 4.50x10^6/uL (4.30-5.70) Hemoglobin 13.9g/dL (13.0-17.5) 13.5g/dL (13.0-17.5) Hematocrit 41.9% (39.0-53.0) 41.0% (39.0-53.0) Mean Corpuscular Volume 92fL (79-100) 91fL (79-100) Mean Corpuscular Hemoglobin 30pg (25-35) 30pg (25-35) Mean Corpuscular Hemoglobin Concent 33g/dL (31-37) 33g/dL (31-37) Red Cell Distribution Width 13.4% (11.5-14.5) 13.2% (11.5-14.5) Platelet Count 103x10^3/uL (140-400) 107x10^3/uL (140-400) Neutrophils (%) (Auto) 57% (31-73) 55% (31-73) Lymphocytes (%) (Auto) 28% (24-48) 29% (24-48) Monocytes (%) (Auto) 12% (0-9) 12% (0-9) Eosinophils (%) (Auto) 3% (0-3) 4% (0-3) Basophils (%) (Auto) 1% (0-3) 1% (0-3) Neutrophils # (Auto) 4.4x10^3uL (1.8-7.7) 3.8x10^3uL (1.8-7.7) Lymphocytes # (Auto) 2.2x10^3/uL (1.0-4.8) 1.9x10^3/uL (1.0-4.8) Monocytes # (Auto) 0.9x10^3/uL (0.0-1.1) 0.8x10^3/uL (0.0-1.1) Eosinophils # (Auto) 0.3x10^3/uL (0.0-0.7) 0.2x10^3/uL (0.0-0.7) Basophils # (Auto) 0.0x10^3/uL (0.0-0.2) 0.1x10^3/uL (0.0-0.2) Platelet Estimate Decreased (ADEQUATE) Giant Platelets Few Laboratory Tests Test 06/29/16 03:40 White Blood Count 6.8x10^3/uL (4.0-11.0) Red Blood Count 4.50x10^6/uL (4.30-5.70) Hemoglobin 13.5g/dL (13.0-17.5) Hematocrit 41.0% (39.0-53.0) Mean Corpuscular Volume 91fL (79-100) Mean Corpuscular Hemoglobin 30pg (25-35) Mean Corpuscular Hemoglobin Concent 33g/dL (31-37) Red Cell Distribution Width 13.2% (11.5-14.5) Platelet Count 107x10^3/uL (140-400) Neutrophils (%) (Auto) 55% (31-73) Lymphocytes (%) (Auto) 29% (24-48) Monocytes (%) (Auto) 12% (0-9) Eosinophils (%) (Auto) 4% (0-3) Basophils (%) (Auto) 1% (0-3) Neutrophils # (Auto) 3.8x10^3uL (1.8-7.7) Lymphocytes # (Auto) 1.9x10^3/uL (1.0-4.8) Monocytes # (Auto) 0.8x10^3/uL (0.0-1.1) Eosinophils # (Auto) 0.2x10^3/uL (0.0-0.7) Basophils # (Auto) 0.1x10^3/uL (0.0-0.2) Sodium Level 138mmol/L (136-145) Potassium Level 4.4mmol/L (3.5-5.1) Chloride Level 102mmol/L (98-107) Carbon Dioxide Level 29mmol/L (21-32) Anion Gap 7 (6-14) Blood Urea Nitrogen 21mg/dL (8-26) Creatinine 0.9mg/dL (0.7-1.3) Estimated GFR (Cockcroft-Gault) 85.0 Glucose Level 93mg/dL (70-99) Calcium Level 9.2mg/dL (8.5-10.1) Assessment Assessment 1. 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 chest pain with h/o CAD/AZ 03/29/09 secondary to chronic costochondritis on admission 3. chronic chest wall pain-costochondritis 4. cardiac arrhythmia SVT/ metoprolol succinate tx 5. severe L vertebral artery stenosis aortic arch negative per CTA 6. orthostatic hypotension with/bradycardia with metoprolol 6. noncompliance with medication due to finances 7. BPH 8. chronic low back pain with radiculopathy, LE weakness bilaterally chronic 9. moderate chronic PCL malnutrition 10. neck pain chronic with radiculopathy bilateral arms, weakness chronic 11. CKD II 12. mild mitral valve prolapse 13. diverticulosis 14. GERD 15. Schatzki ring 16. HH 17. h/o esophageal stricture dilation 02/10/16 18, mild pulmonary HTN 19. valvular insufficiency mild MR TR 20 CAD with EF 55-60% 21. HTN 22. 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 thrombocytopenia PLAN: chest pain/tachy zahida syndrome cardiology consult PPM placed 06/26 Biotronik dual-chamber permanent pacemaker orthostatic hypotension/dizziness chronic ongoing hold Florinef PPM placed 06/26 check orthostatic BP daily orthostatic 06/26: lying 114/79 -91, sitting 95/47-76; 82/58 -66 dizzy when ambulated in room 06/26 with staff, near fall place abdominal binder 06/27-not placed MS for pain contributing? IV NS 1L to be infused 06/27 Last partial orthostatics 06/28 lying 117/72; standing 86/65 abdominal binder not used-?someone to assist in home with placement. Resume Florinef 0.1mg daily costochondritis PPM planned to L chest wall hold Voltaren gel for 6 weeks. Chest pain worse- Hydrocodone increased. DVT/GI prophylaxis SCD/LUDMILA PPI thrombocytopenia POA Admit Plt 117 06/29 107 For continued plan of care, please refer to the orders. Plan Plan For more details regarding further plans, please refer to the orders. TIANA POTTER MD 06/29/16 0939: IM PROGRESS NOTES- Assessment Assessment Systolic BP 70 when standing. started on Florinef.With his multiple issues and cognitive deficits- it would be appropriate to go to SNF. The patient was seen and examined by me. Chart reviewed and plan of care formulated. Discussed with, reviewed and agree with HANDICRAFT [employer] MANAGER's notes, plan of care and orders with modifications as necessary. Discharge Management - 35 minutes. GAYATHRI FAIRCHILD APRN Jun 29, 2016 07:45 TIANA POTTER MD Jun 29, 2016 09:39
--- NOTE | 2016-06-29 07:47 | DISCH ---
DISCHARGE INSTRUCTIONS Condition on Discharge Condition on Discharge: Stable Activity After Discharge Activity Instructions for Disc: Activity as tolerated Diet after Discharge Diet after Discharge: Cardiac Wound Incision Care Other wound/incision instructi: wound care instructions per cardiology Contacting the after DC Call your doctor for: Concerns you may have Follow-Up Follow up with: Dr. Masoud Tyler in 3 days GAYATHRI FAIRCHILD APRN Jun 29, 2016 07:47
[2016-06-29] MEDS ORDERED: FLUD0.1T PO (07:50)
[2016-06-29] MEDS ORDERED: HYDR-963 PO (07:50)
[2016-06-29] MEDS ORDERED: FLUDROCORTISONE 0.1 MG TABLET PO SCH (09:00)
[2016-06-29] MEDS: ASPIRIN ENTERIC COATED 81 MG TABLET.DR. PO SCH (09:21)
[2016-06-29] MEDS: ALPRAZOLAM 0.25 MG TABLET. PO SCH (09:22)
[2016-06-29] MEDS: TAMSULOSIN 0.4 MG CAP.ER.24H. PO SCH (09:22)
[2016-06-29 11:00] VITALS: BP 126/76
== END 2016-06-29 16:00 | DRG 243 ==
LOC: ER 11:36 → 2 NORTH 13:22
PROVIDERS: ADMIT Internal Medicine; ATTEND Internal Medicine
PROC: 0JH606Z Insertion of Pacemaker, Dual Chamber into Chest Subcutaneous Tissue and Fascia, Open Approach (ICD-10-PCS; principal; 2016-06-26)
PROC: 02H63JZ Insertion of Pacemaker Lead into Right Atrium, Percutaneous Approach (ICD-10-PCS; 2016-06-26)
PROC: 02HK3JZ Insertion of Pacemaker Lead into Right Ventricle, Percutaneous Approach (ICD-10-PCS; 2016-06-26)
DX: I49.5 Sick sinus syndrome (principal); E44.0 Moderate protein-calorie malnutrition; Z68.1 Body mass index [BMI] 19.9 or less, adult; I47.1 Supraventricular tachycardia; Q87.418 Marfan syndrome with other cardiovascular manifestations; D69.6 Thrombocytopenia, unspecified; E78.00 Pure hypercholesterolemia, unspecified; E78.5 Hyperlipidemia, unspecified; G89.4 Chronic pain syndrome; N18.2 Chronic kidney disease, stage 2 (mild); I12.9 Hypertensive chronic kidney disease with stage 1 through stage 4 chronic kidney disease, or unspecified chronic kidney disease; I25.10 Atherosclerotic heart disease of native coronary artery without angina pectoris; I27.2 Other secondary pulmonary hypertension; I34.1 Nonrheumatic mitral (valve) prolapse; I42.9 Cardiomyopathy, unspecified; I95.1 Orthostatic hypotension; J44.9 Chronic obstructive pulmonary disease, unspecified; J45.909 Unspecified asthma, uncomplicated; K21.9 Gastro-esophageal reflux disease without esophagitis; K57.90 Diverticulosis of intestine, part unspecified, without perforation or abscess without bleeding; M41.9 Scoliosis, unspecified; M54.10 Radiculopathy, site unspecified; F41.9 Anxiety disorder, unspecified; M19.90 Unspecified osteoarthritis, unspecified site; M94.0 Chondrocostal junction syndrome [Tietze]; N40.0 Benign prostatic hyperplasia without lower urinary tract symptoms; M54.5 Low back pain; Z82.3 Family history of stroke; Z82.49 Family history of ischemic heart disease and other diseases of the circulatory system; Z87.440 Personal history of urinary (tract) infections
CPT/HCPCS: 33208; 36415; 71010; 80048; 80053; 83735; 83880; 84484; 85007; 85027; 85610; 85730; 93005; C1785; C1898; J0690; J2250; J2270; J3010; J3490; J7050; 97116; 97530; 97535; 99285-25; J7030

== ENCOUNTER 2016-07-24 16:03 | Emergency (ER) | payer MEDICARE, MEDICAID ==
[~2016-07-24 16:03] MED LIST changes: +FLUD0.1T PO; +HYDR-963 PO
--- NOTE | 2016-07-24 16:48 | PHYS DOC ---
Past Medical History Past Medical History: Arthritis, GERD, High Cholesterol, Hypertension, [place], Other Additional Past Medical Histor: Marfan syndrome, chronic pain, prostate problems, VERTIGO Past Surgical History: Other Additional Past Surgical Histo: Lower Back, Neck Alcohol Use: None Drug Use: None Adult General Chief Complaint Chief Complaint: MECHANICAL FALL HPI HPI Patient is a 65 year old male who presents with a fall. He stood up and felt lightheaded dizzy and then fell injuring his left foot. He denies any other injuries. He denies any headache, neck pain or other concerns. He states it hurts too much to ambulate on it. Review of Systems Review of Systems Constitutional: Denies fever or chills [] Eyes: Denies change in visual acuity, redness, or eye pain [] HENT: Denies nasal congestion or sore throat [] Respiratory: Denies cough or shortness of breath [] Cardiovascular: No additional information not addressed in HPI [] GI: Denies abdominal pain, nausea, vomiting, bloody stools or diarrhea [] : Denies dysuria or hematuria [] Musculoskeletal: Denies back pain, positive for left foot pain Integument: Denies rash or skin lesions [] Neurologic: Denies headache, focal weakness or sensory changes [] Endocrine: Denies polyuria or polydipsia [] Allergies Allergies Allergies Coded Allergies Type Severity Reaction Last Updated Verified No Known Drug Allergies 02/10/16 No Physical Exam Physical Exam Constitutional: Well developed, well nourished, no acute distress, non-toxic appearance. [] HENT: Normocephalic, atraumatic, bilateral external ears normal, oropharynx moist, no oral exudates, nose normal. [] Eyes: PERRLA, EOMI, conjunctiva normal, no discharge. [] Neck: Normal range of motion, no tenderness, supple, no stridor. [] Cardiovascular:Heart rate regular rhythm, no murmur [] Lungs & Thorax: Bilateral breath sounds clear to auscultation [] Abdomen: Bowel sounds normal, soft, no tenderness, no masses, no pulsatile masses. [] Skin: Warm, dry, no erythema, no rash. [] Back: No tenderness, no CVA tenderness. [] Extremities: Tender to palpation over the left dorsum of the foot no obvious deformities noted,, no cyanosis, no clubbing, ROM intact, no edema. [] Neurologic: Alert and oriented X 3, normal motor function, normal sensory function, no focal deficits noted. [] Psychologic: Affect normal, judgement normal, mood normal. [] Current Patient Data Vital Signs Vital Signs Date Time Temp Pulse Resp B/P Pulse Ox O2 Delivery O2 Flow Rate FiO2 07/24/16 16:10 98.8 83 20 168/98 100 Room Air 98.8 Lab Values Laboratory Tests Test 07/24/16 16:15 07/24/16 17:29 Sodium Level 144mmol/L (136-145) Potassium Level 3.6mmol/L (3.5-5.1) Chloride Level 106mmol/L (98-107) Carbon Dioxide Level 28mmol/L (21-32) Anion Gap 10 (6-14) Blood Urea Nitrogen 19mg/dL (8-26) Creatinine 1.0mg/dL (0.7-1.3) Estimated GFR (Cockcroft-Gault) 75.2 Glucose Level 92mg/dL (70-99) Calcium Level 9.2mg/dL (8.5-10.1) Urine Color Yellow Urine Clarity Clear Urine pH 7.5 Urine Specific [place] 1.025 Urine Protein Negativemg/dL (NEG-TRACE) Urine Glucose (UA) Negativemg/dL (NEG) Urine Ketones (Stick) Negativemg/dL (NEG) Urine Blood Negative (NEG) Urine Nitrite Negative (NEG) Urine Bilirubin Negative (NEG) Urine Urobilinogen Dipstick 1.0mg/dL (0.2 mg/dL) Urine Leukocyte Esterase Small (NEG) Urine RBC 0/HPF (0-2) Urine WBC 1-4/HPF (0-4) Urine Squamous Epithelial Cells Occ/LPF Urine Bacteria 0/HPF (0-FEW) Urine Mucus Mod/LPF Laboratory Tests 07/24/16 16:15 EKG EKG [] Radiology/Procedures Radiology/Procedures [facility] [address] [place] [address] IMAGING REPORT Signed PATIENT: MARNIE FRIEDMAN ACCOUNT: [id number] : 1950 LOCATION: ER AGE: 65 SEX: M EXAM [id number] STATUS: PRE ER ORD. PHYSICIAN: CODIE MONTE MD REASON: lt ankle pain PROCEDURE: ANKLE LEFT 3V; FOOT LEFT 3V Left foot, 2 views, 07/24/2016: History: Anterior foot pain No fracture or dislocation is identified. There are mild scattered degenerative changes. There is mild soft tissue swelling. IMPRESSION: No acute bony abnormality is detected. Left ankle, 3 views, 07/24/2016: No acute fracture or dislocation is identified. A small calcific density at the tip of the lateral malleolus appears to be old. The soft tissues are unremarkable. IMPRESSION: No acute left ankle abnormality is detected. DICTATED and SIGNED BY: JANAY SMITH MD DATE: 07/24/16 9595 CC: CODIE MONTE MD; TIANA POTTER MD ~ Impressions: Left foot sprain Course & Med Decision Making Course & Med Decision Making Pertinent Labs and Imaging studies reviewed. (See chart for details) Reason left foot left ankle do not show anything fracture. Basic labs are checked and do not show any acute abnormalities. Patient is being discharged home with crutches. He can use [place] as needed for pain. He is agreeable plan and follow-up with primary care physician within next few days. Return precautions given. For worsening pain, or other concerns. Dragon Disclaimer Dragon Disclaimer This electronic medical record was generated, in whole or in part, using a voice recognition dictation system. Departure Departure Impression: Primary Impression: Foot sprain Disposition: 01 HOME, SELF-CARE Condition: STABLE Referrals: TIANA POTTER MD (PCP) GREG REGALADO MD Patient Instructions: Foot Sprain Additional Instructions: The x-rays of your foot and ankle do not show anything broken. Your blood work also do not show any acute abnormalities. He can use crutches as needed. He can take [place] for pain. [place] is a narcotic pain medicine and can impair your judgment and make you sleepy. Please be careful while taking this medicine don' t drive your car. The pain gets worse, your foot turns blue or purple you have other concerns please return back to emergency department. He otherwise follow- up with Dr. Chakraborty for your foot if it continues body. Scripts Hydrocodone/Apap 5-325 ([place] 5-325 Tablet)1 Each Tablet1-2 Tab PO Q6HRS PRN PAIN #20 TAB Prov:CODIE MONTE MD 07/24/16 CODIE MONTE MD Jul 24, 2016 16:48
--- NOTE | 2016-07-24 17:08 | RAD ---
Left foot, 2 views, 07/24/2016: History: Anterior foot pain No fracture or dislocation is identified. There are mild scattered degenerative changes. There is mild soft tissue swelling. IMPRESSION: No acute bony abnormality is detected. Left ankle, 3 views, 07/24/2016: No acute fracture or dislocation is identified. A small calcific density at the tip of the lateral malleolus appears to be old. The soft tissues are unremarkable. IMPRESSION: No acute left ankle abnormality is detected.
[2016-07-24 17:45] LABS: BILIRUBIN,URINE NEGATIVE (NEG); GLUCOSE,URINE NEGATIVE (NEG); NITRITE,URINE NEGATIVE (NEG); PH,URINE 7.5; PROTEIN,URINE NEGATIVE (NEG-TRACE)
[2016-07-24 17:56] LABS: BACTERIA,URINE 0 /HPF (0-FEW); RBC,URINE 0 /HPF (0-2); SQUAMOUS EPITHELIAL CELL,UR OCC /LPF
[2016-07-24 19:10] VITALS: BP 158/91
[2016-07-24 19:44] LABS: CALCIUM 9.2 mg/dL (8.5-10.1); GFR 75.2; POTASSIUM 3.6 mmol/L (3.5-5.1)
[2016-07-24] MEDS ORDERED: HYDR-971 PO (19:57)
--- NOTE | 2016-07-25 08:39 | EKG ---
[facility] [address] [place] [address] Test Date: 2016-07-24 Test Time: 16:22:16 Pat Name: MARNIE FRIEDMAN Department: Room: Gender: M Guide Travel: : 1950 Requested By: CODIE MONTE Order Number: [id number] Reading MD: Measurements Intervals [place] Rate: 80 P: 55 MS: 190 QRS: 65 QRSD: 98 T: 87 QT: 388 QTc: 451 Interpretive Statements SINUS RHYTHM QRS(T) CONTOUR ABNORMALITY CONSIDER ANTEROSEPTAL MYOCARDIAL DAMAGE RI6.01 Unconfirmed report No previous ECG available for comparison
--- NOTE | 2016-07-27 17:10 | VNOTE ---
CALL BACK NOTE CALL BACK Microbiology 07/24/16 Urine Culture - Final, Complete 07/24/16 Urine Culture Result 1 (ABRAM) - Final, Complete 07/24/16 Antimicrobic Susceptibility - Final, Complete Positive urine culture, prescription for MicroBid called into his local pharmacy [facility] [address] [facility] ADAM KENNEY APRN July 27, 2016 17:10
== END 2016-07-24 20:19 | disposition home or self-care (01) ==
LOC: ER 16:03
DX: S93.602A Unspecified sprain of left foot, initial encounter (principal); M19.90 Unspecified osteoarthritis, unspecified site; K21.9 Gastro-esophageal reflux disease without esophagitis; E78.00 Pure hypercholesterolemia, unspecified; I10 Essential (primary) hypertension; I25.2 Old myocardial infarction; Q87.40 Marfan syndrome, unspecified; G89.29 Other chronic pain; W18.39XA Other fall on same level, initial encounter; Y93.89 Activity, other specified; Y92.89 Other specified places as the place of occurrence of the external cause; Y99.8 Other external cause status
CPT/HCPCS: 36415; 73610; 73630; 80048; 81001; 87086; 93005; 99285-25

== ENCOUNTER 2016-08-12 19:10 | Inpatient (IN) | payer MEDICAID, MEDICARE ==
[~2016-08-12] VITALS: Ht 195.6 cm; Wt 60.5 kg
[~2016-08-12 19:10] MED LIST changes: +HYDR-971 PO
[2016-08-12 19:45] LABS: BASO # 0.1 x10^3/uL (0.0-0.2); BASO % 1 % (0-3); EOS % 5 % (0-3); HEMOGLOBIN 13.4 g/dL (13.0-17.5); LYMPH # 2.1 x10^3/uL (1.0-4.8); LYMPH % 28 % (24-48); MEAN CORPUSCULAR HEMOGLOBIN 31 pg (25-35); MEAN CORPUSCULAR HGB CONC 34 g/dL (31-37); MEAN CORPUSCULAR VOLUME 90 fL (79-100); MONO % 10 % (0-9); NEUT % 56 % (31-73); PLATELET COUNT 118 x10^3/uL (140-400); RED BLOOD COUNT 4.33 x10^6/uL (4.30-5.70); RED CELL DISTRIBUTION WIDTH 13.7 % (11.5-14.5); WHITE BLOOD COUNT 7.3 x10^3/uL (4.0-11.0)
[2016-08-12 19:52] LABS: INR 1.1 (0.8-1.1); PROTHROMBIN TIME PATIENT 13.8 SEC (11.7-14.0)
[2016-08-12 19:54] LABS: CALCIUM 8.5 mg/dL (8.5-10.1); CREATININE 0.8 mg/dL (0.7-1.3); GFR 97.3; POTASSIUM 3.2 mmol/L (3.5-5.1)
[2016-08-12 19:58] LABS: ETHANOL < 10 mg/dL (0-10)
[2016-08-12 20:00] LABS: ALBUMIN 3.6 g/dL (3.4-5.0); ALBUMIN/GLOBULIN RATIO 1.1 (1.0-1.7); TOTAL BILIRUBIN 0.3 mg/dL (0.2-1.0); TOTAL PROTEIN 6.9 g/dL (6.4-8.2)
[2016-08-12 20:10] LABS: BARBITURATES NEG (NEG); BENZODIAZEPINES POS (NEG); CANNABINOIDS NEG (NEG); COCAINE NEG (NEG); METHADONE NEG (NEG); OPIATES POS (NEG); PHENCYCLIDINE NEG (NEG)
--- NOTE | 2016-08-12 21:29 | PHYS DOC ---
Past Medical History Past Medical History: Arthritis, GERD, High Cholesterol, Hypertension, [place], Other Additional Past Medical Histor: Marfan syndrome, chronic pain, prostate problems, VERTIGO Past Surgical History: Other Additional Past Surgical Histo: Lower Back, Neck Alcohol Use: None Drug Use: None Adult General Chief Complaint Chief Complaint: INGESTION HPI HPI Patient is a 65 year old male brought to the ED for by ambulance from home with the complaint of ingestion of medication. Patient states that he has some medication that he does not know the name of but it is 7.5 mg, it was prescribed yesterday, he filled it at [facility]. Today, he took 10 of them. He states he took 10 pills because he was depressed and his ankle was hurting. When I asked the patient if he felt like he wanted to hurt or kill himself he said yes, but the patient was smiling, chatty, did not seem to have a depressed and certainly not suicidal affect. Patient states he has never taken an overdose before. He lives with his brother. He believes that a family member thought that he was too sleepy and called 911. It's somewhat unclear who called 911. They found him to be alert and appropriate and did not administer Narcan. They also did not bring with him the medication or the empty bottle so I was not able to ascertain exactly what he did take. I discussed the patient with Dr. Potter, his PCP. Dr. Potter knows him well. He has not known him to be depressed or suicidal, states he is usually a happy fitz. He believes the medication in question is hydrocodone 7.5 mg. Patient states that about 3 weeks ago he fell and injured his left ankle and foot. It still bothering him and hurting. He was seen here after that and x- rays were negative. Patient states he has a history of Marfan syndrome. He recently got a pacemaker. Review of Systems Review of Systems Constitutional: Denies fever or chills [] Eyes: Denies change in visual acuity, redness, or eye pain [] HENT: Denies nasal congestion or sore throat [] Respiratory: Denies cough or shortness of breath [] Cardiovascular: Denies chest pain GI: Denies abdominal pain, nausea, vomiting, bloody stools or diarrhea [] : Denies dysuria or hematuria [] Musculoskeletal: Left ankle and foot pain for 3 weeks Integument: Denies rash or skin lesions [] Neurologic: Denies headache, focal weakness or sensory changes [] Allergies Allergies Allergies Coded Allergies Type Severity Reaction Last Updated Verified No Known Drug Allergies 02/10/16 No Physical Exam Physical Exam Constitutional: Thin, cachectic appearing, alert, mentating normally, does not appear to be sedated or intoxicated HENT: Normocephalic, atraumatic, bilateral external ears normal, nose normal. [ ] Eyes: conjunctiva normal, no discharge. [] Neck: Normal range of motion, no stridor. [] Cardiovascular:Heart rate regular rhythm, no murmur [] Lungs & Thorax: Bilateral breath sounds clear to auscultation [] Abdomen: Bowel sounds normal, soft, no tenderness, no masses, no pulsatile masses. [] Skin: Warm, dry, no erythema, no rash. [] Extremities: Left foot with mild swelling and mild tenderness, no redness, no evidence of cellulitis or gout, left ankle with no bony tenderness, ankle is not swollen Neurologic: Alert and oriented X 3, normal motor function, normal sensory function, no focal deficits noted. [] Current Patient Data Vital Signs Vital Signs Date Time Temp Pulse Resp B/P (MAP) Pulse Ox O2 Delivery O2 Flow Rate FiO2 08/12/16 19:19 97.6 67 16 160/90 (113) 98 Room Air 97.6 Lab Values Laboratory Tests Test 08/12/16 19:15 08/12/16 19:56 White Blood Count 7.3 x10^3/uL (4.0-11.0) Red Blood Count 4.33 x10^6/uL (4.30-5.70) Hemoglobin 13.4 g/dL (13.0-17.5) Hematocrit 39.0 % (39.0-53.0) Mean Corpuscular Volume 90 fL (79-100) Mean Corpuscular Hemoglobin 31 pg (25-35) Mean Corpuscular Hemoglobin Concent 34 g/dL (31-37) Red Cell Distribution Width 13.7 % (11.5-14.5) Platelet Count 118 x10^3/uL (140-400) L Neutrophils (%) (Auto) 56 % (31-73) Lymphocytes (%) (Auto) 28 % (24-48) Monocytes (%) (Auto) 10 % (0-9) H Eosinophils (%) (Auto) 5 % (0-3) H Basophils (%) (Auto) 1 % (0-3) Neutrophils # (Auto) 4.1 x10^3uL (1.8-7.7) Lymphocytes # (Auto) 2.1 x10^3/uL (1.0-4.8) Monocytes # (Auto) 0.7 x10^3/uL (0.0-1.1) Eosinophils # (Auto) 0.4 x10^3/uL (0.0-0.7) Basophils # (Auto) 0.1 x10^3/uL (0.0-0.2) Prothrombin Time 13.8 SEC (11.7-14.0) Prothrombin Time INR 1.1 (0.8-1.1) PTT 36 SEC (24-38) Sodium Level 143 mmol/L (136-145) Potassium Level 3.2 mmol/L (3.5-5.1) L Chloride Level 107 mmol/L (98-107) Carbon Dioxide Level 30 mmol/L (21-32) Anion Gap 6 (6-14) Blood Urea Nitrogen 20 mg/dL (8-26) Creatinine 0.8 mg/dL (0.7-1.3) Estimated GFR (Cockcroft-Gault) 97.3 BUN/Creatinine Ratio 25 (6-20) H Glucose Level 91 mg/dL (70-99) Calcium Level 8.5 mg/dL (8.5-10.1) Magnesium Level 2.0 mg/dL (1.8-2.4) Total Bilirubin 0.3 mg/dL (0.2-1.0) Aspartate Amino Transferase (AST) 18 U/L (15-37) Alanine Aminotransferase (ALT) 20 U/L (16-63) Alkaline Phosphatase 82 U/L (46-116) Total Protein 6.9 g/dL (6.4-8.2) Albumin 3.6 g/dL (3.4-5.0) Albumin/Globulin Ratio 1.1 (1.0-1.7) Salicylates Level < 2.8 mg/dL (2.8-20.0) L Salicylate Last Dose Date Salicylate Last Dose Time Acetaminophen Level < 2 mcg/ml (10-30) L Acetaminophen Last Dose Date Acetaminophen Last Dose Time Ethyl Alcohol Level < 10 mg/dL (0-10) Urine Opiates Screen Pos (NEG) Urine Methadone Screen Neg (NEG) Urine Barbiturates Neg (NEG) Urine Phencyclidine Screen Neg (NEG) Urine Amphetamine/Methamphetamine Neg (NEG) Urine Benzodiazepines Screen Pos (NEG) Urine Cocaine Screen Neg (NEG) Urine Cannabinoids Screen Neg (NEG) Urine Ethyl Alcohol Neg (NEG) Laboratory Tests 08/12/16 19:15 Laboratory Tests 08/12/16 19:15 EKG EKG 12-lead EKG read by me. Sinus rhythm. Heart rate 81. There are no acute ST or T wave changes indicative of ischemia or infarction. No STEMI. 191 [] Radiology/Procedures Radiology/Procedures Two-view x-ray of the left foot read by me. There are no acute or subacute bony findings. [] Course & Med Decision Making Course & Med Decision Making Pertinent Labs and Imaging studies reviewed. (See chart for details) 65-year-old male brought by EMS after he reportedly ingested 10 pills of what is likely hydrocodone 7.5 mg. We don't know what time this occurred. We don't know for sure how many or what he took. The patient at first said that he was suicidal and depressed, however the patient does not exhibit any indication of appearing depressed or suicidal. He is smiling and chatty. He wanted something to eat, he ate a sandwich, he asked for coffee. He is very stable in the emergency department. There is no indication of serious or toxic ingestion. Urine drug screen positive for opiates and benzos, he does have these prescribed. Other labs unremarkable. I discussed the case with Dr. Potter, his PCP, who knows the patient well. He will admit him. I wrote bridge orders. I don't believe the patient is acutely at risk for suicide attempt. I don't believe the patient requires one-on-one observation at this time, I believe he is safe to be admitted to a [facility] bed, Dr. Potter agrees with that plan. [] Dragon Disclaimer Dragon Disclaimer This electronic medical record was generated, in whole or in part, using a voice recognition dictation system. Departure Departure Impression: Primary Impression: Purposeful non-suicidal drug ingestion Disposition: ADMITTED INPATIENT Admitting Physician: Tiana Potter Condition: STABLE Referrals: TIANA POTTER MD (PCP) RENETTA BRYANT MD August 12, 2016 21:29
[2016-08-12 22:10] VITALS: BP 160/84
[2016-08-12] MEDS ORDERED: PNEUMOCOCCAL VAX SCREEN BY RX. MC ONE (23:00)
[2016-08-12] MEDS ORDERED: hydrALAZINE 25 MG TABLET PO PRN (23:30)
[2016-08-12] MEDS ORDERED: IBUPROFEN 400 MG TABLET. PO PRN (23:30)
[2016-08-12] MEDS ORDERED: LIDOCAINE (700MG/PATCH) PATCH. TD ONE (23:45)
[2016-08-13] MEDS: POTASSIUM CHLORIDE 10MEQ 100 ML IV SCH ×4 (00:02→02:45)
--- NOTE | 2016-08-13 00:24 | EKG ---
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
[2016-08-13 02:44] VITALS: BP 148/89
[2016-08-13 05:50] LABS: CALCIUM 8.4 mg/dL (8.5-10.1); CREATININE 0.7 mg/dL (0.7-1.3); GFR 113.5; POTASSIUM 3.6 mmol/L (3.5-5.1)
[2016-08-13 07:00] VITALS: BP 156/91
--- NOTE | 2016-08-13 08:15 | RAD ---
Left foot, 2 views, 08/12/2016: History: Foot injury 3 weeks ago, pain There is mild patchy bony demineralization. There is a small cortical fracture along the plantar aspect of the first cuneiform bone near the first tarsal-metatarsal joint, as seen on the lateral view. In retrospect it was present on the 07/24/2016 exam but is more clearly demonstrated on today's study. The tarsal-metatarsal articulations are not optimally demonstrated on today's 2 views. No other fracture or dislocation is identified. There is a mild hallux valgus deformity. There is mild diffuse soft tissue swelling about the foot. IMPRESSION: Small cortical fracture of the distal aspect of the first cuneiform bone. If an additional significant occult tarsal-metatarsal region fracture is clinically suspected, CT scanning may be useful for further evaluation. Note: The findings were called to personnel in the [facility] ER at 8:11 AM on 08/13/2016.
[2016-08-13] MEDS ORDERED: PNEUMOC CONJ VACC 23-VALENT 0.5 ML VIAL. VAX IM ONE (09:00)
[2016-08-13] MEDS: METOPROLOL TART IMMED RELEASE 25 MG TABLET. PO SCH ×2 (09:00→20:53)
--- NOTE | 2016-08-13 09:09 | PDOC1 ---
GAYATHRI FAICRHILD RELIGIOUS ASSISTANT 08/13/16 0909: HISTORY AND PHYSICAL Chief Complaint Chief Complaint This 65 year old male has been admitted with a chief complaint of hydrocodone overdose. ED: reported taking 10 hydrocodone 7.5mg to kill himself b /c of his L ankle pain. Affect and interactions with staff did not support desire to commit suicide. This morning Ezekiel denies trying to commit suicide and remembers taking one hydrocodone. He does not recall what he reported in the ED. He was seen in the ED on 07/24/16 for L ankle pain. He was getting out of chair and when he stood he was dizzy and tripped resulting in L ankle pain that was severe. His brother brought him to the ED for evaluation. Xrays were negative and he was discharged home. This ER evaluation ankle xray was repeated. Initially it was reviewed as negative. This morning BRANDEN Lind contacted this FAMILY SUPPORT SPECIALIST and reported Dr. Piña has identified a cuneiform fracture on the left foot. Ezekiel is admitted to the medical surgical floor for further evaluation. . Problem List Problems Medical Problems: (1) Purposeful non-suicidal drug ingestion Status: Acute Past Medical History Cardiovascular: HTN, MT (03/29/09), Hyperlipidemia, Valve insufficiency (tr MR , Tr ), Pulmonary hypertension (mild ), Other (Marfan syndrome, NICM, pulmonary HTN, orthotatic hypotension ) Pulmonary: Asthma, COPD (emphysema ), Other CENTRAL NERVOUS SYSTEM: Other GI: Diverticulosis, GERD, Other (Schatski ring, esophageal stricture with last dilation 02/10/16) Heme/Onc: Anemia NOS, Other (chronic thrombocytopenia ) Psych: Anxiety Musculoskeletal: low back pain (lumbar stenosis with radiculopathy bilateral LE, hyphosis and scoliosis, thoracic spondylosis/myleopathy, cervical neck pain with racidulopathy bilateral UE, chronic costochrondirits ), Osteoarthritis, Other Renal/: Chronic renal insuff, Benign prostatic enlarg. Past Surgical History PSH lumbar and cervical surgeries Past Surgical History: Pacemaker (SSS ), Other Past Family History PFH Brother Marfan syndrome Family History: Coronary Artery Disease, Stroke Past Social History PSH Lives with brother, no h/o tobacco, ETOH or illicit drug use Review of Symptoms Review of Symptoms A 14 point ROS was completed with the following noted as positive: per HPI Other systems reviewed and negative. Medications Medications reviewed and reconciled Allergy Allergies Coded Allergies Type Severity Reaction Last Updated Verified No Known Drug Allergies 02/10/16 No Physical Exam Physical Exam General appearance - alert, thin appearing, Mental Status - alert, oriented to person, place, and time, affect appropriate to mood Head - normal Chest - clear to auscultation, no wheezes, rales or rhonchi, +pectus excavatum Heart - S1 and S2 normal Abdomen - soft, nontender, nondistended, BS+ Neurological - no acute focal neurological deficits Musculoskeletal - L foot warm, trace swelling. tender calf. chronic LBP unchanged, neck pain chronic unchanged Extremities - no pedal edema Skin - warm and dry Psych - affect bright, talkative. + eye contact. VTE Prophylaxis Ordered VTE Prophylaxis Devices: Yes VTE Pharmacological Prophylaxi: No Assessment Labs Laboratory Tests Test 08/12/16 19:15 08/12/16 19:56 08/13/16 04:30 White Blood Count 7.3 x10^3/uL (4.0-11.0) Red Blood Count 4.33 x10^6/uL (4.30-5.70) Hemoglobin 13.4 g/dL (13.0-17.5) Hematocrit 39.0 % (39.0-53.0) Mean Corpuscular Volume 90 fL (79-100) Mean Corpuscular Hemoglobin 31 pg (25-35) Mean Corpuscular Hemoglobin Concent 34 g/dL (31-37) Red Cell Distribution Width 13.7 % (11.5-14.5) Platelet Count 118 x10^3/uL (140-400) Neutrophils (%) (Auto) 56 % (31-73) Lymphocytes (%) (Auto) 28 % (24-48) Monocytes (%) (Auto) 10 % (0-9) Eosinophils (%) (Auto) 5 % (0-3) Basophils (%) (Auto) 1 % (0-3) Neutrophils # (Auto) 4.1 x10^3uL (1.8-7.7) Lymphocytes # (Auto) 2.1 x10^3/uL (1.0-4.8) Monocytes # (Auto) 0.7 x10^3/uL (0.0-1.1) Eosinophils # (Auto) 0.4 x10^3/uL (0.0-0.7) Basophils # (Auto) 0.1 x10^3/uL (0.0-0.2) Prothrombin Time 13.8 SEC (11.7-14.0) Prothromb Time International Ratio 1.1 (0.8-1.1) Activated Partial Thromboplast Time 36 SEC (24-38) Sodium Level 143 mmol/L (136-145) 141 mmol/L (136-145) Potassium Level 3.2 mmol/L (3.5-5.1) 3.6 mmol/L (3.5-5.1) Chloride Level 107 mmol/L (98-107) 106 mmol/L (98-107) Carbon Dioxide Level 30 mmol/L (21-32) 27 mmol/L (21-32) Anion Gap 6 (6-14) 8 (6-14) Blood Urea Nitrogen 20 mg/dL (8-26) 15 mg/dL (8-26) Creatinine 0.8 mg/dL (0.7-1.3) 0.7 mg/dL (0.7-1.3) Estimated GFR (Cockcroft-Gault) 97.3 113.5 BUN/Creatinine Ratio 25 (6-20) Glucose Level 91 mg/dL (70-99) 76 mg/dL (70-99) Calcium Level 8.5 mg/dL (8.5-10.1) 8.4 mg/dL (8.5-10.1) Magnesium Level 2.0 mg/dL (1.8-2.4) Total Bilirubin 0.3 mg/dL (0.2-1.0) Aspartate Amino Transf (AST/SGOT) 18 U/L (15-37) Alanine Aminotransferase (ALT/SGPT) 20 U/L (16-63) Alkaline Phosphatase 82 U/L (46-116) Total Protein 6.9 g/dL (6.4-8.2) Albumin 3.6 g/dL (3.4-5.0) Albumin/Globulin Ratio 1.1 (1.0-1.7) Salicylates Level < 2.8 mg/dL (2.8-20.0) Salicylate Last Dose Date Salicylate Last Dose Time Acetaminophen Level < 2 mcg/ml (10-30) Acetaminophen Last Dose Date Acetaminophen Last Dose Time Ethyl Alcohol Level < 10 mg/dL (0-10) Urine Opiates Screen Pos (NEG) Urine Methadone Screen Neg (NEG) Urine Barbiturates Neg (NEG) Urine Phencyclidine Screen Neg (NEG) Urine Amphetamine/Methamphetamine Neg (NEG) Urine Benzodiazepines Screen Pos (NEG) Urine Cocaine Screen Neg (NEG) Urine Cannabinoids Screen Neg (NEG) Urine Ethyl Alcohol Neg (NEG) Laboratory Tests Test 08/12/16 19:15 08/12/16 19:56 08/13/16 04:30 White Blood Count 7.3 x10^3/uL (4.0-11.0) Red Blood Count 4.33 x10^6/uL (4.30-5.70) Hemoglobin 13.4 g/dL (13.0-17.5) Hematocrit 39.0 % (39.0-53.0) Mean Corpuscular Volume 90 fL (79-100) Mean Corpuscular Hemoglobin 31 pg (25-35) Mean Corpuscular Hemoglobin Concent 34 g/dL (31-37) Red Cell Distribution Width 13.7 % (11.5-14.5) Platelet Count 118 x10^3/uL (140-400) Neutrophils (%) (Auto) 56 % (31-73) Lymphocytes (%) (Auto) 28 % (24-48) Monocytes (%) (Auto) 10 % (0-9) Eosinophils (%) (Auto) 5 % (0-3) Basophils (%) (Auto) 1 % (0-3) Neutrophils # (Auto) 4.1 x10^3uL (1.8-7.7) Lymphocytes # (Auto) 2.1 x10^3/uL (1.0-4.8) Monocytes # (Auto) 0.7 x10^3/uL (0.0-1.1) Eosinophils # (Auto) 0.4 x10^3/uL (0.0-0.7) Basophils # (Auto) 0.1 x10^3/uL (0.0-0.2) Prothrombin Time 13.8 SEC (11.7-14.0) Prothromb Time International Ratio 1.1 (0.8-1.1) Activated Partial Thromboplast Time 36 SEC (24-38) Sodium Level 143 mmol/L (136-145) 141 mmol/L (136-145) Potassium Level 3.2 mmol/L (3.5-5.1) 3.6 mmol/L (3.5-5.1) Chloride Level 107 mmol/L (98-107) 106 mmol/L (98-107) Carbon Dioxide Level 30 mmol/L (21-32) 27 mmol/L (21-32) Anion Gap 6 (6-14) 8 (6-14) Blood Urea Nitrogen 20 mg/dL (8-26) 15 mg/dL (8-26) Creatinine 0.8 mg/dL (0.7-1.3) 0.7 mg/dL (0.7-1.3) Estimated GFR (Cockcroft-Gault) 97.3 113.5 BUN/Creatinine Ratio 25 (6-20) Glucose Level 91 mg/dL (70-99) 76 mg/dL (70-99) Calcium Level 8.5 mg/dL (8.5-10.1) 8.4 mg/dL (8.5-10.1) Magnesium Level 2.0 mg/dL (1.8-2.4) Total Bilirubin 0.3 mg/dL (0.2-1.0) Aspartate Amino Transf (AST/SGOT) 18 U/L (15-37) Alanine Aminotransferase (ALT/SGPT) 20 U/L (16-63) Alkaline Phosphatase 82 U/L (46-116) Total Protein 6.9 g/dL (6.4-8.2) Albumin 3.6 g/dL (3.4-5.0) Albumin/Globulin Ratio 1.1 (1.0-1.7) Salicylates Level < 2.8 mg/dL (2.8-20.0) Salicylate Last Dose Date Salicylate Last Dose Time Acetaminophen Level < 2 mcg/ml (10-30) Acetaminophen Last Dose Date Acetaminophen Last Dose Time Ethyl Alcohol Level < 10 mg/dL (0-10) Urine Opiates Screen Pos (NEG) Urine Methadone Screen Neg (NEG) Urine Barbiturates Neg (NEG) Urine Phencyclidine Screen Neg (NEG) Urine Amphetamine/Methamphetamine Neg (NEG) Urine Benzodiazepines Screen Pos (NEG) Urine Cocaine Screen Neg (NEG) Urine Cannabinoids Screen Neg (NEG) Urine Ethyl Alcohol Neg (NEG) Plan Plan IMPRESSION: 1. narcotic overdosage with questionable intent 2. L foot pain with fracture L cuneiform bone identified this admission post fall 07/24/16 3. hypokalemia 4. severe L vertebral artery stenosis aortic arch negative per CTA in past 5. orthostatic hypotension treated with florinef 6. mild mitral valve prolapse 7. BPH 8. chronic low back pain with radiculopathy, LE weakness bilaterally chronic 9. moderate chronic PCL malnutrition 10. neck pain chronic with radiculopathy bilateral arms, weakness chronic 11. 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 diverticulosis 14. GERD 15. Schatzki ring 16. HH 17. h/o esophageal stricture dilation 02/10/16 18, mild pulmonary HTN 19. valvular insufficiency mild MR TR 20 CAD with EF 55-60% 21. HTN 22. dizziness chronic 23. chronic thrombocytopenia 24. SSS PPM 25. mild pulmonary HTN PLAN: L foot pain consult ortho dose one time Ancef 08/13 check venous doppler DVT narcotic overdose questionable intent: remembers taking one, does not remember additional meds currently Motrin 400mg every 4 hours as needed for pain hypokalemia ADmit 3.2 08/13 3.6 anxiety xanax -continue ?if stopping, will need titrated off SCD/GI prophylaxis SCD/LUDMILA PPI For more details regarding further plans, please refer to the orders. TIANA POTTER MD 08/13/16 1039: HISTORY AND PHYSICAL Plan Plan Patient denies any suicidal thoughts.His answers range from 1 to 5 to 10 tablets - of Hydrocodone- not at the same time. He does not remember. He was found less responsive and sleeping by his brother and he was sent to the ER. Discharge tomorrow if stable. For more details regarding further plans, please refer to the orders.The patient was seen and examined by me. Chart reviewed and plan of care formulated. Discussed with, reviewed and agree with PICKER PACKER's notes, plan of care and orders with modifications as necessary. GAYATHRI FAIRCHILD APRN August 13, 2016 09:09 TIANA POTTER MD August 13, 2016 10:39
--- NOTE | 2016-08-13 09:15 | RAD ---
Exam performed: Left lower extremity venous Doppler. Clinical Indication: Left leg swelling, pain Comparison: None Technique: Grayscale, color Doppler 2-D, spectral waveform analysis of the left lower extremity venous system were performed. Findings: The common femoral, superficial femoral, popliteal and proximal calf veins are all patent and demonstrate normal flow and compressibility. Normal respiratory phasicity and augmentation is present. Impression: No evidence of deep venous thrombosis identified in the visualized left lower extremity venous system.
[2016-08-13] MEDS: TAMSULOSIN 0.4 MG CAP.ER.24H. PO SCH (09:29)
[2016-08-13] MEDS: PANTOPRAZOLE 40 MG TABLET.DR. PO SCH (09:29)
[2016-08-13] MEDS: ASPIRIN ENTERIC COATED 81 MG TABLET.DR. PO SCH (09:29)
[2016-08-13] MEDS: ALPRAZolam 0.25 MG TABLET PO SCH ×2 (09:30→20:52)
[2016-08-13] MEDS: FLUDROCORTISONE 0.1 MG TABLET PO SCH (09:30)
[2016-08-13 11:00] VITALS: BP 135/82
[2016-08-13] MEDS: DICLOFENAC SODIUM 1% TOPICAL GEL 100GM TUBE. TP SCH ×2 (12:56→20:54)
--- NOTE | 2016-08-13 13:15 | PDOC ---
ORTHO PROGRESS NOTES Vitals Vital Signs Date Time Temp Pulse Resp B/P (MAP) Pulse Ox O2 Delivery O2 Flow Rate FiO2 08/13/16 11:00 98.0 68 18 135/82 (99) 99 Room Air 98.0 Labs Laboratory Tests Test 08/12/16 19:15 08/12/16 19:56 08/13/16 04:30 08/13/16 10:20 White Blood Count 7.3 x10^3/uL (4.0-11.0) Red Blood Count 4.33 x10^6/uL (4.30-5.70) Hemoglobin 13.4 g/dL (13.0-17.5) Hematocrit 39.0 % (39.0-53.0) Mean Corpuscular Volume 90 fL (79-100) Mean Corpuscular Hemoglobin 31 pg (25-35) Mean Corpuscular Hemoglobin Concent 34 g/dL (31-37) Red Cell Distribution Width 13.7 % (11.5-14.5) Platelet Count 118 x10^3/uL (140-400) Neutrophils (%) (Auto) 56 % (31-73) Lymphocytes (%) (Auto) 28 % (24-48) Monocytes (%) (Auto) 10 % (0-9) Eosinophils (%) (Auto) 5 % (0-3) Basophils (%) (Auto) 1 % (0-3) Neutrophils # (Auto) 4.1 x10^3uL (1.8-7.7) Lymphocytes # (Auto) 2.1 x10^3/uL (1.0-4.8) Monocytes # (Auto) 0.7 x10^3/uL (0.0-1.1) Eosinophils # (Auto) 0.4 x10^3/uL (0.0-0.7) Basophils # (Auto) 0.1 x10^3/uL (0.0-0.2) Prothrombin Time 13.8 SEC (11.7-14.0) Prothromb Time International Ratio 1.1 (0.8-1.1) Activated Partial Thromboplast Time 36 SEC (24-38) Sodium Level 143 mmol/L (136-145) 141 mmol/L (136-145) Potassium Level 3.2 mmol/L (3.5-5.1) 3.6 mmol/L (3.5-5.1) Chloride Level 107 mmol/L (98-107) 106 mmol/L (98-107) Carbon Dioxide Level 30 mmol/L (21-32) 27 mmol/L (21-32) Anion Gap 6 (6-14) 8 (6-14) Blood Urea Nitrogen 20 mg/dL (8-26) 15 mg/dL (8-26) Creatinine 0.8 mg/dL (0.7-1.3) 0.7 mg/dL (0.7-1.3) Estimated GFR (Cockcroft-Gault) 97.3 113.5 BUN/Creatinine Ratio 25 (6-20) Glucose Level 91 mg/dL (70-99) 76 mg/dL (70-99) Calcium Level 8.5 mg/dL (8.5-10.1) 8.4 mg/dL (8.5-10.1) Magnesium Level 2.0 mg/dL (1.8-2.4) Total Bilirubin 0.3 mg/dL (0.2-1.0) Aspartate Amino Transf (AST/SGOT) 18 U/L (15-37) Alanine Aminotransferase (ALT/SGPT) 20 U/L (16-63) Alkaline Phosphatase 82 U/L (46-116) Total Protein 6.9 g/dL (6.4-8.2) Albumin 3.6 g/dL (3.4-5.0) Albumin/Globulin Ratio 1.1 (1.0-1.7) Salicylates Level < 2.8 mg/dL (2.8-20.0) Salicylate Last Dose Date Salicylate Last Dose Time Acetaminophen Level < 2 mcg/ml (10-30) Acetaminophen Last Dose Date Acetaminophen Last Dose Time Ethyl Alcohol Level < 10 mg/dL (0-10) Urine Opiates Screen Pos (NEG) Urine Methadone Screen Neg (NEG) Urine Barbiturates Neg (NEG) Urine Phencyclidine Screen Neg (NEG) Urine Amphetamine/Methamphetamine Neg (NEG) Urine Benzodiazepines Screen Pos (NEG) Urine Cocaine Screen Neg (NEG) Urine Cannabinoids Screen Neg (NEG) Urine Ethyl Alcohol Neg (NEG) Erythrocyte Sedimentation Rate 7 (0-15) Laboratory Tests Test 08/12/16 19:15 08/12/16 19:56 08/13/16 04:30 08/13/16 10:20 White Blood Count 7.3 x10^3/uL (4.0-11.0) Red Blood Count 4.33 x10^6/uL (4.30-5.70) Hemoglobin 13.4 g/dL (13.0-17.5) Hematocrit 39.0 % (39.0-53.0) Mean Corpuscular Volume 90 fL (79-100) Mean Corpuscular Hemoglobin 31 pg (25-35) Mean Corpuscular Hemoglobin Concent 34 g/dL (31-37) Red Cell Distribution Width 13.7 % (11.5-14.5) Platelet Count 118 x10^3/uL (140-400) Neutrophils (%) (Auto) 56 % (31-73) Lymphocytes (%) (Auto) 28 % (24-48) Monocytes (%) (Auto) 10 % (0-9) Eosinophils (%) (Auto) 5 % (0-3) Basophils (%) (Auto) 1 % (0-3) Neutrophils # (Auto) 4.1 x10^3uL (1.8-7.7) Lymphocytes # (Auto) 2.1 x10^3/uL (1.0-4.8) Monocytes # (Auto) 0.7 x10^3/uL (0.0-1.1) Eosinophils # (Auto) 0.4 x10^3/uL (0.0-0.7) Basophils # (Auto) 0.1 x10^3/uL (0.0-0.2) Prothrombin Time 13.8 SEC (11.7-14.0) Prothromb Time International Ratio 1.1 (0.8-1.1) Activated Partial Thromboplast Time 36 SEC (24-38) Sodium Level 143 mmol/L (136-145) 141 mmol/L (136-145) Potassium Level 3.2 mmol/L (3.5-5.1) 3.6 mmol/L (3.5-5.1) Chloride Level 107 mmol/L (98-107) 106 mmol/L (98-107) Carbon Dioxide Level 30 mmol/L (21-32) 27 mmol/L (21-32) Anion Gap 6 (6-14) 8 (6-14) Blood Urea Nitrogen 20 mg/dL (8-26) 15 mg/dL (8-26) Creatinine 0.8 mg/dL (0.7-1.3) 0.7 mg/dL (0.7-1.3) Estimated GFR (Cockcroft-Gault) 97.3 113.5 BUN/Creatinine Ratio 25 (6-20) Glucose Level 91 mg/dL (70-99) 76 mg/dL (70-99) Calcium Level 8.5 mg/dL (8.5-10.1) 8.4 mg/dL (8.5-10.1) Magnesium Level 2.0 mg/dL (1.8-2.4) Total Bilirubin 0.3 mg/dL (0.2-1.0) Aspartate Amino Transf (AST/SGOT) 18 U/L (15-37) Alanine Aminotransferase (ALT/SGPT) 20 U/L (16-63) Alkaline Phosphatase 82 U/L (46-116) Total Protein 6.9 g/dL (6.4-8.2) Albumin 3.6 g/dL (3.4-5.0) Albumin/Globulin Ratio 1.1 (1.0-1.7) Salicylates Level < 2.8 mg/dL (2.8-20.0) Salicylate Last Dose Date Salicylate Last Dose Time Acetaminophen Level < 2 mcg/ml (10-30) Acetaminophen Last Dose Date Acetaminophen Last Dose Time Ethyl Alcohol Level < 10 mg/dL (0-10) Urine Opiates Screen Pos (NEG) Urine Methadone Screen Neg (NEG) Urine Barbiturates Neg (NEG) Urine Phencyclidine Screen Neg (NEG) Urine Amphetamine/Methamphetamine Neg (NEG) Urine Benzodiazepines Screen Pos (NEG) Urine Cocaine Screen Neg (NEG) Urine Cannabinoids Screen Neg (NEG) Urine Ethyl Alcohol Neg (NEG) Erythrocyte Sedimentation Rate 7 (0-15) Assessment and Plan He has a cuneiform fracture. No surgery needed. He can weight-bear as tolerated in a cam boot. From my standpoint he can go home once medically stable and he has the cam boot SEFERINO JAMES II, MD August 13, 2016 13:14
[2016-08-13] MEDS ORDERED: SIMV20TA3 PO (14:51)
[2016-08-13] MEDS ORDERED: FLUD0.1T PO (14:51)
[2016-08-13 14:56] VITALS: BP 134/84
[2016-08-13] MEDS: IBUPROFEN 600 MG TABLET. PO SCH ×2 (14:58→20:52)
[2016-08-13 19:00] VITALS: BP 136/89
[2016-08-13] MEDS ORDERED: SIMVASTATIN 40 MG TABLET. PO SCH (21:00)
[2016-08-13 23:00] VITALS: BP 131/79
--- NOTE | 2016-08-14 01:51 | CONS ---
DATE OF CONSULTATION: 08/13/2016 ATTENDING PHYSICIAN: Dr. Masoud Tyler. The patient was seen at the request of Dr. Tyler for rehab evaluation. 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 He was admitted through the Emergency Room on 08/12/2016, with questionable overdose of hydrocodone. The patient complains of pain in his left ankle since he fell and injured it on 07/24/2016. He felt dizzy and dripped. The patient was seen in the Emergency Room, had x-rays and they missed small hip fracture involving ____ at that time and he was sent home with crutches. The patient is having significant pain and x-rays done yesterday revealed small cortical fracture of the distal aspect of the first cuneiform bone. The patient denies any numbness and weakness in the extremities. He had stairs to manage at home. PAST MEDICAL HISTORY: Significant for hypertension, myocardial infarction in 03/2009, hyperlipidemia, trace mitral regurgitation and tricuspid regurgitation, pulmonary hypertension mild, Marfan syndrome, which he inherited from his mother, also had problems with orthostatic hypotension in the past, asthmatic bronchitis, chronic obstructive pulmonary disease, diverticulosis, gastroesophageal reflux disease, Schatzki ring, esophageal stricture, last dilatation on 02/10/2016, anemia, chronic thrombocytopenia, anxiety, lower back pain from lumbar spinal stenosis with lumbar radiculitis, kyphosis and scoliosis of thoracolumbar vertebrae, thoracic spondylosis with myelopathy, cervical neck pain with radiculopathy of both upper extremities, chronic costochondritis, chronic renal insufficiency, benign prostatic hypertrophy status post cervical and lumbar spine surgeries, permanent pacemaker placement, brother also had Marfan syndrome. FAMILY HISTORY: Coronary artery disease, cerebrovascular accident. He lives with his brother. PHYSICAL EXAMINATION: The patient on physical examination today revealed a middle-aged male. He is alert, oriented to time, place, person and circumstance and follows commands appropriately, moves all 4 extremities voluntarily where he had 5/5 grade muscle strength. Deep tendon reflexes are 2+ and symmetrical and he had equal perception of touch and pinprick sensation bilaterally. He had edema of his left ankle and left foot and diffuse tenderness to palpation at left ankle and left foot more so over anterior lateral aspect of left ankle and mid foot. His skin is intact at this time. He had overgrown toenails. He is independent with bed mobility and transfers. I have not tested his ambulation skills at this time. No significant tenderness to palpation over cervical, thoracic or lumbar spine area and straight leg raising test is negative bilaterally. ASSESSMENT: 1. Recent fall and sprain, left ankle and left foot with also hip fracture, first cuneiform bone, left foot, onset 07/24/2016. 2. History of chronic obstructive pulmonary disease. 3. Hypertension. 4. Myocardial infarction. 5. Hyperlipidemia. 6. Valvular heart disease. 7. Pulmonary hypertension. 8. Marfan syndrome. 9. Orthostatic hypotension. 10. Gastroesophageal reflux disease. 11. Diverticulosis. 12. Esophageal stricture, status post dilatation. 13. Anemia. 14. Chronic thrombocytopenia. 15. Chronic lower back, upper back and neck pain status post cervical and lumbar spine surgeries. 16. Anxiety. 17. Chronic renal insufficiency. 18. Benign prostatic hypertrophy. 19. Status post permanent pacemaker placement. RECOMMENDATIONS: To obtain him Cam walker boot for use while up and encouraged him to use a roller walker while up. Agree with the plan for physical therapy and occupational therapy and to ask Dr. Kelley to take care of his toenails. Hopefully, home with home health followup when he is medically stable. Dr. Tyler, I appreciate asking me to participate in the care of this interesting patient. I will be glad to follow him with you as needed for his rehabilitation. SAMSON SCHREIBER MD DR: TATI/jarocho JOB#: [id number] / [id number]
--- NOTE | 2016-08-14 01:51 | CONS ---
DATE OF CONSULTATION: 08/13/2016 REFERRING PROVIDER: Dr. Tyler. CONSULTING PROVIDER: Lavelle James MD REASON FOR CONSULTATION: Left foot fracture. CHIEF COMPLAINT: Left foot pain. HISTORY OF PRESENT ILLNESS: The patient is a very pleasant 65-year-old who was brought in by ambulance to the Emergency Department after taking too many narcotics. He took the pain medicines because he told me his foot hurts. He first injured his foot several weeks ago and he presented to the Emergency Department and x-rays then were negative for fracture. Subsequently, his foot has not gotten better, does hurt him in his mid foot and over the top and bottom of his foot around this area. It is worse with any attempted weightbearing. He denies any abnormal sensation or pain elsewhere. ALLERGIES: None. MEDICATIONS: Reviewed. Please see MRAD. REVIEW OF SYSTEMS: Twelve point review of systems negative except as per HPI. PAST MEDICAL HISTORY: Arthritis, GERD, hypercholesterolemia, hypertension, AR, Marfan syndrome, vertigo. PAST SURGICAL HISTORY: Lumbar surgery, C-spine surgery. FAMILY HISTORY: Noncontributory. SOCIAL HISTORY: No alcohol or tobacco. PHYSICAL EXAMINATION: GENERAL: The patient is alert and oriented, no acute distress. Mood and affect are appropriate. HEENT: Head normocephalic, atraumatic. Extraocular muscles are intact. CARDIOVASCULAR: Regular rate and rhythm and no edema in his lower extremities. Dorsalis pedis 2+. LUNGS: Respirations are unlabored with symmetric chest rise. ABDOMEN: Soft, nondistended. EXTREMITIES: Examination of bilateral lower extremities reveals mild edema over the medial border of his left foot in the arch. He can wiggle his toes. Normal sensations throughout bilateral feet. He has tenderness over his medial left arch. No tenderness elsewhere at feet, ankles or knees. IMAGING: X-rays were interpreted by myself. X-rays were compared to 07/16/2016. He has a small fracture at the base of his medial cuneiform. Ultrasound for DVT was negative. IMPRESSION: Closed left medial cuneiform fracture. PLAN: From my standpoint, he can weightbear as tolerated in a walking boot. He can be discharged once medically stable. He should follow up with myself or my nurse practitioner here in 2-3 weeks. LAVELLE JAMES MD DR: CAMMY/jarocho JOB#: [id number] / [id number] [place]
[2016-08-14 03:00] VITALS: BP 126/96
[2016-08-14] MEDS: PANTOPRAZOLE 40 MG TABLET.DR. PO SCH (06:34)
[2016-08-14 07:00] VITALS: BP 138/96
--- NOTE | 2016-08-14 08:07 | PDOC ---
ORTHO PROGRESS NOTES Subjective Left foot pain, little worse this am. CAM boot in place Vitals Vital Signs Date Time Temp Pulse Resp B/P (MAP) Pulse Ox O2 Delivery O2 Flow Rate FiO2 08/14/16 07:00 97.7 61 18 138/96 (110) 100 Room Air 97.7 Labs Laboratory Tests Test 08/12/16 19:15 08/12/16 19:56 08/13/16 04:30 08/13/16 10:20 White Blood Count 7.3 x10^3/uL (4.0-11.0) Red Blood Count 4.33 x10^6/uL (4.30-5.70) Hemoglobin 13.4 g/dL (13.0-17.5) Hematocrit 39.0 % (39.0-53.0) Mean Corpuscular Volume 90 fL (79-100) Mean Corpuscular Hemoglobin 31 pg (25-35) Mean Corpuscular Hemoglobin Concent 34 g/dL (31-37) Red Cell Distribution Width 13.7 % (11.5-14.5) Platelet Count 118 x10^3/uL (140-400) Neutrophils (%) (Auto) 56 % (31-73) Lymphocytes (%) (Auto) 28 % (24-48) Monocytes (%) (Auto) 10 % (0-9) Eosinophils (%) (Auto) 5 % (0-3) Basophils (%) (Auto) 1 % (0-3) Neutrophils # (Auto) 4.1 x10^3uL (1.8-7.7) Lymphocytes # (Auto) 2.1 x10^3/uL (1.0-4.8) Monocytes # (Auto) 0.7 x10^3/uL (0.0-1.1) Eosinophils # (Auto) 0.4 x10^3/uL (0.0-0.7) Basophils # (Auto) 0.1 x10^3/uL (0.0-0.2) Prothrombin Time 13.8 SEC (11.7-14.0) Prothromb Time International Ratio 1.1 (0.8-1.1) Activated Partial Thromboplast Time 36 SEC (24-38) Sodium Level 143 mmol/L (136-145) 141 mmol/L (136-145) Potassium Level 3.2 mmol/L (3.5-5.1) 3.6 mmol/L (3.5-5.1) Chloride Level 107 mmol/L (98-107) 106 mmol/L (98-107) Carbon Dioxide Level 30 mmol/L (21-32) 27 mmol/L (21-32) Anion Gap 6 (6-14) 8 (6-14) Blood Urea Nitrogen 20 mg/dL (8-26) 15 mg/dL (8-26) Creatinine 0.8 mg/dL (0.7-1.3) 0.7 mg/dL (0.7-1.3) Estimated GFR (Cockcroft-Gault) 97.3 113.5 BUN/Creatinine Ratio 25 (6-20) Glucose Level 91 mg/dL (70-99) 76 mg/dL (70-99) Calcium Level 8.5 mg/dL (8.5-10.1) 8.4 mg/dL (8.5-10.1) Magnesium Level 2.0 mg/dL (1.8-2.4) Total Bilirubin 0.3 mg/dL (0.2-1.0) Aspartate Amino Transf (AST/SGOT) 18 U/L (15-37) Alanine Aminotransferase (ALT/SGPT) 20 U/L (16-63) Alkaline Phosphatase 82 U/L (46-116) Total Protein 6.9 g/dL (6.4-8.2) Albumin 3.6 g/dL (3.4-5.0) Albumin/Globulin Ratio 1.1 (1.0-1.7) Salicylates Level < 2.8 mg/dL (2.8-20.0) Salicylate Last Dose Date Salicylate Last Dose Time Acetaminophen Level < 2 mcg/ml (10-30) Acetaminophen Last Dose Date Acetaminophen Last Dose Time Ethyl Alcohol Level < 10 mg/dL (0-10) Urine Opiates Screen Pos (NEG) Urine Methadone Screen Neg (NEG) Urine Barbiturates Neg (NEG) Urine Phencyclidine Screen Neg (NEG) Urine Amphetamine/Methamphetamine Neg (NEG) Urine Benzodiazepines Screen Pos (NEG) Urine Cocaine Screen Neg (NEG) Urine Cannabinoids Screen Neg (NEG) Urine Ethyl Alcohol Neg (NEG) Erythrocyte Sedimentation Rate 7 (0-15) Laboratory Tests Test 08/13/16 10:20 Erythrocyte Sedimentation Rate 7 (0-15) Notes A and A in bed LLE: CAM, TTP medial arch, skin intact Assessment and Plan Ok to remove CAM while in bed ok to WBAT in CAM ok to D/C from my standpoint SEFERINO JAMES II, MD August 14, 2016 08:07
--- NOTE | 2016-08-14 09:08 | PDOC3 ---
GURINDERGAYATHRI [employer] 08/14/16 0908: IM DISCHARGE & PROGRESS NOTES Date of Admission Date of Admission Date of Admission: August 12, 2016 at 21:25 Date of Discharge Date of Discharge 08/14/16 Primary Diagnosis Primary Diagnosis 1. narcotic overdosage with negative suicidal intent 2. L foot pain with fracture L cuneiform bone identified this admission post fall 07/24/16 3. hypokalemia resolved 4. severe L vertebral artery stenosis aortic arch negative per CTA in past 5. orthostatic hypotension treated with florinef 6. mild mitral valve prolapse 7. BPH 8. chronic low back pain with radiculopathy, LE weakness bilaterally chronic 9. moderate chronic PCL malnutrition 10. neck pain chronic with radiculopathy bilateral arms, weakness chronic 11. 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 diverticulosis 14. GERD 15. Schatzki ring 16. HH 17. h/o esophageal stricture dilation 02/10/16 18, mild pulmonary HTN 19. valvular insufficiency mild MR TR 20 CAD with EF 55-60% 21. HTN 22. dizziness chronic 23. chronic thrombocytopenia 24. SSS PPM 25. mild pulmonary HTN Consults Consults Mayo Kebede MD Procedures Procedures None Labs Labs Laboratory Tests Test 08/12/16 19:15 08/12/16 19:56 08/13/16 04:30 08/13/16 10:20 White Blood Count 7.3 x10^3/uL (4.0-11.0) Red Blood Count 4.33 x10^6/uL (4.30-5.70) Hemoglobin 13.4 g/dL (13.0-17.5) Hematocrit 39.0 % (39.0-53.0) Mean Corpuscular Volume 90 fL (79-100) Mean Corpuscular Hemoglobin 31 pg (25-35) Mean Corpuscular Hemoglobin Concent 34 g/dL (31-37) Red Cell Distribution Width 13.7 % (11.5-14.5) Platelet Count 118 x10^3/uL (140-400) Neutrophils (%) (Auto) 56 % (31-73) Lymphocytes (%) (Auto) 28 % (24-48) Monocytes (%) (Auto) 10 % (0-9) Eosinophils (%) (Auto) 5 % (0-3) Basophils (%) (Auto) 1 % (0-3) Neutrophils # (Auto) 4.1 x10^3uL (1.8-7.7) Lymphocytes # (Auto) 2.1 x10^3/uL (1.0-4.8) Monocytes # (Auto) 0.7 x10^3/uL (0.0-1.1) Eosinophils # (Auto) 0.4 x10^3/uL (0.0-0.7) Basophils # (Auto) 0.1 x10^3/uL (0.0-0.2) Prothrombin Time 13.8 SEC (11.7-14.0) Prothromb Time International Ratio 1.1 (0.8-1.1) Activated Partial Thromboplast Time 36 SEC (24-38) Sodium Level 143 mmol/L (136-145) 141 mmol/L (136-145) Potassium Level 3.2 mmol/L (3.5-5.1) 3.6 mmol/L (3.5-5.1) Chloride Level 107 mmol/L (98-107) 106 mmol/L (98-107) Carbon Dioxide Level 30 mmol/L (21-32) 27 mmol/L (21-32) Anion Gap 6 (6-14) 8 (6-14) Blood Urea Nitrogen 20 mg/dL (8-26) 15 mg/dL (8-26) Creatinine 0.8 mg/dL (0.7-1.3) 0.7 mg/dL (0.7-1.3) Estimated GFR (Cockcroft-Gault) 97.3 113.5 BUN/Creatinine Ratio 25 (6-20) Glucose Level 91 mg/dL (70-99) 76 mg/dL (70-99) Calcium Level 8.5 mg/dL (8.5-10.1) 8.4 mg/dL (8.5-10.1) Magnesium Level 2.0 mg/dL (1.8-2.4) Total Bilirubin 0.3 mg/dL (0.2-1.0) Aspartate Amino Transf (AST/SGOT) 18 U/L (15-37) Alanine Aminotransferase (ALT/SGPT) 20 U/L (16-63) Alkaline Phosphatase 82 U/L (46-116) Total Protein 6.9 g/dL (6.4-8.2) Albumin 3.6 g/dL (3.4-5.0) Albumin/Globulin Ratio 1.1 (1.0-1.7) Salicylates Level < 2.8 mg/dL (2.8-20.0) Salicylate Last Dose Date Salicylate Last Dose Time Acetaminophen Level < 2 mcg/ml (10-30) Acetaminophen Last Dose Date Acetaminophen Last Dose Time Ethyl Alcohol Level < 10 mg/dL (0-10) Urine Opiates Screen Pos (NEG) Urine Methadone Screen Neg (NEG) Urine Barbiturates Neg (NEG) Urine Phencyclidine Screen Neg (NEG) Urine Amphetamine/Methamphetamine Neg (NEG) Urine Benzodiazepines Screen Pos (NEG) Urine Cocaine Screen Neg (NEG) Urine Cannabinoids Screen Neg (NEG) Urine Ethyl Alcohol Neg (NEG) Erythrocyte Sedimentation Rate 7 (0-15) Medications Medications Medications reviewed and reconciled for discharge. Brief hospital course Brief hospital course This 65 year old male who presented with altered mental status was admitted. The following is a summary of his treatment: L foot pain consult ortho consult Dr. Kebede dose one time Ancef 08/13 check venous doppler DVT-08/13 negative CAM boot L foot f/u ortho 2-3 weeks narcotic overdose questionable intent: remembers taking one, does not remember additional meds currently Motrin 400mg every 4 hours as needed for pain Variable answers regarding amount lortab taking-will stop and begin Tramadol for pain hypokalemia ADmit 3.2 08/14 3.6 anxiety xanax -continue ?if stopping, will need titrated off continue SCD/GI prophylaxis SCD/LUDMILA PPI For more details regarding the past history, family history, social history, surgical history and other details, please refer to History and Physical. Will plan home with N PT OT. Advised to use roller walker with CAM boot to decrease risk fall. Not suicidal-home pain med/anxiety med resumed. Subjective Pain improved Objective alert no distress Vitals Vital Signs Date Time Temp Pulse Resp B/P (MAP) Pulse Ox O2 Delivery O2 Flow Rate FiO2 08/14/16 07:00 97.7 61 18 138/96 (110) 100 Room Air 97.7 Physical Exam General appearance - alert, chronically ill appearing, and in no distress and oriented to person, place, and time Mental Status - alert, oriented to person, place, and time, affect appropriate to mood Head - normal Chest - clear to auscultation, no wheezes, rales or rhonchi, symmetric air entry Heart - S1 and S2 normal Abdomen - soft, nontender, nondistended, no masses or organomegaly Neurological - alert and oriented Musculoskeletal - no muscular tenderness noted Extremities - no pedal edema, cam boot L foot Skin - warm and dry Medications Medications reviewed. Allergy Allergies Coded Allergies Type Severity Reaction Last Updated Verified No Known Drug Allergies 02/10/16 No Follow up in 5 days. Disposition: Home Comments Discharge Management - 35 minutes. For other details please refer to discharge instructions TIANA POTTER MD 08/14/16 0924: IM DISCHARGE & PROGRESS NOTES Brief hospital course Brief hospital course The patient was seen and examined by me. Chart reviewed and plan of care formulated. Discussed with, reviewed and agree with EXHIBIT PREPARATOR's notes, plan of care and orders with modifications as necessary. For more details regarding further plans, please refer to the orders. will stop Hydrocodone. May give Tramadol for pain. Patient is not suicidal.Safe to go home.Long and short term prognosis is poor due to multiple medical problems. The patient was seen and examined by me. Chart reviewed and plan of care formulated. Discussed with, reviewed and agree with EXHIBIT PREPARATOR's notes, plan of care and orders with modifications as necessary. For more details regarding further plans, please refer to the orders. GAYATHRI FAIRCHILD APRN August 14, 2016 09:08 TIANA POTTER MD August 14, 2016 09:24
--- NOTE | 2016-08-14 09:10 | DISCH ---
DISCHARGE INSTRUCTIONS Condition on Discharge Condition on Discharge: Stable Activity After Discharge Activity Instructions for Disc: Activity as tolerated Diet after Discharge Diet after Discharge: Cardiac Wound Incision Care Other wound/incision instructi: CAM boot in day, off at night. Encouraged to use roller walker. Contacting the [facility] after DC Call your doctor for: Concerns you may have Follow-Up Follow up with: Dr. Tyler in 5 days. Treatment/Equipment after DC Adaptive Equipment Issued: Qamar (Matteo) GAYATHRI FAIRCHILD FLOOR WINDER August 14, 2016 09:10
[2016-08-14] MEDS ORDERED: TRAM50TA PO (09:12)
[2016-08-14] MEDS ORDERED: METO25TA4 PO (09:18)
--- NOTE | 2016-08-14 09:40 | PDOC ---
PROGRESS NOTES Subjective Subjective No new complaints. Objective Objective Vital Signs Date Time Temp Pulse Resp B/P (MAP) Pulse Ox O2 Delivery O2 Flow Rate FiO2 08/14/16 07:00 97.7 61 18 138/96 (110) 100 Room Air 97.7 Intake and Output 08/14/16 07:00 Intake Total 1400 ml Output Total 1050 ml Balance 350 ml Intake Oral 1400 ml Output Urine Total 1050 ml Physical Exam Physical Exam He is independent with his mobility using cam walker boot to left ankle and roller walker. Assessment Assessment Problems Medical Problems: (1) Purposeful non-suicidal drug ingestion Status: Acute Plan Plan of Longterm when medically stable. Comment Review of Relevant I have reviewed the following items sandra (where applicable) has been applied. Labs Laboratory Tests Test 08/12/16 19:15 08/12/16 19:56 08/13/16 04:30 08/13/16 10:20 White Blood Count 7.3 x10^3/uL (4.0-11.0) Red Blood Count 4.33 x10^6/uL (4.30-5.70) Hemoglobin 13.4 g/dL (13.0-17.5) Hematocrit 39.0 % (39.0-53.0) Mean Corpuscular Volume 90 fL (79-100) Mean Corpuscular Hemoglobin 31 pg (25-35) Mean Corpuscular Hemoglobin Concent 34 g/dL (31-37) Red Cell Distribution Width 13.7 % (11.5-14.5) Platelet Count 118 x10^3/uL (140-400) Neutrophils (%) (Auto) 56 % (31-73) Lymphocytes (%) (Auto) 28 % (24-48) Monocytes (%) (Auto) 10 % (0-9) Eosinophils (%) (Auto) 5 % (0-3) Basophils (%) (Auto) 1 % (0-3) Neutrophils # (Auto) 4.1 x10^3uL (1.8-7.7) Lymphocytes # (Auto) 2.1 x10^3/uL (1.0-4.8) Monocytes # (Auto) 0.7 x10^3/uL (0.0-1.1) Eosinophils # (Auto) 0.4 x10^3/uL (0.0-0.7) Basophils # (Auto) 0.1 x10^3/uL (0.0-0.2) Prothrombin Time 13.8 SEC (11.7-14.0) Prothromb Time International Ratio 1.1 (0.8-1.1) Activated Partial Thromboplast Time 36 SEC (24-38) Sodium Level 143 mmol/L (136-145) 141 mmol/L (136-145) Potassium Level 3.2 mmol/L (3.5-5.1) 3.6 mmol/L (3.5-5.1) Chloride Level 107 mmol/L (98-107) 106 mmol/L (98-107) Carbon Dioxide Level 30 mmol/L (21-32) 27 mmol/L (21-32) Anion Gap 6 (6-14) 8 (6-14) Blood Urea Nitrogen 20 mg/dL (8-26) 15 mg/dL (8-26) Creatinine 0.8 mg/dL (0.7-1.3) 0.7 mg/dL (0.7-1.3) Estimated GFR (Cockcroft-Gault) 97.3 113.5 BUN/Creatinine Ratio 25 (6-20) Glucose Level 91 mg/dL (70-99) 76 mg/dL (70-99) Calcium Level 8.5 mg/dL (8.5-10.1) 8.4 mg/dL (8.5-10.1) Magnesium Level 2.0 mg/dL (1.8-2.4) Total Bilirubin 0.3 mg/dL (0.2-1.0) Aspartate Amino Transf (AST/SGOT) 18 U/L (15-37) Alanine Aminotransferase (ALT/SGPT) 20 U/L (16-63) Alkaline Phosphatase 82 U/L (46-116) Total Protein 6.9 g/dL (6.4-8.2) Albumin 3.6 g/dL (3.4-5.0) Albumin/Globulin Ratio 1.1 (1.0-1.7) Salicylates Level < 2.8 mg/dL (2.8-20.0) Salicylate Last Dose Date Salicylate Last Dose Time Acetaminophen Level < 2 mcg/ml (10-30) Acetaminophen Last Dose Date Acetaminophen Last Dose Time Ethyl Alcohol Level < 10 mg/dL (0-10) Urine Opiates Screen Pos (NEG) Urine Methadone Screen Neg (NEG) Urine Barbiturates Neg (NEG) Urine Phencyclidine Screen Neg (NEG) Urine Amphetamine/Methamphetamine Neg (NEG) Urine Benzodiazepines Screen Pos (NEG) Urine Cocaine Screen Neg (NEG) Urine Cannabinoids Screen Neg (NEG) Urine Ethyl Alcohol Neg (NEG) Erythrocyte Sedimentation Rate 7 (0-15) Laboratory Tests Test 08/13/16 10:20 Erythrocyte Sedimentation Rate 7 (0-15) Medications Current Medications Pneumococcal Polyvalent Vaccine (Do NOT chart on this placeholder) 1 each 1X ONCE MC ; Start 08/12/16 at 23:00; Stop 08/12/16 at 23:01; Status UNV Pneumococcal Polyvalent Vaccine (Pneumovax 23) 0.5 ml ONCE ONCE VAX IM Last administered on 08/13/16 20:58; Start 08/13/16 at 09:00; Stop 08/13/16 at 09:01 ; Status DC Hydralazine HCl (Apresoline) 25 mg PRN Q6HRS PRN PO hypertension; Start at 23:30 Lidocaine (Lidoderm) 1 patch 1X ONCE TD Last administered on 08/13/16 00:01; Start 08/12/16 at 23:45; Stop 08/12/16 at 23:46; Status DC Ibuprofen (Motrin) 400 mg PRN Q6HRS PRN PO INFLAMMATION Last administered on 00:01; Start 08/12/16 at 23:30; Stop 08/13/16 at 14:00; Status DC Potassium Chloride 100 ml @ 100 mls/hr Q1H IV Last administered on 08/13/16 02:45; Start 08/12/16 at 23:45; Stop 08/13/16 at 03:44; Status DC Alprazolam (Xanax) 0.25 mg BID PO Last administered on 08/13/16 20:52; Start 08/13/16 at 09:00 Aspirin (Ecotrin) 81 mg [id number] PO Last administered on 08/13/16 09:29; Start 08/13/16 at 09:00 Tamsulosin HCl (Flomax) 0.4 mg DAILY PO Last administered on 08/13/16 09:29; Start 08/13/16 at 09:00 Simvastatin (Zocor) 40 mg QHS PO Last administered on 08/13/16 20:52; Start at 21:00 Metoprolol Tartrate (Lopressor) 25 mg BID PO Last administered on 08/13/16 20: 53; Start 08/13/16 at 09:00 Fludrocortisone Acetate (Florinef) 0.2 mg DAILY PO Last administered on 09:30; Start 08/13/16 at 09:00 Pantoprazole Sodium (Protonix) 40 mg DAILYAC PO Last administered on 08/14/16 06:34; Start 08/13/16 at 09:00 Cefazolin Sodium/ Dextrose 50 ml @ 100 mls/hr 1X ONCE IV Last administered on 08/13/16 15:20; Start 08/13/16 at 09:15; Stop 08/13/16 at 09:44; Status DC Ibuprofen (Motrin) 600 mg TID PO Last administered on 08/13/16 20:52; Start at 14:00 Diclofenac Sodium (Voltaren) 1 jesus BID TP Last administered on 08/13/16 20:54 ; Start 08/13/16 at 10:30 Active Scripts Active Metoprolol Tartrate 25 Mg Tablet 25 Mg PO BID Take one tablet two times daily by mouth Tramadol Hcl 50 Mg Tablet 1 Tab PO PRN Q6HRS [place] 10-325 Tablet (Acetaminophen/Hydrocodone Bitart) 1 Each Tablet 1 Tab PO PRN Q6HRS PRN Aspir 81 (Aspirin) 81 Mg Tablet. 1 Tab PO DAILY Reported Fludrocortisone Acetate 0.1 Mg Tablet 0.2 Mg PO DAILY Simvastatin 20 Mg Tablet 20 Mg PO HS Tamsulosin Hcl 0.4 Mg Cap.er.24h 0.4 Mg PO DAILY Alprazolam 0.25 Mg Tablet 1 Tab PO BID Prilosec (Omeprazole) 20 Mg Capsule. 20 Mg PO DAILY Vitals/I & O Vital Sign - Last 24 Hours 08/13/16 08/13/16 08/13/16 08/13/16 11:00 14:56 19:00 20:06 Temp 98.0 97.7 98.1 98.0 97.7 98.1 Pulse 68 74 70 Resp 18 18 18 B/P (MAP) 135/82 (99) 134/84 (101) 136/89 (105) Pulse Ox 99 99 97 O2 Delivery Room Air Room Air Room Air 08/13/16 08/13/16 08/14/16 08/14/16 20:53 23:00 03:00 07:00 Temp 97.9 97.8 97.7 97.9 97.8 97.7 Pulse 70 64 66 61 Resp 16 16 18 B/P (MAP) 136/89 131/79 (96) 126/96 (106) 138/96 (110) Pulse Ox 97 98 100 O2 Delivery Room Air Intake and Output 08/13/16 08/13/16 08/14/16 15:00 23:00 07:00 Intake Total 450 ml 850 ml 100 ml Output Total 150 ml 300 ml 600 ml Balance 300 ml 550 ml -500 ml SAMSON SCHREIBER MD August 14, 2016 09:40
[2016-08-14] MEDS: ALPRAZolam 0.25 MG TABLET PO SCH (10:06)
[2016-08-14] MEDS: ASPIRIN ENTERIC COATED 81 MG TABLET.DR. PO SCH (10:06)
[2016-08-14] MEDS: TAMSULOSIN 0.4 MG CAP.ER.24H. PO SCH (10:06)
[2016-08-14] MEDS: IBUPROFEN 600 MG TABLET. PO SCH (10:06)
[2016-08-14] MEDS: DICLOFENAC SODIUM 1% TOPICAL GEL 100GM TUBE. TP SCH (10:07)
[2016-08-14] MEDS: FLUDROCORTISONE 0.1 MG TABLET PO SCH (10:07)
[2016-08-14] MEDS: METOPROLOL TART IMMED RELEASE 25 MG TABLET. PO SCH (10:07)
[2016-08-14 11:02] VITALS: BP 137/84
== END 2016-08-14 13:02 | disposition home or self-care (01) | DRG 917 ==
LOC: ER 19:10 → 5 SOUTH 21:25
PROVIDERS: ADMIT Internal Medicine; ATTEND Internal Medicine
DX: T40.2X1A Poisoning by other opioids, accidental (unintentional), initial encounter (principal); G93.40 Encephalopathy, unspecified; E44.0 Moderate protein-calorie malnutrition; I42.9 Cardiomyopathy, unspecified; Q87.40 Marfan syndrome, unspecified; S92.222A Displaced fracture of lateral cuneiform of left foot, initial encounter for closed fracture; D64.9 Anemia, unspecified; D69.6 Thrombocytopenia, unspecified; E78.5 Hyperlipidemia, unspecified; E87.6 Hypokalemia; F41.9 Anxiety disorder, unspecified; G89.4 Chronic pain syndrome; I12.9 Hypertensive chronic kidney disease with stage 1 through stage 4 chronic kidney disease, or unspecified chronic kidney disease; I25.2 Old myocardial infarction; I25.10 Atherosclerotic heart disease of native coronary artery without angina pectoris; I27.2 Other secondary pulmonary hypertension; I95.1 Orthostatic hypotension; J44.9 Chronic obstructive pulmonary disease, unspecified; K21.9 Gastro-esophageal reflux disease without esophagitis; K22.2 Esophageal obstruction; K57.90 Diverticulosis of intestine, part unspecified, without perforation or abscess without bleeding; M54.10 Radiculopathy, site unspecified; N18.2 Chronic kidney disease, stage 2 (mild); N40.0 Benign prostatic hyperplasia without lower urinary tract symptoms; S92.242A Displaced fracture of medial cuneiform of left foot, initial encounter for closed fracture; Z82.3 Family history of stroke; Z82.49 Family history of ischemic heart disease and other diseases of the circulatory system; Z82.5 Family history of asthma and other chronic lower respiratory diseases; Z95.0 Presence of cardiac pacemaker; I34.0 Nonrheumatic mitral (valve) insufficiency; T40.601A Poisoning by unspecified narcotics, accidental (unintentional), initial encounter; M19.90 Unspecified osteoarthritis, unspecified site; X58.XXXA Exposure to other specified factors, initial encounter; Y93.89 Activity, other specified; Y92.89 Other specified places as the place of occurrence of the external cause; Y99.8 Other external cause status
CPT/HCPCS: 36415; 73620; 80048; 80053; 83735; 85027; 85610; 85651; 85730; 90732; 93005; 93971; G0480; G0481; G6038; J0690; J3480; 80196; 99285-25

== ENCOUNTER 2017-03-08 17:07 | Inpatient (IN) | payer BC ==
[~2017-03-08] VITALS: Ht 195.6 cm; Wt 58.5 kg
[~2017-03-08 17:07] MED LIST changes: -HYDR-2666 PO; +HYDR-2758 PO; +METO-247 PO; -METO100T11 PO; +METO25TA4 PO; +SIMV20TA3 PO; +TRAM50TA PO
[2017-03-08 19:10] LABS: BILIRUBIN,URINE NEGATIVE (NEG); GLUCOSE,URINE NEGATIVE (NEG); NITRITE,URINE NEGATIVE (NEG); PROTEIN,URINE NEGATIVE (NEG-TRACE)
[2017-03-08] MEDS ORDERED: IOHEXOL 300 MG/ML 100ML VIAL. IV ONE (19:15)
[2017-03-08 19:19] LABS: BASO # 0.1 x10^3/uL (0.0-0.2); BASO % 1 % (0-3); EOS % 2 % (0-3); HEMATOCRIT 41.6 % (39.0-53.0); HEMOGLOBIN 13.9 g/dL (13.0-17.5); LYMPH # 2.1 x10^3/uL (1.0-4.8); LYMPH % 27 % (24-48); MEAN CORPUSCULAR HEMOGLOBIN 30 pg (25-35); MEAN CORPUSCULAR HGB CONC 33 g/dL (31-37); MEAN CORPUSCULAR VOLUME 91 fL (79-100); MONO % 10 % (0-9); NEUT % 60 % (31-73); PLATELET COUNT 104 x10^3/uL (140-400); RED BLOOD COUNT 4.59 x10^6/uL (4.30-5.70); RED CELL DISTRIBUTION WIDTH 13.6 % (11.5-14.5); WHITE BLOOD COUNT 8.1 x10^3/uL (4.0-11.0)
[2017-03-08 19:25] LABS: BACTERIA,URINE 0 /HPF (0-FEW); SQUAMOUS EPITHELIAL CELL,UR FEW /LPF
[2017-03-08 19:31] LABS: INR 1.1 (0.8-1.1); PROTHROMBIN TIME PATIENT 13.1 SEC (11.7-14.0)
[2017-03-08 19:33] LABS: CALCIUM 8.9 mg/dL (8.5-10.1); CREATININE 0.8 mg/dL (0.7-1.3); POTASSIUM 3.3 mmol/L (3.5-5.1)
[2017-03-08 19:38] LABS: ALBUMIN 3.8 g/dL (3.4-5.0); ALBUMIN/GLOBULIN RATIO 1.3 (1.0-1.7); MAGNESIUM 1.9 mg/dL (1.8-2.4); TOTAL BILIRUBIN 0.2 mg/dL (0.2-1.0); TOTAL PROTEIN 6.7 g/dL (6.4-8.2)
[2017-03-08 20:36] LABS: NEG OBC FOB NEG; POS OBC FOB POS
--- NOTE | 2017-03-08 21:10 | RAD ---
CT Head W/O Contrast: History: weakness, prior sent. Comparison: none Axial images were obtained without contrast. The reyez and white matter appears normal and symmetrical for the patients age. There is no mass effect, extraaxial fluid collections or hydrocephalus. There is no gross bleed. There is no focal loss of reyez-white matter distinction to suggest acute ischemia, i.e. stroke. Impression: No acute findings. RS Compliance Statement: One or more of the following individualized dose reduction techniques were utilized for this examination: 1. Automated exposure control 2. Adjustment of the mA and/or kV according to patient size 3. Use of iterative reconstruction technique Electronically signed by: Enrique Muniz III, MD (03/08/2017 9:07 PM) [facility]
[2017-03-08] MEDS ORDERED: traMADol 50 MG TABLET PO ONE (21:15)
--- NOTE | 2017-03-08 21:54 | RAD ---
CTA chest abdomen and pelvis with contrast: History: Upper chest and abdominal pain Axial helical images of the chest abdomen and pelvis were obtained after the administration of 90 cc IV Omni 300 contrast. Timing is appropriate for arterial evaluation and multiplanar reconstruction was performed on a separate imaging workstation including 3-D maximum intensity projected imaging and 3-D arterial surface rendering. This study was performed to exclude possible aortic dissection. Oral contrast was not utilized. Comparison: May 26, 2016 CT of the chest CTA OF THE CHEST WITH IV CONTRAST: There is no mediastinal lymphadenopathy or hematoma. There is no hilar lymphadenopathy. There is pectus excavatum. The lungs are clear. Impression: No acute findings. End Impression CTA OF THE ABDOMEN WITH IV CONTRAST: Findings: Evaluation of solid organs is limited by the arterial phase imaging. The aorta and great vessels appear normal. Liver: Unremarkable Spleen: Unremarkable Pancreas: Unremarkable Adrenal Glands: Unremarkable Kidneys: Unremarkable Evaluation of stomach and bowel is limited without oral contrast. There is no mass or lymphadenopathy. There is no free air. There is no free fluid. Impression: No acute findings. End Impression CTA OF THE PELVIS WITH IV CONTRAST: There is no lymphadenopathy or free fluid. The bladder appears normal without extravasation of contrast. There is no pericolonic inflammation. There is moderate sigmoid diverticulosis without surrounding inflammation. The iliac arteries appear normal. Impression: No acute findings. End impression PQRS Compliance Statement: One or more of the following individualized dose reduction techniques were utilized for this examination: 1. Automated exposure control 2. Adjustment of the mA and/or kV according to patient size 3. Use of iterative reconstruction technique Electronically signed by: Enrique Muniz III, MD (03/08/2017 9:50 PM) [facility]
--- NOTE | 2017-03-08 22:05 | ED.ADGEN ---
Past Medical History Past Medical History: Arthritis, GERD, High Cholesterol, Hypertension, [place], Other Additional Past Medical Histor: Marfan syndrome, chronic pain, prostate problems, VERTIGO Past Surgical History: Pacemaker, Other Additional Past Surgical Histo: Lower Back, Neck Alcohol Use: None Drug Use: None Adult General Chief Complaint Chief Complaint: LOWER EXT PAIN HPI HPI Patient is a 66 year old man, history of chronic back pain, Marfan syndrome, hypertension, who presents to the emergency department with complaint of lower back pain, and numbness in his left lower extremity. Patient states began a day or so ago, states that he is having trouble ambulating secondary to numbness in his leg, states that he does feel as though there is some weakness as well, but is more "a numb sensation", along with back pain. He denies any loss of bowel or bladder control, any saddle anesthesia, he states he is also experiencing occasional diarrhea, and abdominal pain. Denies any chest pain or shortness of breath, this size any symptoms in any other extremities, denies any swelling extremities, any injuries, any recent travel, surgery, states he has had some similar to previously, but "not like this". Patient states he is able to ambulate with his walker, but due to the numbness in his leg and the pain in his back he is having trouble ambulating safely but denies any falls or other complaints. Review of Systems Review of Systems Constitutional: Denies fever or chills. [] Eyes: Denies change in visual acuity. [] HENT: Denies nasal congestion or sore throat. [] Respiratory: Denies cough or shortness of breath. [] Cardiovascular: Denies chest pain or edema. [] GI: Denies abdominal pain, nausea, vomiting, bloody stools or diarrhea. [] : Denies dysuria. [] Musculoskeletal: Chronic low back pain, numbness in the left lower extremity. Integument: Denies rash. [] Neurologic: Denies headache, Numbness in the left lower extremity.[] Endocrine: Denies polyuria or polydipsia. [] Lymphatic: Denies swollen glands. [] Psychiatric: Denies depression or anxiety. [] Current Medications Current Medications Current Medications Medications (Trade) Dose Ordered Sig/Marcia Start Time Stop Time Status Last Admin Dose Admin Iohexol (Omnipaque 300 Mg/ml) 90 ml 1X ONCE 03/08/17 19:15 03/08/17 19:16 DC 03/08/17 19:42 90 ML Tramadol HCl (Ultram) 50 mg 1X ONCE 03/08/17 21:15 03/08/17 21:16 DC 03/08/17 21:07 50 MG Allergies Allergies Allergies Coded Allergies Type Severity Reaction Last Updated Verified No Known Drug Allergies 02/10/16 No Physical Exam Physical Exam Constitutional: Well developed, well nourished, no acute distress, non-toxic appearance. [] HENT: Normocephalic, atraumatic, bilateral external ears normal, oropharynx moist, no oral exudates, nose normal. []Patient is edentulous. Eyes: PERRLA, EOMI, conjunctiva normal, no discharge. [] Neck: Normal range of motion, no tenderness, supple, no stridor. [] Cardiovascular:Heart rate regular rhythm, no murmur, S1, S2, patient with 3-5 murmur, no rubs or gallops. Lungs & Thorax: Bilateral breath sounds clear to auscultation, no wheezing, rhonchi, rales. No chest wall crepitus or tenderness. [] Abdomen: Bowel sounds normal, soft, mild initial patient struck the periumbilical and lower abdominal region, no rebound, rigidity, no guarding, no external abnormalities. No masses, no pulsatile masses. [] Skin: Warm, dry, no erythema, no rash. [] Back: Patient with mild tenderness palpation along the paraspinal muscles bilaterally in the lumbar spine, no midline tenderness or step-offs or deformities, mild tenderness of the piriformis region bilaterally, no CVA tenderness. [] Extremities: No tenderness, no cyanosis, no clubbing, ROM intact, no edema. [] Neurologic: Alert and oriented X 3, patient states he has difficulty lifting leg , although he is able to bend the knee and lift the leg off the bed while rolling onto his side spontaneously, states that he is diminished sensation throughout the entire leg from the hip circumferentially all the way down the left side, with normal function sensation on the right. Psychologic: Affect normal, judgement normal, mood normal. [] Rectal examination: Patient with good tone, no tenderness. Brown stool in vault. Current Patient Data Vital Signs Vital Signs Date Time Temp Pulse Resp B/P (MAP) Pulse Ox O2 Delivery O2 Flow Rate FiO2 03/08/17 20:42 65 18 149/85 (106) 100 Room Air 03/08/17 17:35 97.5 97.5 Lab Values Laboratory Tests Test 03/08/17 18:45 03/08/17 19:00 03/08/17 19:05 Urine Collection Type Unknown Urine Color Yellow Urine Clarity Clear Urine pH 6.0 Urine Specific [place] 1.020 Urine Protein Negative mg/dL (NEG-TRACE) Urine Glucose (UA) Negative mg/dL (NEG) Urine Ketones (Stick) Negative mg/dL (NEG) Urine Blood Trace (NEG) Urine Nitrite Negative (NEG) Urine Bilirubin Negative (NEG) Urine Urobilinogen Dipstick 1.0 mg/dL (0.2 mg/dL) Urine Leukocyte Esterase Negative (NEG) Urine RBC 3-5 /HPF (0-2) Urine WBC 1-4 /HPF (0-4) Urine Squamous Epithelial Cells Few /LPF Urine Bacteria 0 /HPF (0-FEW) Urine Mucus Marked /LPF Stool Occult Blood Negative (NEG) White Blood Count 8.1 x10^3/uL (4.0-11.0) Red Blood Count 4.59 x10^6/uL (4.30-5.70) Hemoglobin 13.9 g/dL (13.0-17.5) Hematocrit 41.6 % (39.0-53.0) Mean Corpuscular Volume 91 fL (79-100) Mean Corpuscular Hemoglobin 30 pg (25-35) Mean Corpuscular Hemoglobin Concent 33 g/dL (31-37) Red Cell Distribution Width 13.6 % (11.5-14.5) Platelet Count 104 x10^3/uL (140-400) L Neutrophils (%) (Auto) 60 % (31-73) Lymphocytes (%) (Auto) 27 % (24-48) Monocytes (%) (Auto) 10 % (0-9) H Eosinophils (%) (Auto) 2 % (0-3) Basophils (%) (Auto) 1 % (0-3) Neutrophils # (Auto) 4.9 x10^3uL (1.8-7.7) Lymphocytes # (Auto) 2.1 x10^3/uL (1.0-4.8) Monocytes # (Auto) 0.8 x10^3/uL (0.0-1.1) Eosinophils # (Auto) 0.2 x10^3/uL (0.0-0.7) Basophils # (Auto) 0.1 x10^3/uL (0.0-0.2) Prothrombin Time 13.1 SEC (11.7-14.0) Prothrombin Time INR 1.1 (0.8-1.1) PTT 29 SEC (24-38) Sodium Level 144 mmol/L (136-145) Potassium Level 3.3 mmol/L (3.5-5.1) L Chloride Level 106 mmol/L (98-107) Carbon Dioxide Level 26 mmol/L (21-32) Anion Gap 12 (6-14) Blood Urea Nitrogen 17 mg/dL (8-26) Creatinine 0.8 mg/dL (0.7-1.3) Estimated GFR (Cockcroft-Gault) 97.0 BUN/Creatinine Ratio 21 (6-20) H Glucose Level 86 mg/dL (70-99) Calcium Level 8.9 mg/dL (8.5-10.1) Magnesium Level 1.9 mg/dL (1.8-2.4) Total Bilirubin 0.2 mg/dL (0.2-1.0) Aspartate Amino Transferase (AST) 18 U/L (15-37) Alanine Aminotransferase (ALT) 21 U/L (16-63) Alkaline Phosphatase 82 U/L (46-116) Troponin I Quantitative < 0.017 ng/mL (0.000-0.055) OQ-Mkp-Q-Type Natriuretic Peptide 229 pg/mL (0-124) H Total Protein 6.7 g/dL (6.4-8.2) Albumin 3.8 g/dL (3.4-5.0) Albumin/Globulin Ratio 1.3 (1.0-1.7) Laboratory Tests 03/08/17 19:05 Laboratory Tests 03/08/17 19:05 EKG EKG EC: Sinus rhythm, heart rate 60 beats are minute, patient with incomplete right bundle-branch block noted, QTc of 449, NV of 246, QRS of 94, no ST elevations or depressions, abnormal ECG as stated, does not meet STEMI criteria. As interpreted by me.[] Radiology/Procedures Radiology/Procedures [][facility] [address] [place] [address] IMAGING REPORT Signed PATIENT: MRANIE FRIEDMAN ACCOUNT: [id number] : 1950 LOCATION: ER AGE: 66 SEX: M EXAM STATUS: REG ER ORD. PHYSICIAN: KELLY WOOTEN DO REASON: LLE weakness PROCEDURE: CT HEAD WO CONTRAST CT Head W/O Contrast: History: weakness, prior sent. Comparison: none Axial images were obtained without contrast. The reyez and white matter appears normal and symmetrical for the patients age. There is no mass effect, extraaxial fluid collections or hydrocephalus. There is no gross bleed. There is no focal loss of reyez-white matter distinction to suggest acute ischemia, i.e. stroke. Impression: No acute findings. PQRS Compliance Statement: One or more of the following individualized dose reduction techniques were utilized for this examination: 1. Automated exposure control 2. Adjustment of the mA and/or kV according to patient size 3. Use of iterative reconstruction technique Electronically signed by: Greg Martin III, MD (03/08/2017 9:07 PM) [facility] DICTATED and SIGNED BY: GREG MARTIN III, MD DATE: 03/08/172103 CC: KELLY WOOTEN DO; MASOUD TYLER MD ~ [facility] [address] [place] [address] IMAGING REPORT Signed PATIENT: MARNIE FRIEDMAN ACCOUNT: [id number] : 1950 LOCATION: ER AGE: 66 SEX: M EXAM STATUS: REG ER ORD. PHYSICIAN: KELLY WOOTEN DO REASON: LLE weakness/numbness/abdominal pain/history of Marfan PROCEDURE: CT ANGIO CHEST ABD PELVIS CTA chest abdomen and pelvis with contrast: History: Upper chest and abdominal pain Axial helical images of the chest abdomen and pelvis were obtained after the administration of 90 cc IV Omni 300 contrast. Timing is appropriate for arterial evaluation and multiplanar reconstruction was performed on a separate imaging workstation including 3-D maximum intensity projected imaging and 3-D arterial surface rendering. This study was performed to exclude possible aortic dissection. Oral contrast was not utilized. Comparison: May 26, 2016 CT of the chest CTA OF THE CHEST WITH IV CONTRAST: There is no mediastinal lymphadenopathy or hematoma. There is no hilar lymphadenopathy. There is pectus excavatum. The lungs are clear. Impression: No acute findings. End Impression CTA OF THE ABDOMEN WITH IV CONTRAST: Findings: Evaluation of solid organs is limited by the arterial phase imaging. The aorta and great vessels appear normal. Liver: Unremarkable Spleen: Unremarkable Pancreas: Unremarkable Adrenal Glands: Unremarkable Kidneys: Unremarkable Evaluation of stomach and bowel is limited without oral contrast. There is no mass or lymphadenopathy. There is no free air. There is no free fluid. Impression: No acute findings. End Impression CTA OF THE PELVIS WITH IV CONTRAST: There is no lymphadenopathy or free fluid. The bladder appears normal without extravasation of contrast. There is no pericolonic inflammation. There is moderate sigmoid diverticulosis without surrounding inflammation. The iliac arteries appear normal. Impression: No acute findings. End impression PQRS Compliance Statement: One or more of the following individualized dose reduction techniques were utilized for this examination: 1. Automated exposure control 2. Adjustment of the mA and/or kV according to patient size 3. Use of iterative reconstruction technique Electronically signed by: Greg Martin III, MD (03/08/2017 9:50 PM) [facility] DICTATED and SIGNED BY: GREG MARTIN III, MD DATE: 03/08/172142 CC: CODIE MONTE MD; KELLY WOOTEN DO; MASOUD TYLER MD ~ Impressions: Left lower show many weakness and numbness Abdominal discomfort History of Marfan's Coronary disease Dyslipidemia Course & Med Decision Making Course & Med Decision Making Pertinent Labs and Imaging studies reviewed. (See chart for details) Based on patient's history of Marfan, with abdominal pain, and unclear neurologic symptoms, CT of the head obtained, along with CT of the chest abdomen pelvis, to rule out any occult pathology. Laboratory studies also obtained. Patient is complaining of back pain, CT of the head is unremarkable, he states that he like to try tramadol in the ED, and as he is swallowing without difficulty, tramadol was ordered. Stabbing and pelvis Imaging and laboratory studies are pending at time of sign out to Dr. Monte, who did did assume care of this patient. He is outside of any window for intervention since his numbness and weakness is been going on greater than [address] head, chest and pelvis do not show any acute abnormalities. He is able to move the extremity but states is numb all the way from the hip to his toes. Labs are nonacute. We'll admit to Dr. Tyler with neurology consultation. Interim orders have been written. adavied Dragon Disclaimer Dragon Disclaimer This electronic medical record was generated, in whole or in part, using a voice recognition dictation system. Departure Impression: Primary Impression: Chronic back pain Additional Impression: Lower extremity weakness Disposition: ADMITTED INPATIENT Admitting Physician: Masoud Tyler Condition: STABLE Problem Qualifiers KELLY WOOTEN DO Mar 08, 2017 22:05 CODIE MONTE MD Mar 08, 2017 22:12
[2017-03-08] MEDS ORDERED: ONDANSETRON PF 4 MG/2 ML VIAL. IV PRN (22:30)
[2017-03-08 23:00] VITALS: BP 140/89
[2017-03-09] VITALS (10 sets, daily range): BP systolic 93–135; BP diastolic 57–82
[2017-03-09 04:28] LABS: BASO # 0.1 x10^3/uL (0.0-0.2); BASO % 1 % (0-3); EOS % 3 % (0-3); HEMOGLOBIN 13.7 g/dL (13.0-17.5); LYMPH # 2.3 x10^3/uL (1.0-4.8); LYMPH % 31 % (24-48); MEAN CORPUSCULAR HEMOGLOBIN 30 pg (25-35); MEAN CORPUSCULAR HGB CONC 33 g/dL (31-37); MEAN CORPUSCULAR VOLUME 91 fL (79-100); MONO % 11 % (0-9); NEUT % 54 % (31-73); PLATELET COUNT 104 x10^3/uL (140-400); RED BLOOD COUNT 4.54 x10^6/uL (4.30-5.70); RED CELL DISTRIBUTION WIDTH 13.5 % (11.5-14.5); WHITE BLOOD COUNT 7.5 x10^3/uL (4.0-11.0)
[2017-03-09 04:43] LABS: CALCIUM 8.1 mg/dL (8.5-10.1); CREATININE 0.8 mg/dL (0.7-1.3); POTASSIUM 3.1 mmol/L (3.5-5.1)
--- NOTE | 2017-03-09 06:50 | EKG ---
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
[2017-03-09] MEDS ORDERED: traMADol 50 MG TABLET PO PRN (08:30)
[2017-03-09] MEDS ORDERED: ONDANSETRON PF 4 MG/2 ML VIAL. IV PRN (08:30)
--- NOTE | 2017-03-09 08:41 | PDOC1 ---
GAYATHRI FAIRCHILD TELESALES AGENT 03/09/17 0841: HISTORY AND PHYSICAL Chief Complaint Chief Complaint This 66 year old male has been admitted with a chief complaint of left lower extremity numbness. He presented to the ER yesterday with CC back pain and 2-3 day onset LLE numbness affecting his ability to ambulate. He has had chronic numbness plantar R foot for years. He denies recent fall although there is a h/o multiple falls due to orthostatic hypotension. Imaging/lab in ED : K 3.3, EKG SR 60, CTA [id number]: negative except for mod sigmoid diverticulosis, and CT head w/o contrast negative. His BP was accelerated on admission. Recently N has been consulted out patient for medication education/ monitoring. He had not been taking medications appropriately. Orthostatic BP is present and was being treated with Florinef which has been stopped due to high BP with supine position. He had a PPM placed for zahida SSS and was continued on metoprolol tartrate for BP control and flecanide was started in the past by cardiology for ST chronic. He continues with symptomatic orthostatic hypotension. He reports some mild abdominal discomfort and nausea that occurs when he is constipated. He has not had BM since Wednesday. Last MRI LS 2013 - DDD, bulging disc multiple levels and mod to severe R foraminal narrowing L4-L5. He is admitted for further evaluation. Problem List Problems Medical Problems: (1) Chronic back pain Status: Acute (2) Lower extremity weakness Status: Acute Past Medical History Cardiovascular: HTN, [place] (2009), Hyperlipidemia, Valve insufficiency (tr MR, TR ), Pulmonary hypertension (mild per ECHO ), Other (Marfan syndrome, NICM, chronic orthostatic HTN ) Pulmonary: Asthma, COPD (emphysema ), Other GI: Diverticulosis, GERD, Other (Schatski ring, esophageal stricture with last dilitation 01/2016) Heme/Onc: Anemia NOS, Other (chronic thrombocytopenia ) Psych: Anxiety Musculoskeletal: low back pain (lumbar stenosis with radiculopathy bialteral LE, kyphosis and scoliosis, thoracic spondylosis/myelopathy, cervical neck pain with radiculopathy bilateral UE, chronic MS anterior L chest ), Osteoarthritis , Other Renal/: Chronic renal insuff (CKD II ), Benign prostatic enlarg. Past Surgical History PSH lumbar and cervical surgeries Past Surgical History: Pacemaker (SSS ) Past Family History PFH Brother Marfan syndrome Family History: Coronary Artery Disease, Stroke Past Social History PSH lives with brother, no h/o tobacco, ETOH or illicit drug use Review of Symptoms Review of Symptoms A 14 point ROS was completed with the following noted as positive: per HPI Other systems reviewed and negative. Medications Medications reviewed and reconciled. Allergy Allergies Coded Allergies Type Severity Reaction Last Updated Verified No Known Drug Allergies 02/10/16 No Physical Exam Physical Exam General appearance - alert,thin, chronically ill appearing, and in mild distress when moving in bed Mental Status - alert, oriented to person, place, and time, affect appropriate to mood Head - normal Chest - clear to auscultation, no wheezes, rales or rhonchi, symmetric air entry , pectus excavatum Heart - S1 and S2 normal Abdomen - soft, nontender, nondistended, BS+ Neurological - no acute focal neurological deficit noted Musculoskeletal - LS tenderness with mod pain with repositioning in bed, R lower extremity numb Extremities - no pedal edema Skin - warm and dry VTE Prophylaxis Ordered VTE Prophylaxis Devices: Yes VTE Pharmacological Prophylaxi: No Assessment Labs Laboratory Tests Test 03/08/17 18:45 03/08/17 19:00 03/08/17 19:05 03/09/17 03:35 Urine Collection Type Unknown Urine Color Yellow Urine Clarity Clear Urine pH 6.0 Urine Specific [place] 1.020 Urine Protein Negative mg/dL (NEG-TRACE) Urine Glucose (UA) Negative mg/dL (NEG) Urine Ketones (Stick) Negative mg/dL (NEG) Urine Blood Trace (NEG) Urine Nitrite Negative (NEG) Urine Bilirubin Negative (NEG) Urine Urobilinogen Dipstick 1.0 mg/dL (0.2 mg/dL) Urine Leukocyte Esterase Negative (NEG) Urine RBC 3-5 /HPF (0-2) Urine WBC 1-4 /HPF (0-4) Urine Squamous Epithelial Cells Few /LPF Urine Bacteria 0 /HPF (0-FEW) Urine Mucus Marked /LPF Stool Occult Blood Negative (NEG) White Blood Count 8.1 x10^3/uL (4.0-11.0) 7.5 x10^3/uL (4.0-11.0) Red Blood Count 4.59 x10^6/uL (4.30-5.70) 4.54 x10^6/uL (4.30-5.70) Hemoglobin 13.9 g/dL (13.0-17.5) 13.7 g/dL (13.0-17.5) Hematocrit 41.6 % (39.0-53.0) 41.0 % (39.0-53.0) Mean Corpuscular Volume 91 fL (79-100) 91 fL (79-100) Mean Corpuscular Hemoglobin 30 pg (25-35) 30 pg (25-35) Mean Corpuscular Hemoglobin Concent 33 g/dL (31-37) 33 g/dL (31-37) Red Cell Distribution Width 13.6 % (11.5-14.5) 13.5 % (11.5-14.5) Platelet Count 104 x10^3/uL (140-400) 104 x10^3/uL (140-400) Neutrophils (%) (Auto) 60 % (31-73) 54 % (31-73) Lymphocytes (%) (Auto) 27 % (24-48) 31 % (24-48) Monocytes (%) (Auto) 10 % (0-9) 11 % (0-9) Eosinophils (%) (Auto) 2 % (0-3) 3 % (0-3) Basophils (%) (Auto) 1 % (0-3) 1 % (0-3) Neutrophils # (Auto) 4.9 x10^3uL (1.8-7.7) 4.1 x10^3uL (1.8-7.7) Lymphocytes # (Auto) 2.1 x10^3/uL (1.0-4.8) 2.3 x10^3/uL (1.0-4.8) Monocytes # (Auto) 0.8 x10^3/uL (0.0-1.1) 0.8 x10^3/uL (0.0-1.1) Eosinophils # (Auto) 0.2 x10^3/uL (0.0-0.7) 0.2 x10^3/uL (0.0-0.7) Basophils # (Auto) 0.1 x10^3/uL (0.0-0.2) 0.1 x10^3/uL (0.0-0.2) Prothrombin Time 13.1 SEC (11.7-14.0) Prothromb Time International Ratio 1.1 (0.8-1.1) Activated Partial Thromboplast Time 29 SEC (24-38) Sodium Level 144 mmol/L (136-145) 143 mmol/L (136-145) Potassium Level 3.3 mmol/L (3.5-5.1) 3.1 mmol/L (3.5-5.1) Chloride Level 106 mmol/L (98-107) 106 mmol/L (98-107) Carbon Dioxide Level 26 mmol/L (21-32) 27 mmol/L (21-32) Anion Gap 12 (6-14) 10 (6-14) Blood Urea Nitrogen 17 mg/dL (8-26) 16 mg/dL (8-26) Creatinine 0.8 mg/dL (0.7-1.3) 0.8 mg/dL (0.7-1.3) Estimated GFR (Cockcroft-Gault) 97.0 97.0 BUN/Creatinine Ratio 21 (6-20) Glucose Level 86 mg/dL (70-99) 84 mg/dL (70-99) Calcium Level 8.9 mg/dL (8.5-10.1) 8.1 mg/dL (8.5-10.1) Magnesium Level 1.9 mg/dL (1.8-2.4) Total Bilirubin 0.2 mg/dL (0.2-1.0) Aspartate Amino Transf (AST/SGOT) 18 U/L (15-37) Alanine Aminotransferase (ALT/SGPT) 21 U/L (16-63) Alkaline Phosphatase 82 U/L (46-116) Troponin I Quantitative < 0.017 ng/mL (0.000-0.055) XK-Jbi-Q-Type Natriuretic Peptide 229 pg/mL (0-124) Total Protein 6.7 g/dL (6.4-8.2) Albumin 3.8 g/dL (3.4-5.0) Albumin/Globulin Ratio 1.3 (1.0-1.7) Laboratory Tests Test 03/08/17 18:45 03/08/17 19:00 03/08/17 19:05 03/09/17 03:35 Urine Collection Type Unknown Urine Color Yellow Urine Clarity Clear Urine pH 6.0 Urine Specific [place] 1.020 Urine Protein Negative mg/dL (NEG-TRACE) Urine Glucose (UA) Negative mg/dL (NEG) Urine Ketones (Stick) Negative mg/dL (NEG) Urine Blood Trace (NEG) Urine Nitrite Negative (NEG) Urine Bilirubin Negative (NEG) Urine Urobilinogen Dipstick 1.0 mg/dL (0.2 mg/dL) Urine Leukocyte Esterase Negative (NEG) Urine RBC 3-5 /HPF (0-2) Urine WBC 1-4 /HPF (0-4) Urine Squamous Epithelial Cells Few /LPF Urine Bacteria 0 /HPF (0-FEW) Urine Mucus Marked /LPF Stool Occult Blood Negative (NEG) White Blood Count 8.1 x10^3/uL (4.0-11.0) 7.5 x10^3/uL (4.0-11.0) Red Blood Count 4.59 x10^6/uL (4.30-5.70) 4.54 x10^6/uL (4.30-5.70) Hemoglobin 13.9 g/dL (13.0-17.5) 13.7 g/dL (13.0-17.5) Hematocrit 41.6 % (39.0-53.0) 41.0 % (39.0-53.0) Mean Corpuscular Volume 91 fL (79-100) 91 fL (79-100) Mean Corpuscular Hemoglobin 30 pg (25-35) 30 pg (25-35) Mean Corpuscular Hemoglobin Concent 33 g/dL (31-37) 33 g/dL (31-37) Red Cell Distribution Width 13.6 % (11.5-14.5) 13.5 % (11.5-14.5) Platelet Count 104 x10^3/uL (140-400) 104 x10^3/uL (140-400) Neutrophils (%) (Auto) 60 % (31-73) 54 % (31-73) Lymphocytes (%) (Auto) 27 % (24-48) 31 % (24-48) Monocytes (%) (Auto) 10 % (0-9) 11 % (0-9) Eosinophils (%) (Auto) 2 % (0-3) 3 % (0-3) Basophils (%) (Auto) 1 % (0-3) 1 % (0-3) Neutrophils # (Auto) 4.9 x10^3uL (1.8-7.7) 4.1 x10^3uL (1.8-7.7) Lymphocytes # (Auto) 2.1 x10^3/uL (1.0-4.8) 2.3 x10^3/uL (1.0-4.8) Monocytes # (Auto) 0.8 x10^3/uL (0.0-1.1) 0.8 x10^3/uL (0.0-1.1) Eosinophils # (Auto) 0.2 x10^3/uL (0.0-0.7) 0.2 x10^3/uL (0.0-0.7) Basophils # (Auto) 0.1 x10^3/uL (0.0-0.2) 0.1 x10^3/uL (0.0-0.2) Prothrombin Time 13.1 SEC (11.7-14.0) Prothromb Time International Ratio 1.1 (0.8-1.1) Activated Partial Thromboplast Time 29 SEC (24-38) Sodium Level 144 mmol/L (136-145) 143 mmol/L (136-145) Potassium Level 3.3 mmol/L (3.5-5.1) 3.1 mmol/L (3.5-5.1) Chloride Level 106 mmol/L (98-107) 106 mmol/L (98-107) Carbon Dioxide Level 26 mmol/L (21-32) 27 mmol/L (21-32) Anion Gap 12 (6-14) 10 (6-14) Blood Urea Nitrogen 17 mg/dL (8-26) 16 mg/dL (8-26) Creatinine 0.8 mg/dL (0.7-1.3) 0.8 mg/dL (0.7-1.3) Estimated GFR (Cockcroft-Gault) 97.0 97.0 BUN/Creatinine Ratio 21 (6-20) Glucose Level 86 mg/dL (70-99) 84 mg/dL (70-99) Calcium Level 8.9 mg/dL (8.5-10.1) 8.1 mg/dL (8.5-10.1) Magnesium Level 1.9 mg/dL (1.8-2.4) Total Bilirubin 0.2 mg/dL (0.2-1.0) Aspartate Amino Transf (AST/SGOT) 18 U/L (15-37) Alanine Aminotransferase (ALT/SGPT) 21 U/L (16-63) Alkaline Phosphatase 82 U/L (46-116) Troponin I Quantitative < 0.017 ng/mL (0.000-0.055) VO-Smu-V-Type Natriuretic Peptide 229 pg/mL (0-124) Total Protein 6.7 g/dL (6.4-8.2) Albumin 3.8 g/dL (3.4-5.0) Albumin/Globulin Ratio 1.3 (1.0-1.7) Plan Plan 1.acute on chronic LBP with LLE numbness progressive 2. abdominal pain with nausea r/t constipation 3. acute hypokalemia 4. orthostatic hypotension chronic 5. a/c chronic low back pain with radiculopathy, LE weakness bilaterally chronic 6. mild mitral valve prolapse 7. BPH 8. SSS PPM 9. moderate chronic PCL malnutrition 10. neck pain chronic with radiculopathy bilateral arms, weakness chronic 11. 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 diverticulosis 14. GERD 15. Schatzki ring 16. HH 17. h/o esophageal stricture dilation 02/10/16 18, mild pulmonary HTN 19. valvular insufficiency mild MR TR 20 CAD with EF 55-60% 21. HTN 22. dizziness chronic 23. chronic thrombocytopenia cause not determined 24. mild pulmonary HTN 25. h/o fracture L cuneiform bone identified this admission post fall 07/24/16 26 h/o severe L vertebral artery stenosis aortic arch negative per CTA 2013 PLAN: 03/09/14 LLE numbness - neuro consult - rehab medicine constipation - stool softner daily hypokalemia - Admit K 3.3 today 3.1 Replace with KCL 40 this amd 20 at 1300 LBP a/c - tramadol - eval per Dr. Kebede orthostatic hypotension - cardiology consult to eval medications and current treatment For more details regarding further plans, please refer to the orders. TIANA POTTER MD 03/09/17 0910: HISTORY AND PHYSICAL Plan Plan The patient was seen and examined by me. Chart reviewed and plan of care formulated. Discussed with, reviewed and agree with BRUSH MACHINE SETTER's notes, plan of care and orders with modifications as necessary. For more details regarding further plans, please refer to the orders. GAYATHRI FAIRCHILD APRN Mar 09, 2017 08:41 TIANA POTTER MD Mar 09, 2017 09:44
[2017-03-09] MEDS ORDERED: METOPROLOL TART IMMED RELEASE 25 MG TABLET. PO SCH (09:00)
[2017-03-09] MEDS ORDERED: POTASSIUM CHLORIDE 20 MEQ TABLET.ER. PO ONE ×3 (09:00→13:00)
[2017-03-09] MEDS: TAMSULOSIN 0.4 MG CAP.ER.24H. PO SCH (09:32)
[2017-03-09] MEDS: ASPIRIN ENTERIC COATED 81 MG TABLET.DR. PO SCH (09:32)
[2017-03-09] MEDS: HYDROcodone/APAP 10/325 1 TAB TABLET PO PRN ×2 (09:32→17:40)
[2017-03-09] MEDS: ALPRAZolam 0.25 MG TABLET PO SCH ×2 (09:33→21:45)
[2017-03-09] MEDS: FLECAINIDE ACETATE 50 MG TABLET. PO SCH ×2 (09:33→21:45)
[2017-03-09] MEDS ORDERED: BUPIVACAINE MPF 0.25% 10 ML VIAL. IJ ONE (10:30)
[2017-03-09] MEDS ORDERED: methylPREDNISolone ACETATE 40 MG/ML VIAL. IM ONE (10:30)
[2017-03-09 11:46] LABS: BARBITURATES NEG (NEG); BENZODIAZEPINES NEG (NEG); CANNABINOIDS NEG (NEG); COCAINE NEG (NEG); METHADONE NEG (NEG); OPIATES POS (NEG); PHENCYCLIDINE NEG (NEG)
--- NOTE | 2017-03-09 12:44 | PDOC2 ---
CARDIAC CONSULT DATE OF CONSULT Date of Consult DATE: 03/09/17 TIME: 12:08 REASON FOR CONSULT Reason for Consult: HTN REFERRING PHYSICIAN Referring Physician: Shama SOURCE Source: Chart review, Patient HISTORY OF PRESENT ILLNESS HISTORY OF PRESENT ILLNESS This is a 66 yo male admitted for complains of lower back pain and numbness weakness to LLE extremity. Has not been able to walk very well due to this. Denies any CP, SOA, palpitations. Presently he is unable to feel from left lower thigh down to his left foot but not in significant pain and actually eating his lunch. Able to move extremity without difficulty. Upon admission he was noted with HTN. He does skip his medications sometimes which he admits. He has been noted with high BP when laying down and known for orthostasis. Presently he is sitting up eating his lunch and tells me that the only time he gets dizzy is when he stands up. PAST MEDICAL HISTORY Past Medical History Cardiovascular: CAD, HTN, Hyperlipidemia, Valve insufficiency (mitral valve prolapse), Other (Marfan's syndrome, NICM), SSS, orthostasis, vertebral artery stenosis Pulmonary: No pertinent hx, Other (emphysema ) GI: Esophageal stricture, diverticulosis, GERD/schlatski ring Heme/Onc: Anemia NOS Musculoskeletal: Osteoarthritis, chronic pain with spinal radiculopathy Infectious disease: No pertinent hx ENT: No pertinent hx Renal/: BPH, CKD2, UTI Endocrine: No pertinent hx Dermatology: No pertinent hx PAST SURGICAL HISTORY Past Surgical History neck sx, back sx, PPM FAMILY HISTORY Family History: Stroke SOCIAL HISTORY Smoke: No ALCOHOL: none Drugs: None Lives: with Family CURRENT MEDICATIONS CURRENT MEDICATIONS Current Medications Medications (Trade) Dose Ordered Sig/Marcia Route PRN Reason Start Time Stop Time Status Last Admin Dose Admin Iohexol (Omnipaque 300 Mg/ml) 90 ml 1X ONCE IV 03/08/17 19:15 03/08/17 19:16 DC 03/08/17 19:42 Tramadol HCl (Ultram) 50 mg 1X ONCE PO 03/08/17 21:15 03/08/17 21:16 DC 03/08/17 21:07 Alprazolam (Xanax) 0.25 mg BID PO 03/09/17 09:00 03/09/17 09:33 Aspirin (Ecotrin) 81 mg DAILY PO 03/09/17 09:00 03/09/17 09:32 Acetaminophen/ Hydrocodone Bitart (Lortab 10/325) 1 tab PRN Q6HRS PRN PO PAIN 03/09/17 08:30 03/09/17 09:32 Tamsulosin HCl (Flomax) 0.4 mg DAILY PO 03/09/17 09:00 03/09/17 09:32 Flecainide Acetate (Tambocor) 50 mg Q12HR PO 03/09/17 09:00 03/09/17 09:33 Potassium Chloride (Klor-Con) 40 meq 1X ONCE PO 03/09/17 09:00 03/09/17 09:01 DC 03/09/17 09:33 ALLERGIES ALLERGIES: Coded Allergies: No Known Drug Allergies (Unverified , 02/10/16) ROS Review of System 14 point ROS evaluated with pertinent positives noted per HPI PHYSICAL EXAM General: Alert, Oriented X3, Cooperative, No acute distress HEENT: Atraumatic, Mucous membr. moist/pink Lungs: Clear to auscultation, Normal air movement, Other (pectus excavatum) Heart: Regular rate (SR), Normal S1, Normal S2, Other (3/6 systolic murmur to apical site) Abdomen: Soft Extremities: No cyanosis Skin: No breakdown, No significant lesion Neuro: Normal speech, Sensation intact Psych/Mental Status: Mental status NL MUSCULOSKELETAL: Osteoarthritic changes both hands VITALS VITALS Vital Signs Date Time Temp Pulse Resp B/P (MAP) Pulse Ox O2 Delivery O2 Flow Rate FiO2 03/09/17 10:45 96 Room Air 03/09/17 10:29 97.0 92 18 127/80 (96) 97.0 LABS Lab: Laboratory Tests Test 03/08/17 18:45 03/08/17 19:00 03/08/17 19:05 03/09/17 03:35 Urine Collection Type Unknown Urine Color Yellow Urine Clarity Clear Urine pH 6.0 Urine Specific [place] 1.020 Urine Protein Negative mg/dL (NEG-TRACE) Urine Glucose (UA) Negative mg/dL (NEG) Urine Ketones (Stick) Negative mg/dL (NEG) Urine Blood Trace (NEG) Urine Nitrite Negative (NEG) Urine Bilirubin Negative (NEG) Urine Urobilinogen Dipstick 1.0 mg/dL (0.2 mg/dL) Urine Leukocyte Esterase Negative (NEG) Urine RBC 3-5 /HPF (0-2) Urine WBC 1-4 /HPF (0-4) Urine Squamous Epithelial Cells Few /LPF Urine Bacteria 0 /HPF (0-FEW) Urine Mucus Marked /LPF Stool Occult Blood Negative (NEG) White Blood Count 8.1 x10^3/uL (4.0-11.0) 7.5 x10^3/uL (4.0-11.0) Red Blood Count 4.59 x10^6/uL (4.30-5.70) 4.54 x10^6/uL (4.30-5.70) Hemoglobin 13.9 g/dL (13.0-17.5) 13.7 g/dL (13.0-17.5) Hematocrit 41.6 % (39.0-53.0) 41.0 % (39.0-53.0) Mean Corpuscular Volume 91 fL (79-100) 91 fL (79-100) Mean Corpuscular Hemoglobin 30 pg (25-35) 30 pg (25-35) Mean Corpuscular Hemoglobin Concent 33 g/dL (31-37) 33 g/dL (31-37) Red Cell Distribution Width 13.6 % (11.5-14.5) 13.5 % (11.5-14.5) Platelet Count 104 x10^3/uL (140-400) 104 x10^3/uL (140-400) Neutrophils (%) (Auto) 60 % (31-73) 54 % (31-73) Lymphocytes (%) (Auto) 27 % (24-48) 31 % (24-48) Monocytes (%) (Auto) 10 % (0-9) 11 % (0-9) Eosinophils (%) (Auto) 2 % (0-3) 3 % (0-3) Basophils (%) (Auto) 1 % (0-3) 1 % (0-3) Neutrophils # (Auto) 4.9 x10^3uL (1.8-7.7) 4.1 x10^3uL (1.8-7.7) Lymphocytes # (Auto) 2.1 x10^3/uL (1.0-4.8) 2.3 x10^3/uL (1.0-4.8) Monocytes # (Auto) 0.8 x10^3/uL (0.0-1.1) 0.8 x10^3/uL (0.0-1.1) Eosinophils # (Auto) 0.2 x10^3/uL (0.0-0.7) 0.2 x10^3/uL (0.0-0.7) Basophils # (Auto) 0.1 x10^3/uL (0.0-0.2) 0.1 x10^3/uL (0.0-0.2) Prothrombin Time 13.1 SEC (11.7-14.0) Prothromb Time International Ratio 1.1 (0.8-1.1) Activated Partial Thromboplast Time 29 SEC (24-38) Sodium Level 144 mmol/L (136-145) 143 mmol/L (136-145) Potassium Level 3.3 mmol/L (3.5-5.1) 3.1 mmol/L (3.5-5.1) Chloride Level 106 mmol/L (98-107) 106 mmol/L (98-107) Carbon Dioxide Level 26 mmol/L (21-32) 27 mmol/L (21-32) Anion Gap 12 (6-14) 10 (6-14) Blood Urea Nitrogen 17 mg/dL (8-26) 16 mg/dL (8-26) Creatinine 0.8 mg/dL (0.7-1.3) 0.8 mg/dL (0.7-1.3) Estimated GFR (Cockcroft-Gault) 97.0 97.0 BUN/Creatinine Ratio 21 (6-20) Glucose Level 86 mg/dL (70-99) 84 mg/dL (70-99) Calcium Level 8.9 mg/dL (8.5-10.1) 8.1 mg/dL (8.5-10.1) Magnesium Level 1.9 mg/dL (1.8-2.4) Total Bilirubin 0.2 mg/dL (0.2-1.0) Aspartate Amino Transf (AST/SGOT) 18 U/L (15-37) Alanine Aminotransferase (ALT/SGPT) 21 U/L (16-63) Alkaline Phosphatase 82 U/L (46-116) Troponin I Quantitative < 0.017 ng/mL (0.000-0.055) RX-Rlb-O-Type Natriuretic Peptide 229 pg/mL (0-124) Total Protein 6.7 g/dL (6.4-8.2) Albumin 3.8 g/dL (3.4-5.0) Albumin/Globulin Ratio 1.3 (1.0-1.7) Creatine Kinase 81 U/L (39-308) Vitamin B12 Level 186 pg/mL (247-911) 25-Hydroxy Vitamin D Total 30.4 ng/mL (30-100) Thyroid Stimulating Hormone (TSH) 1.911 uIU/mL (0.358-3.74) Test 03/09/17 11:30 Urine Opiates Screen Pos (NEG) Urine Methadone Screen Neg (NEG) Urine Barbiturates Neg (NEG) Urine Phencyclidine Screen Neg (NEG) Urine Amphetamine/Methamphetamine Neg (NEG) Urine Benzodiazepines Screen Neg (NEG) Urine Cocaine Screen Neg (NEG) Urine Cannabinoids Screen Neg (NEG) Urine Ethyl Alcohol Neg (NEG) ECHOCARDIOGRAM ECHOCARDIOGRAM <Conclusion> Left ventricle systolic function is normal. The Ejection Fraction is 55-60%. There is normal LV segmental wall motion. The mitral valve leaflets are thickened and redundant with mild prolapse. Mild mitral regurgitation. Mild tricuspid regurgitation. The PA pressure was estimated at 17 mmHg. There is no evidence of significant pericardial effusion. DATE: 05/13/16 1510 ASSESSMENT/PLAN ASSESSMENT/PLAN 1. Low back pain with lumbar radiculopathy/neurogenic claudication: equal temp and 2-3+ bilateral pedal pulses. Unable to feel from lower left thigh to left foot. Per PCP 2. SH-OH syndrome 3. SSS with PPM in situ (Biotronik); prior PSVTs and bradycardia. Recent interrogation revealed normal functioning device 4. Marfan syndrome 5. Mitral valve prolapse: stable 6. HLP 7. Med noncompliance: sometimes he does skip meds and mainly he forgets. Recommendation 1. Continue with metoprolol and flecainide 2. May resume fiorinef, will defer to PCP. May use abdominal binder prior to standing up which is when he has some dizziness. 3. If BP is high at supine position then may elevate HOB till BP is close to normal. 4. Supportive care. Problems: VAHE ROTHMAN [employer] Mar 09, 2017 12:44
--- NOTE | 2017-03-09 13:04 | RAD ---
Indication: Neck pain and lower extremity numbness and weakness. Prior surgery. Technique: Axial images and coronal and sagittal reformatted images are provided. Comparison is a CT angiogram head and neck from May 28, 2016. There is also an MRI from April 17, 2012. One or more of the following individualized dose reduction techniques were utilized for this examination: 1. Automated exposure control 2. Adjustment of the mA and/or kV according to patient size 3. Use of iterative reconstruction technique Findings: Reversal of cervical lordosis is similar to prior. Anterior cervical fusion of C5-C7 appears well seated. Posterior decompression is noted from C3-C4 through C7-T1. Lateral mass instrumentation from C3 through C7 is noted bilaterally. On the left, there is lucency about the C3 and C4 screws. On the right, there is lucency about the C3 and C4 screws. There is no fracture. There is no definite canal stenosis post decompression. There is some endplate irregularity noted at C5-C6 and C6-C7. There is no definite high-grade foraminal narrowing. Lymph nodes along the cervical chains are presumed reactive. There is presumed apical scarring, similar to prior. Impression: 1. Anterior cervical fusion of C5-C7 and posterior fusion of C3-C7. Decompression from C3-C4 through C7-T1. 2. Lucency about the C3 and C4 lateral mass screws compatible with loosening or less likely infection. 3. There is no change in alignment or fracture apparent.
--- NOTE | 2017-03-09 15:37 | RAD ---
Indication: Lower extremity numbness and weakness. Technique: Axial images and coronal and sagittal reformatted images are provided. Comparison is a myelogram from April 24, 2006. One or more of the following individualized dose reduction techniques were utilized for this examination: 1. Automated exposure control 2. Adjustment of the mA and/or kV according to patient size 3. Use of iterative reconstruction technique Findings: There are 5 lumbar type vertebral bodies. There is no fracture. Vertebral body height is maintained. There is no malalignment. There is narrowing of the interspace with vacuum disc at L4-L5 and L5-S1. Endplate sclerosis is noted at these 2 levels. Facet hypertrophy is greatest at L3-L4 and L4-L5. At L2-L3, degenerative disc disease and facet and ligamentum flavum hypertrophy are noted. There is prominent epidural fat. There may be minimal canal stenosis. At L3-L4, there is a disc bulge, facet and ligamentum flavum hypertrophy, and prominent epidural fat. There is mild to moderate canal stenosis and lateral recess narrowing. There is also mild to moderate left foraminal narrowing. At L4-L5, there is a disc osteophyte complex and facet hypertrophy with lateral recess narrowing and high-grade right foraminal narrowing. At L5-S1 there is a disc osteophyte complex and facet hypertrophy with [id number] bilateral foraminal narrowing. Findings have increased from 2006. There is atheromatous disease in the abdominal aorta. There are diverticula in the included:. Impression: 1. Degenerative disc disease and facet and ligamentum flavum hypertrophy in the lumbar spine have increased from 2006. 2. There is no evidence of an acute fracture.
--- NOTE | 2017-03-09 17:22 | PDOC2 ---
NEUROLOGY CONSULT Date of Admission Date of Admission DATE: 03/09/17 TIME: 17:04 Reason for Consult Reason for Consult: IMPRESSION: Left LE numbness and weakness. Neck pain. Chronic back pain. Degenerative spine disease, s/p C-spine fusion, screw loosing? Marfan syndrome. HTN HLD NV. GERD Vit B12 deficiency. RECOMMENDATIONS/PLAN: C/L spine CT performed. Please consult Neurosurgery for C-spine disease or screw loosing. Vit B12 1000 mcg IM daily. Continue ASA and Statin. Treat medical diseases. Lab: see orders. OT/PT. HISTORY OF THE PRESENT ILLNESS: 66-y-old male patient with above medical diseases and C-spine fusion in the past and chronic neck and back pain developed symptoms of left LE numbness and weakness x 2 days before admission. His UE and right LE were fine. No cranial nerve deficits. No urinary or bowel dysfunction. Past Medical History Cardiovascular: HTN, NV (2009), Hyperlipidemia, Valve insufficiency (tr MR, TR ), Pulmonary hypertension (mild per ECHO ), Other (Marfan syndrome, NICM, chronic orthostatic HTN ) Pulmonary: Asthma, COPD (emphysema ), Other GI: Diverticulosis, GERD, Other (Schatski ring, esophageal stricture with last dilitation 01/2016) Heme/Onc: Anemia NOS, Other (chronic thrombocytopenia ) Psych: Anxiety Musculoskeletal: low back pain (lumbar stenosis with radiculopathy bialteral LE, kyphosis and scoliosis, thoracic spondylosis/myelopathy, cervical neck pain with radiculopathy bilateral UE, chronic MS anterior L chest ), Osteoarthritis , Other Renal/: Chronic renal insuff (CKD II ), Benign prostatic enlarg. Past Surgical History lumbar and cervical surgeries Pacemaker (SSS ) Past Family History Brother Marfan syndrome Coronary Artery Disease, Stroke Past Social History Lives with brother. Denied tobacco, ETOH or illicit drug use ALLERGY: Reviewed. MEDICATIONS: Refer to [facility] REVIEW OF SYSTEMS: Constitutional: Weight loss. Head: No traumatic brain or head injury. Skin: No edema, or rash. Ear: No infection. Eyes: No vision loss or color blindness. Nose: No bleeding or purulent discharges. Hearing: No hearing decrease. Neck: Pain. Cardiac: Marfan syndrome. NV. Pacemaker Placement, HTN, HLD. Pulmonary: No COPD. GI: GERD. Urinary/genital: No dysuria, incontinence, urinary retention Endocrinologic: No cousin face, craniofacial dysmorphism, polydactyly, goiter. Skeletomuscular: Generalized weakness. Neurological: see HP. Psychiatric: Denies drug use/abuse. Otherwise, not [id number] review of systems. PHYSICAL EXAMINATION: General appearance is in subacute distress. HEENT: Normocephalic and nontraumatic. Eyes, nose, ears, and throat are unremarkable. Neck is supple. No lymphadenopathy. No bruits are heard over the carotid artery. No crepitus. Cardiovascular: S1, S2, regular rate and rhythm. Pulmonary: Clear to auscultation bilaterally. Abdomen: Bowel sounds are positive. Abdomen is soft, nontender, and nondistended. Extremities: No rash, lesions, or edema. No restriction of range of motion NEUROLOGICAL EXAMINATION: Alert Oriented to time, place and person. PERRL. EOMI. CN: no focal findings. Muscle tone: within normal. Muscle strength: 4 left LE, 5- the rest. DTR: 1-2 Plantar reflex: Flexor response bilaterally Gait: not examined in bed. Sensory exam: no abnormal findings. No cerebellar signs elicited. F-T-N test fine. Current Medications Current Medications Current Medications Iohexol (Omnipaque 300 Mg/ml) 90 ml 1X ONCE IV Last administered on 19:42; Start 03/08/17 at 19:15; Stop 03/08/17 at 19:16; Status DC Tramadol HCl (Ultram) 50 mg 1X ONCE PO Last administered on 03/08/17 21:07; Start 03/08/17 at 21:15; Stop 03/08/17 at 21:16; Status DC Ondansetron HCl (Zofran) 4 mg PRN Q8HRS PRN IV NAUSEA/VOMITING; Start at 22:30; Stop 03/09/17 at 08:32; Status DC Ondansetron HCl (Zofran) 4 mg PRN Q8HRS PRN IV NAUSEA/VOMITING; Start at 08:30 Alprazolam (Xanax) 0.25 mg BID PO Last administered on 03/09/17 09:33; Start 03/09/17 at 09:00 Aspirin (Ecotrin) 81 mg DAILY PO Last administered on 03/09/17 09:32; Start 03/09/17 at 09:00 Acetaminophen/ Hydrocodone Bitart (Lortab 10/325) 1 tab PRN Q6HRS PRN PO SEVERE PAIN Last administered on 03/09/17 09:32; Start 03/09/17 at 08:30 Metoprolol Tartrate (Lopressor) 25 mg BID PO ; Start 03/09/17 at 09:00; Stop 03/09/17 at 09:00; Status DC Simvastatin (Zocor) 20 mg HS PO ; Start 03/09/17 at 21:00 Tamsulosin HCl (Flomax) 0.4 mg DAILY PO Last administered on 03/09/17 09:32; Start 03/09/17 at 09:00 Tramadol HCl (Ultram) 50 mg PRN Q6HRS PRN PO MILD - MODERATE PAIN; Start 03/09 at 08:30 Pantoprazole Sodium (Protonix) 40 mg DAILYAC PO ; Start 03/10/17 at 07:30 Flecainide Acetate (Tambocor) 50 mg Q12HR PO Last administered on 03/09/17 09 :33; Start 03/09/17 at 09:00 Potassium Chloride (Klor-Con) 40 meq 1X ONCE PO Last administered on 09:33; Start 03/09/17 at 09:00; Stop 03/09/17 at 09:01; Status DC Potassium Chloride (Klor-Con) 40 meq 1X ONCE PO ; Start 03/09/17 at 09:15; Stop 03/09/17 at 09:16; Status DC Potassium Chloride (Klor-Con) 20 meq 1X ONCE PO Last administered on 12:13; Start 03/09/17 at 13:00; Stop 03/09/17 at 13:01; Status DC Metoprolol Succinate (Toprol Xl) 12.5 mg DAILY PO ; Start 03/10/17 at 09:00 Methylprednisolone Acetate (DEPO-Medrol 40MG VIAL) 40 mg 1X ONCE IM ; Start at 10:30; Stop 03/09/17 at 10:34; Status DC Bupivacaine HCl (Sensorcaine-Mpf 0.25%) 10 ml 1X ONCE IJ ; Start 03/09/17 at 10:30; Stop 03/09/17 at 10:34; Status DC Active Scripts Active Metoprolol Tartrate 25 Mg Tablet 25 Mg PO BID Take one tablet two times daily by mouth Tramadol Hcl 50 Mg Tablet 1 Tab PO PRN Q6HRS [place] 10-325 Tablet (Acetaminophen/Hydrocodone Bitart) 1 Each Tablet 1 Tab PO PRN Q6HRS PRN Aspir 81 (Aspirin) 81 Mg Tablet.dr 1 Tab PO DAILY Reported Fludrocortisone Acetate 0.1 Mg Tablet 0.2 Mg PO DAILY Simvastatin 20 Mg Tablet 20 Mg PO HS Tamsulosin Hcl 0.4 Mg Cap.er.24h 0.4 Mg PO DAILY Alprazolam 0.25 Mg Tablet 1 Tab PO BID Prilosec (Omeprazole) 20 Mg Capsule.dr 20 Mg PO DAILY Allergies Allergies: Coded Allergies: No Known Drug Allergies (Unverified , 02/10/16) Vitals VITALS Vital Signs Date Time Temp Pulse Resp B/P (MAP) Pulse Ox O2 Delivery O2 Flow Rate FiO2 03/09/17 16:32 72 110/66 (81) 03/09/17 14:39 98.0 18 96 Nasal Cannula 2.0 98.0 Labs Labs Laboratory Tests Test 03/08/17 18:45 03/08/17 19:00 03/08/17 19:05 03/09/17 03:35 Urine Collection Type Unknown Urine Color Yellow Urine Clarity Clear Urine pH 6.0 Urine Specific [place] 1.020 Urine Protein Negative mg/dL (NEG-TRACE) Urine Glucose (UA) Negative mg/dL (NEG) Urine Ketones (Stick) Negative mg/dL (NEG) Urine Blood Trace (NEG) Urine Nitrite Negative (NEG) Urine Bilirubin Negative (NEG) Urine Urobilinogen Dipstick 1.0 mg/dL (0.2 mg/dL) Urine Leukocyte Esterase Negative (NEG) Urine RBC 3-5 /HPF (0-2) Urine WBC 1-4 /HPF (0-4) Urine Squamous Epithelial Cells Few /LPF Urine Bacteria 0 /HPF (0-FEW) Urine Mucus Marked /LPF Stool Occult Blood Negative (NEG) White Blood Count 8.1 x10^3/uL (4.0-11.0) 7.5 x10^3/uL (4.0-11.0) Red Blood Count 4.59 x10^6/uL (4.30-5.70) 4.54 x10^6/uL (4.30-5.70) Hemoglobin 13.9 g/dL (13.0-17.5) 13.7 g/dL (13.0-17.5) Hematocrit 41.6 % (39.0-53.0) 41.0 % (39.0-53.0) Mean Corpuscular Volume 91 fL (79-100) 91 fL (79-100) Mean Corpuscular Hemoglobin 30 pg (25-35) 30 pg (25-35) Mean Corpuscular Hemoglobin Concent 33 g/dL (31-37) 33 g/dL (31-37) Red Cell Distribution Width 13.6 % (11.5-14.5) 13.5 % (11.5-14.5) Platelet Count 104 x10^3/uL (140-400) 104 x10^3/uL (140-400) Neutrophils (%) (Auto) 60 % (31-73) 54 % (31-73) Lymphocytes (%) (Auto) 27 % (24-48) 31 % (24-48) Monocytes (%) (Auto) 10 % (0-9) 11 % (0-9) Eosinophils (%) (Auto) 2 % (0-3) 3 % (0-3) Basophils (%) (Auto) 1 % (0-3) 1 % (0-3) Neutrophils # (Auto) 4.9 x10^3uL (1.8-7.7) 4.1 x10^3uL (1.8-7.7) Lymphocytes # (Auto) 2.1 x10^3/uL (1.0-4.8) 2.3 x10^3/uL (1.0-4.8) Monocytes # (Auto) 0.8 x10^3/uL (0.0-1.1) 0.8 x10^3/uL (0.0-1.1) Eosinophils # (Auto) 0.2 x10^3/uL (0.0-0.7) 0.2 x10^3/uL (0.0-0.7) Basophils # (Auto) 0.1 x10^3/uL (0.0-0.2) 0.1 x10^3/uL (0.0-0.2) Prothrombin Time 13.1 SEC (11.7-14.0) Prothromb Time International Ratio 1.1 (0.8-1.1) Activated Partial Thromboplast Time 29 SEC (24-38) Sodium Level 144 mmol/L (136-145) 143 mmol/L (136-145) Potassium Level 3.3 mmol/L (3.5-5.1) 3.1 mmol/L (3.5-5.1) Chloride Level 106 mmol/L (98-107) 106 mmol/L (98-107) Carbon Dioxide Level 26 mmol/L (21-32) 27 mmol/L (21-32) Anion Gap 12 (6-14) 10 (6-14) Blood Urea Nitrogen 17 mg/dL (8-26) 16 mg/dL (8-26) Creatinine 0.8 mg/dL (0.7-1.3) 0.8 mg/dL (0.7-1.3) Estimated GFR (Cockcroft-Gault) 97.0 97.0 BUN/Creatinine Ratio 21 (6-20) Glucose Level 86 mg/dL (70-99) 84 mg/dL (70-99) Calcium Level 8.9 mg/dL (8.5-10.1) 8.1 mg/dL (8.5-10.1) Magnesium Level 1.9 mg/dL (1.8-2.4) Total Bilirubin 0.2 mg/dL (0.2-1.0) Aspartate Amino Transf (AST/SGOT) 18 U/L (15-37) Alanine Aminotransferase (ALT/SGPT) 21 U/L (16-63) Alkaline Phosphatase 82 U/L (46-116) Troponin I Quantitative < 0.017 ng/mL (0.000-0.055) FH-Nxc-T-Type Natriuretic Peptide 229 pg/mL (0-124) Total Protein 6.7 g/dL (6.4-8.2) Albumin 3.8 g/dL (3.4-5.0) Albumin/Globulin Ratio 1.3 (1.0-1.7) Creatine Kinase 81 U/L (39-308) Vitamin B12 Level 186 pg/mL (247-911) 25-Hydroxy Vitamin D Total 30.4 ng/mL (30-100) Thyroid Stimulating Hormone (TSH) 1.911 uIU/mL (0.358-3.74) Test 03/09/17 11:30 Urine Opiates Screen Pos (NEG) Urine Methadone Screen Neg (NEG) Urine Barbiturates Neg (NEG) Urine Phencyclidine Screen Neg (NEG) Urine Amphetamine/Methamphetamine Neg (NEG) Urine Benzodiazepines Screen Neg (NEG) Urine Cocaine Screen Neg (NEG) Urine Cannabinoids Screen Neg (NEG) Urine Ethyl Alcohol Neg (NEG) Laboratory Tests Test 03/08/17 18:45 03/08/17 19:00 03/08/17 19:05 03/09/17 03:35 Urine Collection Type Unknown Urine Color Yellow Urine Clarity Clear Urine pH 6.0 Urine Specific [place] 1.020 Urine Protein Negative mg/dL (NEG-TRACE) Urine Glucose (UA) Negative mg/dL (NEG) Urine Ketones (Stick) Negative mg/dL (NEG) Urine Blood Trace (NEG) Urine Nitrite Negative (NEG) Urine Bilirubin Negative (NEG) Urine Urobilinogen Dipstick 1.0 mg/dL (0.2 mg/dL) Urine Leukocyte Esterase Negative (NEG) Urine RBC 3-5 /HPF (0-2) Urine WBC 1-4 /HPF (0-4) Urine Squamous Epithelial Cells Few /LPF Urine Bacteria 0 /HPF (0-FEW) Urine Mucus Marked /LPF Stool Occult Blood Negative (NEG) White Blood Count 8.1 x10^3/uL (4.0-11.0) 7.5 x10^3/uL (4.0-11.0) Red Blood Count 4.59 x10^6/uL (4.30-5.70) 4.54 x10^6/uL (4.30-5.70) Hemoglobin 13.9 g/dL (13.0-17.5) 13.7 g/dL (13.0-17.5) Hematocrit 41.6 % (39.0-53.0) 41.0 % (39.0-53.0) Mean Corpuscular Volume 91 fL (79-100) 91 fL (79-100) Mean Corpuscular Hemoglobin 30 pg (25-35) 30 pg (25-35) Mean Corpuscular Hemoglobin Concent 33 g/dL (31-37) 33 g/dL (31-37) Red Cell Distribution Width 13.6 % (11.5-14.5) 13.5 % (11.5-14.5) Platelet Count 104 x10^3/uL (140-400) 104 x10^3/uL (140-400) Neutrophils (%) (Auto) 60 % (31-73) 54 % (31-73) Lymphocytes (%) (Auto) 27 % (24-48) 31 % (24-48) Monocytes (%) (Auto) 10 % (0-9) 11 % (0-9) Eosinophils (%) (Auto) 2 % (0-3) 3 % (0-3) Basophils (%) (Auto) 1 % (0-3) 1 % (0-3) Neutrophils # (Auto) 4.9 x10^3uL (1.8-7.7) 4.1 x10^3uL (1.8-7.7) Lymphocytes # (Auto) 2.1 x10^3/uL (1.0-4.8) 2.3 x10^3/uL (1.0-4.8) Monocytes # (Auto) 0.8 x10^3/uL (0.0-1.1) 0.8 x10^3/uL (0.0-1.1) Eosinophils # (Auto) 0.2 x10^3/uL (0.0-0.7) 0.2 x10^3/uL (0.0-0.7) Basophils # (Auto) 0.1 x10^3/uL (0.0-0.2) 0.1 x10^3/uL (0.0-0.2) Prothrombin Time 13.1 SEC (11.7-14.0) Prothromb Time International Ratio 1.1 (0.8-1.1) Activated Partial Thromboplast Time 29 SEC (24-38) Sodium Level 144 mmol/L (136-145) 143 mmol/L (136-145) Potassium Level 3.3 mmol/L (3.5-5.1) 3.1 mmol/L (3.5-5.1) Chloride Level 106 mmol/L (98-107) 106 mmol/L (98-107) Carbon Dioxide Level 26 mmol/L (21-32) 27 mmol/L (21-32) Anion Gap 12 (6-14) 10 (6-14) Blood Urea Nitrogen 17 mg/dL (8-26) 16 mg/dL (8-26) Creatinine 0.8 mg/dL (0.7-1.3) 0.8 mg/dL (0.7-1.3) Estimated GFR (Cockcroft-Gault) 97.0 97.0 BUN/Creatinine Ratio 21 (6-20) Glucose Level 86 mg/dL (70-99) 84 mg/dL (70-99) Calcium Level 8.9 mg/dL (8.5-10.1) 8.1 mg/dL (8.5-10.1) Magnesium Level 1.9 mg/dL (1.8-2.4) Total Bilirubin 0.2 mg/dL (0.2-1.0) Aspartate Amino Transf (AST/SGOT) 18 U/L (15-37) Alanine Aminotransferase (ALT/SGPT) 21 U/L (16-63) Alkaline Phosphatase 82 U/L (46-116) Troponin I Quantitative < 0.017 ng/mL (0.000-0.055) EJ-Ggb-D-Type Natriuretic Peptide 229 pg/mL (0-124) Total Protein 6.7 g/dL (6.4-8.2) Albumin 3.8 g/dL (3.4-5.0) Albumin/Globulin Ratio 1.3 (1.0-1.7) Creatine Kinase 81 U/L (39-308) Vitamin B12 Level 186 pg/mL (247-911) 25-Hydroxy Vitamin D Total 30.4 ng/mL (30-100) Thyroid Stimulating Hormone (TSH) 1.911 uIU/mL (0.358-3.74) Test 03/09/17 11:30 Urine Opiates Screen Pos (NEG) Urine Methadone Screen Neg (NEG) Urine Barbiturates Neg (NEG) Urine Phencyclidine Screen Neg (NEG) Urine Amphetamine/Methamphetamine Neg (NEG) Urine Benzodiazepines Screen Neg (NEG) Urine Cocaine Screen Neg (NEG) Urine Cannabinoids Screen Neg (NEG) Urine Ethyl Alcohol Neg (NEG) BRITTANY BLOCK MD Mar 09, 2017 17:22
[2017-03-09] MEDS: CYANOCOBALAMIN (VITAMIN B-12) 1,000 MCG/ML VIAL IM SCH (17:37)
[2017-03-09] MEDS: SIMVASTATIN 20 MG TABLET PO SCH (21:45)
[2017-03-10] VITALS (7 sets, daily range): BP systolic 100–143; BP diastolic 46–90
--- NOTE | 2017-03-10 00:43 | CONS ---
DATE OF CONSULTATION: 03/09/2017 ATTENDING PHYSICIAN: Dr. Masoud Tyler. The patient was seen at the request of Dr. Tyler for rehab evaluation. HISTORY OF PRESENT ILLNESS: This is a 66-year-old right-handed male known to me. He was admitted with left lower extremity numbness and pain through the Emergency Room. He was seen in the Emergency Room with back pain about 2-3 days ago with associated numbness and difficulty to walk, had chronic numbness of his right foot for years. He denies any recent fall, but there is history of multiple positive orthostatic hypotension. The patient had CTA of the chest, abdomen and pelvis negative for any acute lesion except for moderate sigmoid diverticulosis. He was noted with hypertension at the time of admission. The patient had problems with orthostatic hypotension in the past, treated with Florinef, had been stopped due to high blood pressure in supine position. He had permanent pacemaker placed for bradycardia. The patient with known myocardial infarction, hyperlipidemia, valve insufficiency both mitral and tricuspid, pulmonary hypertension, Marfan syndrome, asthmatic bronchitis, chronic obstructive pulmonary disease, gastroesophageal reflux disease, diverticulosis, Schatzki ring esophageal stricture with last dilatation in January 2016, anemia, chronic thrombocytopenia, anxiety, lumbar spinal stenosis, kyphosis, scoliosis, thoracic spondylosis with myelopathy, cervical neck pain with radiating pain to both upper extremities, chronic muscle strain, anterior left chest; chronic renal insufficiency, chronic kidney disease stage 2, benign prostatic enlargement, previous lumbar and cervical spine surgeries. Mother had Marfan syndrome. FAMILY HISTORY: Coronary artery disease, cerebrovascular accident. ALLERGIES: He is not known allergic to any medication. SOCIAL HISTORY: He lives with his brother. PHYSICAL EXAMINATION: Today revealed a middle-aged male. He is alert, oriented to time, place, person and circumstance and follows commands appropriately, moves all 4 extremities voluntarily where he had 4+/5 grade muscle strength. Deep tendon reflexes are decreased overall. He had decreased touch and pinprick sensation over left lower extremity, does not pertain to one particular nerve or dermatome distribution. He had crepitus on range of motion on both knee joints without any obvious knee joint effusion. He had tenderness to palpation over lumbar paraspinal muscles extending out to sacroiliac joint area and straight leg raising test is negative bilaterally. He is independent with bed mobility and transfers. He felt dizzy when he is standing up, but no change noted with his blood pressure while he is sitting or standing. The patient walked with a roller walker at bedside. He had a roller walker, which needs some repair or a new one. He had painful limited movements of his lumbar spine. ASSESSMENT: A middle-aged male with chronic lower back pain with recent exacerbation and left lumbar radiculitis and no clinical evidence of ongoing lumbar radiculopathy. RECOMMENDATIONS: To ask physical therapy to try physical modality to help ease his pain, to consider trigger point injections and also to ask pain clinic to see him for consideration of lumbar epidural steroid injections. Dr. Tyler, I appreciate asking me to participate in the care of this interesting patient. I will be glad to follow him with you as needed for the rehabilitation. SAMSON SCHREIBER MD DR: TATI/jarocho JOB#: [id number] / [id number]
[2017-03-10 06:17] LABS: BASO % 1 % (0-3); EOS % 6 % (0-3); HEMATOCRIT 40.7 % (39.0-53.0); HEMOGLOBIN 13.4 g/dL (13.0-17.5); LYMPH % 32 % (24-48); MEAN CORPUSCULAR HEMOGLOBIN 30 pg (25-35); MEAN CORPUSCULAR HGB CONC 33 g/dL (31-37); MEAN CORPUSCULAR VOLUME 91 fL (79-100); MONO % 10 % (0-9); NEUT % 52 % (31-73); PLATELET COUNT 90 x10^3/uL (140-400); RED BLOOD COUNT 4.47 x10^6/uL (4.30-5.70); RED CELL DISTRIBUTION WIDTH 13.6 % (11.5-14.5); WHITE BLOOD COUNT 6.4 x10^3/uL (4.0-11.0)
[2017-03-10 06:38] LABS: CALCIUM 8.2 mg/dL (8.5-10.1); CREATININE 0.8 mg/dL (0.7-1.3); MAGNESIUM 1.9 mg/dL (1.8-2.4); POTASSIUM 3.4 mmol/L (3.5-5.1)
[2017-03-10 08:16] LABS: % EOS 9 % (0-5); PLT ESTIMATE DECREASED (ADEQUATE)
--- NOTE | 2017-03-10 08:57 | PDOC ---
GURINDERGAYATHRI CLASS C DRIVER 03/10/17 0857: IM PROGRESS NOTES- Subjective Subjective back pain some improved, tingling in Left lower extremity Objective Objective alert, mobility in bed increased w/o acute pain Vitals Vital Signs Date Time Temp Pulse Resp B/P (MAP) Pulse Ox O2 Delivery O2 Flow Rate FiO2 03/10/17 07:42 97.7 66 18 108/78 (88) 98 Room Air 97.7 03/09/17 18:53 2.0 Input & Output Intake and Output 03/10/17 07:00 Intake Total 780 ml Output Total 300 ml Balance 480 ml Intake Oral 780 ml Output Urine Total 300 ml # Voids 3 Physical Exam Physical Exam General appearance - alert chronically ill thin appearing, and in no distress Mental Status - alert, oriented to person, place, and time, affect appropriate to mood Head - normal Chest - clear to auscultation, no wheezes, rales or rhonchi, symmetric air entry Heart - S1 and S2 normal Abdomen - soft, nontender, nondistended, no masses or organomegaly Neurological - no acute focal neurological deficit noted Musculoskeletal - tender LS with increase sensation in Left lower extremity Extremities - no pedal edema Skin - warm and dry Labs Laboratory Tests Test 03/08/17 18:45 03/08/17 19:00 03/08/17 19:05 03/09/17 03:35 Urine Collection Type Unknown Urine Color Yellow Urine Clarity Clear Urine pH 6.0 Urine Specific [place] 1.020 Urine Protein Negative mg/dL (NEG-TRACE) Urine Glucose (UA) Negative mg/dL (NEG) Urine Ketones (Stick) Negative mg/dL (NEG) Urine Blood Trace (NEG) Urine Nitrite Negative (NEG) Urine Bilirubin Negative (NEG) Urine Urobilinogen Dipstick 1.0 mg/dL (0.2 mg/dL) Urine Leukocyte Esterase Negative (NEG) Urine RBC 3-5 /HPF (0-2) Urine WBC 1-4 /HPF (0-4) Urine Squamous Epithelial Cells Few /LPF Urine Bacteria 0 /HPF (0-FEW) Urine Mucus Marked /LPF Stool Occult Blood Negative (NEG) White Blood Count 8.1 x10^3/uL (4.0-11.0) 7.5 x10^3/uL (4.0-11.0) Red Blood Count 4.59 x10^6/uL (4.30-5.70) 4.54 x10^6/uL (4.30-5.70) Hemoglobin 13.9 g/dL (13.0-17.5) 13.7 g/dL (13.0-17.5) Hematocrit 41.6 % (39.0-53.0) 41.0 % (39.0-53.0) Mean Corpuscular Volume 91 fL (79-100) 91 fL (79-100) Mean Corpuscular Hemoglobin 30 pg (25-35) 30 pg (25-35) Mean Corpuscular Hemoglobin Concent 33 g/dL (31-37) 33 g/dL (31-37) Red Cell Distribution Width 13.6 % (11.5-14.5) 13.5 % (11.5-14.5) Platelet Count 104 x10^3/uL (140-400) 104 x10^3/uL (140-400) Neutrophils (%) (Auto) 60 % (31-73) 54 % (31-73) Lymphocytes (%) (Auto) 27 % (24-48) 31 % (24-48) Monocytes (%) (Auto) 10 % (0-9) 11 % (0-9) Eosinophils (%) (Auto) 2 % (0-3) 3 % (0-3) Basophils (%) (Auto) 1 % (0-3) 1 % (0-3) Neutrophils # (Auto) 4.9 x10^3uL (1.8-7.7) 4.1 x10^3uL (1.8-7.7) Lymphocytes # (Auto) 2.1 x10^3/uL (1.0-4.8) 2.3 x10^3/uL (1.0-4.8) Monocytes # (Auto) 0.8 x10^3/uL (0.0-1.1) 0.8 x10^3/uL (0.0-1.1) Eosinophils # (Auto) 0.2 x10^3/uL (0.0-0.7) 0.2 x10^3/uL (0.0-0.7) Basophils # (Auto) 0.1 x10^3/uL (0.0-0.2) 0.1 x10^3/uL (0.0-0.2) Prothrombin Time 13.1 SEC (11.7-14.0) Prothromb Time International Ratio 1.1 (0.8-1.1) Activated Partial Thromboplast Time 29 SEC (24-38) Sodium Level 144 mmol/L (136-145) 143 mmol/L (136-145) Potassium Level 3.3 mmol/L (3.5-5.1) 3.1 mmol/L (3.5-5.1) Chloride Level 106 mmol/L (98-107) 106 mmol/L (98-107) Carbon Dioxide Level 26 mmol/L (21-32) 27 mmol/L (21-32) Anion Gap 12 (6-14) 10 (6-14) Blood Urea Nitrogen 17 mg/dL (8-26) 16 mg/dL (8-26) Creatinine 0.8 mg/dL (0.7-1.3) 0.8 mg/dL (0.7-1.3) Estimated GFR (Cockcroft-Gault) 97.0 97.0 BUN/Creatinine Ratio 21 (6-20) Glucose Level 86 mg/dL (70-99) 84 mg/dL (70-99) Calcium Level 8.9 mg/dL (8.5-10.1) 8.1 mg/dL (8.5-10.1) Magnesium Level 1.9 mg/dL (1.8-2.4) Total Bilirubin 0.2 mg/dL (0.2-1.0) Aspartate Amino Transf (AST/SGOT) 18 U/L (15-37) Alanine Aminotransferase (ALT/SGPT) 21 U/L (16-63) Alkaline Phosphatase 82 U/L (46-116) Troponin I Quantitative < 0.017 ng/mL (0.000-0.055) JF-Syz-U-Type Natriuretic Peptide 229 pg/mL (0-124) Total Protein 6.7 g/dL (6.4-8.2) Albumin 3.8 g/dL (3.4-5.0) Albumin/Globulin Ratio 1.3 (1.0-1.7) Creatine Kinase 81 U/L (39-308) Vitamin B12 Level 186 pg/mL (247-911) 25-Hydroxy Vitamin D Total 30.4 ng/mL (30-100) Thyroid Stimulating Hormone (TSH) 1.911 uIU/mL (0.358-3.74) Test 03/09/17 11:30 03/10/17 05:05 Urine Opiates Screen Pos (NEG) Urine Methadone Screen Neg (NEG) Urine Barbiturates Neg (NEG) Urine Phencyclidine Screen Neg (NEG) Urine Amphetamine/Methamphetamine Neg (NEG) Urine Benzodiazepines Screen Neg (NEG) Urine Cocaine Screen Neg (NEG) Urine Cannabinoids Screen Neg (NEG) Urine Ethyl Alcohol Neg (NEG) White Blood Count 6.4 x10^3/uL (4.0-11.0) Red Blood Count 4.47 x10^6/uL (4.30-5.70) Hemoglobin 13.4 g/dL (13.0-17.5) Hematocrit 40.7 % (39.0-53.0) Mean Corpuscular Volume 91 fL (79-100) Mean Corpuscular Hemoglobin 30 pg (25-35) Mean Corpuscular Hemoglobin Concent 33 g/dL (31-37) Red Cell Distribution Width 13.6 % (11.5-14.5) Platelet Count 90 x10^3/uL (140-400) Neutrophils (%) (Auto) 52 % (31-73) Lymphocytes (%) (Auto) 32 % (24-48) Monocytes (%) (Auto) 10 % (0-9) Eosinophils (%) (Auto) 6 % (0-3) Basophils (%) (Auto) 1 % (0-3) Neutrophils # (Auto) 3.3 x10^3uL (1.8-7.7) Lymphocytes # (Auto) 2.0 x10^3/uL (1.0-4.8) Monocytes # (Auto) 0.6 x10^3/uL (0.0-1.1) Eosinophils # (Auto) 0.4 x10^3/uL (0.0-0.7) Basophils # (Auto) 0.0 x10^3/uL (0.0-0.2) Segmented Neutrophils % 44 % (35-66) Band Neutrophils % 5 % (0-9) Lymphocytes % 37 % (24-48) Monocytes % 5 % (0-10) Eosinophils % 9 % (0-5) Platelet Estimate Decreased (ADEQUATE) Sodium Level 140 mmol/L (136-145) Potassium Level 3.4 mmol/L (3.5-5.1) Chloride Level 105 mmol/L (98-107) Carbon Dioxide Level 27 mmol/L (21-32) Anion Gap 8 (6-14) Blood Urea Nitrogen 16 mg/dL (8-26) Creatinine 0.8 mg/dL (0.7-1.3) Estimated GFR (Cockcroft-Gault) 97.0 Glucose Level 83 mg/dL (70-99) Calcium Level 8.2 mg/dL (8.5-10.1) Magnesium Level 1.9 mg/dL (1.8-2.4) Laboratory Tests Test 03/09/17 11:30 03/10/17 05:05 Urine Opiates Screen Pos (NEG) Urine Methadone Screen Neg (NEG) Urine Barbiturates Neg (NEG) Urine Phencyclidine Screen Neg (NEG) Urine Amphetamine/Methamphetamine Neg (NEG) Urine Benzodiazepines Screen Neg (NEG) Urine Cocaine Screen Neg (NEG) Urine Cannabinoids Screen Neg (NEG) Urine Ethyl Alcohol Neg (NEG) White Blood Count 6.4 x10^3/uL (4.0-11.0) Red Blood Count 4.47 x10^6/uL (4.30-5.70) Hemoglobin 13.4 g/dL (13.0-17.5) Hematocrit 40.7 % (39.0-53.0) Mean Corpuscular Volume 91 fL (79-100) Mean Corpuscular Hemoglobin 30 pg (25-35) Mean Corpuscular Hemoglobin Concent 33 g/dL (31-37) Red Cell Distribution Width 13.6 % (11.5-14.5) Platelet Count 90 x10^3/uL (140-400) Neutrophils (%) (Auto) 52 % (31-73) Lymphocytes (%) (Auto) 32 % (24-48) Monocytes (%) (Auto) 10 % (0-9) Eosinophils (%) (Auto) 6 % (0-3) Basophils (%) (Auto) 1 % (0-3) Neutrophils # (Auto) 3.3 x10^3uL (1.8-7.7) Lymphocytes # (Auto) 2.0 x10^3/uL (1.0-4.8) Monocytes # (Auto) 0.6 x10^3/uL (0.0-1.1) Eosinophils # (Auto) 0.4 x10^3/uL (0.0-0.7) Basophils # (Auto) 0.0 x10^3/uL (0.0-0.2) Segmented Neutrophils % 44 % (35-66) Band Neutrophils % 5 % (0-9) Lymphocytes % 37 % (24-48) Monocytes % 5 % (0-10) Eosinophils % 9 % (0-5) Platelet Estimate Decreased (ADEQUATE) Sodium Level 140 mmol/L (136-145) Potassium Level 3.4 mmol/L (3.5-5.1) Chloride Level 105 mmol/L (98-107) Carbon Dioxide Level 27 mmol/L (21-32) Anion Gap 8 (6-14) Blood Urea Nitrogen 16 mg/dL (8-26) Creatinine 0.8 mg/dL (0.7-1.3) Estimated GFR (Cockcroft-Gault) 97.0 Glucose Level 83 mg/dL (70-99) Calcium Level 8.2 mg/dL (8.5-10.1) Magnesium Level 1.9 mg/dL (1.8-2.4) Meds Current Medications Alprazolam (Xanax) 0.25 mg BID PO Last administered on 03/09/17 21:45; Start 03/09/17 at 09:00 Aspirin (Ecotrin) 81 mg DAILY PO Last administered on 03/09/17 09:32; Start 03/09/17 at 09:00 Bupivacaine HCl (Sensorcaine-Mpf 0.25%) 10 ml 1X ONCE IJ ; Start 03/09/17 at 10:30; Stop 03/09/17 at 10:34; Status DC Cyanocobalamin (Vitamin B-12) 1,000 mcg DAILY IM Last administered on 17:37; Start 03/09/17 at 18:00 Flecainide Acetate (Tambocor) 50 mg Q12HR PO Last administered on 03/09/17 21 :45; Start 03/09/17 at 09:00 Methylprednisolone Acetate (DEPO-Medrol 40MG VIAL) 40 mg 1X ONCE IM ; Start at 10:30; Stop 03/09/17 at 10:34; Status DC Metoprolol Succinate (Toprol Xl) 12.5 mg DAILY PO ; Start 03/10/17 at 09:00 Metoprolol Tartrate (Lopressor) 25 mg BID PO ; Start 03/09/17 at 09:00; Stop 03/09/17 at 09:00; Status DC Pantoprazole Sodium (Protonix) 40 mg DAILYAC PO ; Start 03/10/17 at 07:30 Potassium Chloride (Klor-Con) 20 meq 1X ONCE PO Last administered on t 12:13; Start 03/09/17 at 13:00; Stop 03/09/17 at 13:01; Status DC Potassium Chloride (Klor-Con) 40 meq 1X ONCE PO Last administered on 09:33; Start 03/09/17 at 09:00; Stop 03/09/17 at 09:01; Status DC Potassium Chloride (Klor-Con) 40 meq 1X ONCE PO ; Start 03/09/17 at 09:15; Stop 03/09/17 at 09:16; Status DC Simvastatin (Zocor) 20 mg HS PO Last administered on 03/09/17 21:45; Start 03/09/17 at 21:00 Tamsulosin HCl (Flomax) 0.4 mg DAILY PO Last administered on 03/09/17 09:32; Start 03/09/17 at 09:[address] lumbar spine w/o contrast 03/09/13 Impression: 1. Degenerative disc disease and facet and ligamentum flavum hypertrophy in the lumbar spine have increased from 2006. 2. There is no evidence of an acute fracture. CT cervical spine 03/09/13 Impression: 1. Anterior cervical fusion of C5-C7 and posterior fusion of C3-C7. Decompression from C3-C4 through C7-T1. 2. Lucency about the C3 and C4 lateral mass screws compatible with loosening or less likely infection. 3. There is no change in alignment or fracture apparent. FINAL DIAGNOSIS 1.acute on chronic LBP with Left LLE numbness progressive 2. abdominal pain with nausea r/t constipation 3. acute hypokalemia resolved 4. orthostatic hypotension chronic 5. a/c chronic low back pain with radiculopathy, LE weakness bilaterally chronic 6. mild mitral valve prolapse 7. BPH 8. SSS PPM 9. moderate chronic PCL malnutrition 10. neck pain chronic with radiculopathy bilateral arms, weakness chronic 11. 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 diverticulosis 14. GERD 15. Schatzki ring 16. HH 17. h/o esophageal stricture dilation 02/10/16 18, mild pulmonary HTN 19. valvular insufficiency mild MR TR 20 CAD with EF 55-60% 21. HTN 22. dizziness chronic 23. chronic thrombocytopenia cause not determined 24. mild pulmonary HTN 25. h/o fracture L cuneiform bone identified this admission post fall 07/24/16 26 h/o severe L vertebral artery stenosis aortic arch negative per CTA 2013 PLAN: 03/10/17 LBP - improving and increased sensation L LLE - Dr. Kebede -?inject today - consult Dr. Galloway out patient for epidural injections abnormal CT neck -screws loosening? - Dr. Hutchison consulted orthostatic hypotension - 03/09/17 -- lying 135/80 - 75, sitting 111/69 -83, standing 116/70 -80. -- Yesenia ok outpatient as supine BP 180-200 systolic. Continue current medications - appreciate cardio eval. - will not wear abd. binder - continue with walker/rise slow thrombocytopenia - Plt 90 - monitor hypokalemia - chronic low K - begin KCL 20meq daily - continue monitoring 03/09/14 LLE numbness - neuro consult - rehab medicine constipation - stool softner daily hypokalemia - Admit K 3.3 today 3.1 Replace with KCL 40 this amd 20 at 1300 LBP a/c - tramadol - eval per Dr. Kebede orthostatic hypotension - cardiology consult to eval medications and current treatment For further plan of care, please refer to the orders. Plan Plan For more details regarding further plans, please refer to the orders. TIANA POTTER MD 03/10/17 1001: IM PROGRESS NOTES- Assessment Assessment Lt LE numbness is improving. The patient was seen and examined by me. Chart reviewed and plan of care formulated. Discussed with, reviewed and agree with ADMINISTRATIVE ASSISTANT RECEPTIONIST's notes, plan of care and orders with modifications as necessary. For more details regarding further plans, please refer to the orders. GAYATHRI FAIRCHILD APRN Mar 10, 2017 08:57 TIANA POTTER MD Mar 10, 2017 10:01
--- NOTE | 2017-03-10 08:59 | DISCH ---
DISCHARGE INSTRUCTIONS Condition on Discharge Condition on Discharge: Stable Activity After Discharge Activity Instructions for Disc: Activity as tolerated Other activity instructions: Rise slowly and pause before initiating walking Diet after Discharge Diet after Discharge: Cardiac Community/Resources/Services Services at Discharge: Home Health Care Services (Resume preadmit HHN ), PT EVALUATE & TREAT, OT Evaluate & Treat Contacting the [facility] after DC Call your doctor for: Concerns you may have Follow-Up Follow up with: Dr. Tyler or Riky in 5 days Treatment/Equipment after DC Adaptive Equipment Issued: Walker (use at all times when ambulating ) GAYATHRI FAIRCHILD [employer]ARD TR[employer] DRIVER Mar 10, 2017 08:59
[2017-03-10] MEDS ORDERED: METO-239 PO (09:01)
[2017-03-10] MEDS ORDERED: FLEC50TA PO (09:01)
[2017-03-10] MEDS: TAMSULOSIN 0.4 MG CAP.ER.24H. PO SCH (09:49)
[2017-03-10] MEDS: ALPRAZolam 0.25 MG TABLET PO SCH ×2 (09:49→21:11)
[2017-03-10] MEDS: FLECAINIDE ACETATE 50 MG TABLET. PO SCH ×2 (09:49→21:12)
[2017-03-10] MEDS: ASPIRIN ENTERIC COATED 81 MG TABLET.DR. PO SCH (09:50)
[2017-03-10] MEDS: METOPROLOL SUCC 24HR ER 25 MG TAB.ER.24H. PO SCH (09:50)
[2017-03-10] MEDS: PANTOPRAZOLE 40 MG TABLET.DR. PO SCH (09:50)
[2017-03-10] MEDS: CYANOCOBALAMIN (VITAMIN B-12) 1,000 MCG/ML VIAL IM SCH (09:51)
--- NOTE | 2017-03-10 13:26 | PDOC ---
PROGRESS NOTES Subjective Subjective He continues with numbness in his left lower extremity and low back pain. Objective Objective Vital Signs Date Time Temp Pulse Resp B/P (MAP) Pulse Ox O2 Delivery O2 Flow Rate FiO2 03/10/17 10:42 96.1 65 18 122/79 (93) 100 Room Air 96.1 03/09/17 18:53 2.0 Intake and Output 03/10/17 06:59 Intake Total 780 ml Output Total 300 ml Balance 480 ml Intake Oral 780 ml Output Urine Total 300 ml # Voids 3 Physical Exam Physical Exam He is alert,supine in bed and continues with tenderness to palpation over sacroiliac joints,lumbar paraspinal muscles and SLR test is negative bilaterally and no change noted with his neurological examination and he is independent with his mobility at roller walker level with wide based gait. Assessment Assessment Problems Medical Problems: (1) Chronic back pain Status: Acute (2) Lower extremity weakness Status: Acute Plan Plan of Shelter with home health follow up when medically stable. Comment Review of Relevant I have reviewed the following items sandra (where applicable) has been applied. Labs Laboratory Tests Test 03/08/17 18:45 03/08/17 19:00 03/08/17 19:05 03/09/17 03:35 Urine Collection Type Unknown Urine Color Yellow Urine Clarity Clear Urine pH 6.0 Urine Specific [place] 1.020 Urine Protein Negative mg/dL (NEG-TRACE) Urine Glucose (UA) Negative mg/dL (NEG) Urine Ketones (Stick) Negative mg/dL (NEG) Urine Blood Trace (NEG) Urine Nitrite Negative (NEG) Urine Bilirubin Negative (NEG) Urine Urobilinogen Dipstick 1.0 mg/dL (0.2 mg/dL) Urine Leukocyte Esterase Negative (NEG) Urine RBC 3-5 /HPF (0-2) Urine WBC 1-4 /HPF (0-4) Urine Squamous Epithelial Cells Few /LPF Urine Bacteria 0 /HPF (0-FEW) Urine Mucus Marked /LPF Stool Occult Blood Negative (NEG) White Blood Count 8.1 x10^3/uL (4.0-11.0) 7.5 x10^3/uL (4.0-11.0) Red Blood Count 4.59 x10^6/uL (4.30-5.70) 4.54 x10^6/uL (4.30-5.70) Hemoglobin 13.9 g/dL (13.0-17.5) 13.7 g/dL (13.0-17.5) Hematocrit 41.6 % (39.0-53.0) 41.0 % (39.0-53.0) Mean Corpuscular Volume 91 fL (79-100) 91 fL (79-100) Mean Corpuscular Hemoglobin 30 pg (25-35) 30 pg (25-35) Mean Corpuscular Hemoglobin Concent 33 g/dL (31-37) 33 g/dL (31-37) Red Cell Distribution Width 13.6 % (11.5-14.5) 13.5 % (11.5-14.5) Platelet Count 104 x10^3/uL (140-400) 104 x10^3/uL (140-400) Neutrophils (%) (Auto) 60 % (31-73) 54 % (31-73) Lymphocytes (%) (Auto) 27 % (24-48) 31 % (24-48) Monocytes (%) (Auto) 10 % (0-9) 11 % (0-9) Eosinophils (%) (Auto) 2 % (0-3) 3 % (0-3) Basophils (%) (Auto) 1 % (0-3) 1 % (0-3) Neutrophils # (Auto) 4.9 x10^3uL (1.8-7.7) 4.1 x10^3uL (1.8-7.7) Lymphocytes # (Auto) 2.1 x10^3/uL (1.0-4.8) 2.3 x10^3/uL (1.0-4.8) Monocytes # (Auto) 0.8 x10^3/uL (0.0-1.1) 0.8 x10^3/uL (0.0-1.1) Eosinophils # (Auto) 0.2 x10^3/uL (0.0-0.7) 0.2 x10^3/uL (0.0-0.7) Basophils # (Auto) 0.1 x10^3/uL (0.0-0.2) 0.1 x10^3/uL (0.0-0.2) Prothrombin Time 13.1 SEC (11.7-14.0) Prothromb Time International Ratio 1.1 (0.8-1.1) Activated Partial Thromboplast Time 29 SEC (24-38) Sodium Level 144 mmol/L (136-145) 143 mmol/L (136-145) Potassium Level 3.3 mmol/L (3.5-5.1) 3.1 mmol/L (3.5-5.1) Chloride Level 106 mmol/L (98-107) 106 mmol/L (98-107) Carbon Dioxide Level 26 mmol/L (21-32) 27 mmol/L (21-32) Anion Gap 12 (6-14) 10 (6-14) Blood Urea Nitrogen 17 mg/dL (8-26) 16 mg/dL (8-26) Creatinine 0.8 mg/dL (0.7-1.3) 0.8 mg/dL (0.7-1.3) Estimated GFR (Cockcroft-Gault) 97.0 97.0 BUN/Creatinine Ratio 21 (6-20) Glucose Level 86 mg/dL (70-99) 84 mg/dL (70-99) Calcium Level 8.9 mg/dL (8.5-10.1) 8.1 mg/dL (8.5-10.1) Magnesium Level 1.9 mg/dL (1.8-2.4) Total Bilirubin 0.2 mg/dL (0.2-1.0) Aspartate Amino Transf (AST/SGOT) 18 U/L (15-37) Alanine Aminotransferase (ALT/SGPT) 21 U/L (16-63) Alkaline Phosphatase 82 U/L (46-116) Troponin I Quantitative < 0.017 ng/mL (0.000-0.055) SW-Pdn-G-Type Natriuretic Peptide 229 pg/mL (0-124) Total Protein 6.7 g/dL (6.4-8.2) Albumin 3.8 g/dL (3.4-5.0) Albumin/Globulin Ratio 1.3 (1.0-1.7) Creatine Kinase 81 U/L (39-308) Vitamin B12 Level 186 pg/mL (247-911) 25-Hydroxy Vitamin D Total 30.4 ng/mL (30-100) Thyroid Stimulating Hormone (TSH) 1.911 uIU/mL (0.358-3.74) Test 12/12/17 11:30 03/10/17 05:05 Urine Opiates Screen Pos (NEG) Urine Methadone Screen Neg (NEG) Urine Barbiturates Neg (NEG) Urine Phencyclidine Screen Neg (NEG) Urine Amphetamine/Methamphetamine Neg (NEG) Urine Benzodiazepines Screen Neg (NEG) Urine Cocaine Screen Neg (NEG) Urine Cannabinoids Screen Neg (NEG) Urine Ethyl Alcohol Neg (NEG) White Blood Count 6.4 x10^3/uL (4.0-11.0) Red Blood Count 4.47 x10^6/uL (4.30-5.70) Hemoglobin 13.4 g/dL (13.0-17.5) Hematocrit 40.7 % (39.0-53.0) Mean Corpuscular Volume 91 fL (79-100) Mean Corpuscular Hemoglobin 30 pg (25-35) Mean Corpuscular Hemoglobin Concent 33 g/dL (31-37) Red Cell Distribution Width 13.6 % (11.5-14.5) Platelet Count 90 x10^3/uL (140-400) Neutrophils (%) (Auto) 52 % (31-73) Lymphocytes (%) (Auto) 32 % (24-48) Monocytes (%) (Auto) 10 % (0-9) Eosinophils (%) (Auto) 6 % (0-3) Basophils (%) (Auto) 1 % (0-3) Neutrophils # (Auto) 3.3 x10^3uL (1.8-7.7) Lymphocytes # (Auto) 2.0 x10^3/uL (1.0-4.8) Monocytes # (Auto) 0.6 x10^3/uL (0.0-1.1) Eosinophils # (Auto) 0.4 x10^3/uL (0.0-0.7) Basophils # (Auto) 0.0 x10^3/uL (0.0-0.2) Segmented Neutrophils % 44 % (35-66) Band Neutrophils % 5 % (0-9) Lymphocytes % 37 % (24-48) Monocytes % 5 % (0-10) Eosinophils % 9 % (0-5) Platelet Estimate Decreased (ADEQUATE) Sodium Level 140 mmol/L (136-145) Potassium Level 3.4 mmol/L (3.5-5.1) Chloride Level 105 mmol/L (98-107) Carbon Dioxide Level 27 mmol/L (21-32) Anion Gap 8 (6-14) Blood Urea Nitrogen 16 mg/dL (8-26) Creatinine 0.8 mg/dL (0.7-1.3) Estimated GFR (Cockcroft-Gault) 97.0 Glucose Level 83 mg/dL (70-99) Calcium Level 8.2 mg/dL (8.5-10.1) Magnesium Level 1.9 mg/dL (1.8-2.4) Laboratory Tests Test 03/10/17 05:05 White Blood Count 6.4 x10^3/uL (4.0-11.0) Red Blood Count 4.47 x10^6/uL (4.30-5.70) Hemoglobin 13.4 g/dL (13.0-17.5) Hematocrit 40.7 % (39.0-53.0) Mean Corpuscular Volume 91 fL (79-100) Mean Corpuscular Hemoglobin 30 pg (25-35) Mean Corpuscular Hemoglobin Concent 33 g/dL (31-37) Red Cell Distribution Width 13.6 % (11.5-14.5) Platelet Count 90 x10^3/uL (140-400) Neutrophils (%) (Auto) 52 % (31-73) Lymphocytes (%) (Auto) 32 % (24-48) Monocytes (%) (Auto) 10 % (0-9) Eosinophils (%) (Auto) 6 % (0-3) Basophils (%) (Auto) 1 % (0-3) Neutrophils # (Auto) 3.3 x10^3uL (1.8-7.7) Lymphocytes # (Auto) 2.0 x10^3/uL (1.0-4.8) Monocytes # (Auto) 0.6 x10^3/uL (0.0-1.1) Eosinophils # (Auto) 0.4 x10^3/uL (0.0-0.7) Basophils # (Auto) 0.0 x10^3/uL (0.0-0.2) Segmented Neutrophils % 44 % (35-66) Band Neutrophils % 5 % (0-9) Lymphocytes % 37 % (24-48) Monocytes % 5 % (0-10) Eosinophils % 9 % (0-5) Platelet Estimate Decreased (ADEQUATE) Sodium Level 140 mmol/L (136-145) Potassium Level 3.4 mmol/L (3.5-5.1) Chloride Level 105 mmol/L (98-107) Carbon Dioxide Level 27 mmol/L (21-32) Anion Gap 8 (6-14) Blood Urea Nitrogen 16 mg/dL (8-26) Creatinine 0.8 mg/dL (0.7-1.3) Estimated GFR (Cockcroft-Gault) 97.0 Glucose Level 83 mg/dL (70-99) Calcium Level 8.2 mg/dL (8.5-10.1) Magnesium Level 1.9 mg/dL (1.8-2.4) Medications Current Medications Iohexol (Omnipaque 300 Mg/ml) 90 ml 1X ONCE IV Last administered on 19:42; Start 03/08/17 at 19:15; Stop 03/08/17 at 19:16; Status DC Tramadol HCl (Ultram) 50 mg 1X ONCE PO Last administered on 03/08/17 21:07; Start 03/08/17 at 21:15; Stop 03/08/17 at 21:16; Status DC Ondansetron HCl (Zofran) 4 mg PRN Q8HRS PRN IV NAUSEA/VOMITING; Start at 22:30; Stop 03/09/17 at 08:32; Status DC Ondansetron HCl (Zofran) 4 mg PRN Q8HRS PRN IV NAUSEA/VOMITING; Start at 08:30 Alprazolam (Xanax) 0.25 mg BID PO Last administered on 03/10/17 09:49; Start 03/09/17 at 09:00 Aspirin (Ecotrin) 81 mg DAILY PO Last administered on 03/10/17 09:50; Start 03/09/17 at 09:00 Acetaminophen/ Hydrocodone Bitart (Lortab 10/325) 1 tab PRN Q6HRS PRN PO SEVERE PAIN Last administered on 03/09/17 17:40; Start 03/09/17 at 08:30 Metoprolol Tartrate (Lopressor) 25 mg BID PO ; Start 03/09/17 at 09:00; Stop 03/09/17 at 09:00; Status DC Simvastatin (Zocor) 20 mg HS PO Last administered on 03/09/17 21:45; Start 03/09/17 at 21:00 Tamsulosin HCl (Flomax) 0.4 mg DAILY PO Last administered on 03/10/17 09:49; Start 03/09/17 at 09:00 Tramadol HCl (Ultram) 50 mg PRN Q6HRS PRN PO MILD - MODERATE PAIN; Start 03/09 at 08:30 Pantoprazole Sodium (Protonix) 40 mg DAILYAC PO Last administered on 09:50; Start 03/10/17 at 07:30 Flecainide Acetate (Tambocor) 50 mg Q12HR PO Last administered on 03/10/17 09 :49; Start 03/09/17 at 09:00 Potassium Chloride (Klor-Con) 40 meq 1X ONCE PO Last administered on 09:33; Start 03/09/17 at 09:00; Stop 03/09/17 at 09:01; Status DC Potassium Chloride (Klor-Con) 40 meq 1X ONCE PO ; Start 03/09/17 at 09:15; Stop 03/09/17 at 09:16; Status DC Potassium Chloride (Klor-Con) 20 meq 1X ONCE PO Last administered on 12:13; Start 03/09/17 at 13:00; Stop 03/09/17 at 13:01; Status DC Metoprolol Succinate (Toprol Xl) 12.5 mg DAILY PO Last administered on 09:50; Start 03/10/17 at 09:00 Methylprednisolone Acetate (DEPO-Medrol 40MG VIAL) 40 mg 1X ONCE IM ; Start at 10:30; Stop 03/09/17 at 10:34; Status DC Bupivacaine HCl (Sensorcaine-Mpf 0.25%) 10 ml 1X ONCE IJ ; Start 03/09/17 at 10:30; Stop 03/09/17 at 10:34; Status DC Cyanocobalamin (Vitamin B-12) 1,000 mcg DAILY IM Last administered on 09:51; Start 03/09/17 at 18:00 Active Scripts Active Metoprolol Succinate ( Xl ) (Metoprolol Succinate) 25 Mg Tab.er.24h 12.5 Mg PO DAILY Flecainide Acetate 50 Mg Tablet 50 Mg PO Q12HR Tramadol Hcl 50 Mg Tablet 1 Tab PO PRN Q6HRS Aspir 81 (Aspirin) 81 Mg Tablet.dr 1 Tab PO DAILY Reported Simvastatin 20 Mg Tablet 20 Mg PO HS Tamsulosin Hcl 0.4 Mg Cap.er.24h 0.4 Mg PO DAILY Alprazolam 0.25 Mg Tablet 1 Tab PO BID Prilosec (Omeprazole) 20 Mg Capsule.dr 20 Mg PO DAILY Vitals/I & O Vital Sign - Last 24 Hours 03/09/17 03/09/17 03/09/17 03/09/17 14:39 16:32 17:40 18:53 Temp 98.0 98.0 Pulse 67 72 Resp 18 18 B/P (MAP) 93/57 (69) 110/66 (81) Pulse Ox 96 96 96 O2 Delivery Nasal Cannula Room Air Room Air O2 Flow Rate 2.0 2.0 2.0 03/09/17 03/09/17 03/09/17 03/09/17 19:00 20:09 21:45 23:00 Temp 97.7 98.0 97.7 98.0 Pulse 63 72 63 Resp 20 16 B/P (MAP) 114/75 (88) 110/66 121/82 (95) Pulse Ox 95 99 O2 Delivery Room Air 03/10/17 03/10/17 03/10/17 03/10/17 03:00 07:42 09:49 09:50 Temp 97.0 97.7 97.0 97.7 Pulse 77 66 66 66 Resp 16 18 B/P (MAP) 143/90 (107) 108/78 (88) 108/78 108/78 Pulse Ox 99 98 O2 Delivery Room Air 03/10/17 10:42 Temp 96.1 96.1 Pulse 65 Resp 18 B/P (MAP) 122/79 (93) Pulse Ox 100 O2 Delivery Room Air Intake and Output 03/09/17 03/09/17 03/10/17 14:59 22:59 06:59 Intake Total 600 ml 180 ml Output Total 300 ml Balance 600 ml -120 ml SAMSON SCHREIBER MD Mar 10, 2017 13:26
--- NOTE | 2017-03-10 15:48 | PDOC2 ---
CONSULT Date of Consult Date of Consult DATE: 03/10/17 TIME: 15:34 Reason for Consult Reason for Consult: evaluation of cervical instrumentation History of Present Illness Reason for Visit: 66M with chronic neck and back pain. Reports increased low back and left lower extremity pain for which is admitted. Denies focal weakness or other changes. Reports chronic posterior neck pain that has been present since posterior cervical surgery approx 2008 at [facility] by Dr. Ervin Goldman. He had anterior cervical surgery prior to that. He has a pacemaker precluding MRI. Noncontrast CT shows lucency about the bilateral C3-4 lateral mass screws for which neurosurgery is consulted. Past Medical History Cardiovascular: HTN, [place] (2009), Hyperlipidemia, Valve insufficiency (tr MR, TR ), Pulmonary hypertension (mild per ECHO ), Other (Marfan syndrome, NICM, chronic orthostatic HTN ) Pulmonary: Asthma, COPD (emphysema ), Other GI: Diverticulosis, GERD, Other (Schatski ring, esophageal stricture with last dilitation 01/2016) Heme/Onc: Anemia NOS, Other (chronic thrombocytopenia ) Psych: Anxiety Musculoskeletal: low back pain (lumbar stenosis with radiculopathy bialteral LE, kyphosis and scoliosis, thoracic spondylosis/myelopathy, cervical neck pain with radiculopathy bilateral UE, chronic MS anterior L chest ), Osteoarthritis , Other Renal/: Chronic renal insuff (CKD II ), Benign prostatic enlarg. Past Surgical History Past Surgical History: Pacemaker (SSS ) Family History Family History: Stroke Social History No ALCOHOL: none Drugs: None Lives: with Family Domestic Violence: Neg Current Problem List Problem List Problems Medical Problems: (1) Chronic back pain Status: Acute (2) Lower extremity weakness Status: Acute Current Medications Current Medications Current Medications Iohexol (Omnipaque 300 Mg/ml) 90 ml 1X ONCE IV Last administered on 19:42; Start 03/08/17 at 19:15; Stop 03/08/17 at 19:16; Status DC Tramadol HCl (Ultram) 50 mg 1X ONCE PO Last administered on 03/08/17 21:07; Start 03/08/17 at 21:15; Stop 03/08/17 at 21:16; Status DC Ondansetron HCl (Zofran) 4 mg PRN Q8HRS PRN IV NAUSEA/VOMITING; Start at 22:30; Stop 03/09/17 at 08:32; Status DC Ondansetron HCl (Zofran) 4 mg PRN Q8HRS PRN IV NAUSEA/VOMITING; Start at 08:30 Alprazolam (Xanax) 0.25 mg BID PO Last administered on 03/10/17 09:49; Start 03/09/17 at 09:00 Aspirin (Ecotrin) 81 mg DAILY PO Last administered on 03/10/17 09:50; Start 03/09/17 at 09:00 Acetaminophen/ Hydrocodone Bitart (Lortab 10/325) 1 tab PRN Q6HRS PRN PO SEVERE PAIN Last administered on 03/09/17 17:40; Start 03/09/17 at 08:30 Metoprolol Tartrate (Lopressor) 25 mg BID PO ; Start 03/09/17 at 09:00; Stop 03/09/17 at 09:00; Status DC Simvastatin (Zocor) 20 mg HS PO Last administered on 03/09/17 21:45; Start 03/09/17 at 21:00 Tamsulosin HCl (Flomax) 0.4 mg DAILY PO Last administered on 03/10/17 09:49; Start 03/09/17 at 09:00 Tramadol HCl (Ultram) 50 mg PRN Q6HRS PRN PO MILD - MODERATE PAIN; Start 03/09 at 08:30 Pantoprazole Sodium (Protonix) 40 mg DAILYAC PO Last administered on 09:50; Start 03/10/17 at 07:30 Flecainide Acetate (Tambocor) 50 mg Q12HR PO Last administered on 03/10/17 09 :49; Start 03/09/17 at 09:00 Potassium Chloride (Klor-Con) 40 meq 1X ONCE PO Last administered on 09:33; Start 03/09/17 at 09:00; Stop 03/09/17 at 09:01; Status DC Potassium Chloride (Klor-Con) 40 meq 1X ONCE PO ; Start 03/09/17 at 09:15; Stop 03/09/17 at 09:16; Status DC Potassium Chloride (Klor-Con) 20 meq 1X ONCE PO Last administered on 12:13; Start 03/09/17 at 13:00; Stop 03/09/17 at 13:01; Status DC Metoprolol Succinate (Toprol Xl) 12.5 mg DAILY PO Last administered on t 09:50; Start 03/10/17 at 09:00 Methylprednisolone Acetate (DEPO-Medrol 40MG VIAL) 40 mg 1X ONCE IM ; Start at 10:30; Stop 03/09/17 at 10:34; Status DC Bupivacaine HCl (Sensorcaine-Mpf 0.25%) 10 ml 1X ONCE IJ ; Start 03/09/17 at 10:30; Stop 03/09/17 at 10:34; Status DC Cyanocobalamin (Vitamin B-12) 1,000 mcg DAILY IM Last administered on t 09:51; Start 03/09/17 at 18:00 Active Scripts Active Metoprolol Succinate ( Xl ) (Metoprolol Succinate) 25 Mg Tab.er.24h 12.5 Mg PO DAILY Flecainide Acetate 50 Mg Tablet 50 Mg PO Q12HR Tramadol Hcl 50 Mg Tablet 1 Tab PO PRN Q6HRS Aspir 81 (Aspirin) 81 Mg Tablet. 1 Tab PO DAILY Reported Simvastatin 20 Mg Tablet 20 Mg PO HS Tamsulosin Hcl 0.4 Mg Cap.er.24h 0.4 Mg PO DAILY Alprazolam 0.25 Mg Tablet 1 Tab PO BID Prilosec (Omeprazole) 20 Mg Capsule.dr 20 Mg PO DAILY Allergies Allergies: Coded Allergies: No Known Drug Allergies (Unverified , 02/10/16) Physical Exam General: Alert, Oriented X3, Cooperative, No acute distress HEENT: Atraumatic, PERRLA, EOMI Lungs: Other (respirations even and nonlabored) Heart: Regular rate Abdomen: No tenderness Extremities: No clubbing, No cyanosis Skin: No rashes, Other (anterior and posterior neck incisions healed) Neuro: Normal gait, Normal speech, Strength at 5/5 X4 ext, Normal tone, Sensation intact, Cranial nerves 3-12 NL, Other (DTR symmetric) MUSCULOSKELETAL: No joint tenderness, Osteoarthritic changes both hands, Other (some limited ROM left shoulder) Vitals VITALS Vital Signs Date Time Temp Pulse Resp B/P (MAP) Pulse Ox O2 Delivery O2 Flow Rate FiO2 03/10/17 14:58 96.9 68 18 106/72 (83) 100 Room Air 96.9 03/09/17 18:53 2.0 Labs Labs Laboratory Tests Test 03/08/17 18:45 03/08/17 19:00 03/08/17 19:05 03/09/17 03:35 Urine Collection Type Unknown Urine Color Yellow Urine Clarity Clear Urine pH 6.0 Urine Specific Dudley 1.020 Urine Protein Negative mg/dL (NEG-TRACE) Urine Glucose (UA) Negative mg/dL (NEG) Urine Ketones (Stick) Negative mg/dL (NEG) Urine Blood Trace (NEG) Urine Nitrite Negative (NEG) Urine Bilirubin Negative (NEG) Urine Urobilinogen Dipstick 1.0 mg/dL (0.2 mg/dL) Urine Leukocyte Esterase Negative (NEG) Urine RBC 3-5 /HPF (0-2) Urine WBC 1-4 /HPF (0-4) Urine Squamous Epithelial Cells Few /LPF Urine Bacteria 0 /HPF (0-FEW) Urine Mucus Marked /LPF Stool Occult Blood Negative (NEG) White Blood Count 8.1 x10^3/uL (4.0-11.0) 7.5 x10^3/uL (4.0-11.0) Red Blood Count 4.59 x10^6/uL (4.30-5.70) 4.54 x10^6/uL (4.30-5.70) Hemoglobin 13.9 g/dL (13.0-17.5) 13.7 g/dL (13.0-17.5) Hematocrit 41.6 % (39.0-53.0) 41.0 % (39.0-53.0) Mean Corpuscular Volume 91 fL (79-100) 91 fL (79-100) Mean Corpuscular Hemoglobin 30 pg (25-35) 30 pg (25-35) Mean Corpuscular Hemoglobin Concent 33 g/dL (31-37) 33 g/dL (31-37) Red Cell Distribution Width 13.6 % (11.5-14.5) 13.5 % (11.5-14.5) Platelet Count 104 x10^3/uL (140-400) 104 x10^3/uL (140-400) Neutrophils (%) (Auto) 60 % (31-73) 54 % (31-73) Lymphocytes (%) (Auto) 27 % (24-48) 31 % (24-48) Monocytes (%) (Auto) 10 % (0-9) 11 % (0-9) Eosinophils (%) (Auto) 2 % (0-3) 3 % (0-3) Basophils (%) (Auto) 1 % (0-3) 1 % (0-3) Neutrophils # (Auto) 4.9 x10^3uL (1.8-7.7) 4.1 x10^3uL (1.8-7.7) Lymphocytes # (Auto) 2.1 x10^3/uL (1.0-4.8) 2.3 x10^3/uL (1.0-4.8) Monocytes # (Auto) 0.8 x10^3/uL (0.0-1.1) 0.8 x10^3/uL (0.0-1.1) Eosinophils # (Auto) 0.2 x10^3/uL (0.0-0.7) 0.2 x10^3/uL (0.0-0.7) Basophils # (Auto) 0.1 x10^3/uL (0.0-0.2) 0.1 x10^3/uL (0.0-0.2) Prothrombin Time 13.1 SEC (11.7-14.0) Prothromb Time International Ratio 1.1 (0.8-1.1) Activated Partial Thromboplast Time 29 SEC (24-38) Sodium Level 144 mmol/L (136-145) 143 mmol/L (136-145) Potassium Level 3.3 mmol/L (3.5-5.1) 3.1 mmol/L (3.5-5.1) Chloride Level 106 mmol/L (98-107) 106 mmol/L (98-107) Carbon Dioxide Level 26 mmol/L (21-32) 27 mmol/L (21-32) Anion Gap 12 (6-14) 10 (6-14) Blood Urea Nitrogen 17 mg/dL (8-26) 16 mg/dL (8-26) Creatinine 0.8 mg/dL (0.7-1.3) 0.8 mg/dL (0.7-1.3) Estimated GFR (Cockcroft-Gault) 97.0 97.0 BUN/Creatinine Ratio 21 (6-20) Glucose Level 86 mg/dL (70-99) 84 mg/dL (70-99) Calcium Level 8.9 mg/dL (8.5-10.1) 8.1 mg/dL (8.5-10.1) Magnesium Level 1.9 mg/dL (1.8-2.4) Total Bilirubin 0.2 mg/dL (0.2-1.0) Aspartate Amino Transf (AST/SGOT) 18 U/L (15-37) Alanine Aminotransferase (ALT/SGPT) 21 U/L (16-63) Alkaline Phosphatase 82 U/L (46-116) Troponin I Quantitative < 0.017 ng/mL (0.000-0.055) QY-Mzu-G-Type Natriuretic Peptide 229 pg/mL (0-124) Total Protein 6.7 g/dL (6.4-8.2) Albumin 3.8 g/dL (3.4-5.0) Albumin/Globulin Ratio 1.3 (1.0-1.7) Creatine Kinase 81 U/L (39-308) Vitamin B12 Level 186 pg/mL (247-911) 25-Hydroxy Vitamin D Total 30.4 ng/mL (30-100) Thyroid Stimulating Hormone (TSH) 1.911 uIU/mL (0.358-3.74) Test 03/09/17 11:30 03/10/17 05:05 Urine Opiates Screen Pos (NEG) Urine Methadone Screen Neg (NEG) Urine Barbiturates Neg (NEG) Urine Phencyclidine Screen Neg (NEG) Urine Amphetamine/Methamphetamine Neg (NEG) Urine Benzodiazepines Screen Neg (NEG) Urine Cocaine Screen Neg (NEG) Urine Cannabinoids Screen Neg (NEG) Urine Ethyl Alcohol Neg (NEG) White Blood Count 6.4 x10^3/uL (4.0-11.0) Red Blood Count 4.47 x10^6/uL (4.30-5.70) Hemoglobin 13.4 g/dL (13.0-17.5) Hematocrit 40.7 % (39.0-53.0) Mean Corpuscular Volume 91 fL (79-100) Mean Corpuscular Hemoglobin 30 pg (25-35) Mean Corpuscular Hemoglobin Concent 33 g/dL (31-37) Red Cell Distribution Width 13.6 % (11.5-14.5) Platelet Count 90 x10^3/uL (140-400) Neutrophils (%) (Auto) 52 % (31-73) Lymphocytes (%) (Auto) 32 % (24-48) Monocytes (%) (Auto) 10 % (0-9) Eosinophils (%) (Auto) 6 % (0-3) Basophils (%) (Auto) 1 % (0-3) Neutrophils # (Auto) 3.3 x10^3uL (1.8-7.7) Lymphocytes # (Auto) 2.0 x10^3/uL (1.0-4.8) Monocytes # (Auto) 0.6 x10^3/uL (0.0-1.1) Eosinophils # (Auto) 0.4 x10^3/uL (0.0-0.7) Basophils # (Auto) 0.0 x10^3/uL (0.0-0.2) Segmented Neutrophils % 44 % (35-66) Band Neutrophils % 5 % (0-9) Lymphocytes % 37 % (24-48) Monocytes % 5 % (0-10) Eosinophils % 9 % (0-5) Platelet Estimate Decreased (ADEQUATE) Sodium Level 140 mmol/L (136-145) Potassium Level 3.4 mmol/L (3.5-5.1) Chloride Level 105 mmol/L (98-107) Carbon Dioxide Level 27 mmol/L (21-32) Anion Gap 8 (6-14) Blood Urea Nitrogen 16 mg/dL (8-26) Creatinine 0.8 mg/dL (0.7-1.3) Estimated GFR (Cockcroft-Gault) 97.0 Glucose Level 83 mg/dL (70-99) Calcium Level 8.2 mg/dL (8.5-10.1) Magnesium Level 1.9 mg/dL (1.8-2.4) Laboratory Tests Test 03/10/17 05:05 White Blood Count 6.4 x10^3/uL (4.0-11.0) Red Blood Count 4.47 x10^6/uL (4.30-5.70) Hemoglobin 13.4 g/dL (13.0-17.5) Hematocrit 40.7 % (39.0-53.0) Mean Corpuscular Volume 91 fL (79-100) Mean Corpuscular Hemoglobin 30 pg (25-35) Mean Corpuscular Hemoglobin Concent 33 g/dL (31-37) Red Cell Distribution Width 13.6 % (11.5-14.5) Platelet Count 90 x10^3/uL (140-400) Neutrophils (%) (Auto) 52 % (31-73) Lymphocytes (%) (Auto) 32 % (24-48) Monocytes (%) (Auto) 10 % (0-9) Eosinophils (%) (Auto) 6 % (0-3) Basophils (%) (Auto) 1 % (0-3) Neutrophils # (Auto) 3.3 x10^3uL (1.8-7.7) Lymphocytes # (Auto) 2.0 x10^3/uL (1.0-4.8) Monocytes # (Auto) 0.6 x10^3/uL (0.0-1.1) Eosinophils # (Auto) 0.4 x10^3/uL (0.0-0.7) Basophils # (Auto) 0.0 x10^3/uL (0.0-0.2) Segmented Neutrophils % 44 % (35-66) Band Neutrophils % 5 % (0-9) Lymphocytes % 37 % (24-48) Monocytes % 5 % (0-10) Eosinophils % 9 % (0-5) Platelet Estimate Decreased (ADEQUATE) Sodium Level 140 mmol/L (136-145) Potassium Level 3.4 mmol/L (3.5-5.1) Chloride Level 105 mmol/L (98-107) Carbon Dioxide Level 27 mmol/L (21-32) Anion Gap 8 (6-14) Blood Urea Nitrogen 16 mg/dL (8-26) Creatinine 0.8 mg/dL (0.7-1.3) Estimated GFR (Cockcroft-Gault) 97.0 Glucose Level 83 mg/dL (70-99) Calcium Level 8.2 mg/dL (8.5-10.1) Magnesium Level 1.9 mg/dL (1.8-2.4) Images Images There is a noncontrast CT cervical spine with posterior instrumentation C3-7. Lucency noted about bilateral C3-4 lateral mass screws. This is also seen on CTA neck from 05/2016. Alignment appears stable. Posterior decompression noted C3 -4 to C6-7. There is an ACDF noted C5-7. Assessment/Plan Assessment/Plan 66M with low back pain, leg pain, neck pain with prior instrumented posterior fusion C3-7 and anterior cervical fusion C5-7. There is lucency about the C3-4 lateral mass screws that appears chronic with significant adjacent cortication. Lucency is also seen 05/2016 imaging. Alignment appears stable compared to that time, as well. No immediate cervical surgical intervention at this time but recommend continued monitoring with serial imaging and serial neurological assessments. Recommend physical therapy and possible injection therapy at this time. All questions answered. All in agreement.. EBONI BURTON MD Mar 10, 2017 15:48
[2017-03-10] MEDS ORDERED: methylPREDNISolone ACETATE 40 MG/ML VIAL. IM ONE (17:30)
[2017-03-10] MEDS ORDERED: BUPIVACAINE MPF 0.25% 10 ML VIAL. ONE (17:30)
[2017-03-10] MEDS ORDERED: methylPREDNISolone ACETATE 40 MG/ML VIAL. ONE (17:30)
[2017-03-10] MEDS ORDERED: BUPIVACAINE MPF 0.25% 10 ML VIAL. IJ ONE (17:30)
--- NOTE | 2017-03-10 17:43 | PDOC4 ---
PROCEDURE Procedure At his request,I have injected painful trigger points over left lumbar paraspinal muscles with marcaine and depomedrol solution under aseptic skin technique and he tolerated the procedure satisfactorily without any side effects SAMSON SCHREIBER MD Mar 10, 2017 17:43
[2017-03-10] MEDS ORDERED: tiZANidine 4 MG TABLET. PO PRN (17:45)
[2017-03-10] MEDS ORDERED: CYCLOBENZAPRINE 10 MG TABLET. PO PRN (17:45)
--- NOTE | 2017-03-10 18:16 | PDOC ---
PROGRESS NOTES Assessment Assessment Left LE numbness and weakness. Neck pain. Chronic back pain. Degenerative spine disease, s/p C-spine fusion, mass screw loosing. Marfan syndrome. HTN HLD [place]. GERD Vit B12 deficiency. RECOMMENDATIONS/PLAN: C/L spine CT performed. Consult Neurosurgery for C-spine disease and mass screw loosing, no surgical intervention is needed at the present time. Vit B12 1000 mcg IM daily. Continue ASA and Statin. Treat medical diseases. Consulted Dr. Kebede. OT/PT. HISTORY OF THE PRESENT ILLNESS: 66-y-old male patient with above medical diseases and C-spine fusion in the past and chronic neck and back pain developed symptoms of left LE numbness and weakness x 2 days before admission. His UE and right LE were fine. No cranial nerve deficits. No urinary or bowel dysfunction. Past Medical History Cardiovascular: HTN, [place] (2009), Hyperlipidemia, Valve insufficiency (tr MR, TR ), Pulmonary hypertension (mild per ECHO ), Other (Marfan syndrome, NICM, chronic orthostatic HTN ) Pulmonary: Asthma, COPD (emphysema ), Other GI: Diverticulosis, GERD, Other (Schatski ring, esophageal stricture with last dilitation 01/2016) Heme/Onc: Anemia NOS, Other (chronic thrombocytopenia ) Psych: Anxiety Musculoskeletal: low back pain (lumbar stenosis with radiculopathy bialteral LE, kyphosis and scoliosis, thoracic spondylosis/myelopathy, cervical neck pain with radiculopathy bilateral UE, chronic MS anterior L chest ), Osteoarthritis , Other Renal/: Chronic renal insuff (CKD II ), Benign prostatic enlarg. Past Surgical History lumbar and cervical surgeries Pacemaker (SSS ) Past Family History Brother Marfan syndrome Coronary Artery Disease, Stroke Past Social History Lives with brother. Denied tobacco, ETOH or illicit drug use ALLERGY: Reviewed. MEDICATIONS: Refer to [facility] REVIEW OF SYSTEMS: Constitutional: Weight loss. Head: No traumatic brain or head injury. Skin: No edema, or rash. Ear: No infection. Eyes: No vision loss or color blindness. Nose: No bleeding or purulent discharges. Hearing: No hearing decrease. Neck: Pain. Cardiac: Marfan syndrome. [place]. Pacemaker Placement, HTN, HLD. Pulmonary: No COPD. GI: GERD. Urinary/genital: No dysuria, incontinence, urinary retention Endocrinologic: No cousin face, craniofacial dysmorphism, polydactyly, goiter. Skeletomuscular: Generalized weakness. Neurological: see HP. Psychiatric: Denies drug use/abuse. Otherwise, not -yvuix review of systems. PHYSICAL EXAMINATION: General appearance is in subacute distress. HEENT: Normocephalic and nontraumatic. Eyes, nose, ears, and throat are unremarkable. Neck is supple. No lymphadenopathy. No bruits are heard over the carotid artery. No crepitus. Cardiovascular: S1, S2, regular rate and rhythm. Pulmonary: Clear to auscultation bilaterally. Abdomen: Bowel sounds are positive. Abdomen is soft, nontender, and nondistended. Extremities: No rash, lesions, or edema. No restriction of range of motion NEUROLOGICAL EXAMINATION: Alert Oriented to time, place and person. PERRL. EOMI. CN: no focal findings. Muscle tone: within normal. Muscle strength: 4 left LE, 5- the rest. DTR: 1-2 Plantar reflex: Flexor response bilaterally Gait: not examined in bed. Sensory exam: no abnormal findings. No cerebellar signs elicited. F-T-N test fine. Objective Objective Vital Signs Date Time Temp Pulse Resp B/P (MAP) Pulse Ox O2 Delivery O2 Flow Rate FiO2 03/10/17 14:58 96.9 68 18 106/72 (83) 100 Room Air 96.9 03/09/17 18:53 2.0 Intake and Output 03/10/17 07:00 Intake Total 780 ml Output Total 300 ml Balance 480 ml Intake Oral 780 ml Output Urine Total 300 ml # Voids 3 Vitals Signs Vitals VS - Last 72 Hours, by Label Date Time Temp Pulse Resp B/P (MAP) Pulse Ox O2 Delivery O2 Flow Rate FiO2 03/10/17 14:58 96.9 68 18 106/72 (83) 100 Room Air 96.9 03/10/17 10:42 96.1 65 18 122/79 (93) 100 Room Air 96.1 03/10/17 09:50 66 108/78 03/10/17 09:49 66 108/78 03/10/17 07:42 97.7 66 18 108/78 (88) 98 Room Air 97.7 03/10/17 03:00 97.0 77 16 143/90 (107) 99 97.0 03/09/17 23:00 98.0 63 16 121/82 (95) 99 98.0 03/09/17 21:45 72 110/66 03/09/17 20:09 Room Air 03/09/17 19:00 97.7 63 20 114/75 (88) 95 97.7 03/09/17 18:53 18 96 Room Air 2.0 03/09/17 17:40 96 Room Air 2.0 03/09/17 16:32 72 110/66 (81) 03/09/17 14:39 98.0 67 18 93/57 (69) 96 Nasal Cannula 2.0 98.0 03/09/17 10:29 97.0 92 18 127/80 (96) 96 Room Air 97.0 03/09/17 10:00 80 116/70 (85) 03/09/17 09:55 72 111/69 (83) 03/09/17 09:50 75 135/80 (98) 03/09/17 09:33 55 121/72 03/09/17 09:32 99 Room Air 03/09/17 08:00 Room Air 03/09/17 07:24 97.6 55 18 121/72 (88) 99 Room Air 97.6 Laboratory Laboratory Laboratory Tests Test 03/10/17 05:05 White Blood Count 6.4 x10^3/uL (4.0-11.0) Red Blood Count 4.47 x10^6/uL (4.30-5.70) Hemoglobin 13.4 g/dL (13.0-17.5) Hematocrit 40.7 % (39.0-53.0) Mean Corpuscular Volume 91 fL (79-100) Mean Corpuscular Hemoglobin 30 pg (25-35) Mean Corpuscular Hemoglobin Concent 33 g/dL (31-37) Red Cell Distribution Width 13.6 % (11.5-14.5) Platelet Count 90 x10^3/uL (140-400) Neutrophils (%) (Auto) 52 % (31-73) Lymphocytes (%) (Auto) 32 % (24-48) Monocytes (%) (Auto) 10 % (0-9) Eosinophils (%) (Auto) 6 % (0-3) Basophils (%) (Auto) 1 % (0-3) Neutrophils # (Auto) 3.3 x10^3uL (1.8-7.7) Lymphocytes # (Auto) 2.0 x10^3/uL (1.0-4.8) Monocytes # (Auto) 0.6 x10^3/uL (0.0-1.1) Eosinophils # (Auto) 0.4 x10^3/uL (0.0-0.7) Basophils # (Auto) 0.0 x10^3/uL (0.0-0.2) Segmented Neutrophils % 44 % (35-66) Band Neutrophils % 5 % (0-9) Lymphocytes % 37 % (24-48) Monocytes % 5 % (0-10) Eosinophils % 9 % (0-5) Platelet Estimate Decreased (ADEQUATE) Sodium Level 140 mmol/L (136-145) Potassium Level 3.4 mmol/L (3.5-5.1) Chloride Level 105 mmol/L (98-107) Carbon Dioxide Level 27 mmol/L (21-32) Anion Gap 8 (6-14) Blood Urea Nitrogen 16 mg/dL (8-26) Creatinine 0.8 mg/dL (0.7-1.3) Estimated GFR (Cockcroft-Gault) 97.0 Glucose Level 83 mg/dL (70-99) Calcium Level 8.2 mg/dL (8.5-10.1) Magnesium Level 1.9 mg/dL (1.8-2.4) Medication Medications Current Medications Bupivacaine HCl (Sensorcaine-Mpf 0.25%) 10 ml 1X ONCE IJ ; Start 03/10/17 at 17:30; Stop 03/10/17 at 17:31; Status DC Cyclobenzaprine HCl (Flexeril) 10 mg PRN Q6HRS PRN PO MUSCLE SPASMS; Start at 17:45 Methylprednisolone Acetate (DEPO-Medrol 40MG VIAL) 40 mg 1X ONCE IM ; Start at 17:30; Stop 03/10/17 at 17:31; Status DC Metoprolol Succinate (Toprol Xl) 12.5 mg DAILY PO Last administered on 09:50; Start 03/10/17 at 09:00 Pantoprazole Sodium (Protonix) 40 mg DAILYAC PO Last administered on 09:50; Start 03/10/17 at 07:30 Simvastatin (Zocor) 20 mg HS PO Last administered on 03/09/17t 21:45; Start 03/09/17 at 21:00 Tizanidine HCl (Zanaflex) 4 mg PRN Q8HRS PRN PO MUSCLE SPASMS; Start 03/10/17 at 17:45 Comment Review of Relevant I have reviewed the following items sandra (where applicable) has been applied. BRITTANY BLOCK MD Mar 10, 2017 18:16
[2017-03-10] MEDS: SIMVASTATIN 20 MG TABLET PO SCH (21:12)
[2017-03-11] VITALS (10 sets, daily range): BP systolic 93–119; BP diastolic 59–82
[2017-03-11] MEDS: FLECAINIDE ACETATE 50 MG TABLET. PO SCH ×2 (08:37→20:48)
[2017-03-11] MEDS: ASPIRIN ENTERIC COATED 81 MG TABLET.DR. PO SCH (08:37)
[2017-03-11] MEDS: PANTOPRAZOLE 40 MG TABLET.DR. PO SCH (08:37)
[2017-03-11] MEDS: TAMSULOSIN 0.4 MG CAP.ER.24H. PO SCH (08:37)
[2017-03-11] MEDS: ALPRAZolam 0.25 MG TABLET PO SCH ×2 (08:38→20:48)
[2017-03-11] MEDS: METOPROLOL SUCC 24HR ER 25 MG TAB.ER.24H. PO SCH (08:38)
--- NOTE | 2017-03-11 09:26 | PDOC3 ---
GAYATHRI FAIRCHILD HOP WORKER 03/11/17 0926: IM DISCHARGE & PROGRESS NOTES Date of Admission Date of Admission Date of Admission: Mar 08, 2017 at 20:00 Date of Discharge Date of Discharge 03/11/17 Primary Diagnosis Primary Diagnosis FINAL DIAGNOSIS 1.acute on chronic LBP with Left LLE numbness progressive 2. abdominal pain with nausea r/t constipation 3. acute hypokalemia resolved 4. orthostatic hypotension chronic 5. a/c chronic low back pain with radiculopathy, LE weakness bilaterally chronic 6. mild mitral valve prolapse 7. BPH 8. SSS PPM 9. moderate chronic PCL malnutrition 10. neck pain chronic with radiculopathy bilateral arms, weakness chronic 11. 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 diverticulosis 14. GERD 15. Schatzki ring 16. HH 17. h/o esophageal stricture dilation 02/10/16 18, mild pulmonary HTN 19. valvular insufficiency mild MR TR 20 CAD with EF 55-60% 21. HTN 22. dizziness chronic 23. chronic thrombocytopenia cause not determined 24. mild pulmonary HTN 25. h/o fracture L cuneiform bone identified this admission post fall 07/24/16 26 h/o severe L vertebral artery stenosis aortic arch negative per CTA 2013 27. B 12 deficiency POA 28. Vitamin D def POA 29.h/o post fusion C3-C7 30. h/o cervical fusion C5-7 31. There is lucency about the C3-4 lateral mass screws that appears chronic with significant adjacent cortication. No change since 05/[address] Yandy Kern Procedures Procedures PROCEDURE NOTE PROCEDURE Procedure At his request,I have injected painful trigger points over left lumbar paraspinal muscles with marcaine and depomedrol solution under aseptic skin technique and he tolerated the procedure satisfactorily without any side effects SAMSON SCHREIBER MD Mar 10, 2017 17:43 Labs Labs Laboratory Tests Test 03/08/17 18:45 03/08/17 19:00 03/08/17 19:05 03/09/17 03:35 Urine Collection Type Unknown Urine Color Yellow Urine Clarity Clear Urine pH 6.0 Urine Specific [place] 1.020 Urine Protein Negative mg/dL (NEG-TRACE) Urine Glucose (UA) Negative mg/dL (NEG) Urine Ketones (Stick) Negative mg/dL (NEG) Urine Blood Trace (NEG) Urine Nitrite Negative (NEG) Urine Bilirubin Negative (NEG) Urine Urobilinogen Dipstick 1.0 mg/dL (0.2 mg/dL) Urine Leukocyte Esterase Negative (NEG) Urine RBC 3-5 /HPF (0-2) Urine WBC 1-4 /HPF (0-4) Urine Squamous Epithelial Cells Few /LPF Urine Bacteria 0 /HPF (0-FEW) Urine Mucus Marked /LPF Stool Occult Blood Negative (NEG) White Blood Count 8.1 x10^3/uL (4.0-11.0) 7.5 x10^3/uL (4.0-11.0) Red Blood Count 4.59 x10^6/uL (4.30-5.70) 4.54 x10^6/uL (4.30-5.70) Hemoglobin 13.9 g/dL (13.0-17.5) 13.7 g/dL (13.0-17.5) Hematocrit 41.6 % (39.0-53.0) 41.0 % (39.0-53.0) Mean Corpuscular Volume 91 fL (79-100) 91 fL (79-100) Mean Corpuscular Hemoglobin 30 pg (25-35) 30 pg (25-35) Mean Corpuscular Hemoglobin Concent 33 g/dL (31-37) 33 g/dL (31-37) Red Cell Distribution Width 13.6 % (11.5-14.5) 13.5 % (11.5-14.5) Platelet Count 104 x10^3/uL (140-400) 104 x10^3/uL (140-400) Neutrophils (%) (Auto) 60 % (31-73) 54 % (31-73) Lymphocytes (%) (Auto) 27 % (24-48) 31 % (24-48) Monocytes (%) (Auto) 10 % (0-9) 11 % (0-9) Eosinophils (%) (Auto) 2 % (0-3) 3 % (0-3) Basophils (%) (Auto) 1 % (0-3) 1 % (0-3) Neutrophils # (Auto) 4.9 x10^3uL (1.8-7.7) 4.1 x10^3uL (1.8-7.7) Lymphocytes # (Auto) 2.1 x10^3/uL (1.0-4.8) 2.3 x10^3/uL (1.0-4.8) Monocytes # (Auto) 0.8 x10^3/uL (0.0-1.1) 0.8 x10^3/uL (0.0-1.1) Eosinophils # (Auto) 0.2 x10^3/uL (0.0-0.7) 0.2 x10^3/uL (0.0-0.7) Basophils # (Auto) 0.1 x10^3/uL (0.0-0.2) 0.1 x10^3/uL (0.0-0.2) Prothrombin Time 13.1 SEC (11.7-14.0) Prothromb Time International Ratio 1.1 (0.8-1.1) Activated Partial Thromboplast Time 29 SEC (24-38) Sodium Level 144 mmol/L (136-145) 143 mmol/L (136-145) Potassium Level 3.3 mmol/L (3.5-5.1) 3.1 mmol/L (3.5-5.1) Chloride Level 106 mmol/L (98-107) 106 mmol/L (98-107) Carbon Dioxide Level 26 mmol/L (21-32) 27 mmol/L (21-32) Anion Gap 12 (6-14) 10 (6-14) Blood Urea Nitrogen 17 mg/dL (8-26) 16 mg/dL (8-26) Creatinine 0.8 mg/dL (0.7-1.3) 0.8 mg/dL (0.7-1.3) Estimated GFR (Cockcroft-Gault) 97.0 97.0 BUN/Creatinine Ratio 21 (6-20) Glucose Level 86 mg/dL (70-99) 84 mg/dL (70-99) Calcium Level 8.9 mg/dL (8.5-10.1) 8.1 mg/dL (8.5-10.1) Magnesium Level 1.9 mg/dL (1.8-2.4) Total Bilirubin 0.2 mg/dL (0.2-1.0) Aspartate Amino Transf (AST/SGOT) 18 U/L (15-37) Alanine Aminotransferase (ALT/SGPT) 21 U/L (16-63) Alkaline Phosphatase 82 U/L (46-116) Troponin I Quantitative < 0.017 ng/mL (0.000-0.055) NO-Whx-T-Type Natriuretic Peptide 229 pg/mL (0-124) Total Protein 6.7 g/dL (6.4-8.2) Albumin 3.8 g/dL (3.4-5.0) Albumin/Globulin Ratio 1.3 (1.0-1.7) Creatine Kinase 81 U/L (39-308) Vitamin B12 Level 186 pg/mL (247-911) 25-Hydroxy Vitamin D Total 30.4 ng/mL (30-100) Thyroid Stimulating Hormone (TSH) 1.911 uIU/mL (0.358-3.74) Test 03/09/17 11:30 03/10/17 05:05 Urine Opiates Screen Pos (NEG) Urine Methadone Screen Neg (NEG) Urine Barbiturates Neg (NEG) Urine Phencyclidine Screen Neg (NEG) Urine Amphetamine/Methamphetamine Neg (NEG) Urine Benzodiazepines Screen Neg (NEG) Urine Cocaine Screen Neg (NEG) Urine Cannabinoids Screen Neg (NEG) Urine Ethyl Alcohol Neg (NEG) White Blood Count 6.4 x10^3/uL (4.0-11.0) Red Blood Count 4.47 x10^6/uL (4.30-5.70) Hemoglobin 13.4 g/dL (13.0-17.5) Hematocrit 40.7 % (39.0-53.0) Mean Corpuscular Volume 91 fL (79-100) Mean Corpuscular Hemoglobin 30 pg (25-35) Mean Corpuscular Hemoglobin Concent 33 g/dL (31-37) Red Cell Distribution Width 13.6 % (11.5-14.5) Platelet Count 90 x10^3/uL (140-400) Neutrophils (%) (Auto) 52 % (31-73) Lymphocytes (%) (Auto) 32 % (24-48) Monocytes (%) (Auto) 10 % (0-9) Eosinophils (%) (Auto) 6 % (0-3) Basophils (%) (Auto) 1 % (0-3) Neutrophils # (Auto) 3.3 x10^3uL (1.8-7.7) Lymphocytes # (Auto) 2.0 x10^3/uL (1.0-4.8) Monocytes # (Auto) 0.6 x10^3/uL (0.0-1.1) Eosinophils # (Auto) 0.4 x10^3/uL (0.0-0.7) Basophils # (Auto) 0.0 x10^3/uL (0.0-0.2) Segmented Neutrophils % 44 % (35-66) Band Neutrophils % 5 % (0-9) Lymphocytes % 37 % (24-48) Monocytes % 5 % (0-10) Eosinophils % 9 % (0-5) Platelet Estimate Decreased (ADEQUATE) Sodium Level 140 mmol/L (136-145) Potassium Level 3.4 mmol/L (3.5-5.1) Chloride Level 105 mmol/L (98-107) Carbon Dioxide Level 27 mmol/L (21-32) Anion Gap 8 (6-14) Blood Urea Nitrogen 16 mg/dL (8-26) Creatinine 0.8 mg/dL (0.7-1.3) Estimated GFR (Cockcroft-Gault) 97.0 Glucose Level 83 mg/dL (70-99) Calcium Level 8.2 mg/dL (8.5-10.1) Magnesium Level 1.9 mg/dL (1.8-2.4) Medications Medications Medications reviewed and reconciled for discharge. Brief hospital course Brief hospital course This 66 year old male who presented with acute on chronic LBP with L lower leg numbness was admitted. The following is a summary of his treatment: 03/11/17 LBP - improving - post injection per Dr. Schreiber abnormal lucency about C3-4 cervical screws - no surgical intervention - serial monitoring with serial neurological assessments orthostatic hypotension - BP lying 110/70 -69, Sitting 93/63 -72, Standing 108/ 81 -109. thrombocytopenia - stable hypokalemia - pending B12 deficiency - has been B12 daily IM, change to weekly out patient x 4weeks then monthly Vitamin D def - begin 1999IU daily Ezekiel has agreed to go to SNU until 03/20/17. SW notified of SNU screening. Please see DC orders. 03/10/17 LBP - improving and increased sensation L LLE - Dr. Schreiber -?inject today - consult Dr. Galloway out patient for epidural injections abnormal CT neck -screws loosening? - Dr. Hutchison consulted orthostatic hypotension - 03/09/17 -- lying 135/80 - 75, sitting 111/69 -83, standing 116/70 -80. -- Yesenia skinner outpatient as supine BP 180-200 systolic. Continue current medications - appreciate cardio eval. - will not wear abd. binder - continue with walker/rise slow thrombocytopenia - Plt 90 - monitor hypokalemia - chronic low K - begin KCL 20meq daily - continue monitoring 03/09/14 LLE numbness - neuro consult - rehab medicine constipation - stool softner daily hypokalemia - Admit K 3.3 today 3.1 Replace with KCL 40 this amd 20 at 1300 LBP a/c - tramadol - eval per Dr. Schreiber orthostatic hypotension - cardiology consult to eval medications and current treatment For further plan of care, please refer to the orders. For more details regarding the past history, family history, social history, surgical history and other details, please refer to History and Physical. Subjective back pain some improved, feeling returning in L lower leg , feels tired and weak Objective alert, mobility in bed increased w/o acute pain Vitals Vital Signs Date Time Temp Pulse Resp B/P (MAP) Pulse Ox O2 Delivery O2 Flow Rate FiO2 03/11/17 08:38 70 114/79 03/11/17 07:24 97.9 18 98 Room Air 97.9 03/10/17 08:00 2.0 Physical Exam General appearance - alert chronically ill thin appearing, and in no distress Mental Status - alert, oriented to person, place, and time, affect appropriate to mood Head - normal Chest - clear to auscultation, no wheezes, rales or rhonchi, symmetric air entry Heart - S1 and S2 normal Abdomen - soft, nontender, nondistended, no masses or organomegaly Neurological - no acute focal neurological deficit noted Musculoskeletal - tender LS with increase sensation in Left lower extremity Extremities - no pedal edema Skin - warm and dry Medications Medications reviewed. Allergy Allergies Coded Allergies Type Severity Reaction Last Updated Verified No Known Drug Allergies 02/10/16 No Follow up in 5 days. Disposition: Custodial facility Comments Discharge Management - 35 minutes. For other details please refer to discharge instructions TIANA POTTER MD 03/11/17 1206: IM DISCHARGE & PROGRESS NOTES Brief hospital course Brief hospital course The patient was seen and examined by me. Chart reviewed and plan of care formulated. Discussed with, reviewed and agree with BRIDGE INSPECTOR's notes, plan of care and orders with modifications as necessary. For more details regarding further plans, please refer to the orders. Discharge Management - 35 minutes. GAYATHRI FAIRCHILD APRN Mar 11, 2017 09:26 TIANA POTTER MD Mar 11, 2017 12:06
[2017-03-11] MEDS ORDERED: CYCL10TA2 PO (09:40)
[2017-03-11] MEDS ORDERED: CHOL100013 PO (09:40)
[2017-03-11] MEDS ORDERED: CYAN10002 IM ×2 (09:40→09:41)
--- NOTE | 2017-03-11 09:43 | DISCH ---
DISCHARGE DISCHARGE DATE: Mar 11, 2017 FINAL DIAGNOSIS Problems Medical Problems: (1) Chronic back pain Status: Acute (2) Lower extremity weakness Status: Acute CONDITION ON DISCHARGE: Stable SNF STAY <30 DAYS: Yes POST DISCHARGE ORDERS ACTIVITY ORDERS: Activity as tolerated WEIGHT BEARING STATUS: No restrictions, Other, see below DIET AFTER DISCHARGE: Cardiac WOUND/INCISION CARE: Ice to area for comfort CHECKS AFTER DISCHARGE COMMENTS: VS daily. orthostatic BP HR lying sit stand qAM FOLLOW-UP PHYSICIAN FOLLOW-UP: ADmit to Dr. Tyler LAB ORDERS FOR FOLLOW-UP: CBC with diff, CMP, Pre albumin TREATMENT/EQUIPMENT ORDERS ADAPTIVE EQUIPMENT NEEDED: Walker (use at all times when ambulating ) GAYATHRI FAIRCHILD APRN Mar 11, 2017 09:43
--- NOTE | 2017-03-11 09:57 | PDOC ---
PROGRESS NOTES Subjective Subjective No new complaints. Objective Objective Vital Signs Date Time Temp Pulse Resp B/P (MAP) Pulse Ox O2 Delivery O2 Flow Rate FiO2 03/11/17 08:38 70 114/79 03/11/17 07:24 97.9 18 98 Room Air 97.9 03/10/17 08:00 2.0 Intake and Output 03/11/17 07:00 Intake Total 1160 ml Output Total 1 ml Balance 1159 ml Intake Oral 1160 ml Stool Total 1 ml # Voids 6 Physical Exam Physical Exam He feels less pain in his low back as trigger point injection helped to some extent and he remains independent with his mobility at roller walker level. Assessment Assessment Problems Medical Problems: (1) Chronic back pain Status: Acute (2) Lower extremity weakness Status: Acute Plan Plan of Care Agree with plans for home with home health or out patient physical therapy follow up when medically stable. Comment Review of Relevant I have reviewed the following items sandra (where applicable) has been applied. Labs Laboratory Tests Test 03/09/17 11:30 03/10/17 05:05 Urine Opiates Screen Pos (NEG) Urine Methadone Screen Neg (NEG) Urine Barbiturates Neg (NEG) Urine Phencyclidine Screen Neg (NEG) Urine Amphetamine/Methamphetamine Neg (NEG) Urine Benzodiazepines Screen Neg (NEG) Urine Cocaine Screen Neg (NEG) Urine Cannabinoids Screen Neg (NEG) Urine Ethyl Alcohol Neg (NEG) White Blood Count 6.4 x10^3/uL (4.0-11.0) Red Blood Count 4.47 x10^6/uL (4.30-5.70) Hemoglobin 13.4 g/dL (13.0-17.5) Hematocrit 40.7 % (39.0-53.0) Mean Corpuscular Volume 91 fL (79-100) Mean Corpuscular Hemoglobin 30 pg (25-35) Mean Corpuscular Hemoglobin Concent 33 g/dL (31-37) Red Cell Distribution Width 13.6 % (11.5-14.5) Platelet Count 90 x10^3/uL (140-400) Neutrophils (%) (Auto) 52 % (31-73) Lymphocytes (%) (Auto) 32 % (24-48) Monocytes (%) (Auto) 10 % (0-9) Eosinophils (%) (Auto) 6 % (0-3) Basophils (%) (Auto) 1 % (0-3) Neutrophils # (Auto) 3.3 x10^3uL (1.8-7.7) Lymphocytes # (Auto) 2.0 x10^3/uL (1.0-4.8) Monocytes # (Auto) 0.6 x10^3/uL (0.0-1.1) Eosinophils # (Auto) 0.4 x10^3/uL (0.0-0.7) Basophils # (Auto) 0.0 x10^3/uL (0.0-0.2) Segmented Neutrophils % 44 % (35-66) Band Neutrophils % 5 % (0-9) Lymphocytes % 37 % (24-48) Monocytes % 5 % (0-10) Eosinophils % 9 % (0-5) Platelet Estimate Decreased (ADEQUATE) Sodium Level 140 mmol/L (136-145) Potassium Level 3.4 mmol/L (3.5-5.1) Chloride Level 105 mmol/L (98-107) Carbon Dioxide Level 27 mmol/L (21-32) Anion Gap 8 (6-14) Blood Urea Nitrogen 16 mg/dL (8-26) Creatinine 0.8 mg/dL (0.7-1.3) Estimated GFR (Cockcroft-Gault) 97.0 Glucose Level 83 mg/dL (70-99) Calcium Level 8.2 mg/dL (8.5-10.1) Magnesium Level 1.9 mg/dL (1.8-2.4) Medications Current Medications Iohexol (Omnipaque 300 Mg/ml) 90 ml 1X ONCE IV Last administered on 19:42; Start 03/08/17 at 19:15; Stop 03/08/17 at 19:16; Status DC Tramadol HCl (Ultram) 50 mg 1X ONCE PO Last administered on 03/08/17 21:07; Start 03/08/17 at 21:15; Stop 03/08/17 at 21:16; Status DC Ondansetron HCl (Zofran) 4 mg PRN Q8HRS PRN IV NAUSEA/VOMITING; Start at 22:30; Stop 03/09/17 at 08:32; Status DC Ondansetron HCl (Zofran) 4 mg PRN Q8HRS PRN IV NAUSEA/VOMITING; Start at 08:30 Alprazolam (Xanax) 0.25 mg BID PO Last administered on 03/11/17 08:38; Start 03/09/17 at 09:00 Aspirin (Ecotrin) 81 mg DAILY PO Last administered on 03/11/17 08:37; Start 03/09/17 at 09:00 Acetaminophen/ Hydrocodone Bitart (Lortab 10/325) 1 tab PRN Q6HRS PRN PO SEVERE PAIN Last administered on 03/09/17 17:40; Start 03/09/17 at 08:30 Metoprolol Tartrate (Lopressor) 25 mg BID PO ; Start 03/09/17 at 09:00; Stop 03/09/17 at 09:00; Status DC Simvastatin (Zocor) 20 mg HS PO Last administered on 03/10/17 21:12; Start 03/09/17 at 21:00 Tamsulosin HCl (Flomax) 0.4 mg DAILY PO Last administered on 03/11/17 08:37; Start 03/09/17 at 09:00 Tramadol HCl (Ultram) 50 mg PRN Q6HRS PRN PO MILD - MODERATE PAIN; Start 03/09 at 08:30 Pantoprazole Sodium (Protonix) 40 mg DAILYAC PO Last administered on 08:37; Start 03/10/17 at 07:30 Flecainide Acetate (Tambocor) 50 mg Q12HR PO Last administered on 03/11/17 08 :37; Start 03/09/17 at 09:00 Potassium Chloride (Klor-Con) 40 meq 1X ONCE PO Last administered on 09:33; Start 03/09/17 at 09:00; Stop 03/09/17 at 09:01; Status DC Potassium Chloride (Klor-Con) 40 meq 1X ONCE PO ; Start 03/09/17 at 09:15; Stop 03/09/17 at 09:16; Status DC Potassium Chloride (Klor-Con) 20 meq 1X ONCE PO Last administered on 12:13; Start 03/09/17 at 13:00; Stop 03/09/17 at 13:01; Status DC Metoprolol Succinate (Toprol Xl) 12.5 mg DAILY PO Last administered on 08:38; Start 03/10/17 at 09:00 Methylprednisolone Acetate (DEPO-Medrol 40MG VIAL) 40 mg 1X ONCE IM ; Start at 10:30; Stop 03/09/17 at 10:34; Status DC Bupivacaine HCl (Sensorcaine-Mpf 0.25%) 10 ml 1X ONCE IJ ; Start 03/09/17 at 10:30; Stop 03/09/17 at 10:34; Status DC Cyanocobalamin (Vitamin B-12) 1,000 mcg DAILY IM Last administered on 09:51; Start 03/09/17 at 18:00 Methylprednisolone Acetate (DEPO-Medrol 40MG VIAL) 40 mg 1X ONCE IM ; Start at 17:30; Stop 03/10/17 at 17:31; Status DC Bupivacaine HCl (Sensorcaine-Mpf 0.25%) 10 ml 1X ONCE IJ ; Start 03/10/17 at 17:30; Stop 03/10/17 at 17:31; Status DC Cyclobenzaprine HCl (Flexeril) 10 mg PRN Q6HRS PRN PO MUSCLE SPASMS Last administered on 03/10/17 21:11; Start 03/10/17 at 17:45 Tizanidine HCl (Zanaflex) 4 mg PRN Q8HRS PRN PO MUSCLE SPASMS; Start 03/10/17 at 17:45 Active Scripts Active Cyanocobalamin Injection (Cyanocobalamin (Vitamin B-12)) 1,000 Mcg/1 Ml Vial 1, 000 Mcg IM DAILY IM daily for 4 days, then begin weekly injection for 4 weeks, then monthly injection. Vitamin D (Cholecalciferol (Vitamin D3)) 1,000 Unit Capsule 1 Cap PO DAILY Cyclobenzaprine Hcl 10 Mg Tablet 10 Mg PO PRN DAILY PRN PRN at HS Metoprolol Succinate ( Xl ) (Metoprolol Succinate) 25 Mg Tab.er.24h 12.5 Mg PO DAILY Flecainide Acetate 50 Mg Tablet 50 Mg PO Q12HR Tramadol Hcl 50 Mg Tablet 1 Tab PO PRN Q6HRS Aspir 81 (Aspirin) 81 Mg Tablet.dr 1 Tab PO DAILY Reported Simvastatin 20 Mg Tablet 20 Mg PO HS Tamsulosin Hcl 0.4 Mg Cap.er.24h 0.4 Mg PO DAILY Alprazolam 0.25 Mg Tablet 1 Tab PO BID Prilosec (Omeprazole) 20 Mg Capsule.dr 20 Mg PO DAILY Vitals/I & O Vital Sign - Last 24 Hours 03/10/17 03/10/17 03/10/17 03/10/17 10:42 14:58 19:00 20:00 Temp 96.1 96.9 97.4 96.1 96.9 97.4 Pulse 65 68 67 Resp 18 18 18 B/P (MAP) 122/79 (93) 106/72 (83) 100/67 (78) Pulse Ox 100 100 100 O2 Delivery Room Air Room Air Room Air Room Air 03/10/17 03/10/17 03/11/17 03/11/17 21:12 22:40 03:09 07:24 Temp 97.5 97.7 97.9 97.5 97.7 97.9 Pulse 67 71 80 70 Resp 19 18 18 B/P (MAP) 100/67 109/75 (86) 119/82 (94) 114/79 (91) Pulse Ox 99 97 98 O2 Delivery Room Air Room Air Room Air 03/11/17 03/11/17 03/11/17 03/11/17 07:40 07:45 07:51 08:37 Pulse 69 72 109 70 B/P (MAP) 110/70 (83) 93/63 (73) 108/81 (90) 114/79 03/11/17 08:38 Pulse 70 B/P (MAP) 114/79 Intake and Output 03/10/17 03/10/17 03/11/17 15:00 23:00 07:00 Intake Total 360 ml 800 ml Output Total 1 ml Balance 359 ml 800 ml SAMSON SCHREIBER MD Mar 11, 2017 09:57
[2017-03-11 10:07] LABS: CALCIUM 9.2 mg/dL (8.5-10.1); CREATININE 0.9 mg/dL (0.7-1.3); GFR 84.7; POTASSIUM 4.1 mmol/L (3.5-5.1)
[2017-03-11] MEDS: CYANOCOBALAMIN (VITAMIN B-12) 1,000 MCG/ML VIAL IM SCH (10:47)
--- NOTE | 2017-03-11 16:53 | PDOC ---
PROGRESS NOTES Assessment Assessment Left LE numbness and weakness. Neck pain. Chronic back pain. Degenerative spine disease, s/p C-spine fusion, mass screw loosing. Marfan syndrome. HTN HLD MD. GERD Vit B12 deficiency. RECOMMENDATIONS/PLAN: C/L spine CT performed. Consult Neurosurgery for C-spine disease and mass screw loosing, no surgical intervention is needed at the present time. Vit B12 1000 mcg IM daily. Continue ASA and Statin. Treat medical diseases. Consulted Dr. Kebede. OT/PT. HISTORY OF THE PRESENT ILLNESS: 66-y-old male patient with above medical diseases and C-spine fusion in the past and chronic neck and back pain developed symptoms of left LE numbness and weakness x 2 days before admission. His UE and right LE were fine. No cranial nerve deficits. No urinary or bowel dysfunction. Past Medical History Cardiovascular: HTN, MD (2009), Hyperlipidemia, Valve insufficiency (tr MR, TR ), Pulmonary hypertension (mild per ECHO ), Other (Marfan syndrome, NICM, chronic orthostatic HTN ) Pulmonary: Asthma, COPD (emphysema ), Other GI: Diverticulosis, GERD, Other (Schatski ring, esophageal stricture with last dilitation 01/2016) Heme/Onc: Anemia NOS, Other (chronic thrombocytopenia ) Psych: Anxiety Musculoskeletal: low back pain (lumbar stenosis with radiculopathy bialteral LE, kyphosis and scoliosis, thoracic spondylosis/myelopathy, cervical neck pain with radiculopathy bilateral UE, chronic MS anterior L chest ), Osteoarthritis , Other Renal/: Chronic renal insuff (CKD II ), Benign prostatic enlarg. Past Surgical History lumbar and cervical surgeries Pacemaker (SSS ) Past Family History Brother Marfan syndrome Coronary Artery Disease, Stroke Past Social History Lives with brother. Denied tobacco, ETOH or illicit drug use ALLERGY: Reviewed. MEDICATIONS: Refer to [facility] REVIEW OF SYSTEMS: Constitutional: Weight loss. Head: No traumatic brain or head injury. Skin: No edema, or rash. Ear: No infection. Eyes: No vision loss or color blindness. Nose: No bleeding or purulent discharges. Hearing: No hearing decrease. Neck: Pain. Cardiac: Marfan syndrome. MD. Pacemaker Placement, HTN, HLD. Pulmonary: No COPD. GI: GERD. Urinary/genital: No dysuria, incontinence, urinary retention Endocrinologic: No cousin face, craniofacial dysmorphism, polydactyly, goiter. Skeletomuscular: Generalized weakness. Neurological: see HP. Psychiatric: Denies drug use/abuse. Otherwise, not [id number] review of systems. PHYSICAL EXAMINATION: General appearance is in subacute distress. HEENT: Normocephalic and nontraumatic. Eyes, nose, ears, and throat are unremarkable. Neck is supple. No lymphadenopathy. No bruits are heard over the carotid artery. No crepitus. Cardiovascular: S1, S2, regular rate and rhythm. Pulmonary: Clear to auscultation bilaterally. Abdomen: Bowel sounds are positive. Abdomen is soft, nontender, and nondistended. Extremities: No rash, lesions, or edema. No restriction of range of motion NEUROLOGICAL EXAMINATION: Alert Marfan's features. Oriented to time, place and person. PERRL. EOMI. CN: no focal findings. Muscle tone: within normal. Muscle strength: 4 left LE, 5- the rest. DTR: 1-2 Plantar reflex: Flexor response bilaterally Gait: not examined in bed. Sensory exam: no abnormal findings. No acute cerebellar signs elicited. F-T-N test fine. Objective Objective Vital Signs Date Time Temp Pulse Resp B/P (MAP) Pulse Ox O2 Delivery O2 Flow Rate FiO2 03/11/17 14:40 96.3 68 18 98/60 (73) 99 Room Air 96.3 03/10/17 08:00 2.0 Intake and Output 03/11/17 07:00 Intake Total 1160 ml Output Total 1 ml Balance 1159 ml Intake Oral 1160 ml Stool Total 1 ml # Voids 6 Vitals Signs Vitals VS - Last 72 Hours, by Label Date Time Temp Pulse Resp B/P (MAP) Pulse Ox O2 Delivery O2 Flow Rate FiO2 03/11/17 14:40 96.3 68 18 98/60 (73) 99 Room Air 96.3 03/11/17 10:40 97.4 80 18 109/60 (76) 99 Room Air 97.4 03/11/17 08:38 70 114/79 03/11/17 08:37 70 114/79 03/11/17 07:55 Room Air 03/11/17 07:51 109 108/81 (90) 03/11/17 07:45 72 93/63 (73) 03/11/17 07:40 69 110/70 (83) 03/11/17 07:24 97.9 70 18 114/79 (91) 98 Room Air 97.9 03/11/17 03:09 97.7 80 18 119/82 (94) 97 Room Air 97.7 03/10/17 22:40 97.5 71 19 109/75 (86) 99 Room Air 97.5 03/10/17 21:12 67 100/67 03/10/17 20:00 Room Air 03/10/17 19:00 97.4 67 18 100/67 (78) 100 Room Air 97.4 03/10/17 14:58 96.9 68 18 106/72 (83) 100 Room Air 96.9 03/10/17 10:42 96.1 65 18 122/79 (93) 100 Room Air 96.1 03/10/17 09:50 66 108/78 03/10/17 09:49 66 108/78 03/10/17 08:00 Room Air 2.0 03/10/17 07:42 97.7 66 18 108/78 (88) 98 Room Air 97.7 Laboratory Laboratory Laboratory Tests Test 03/11/17 09:45 Sodium Level 142 mmol/L (136-145) Potassium Level 4.1 mmol/L (3.5-5.1) Chloride Level 105 mmol/L (98-107) Carbon Dioxide Level 27 mmol/L (21-32) Anion Gap 10 (6-14) Blood Urea Nitrogen 18 mg/dL (8-26) Creatinine 0.9 mg/dL (0.7-1.3) Estimated GFR (Cockcroft-Gault) 84.7 Glucose Level 66 mg/dL (70-99) Calcium Level 9.2 mg/dL (8.5-10.1) Medication Medications Current Medications Bupivacaine HCl (Sensorcaine-Mpf 0.25%) 10 ml 1X ONCE IJ ; Start 03/10/17 at 17:30; Stop 03/10/17 at 17:31; Status DC Cyclobenzaprine HCl (Flexeril) 10 mg PRN Q6HRS PRN PO MUSCLE SPASMS Last administered on 03/10/17t 21:11; Start 03/10/17 at 17:45 Methylprednisolone Acetate (DEPO-Medrol 40MG VIAL) 40 mg 1X ONCE IM ; Start at 17:30; Stop 03/10/17 at 17:31; Status DC Tizanidine HCl (Zanaflex) 4 mg PRN Q8HRS PRN PO MUSCLE SPASMS; Start 03/10/17 at 17:45 Comment Review of Relevant I have reviewed the following items sandra (where applicable) has been applied. BRITTANY BLOCK MD Mar 11, 2017 16:53
[2017-03-11] MEDS: SIMVASTATIN 20 MG TABLET PO SCH (20:49)
[2017-03-12 03:00] VITALS: BP 111/69
[2017-03-12 07:00] VITALS: BP 121/73
[2017-03-12 07:05] VITALS: BP 95/62
[2017-03-12 07:10] VITALS: BP 89/67
[2017-03-12] MEDS: TAMSULOSIN 0.4 MG CAP.ER.24H. PO SCH (08:17)
[2017-03-12] MEDS: ASPIRIN ENTERIC COATED 81 MG TABLET.DR. PO SCH (08:18)
[2017-03-12] MEDS: ALPRAZolam 0.25 MG TABLET PO SCH (08:18)
[2017-03-12] MEDS: PANTOPRAZOLE 40 MG TABLET.DR. PO SCH (08:19)
[2017-03-12] MEDS: CYANOCOBALAMIN (VITAMIN B-12) 1,000 MCG/ML VIAL IM SCH (08:19)
[2017-03-12] MEDS: HYDROcodone/APAP 10/325 1 TAB TABLET PO PRN (08:24)
--- NOTE | 2017-03-12 08:46 | PDOC ---
PROGRESS NOTES Subjective Subjective He admits back pain on and off. Objective Objective Vital Signs Date Time Temp Pulse Resp B/P (MAP) Pulse Ox O2 Delivery O2 Flow Rate FiO2 03/12/17 08:24 96 Room Air 03/12/17 07:10 73 18 89/67 (74) 03/12/17 07:00 97.7 97.7 03/10/17 08:00 2.0 Intake and Output 03/12/17 07:00 Intake Total 480 ml Balance 480 ml Intake Oral 480 ml # Voids 7 Physical Exam Physical Exam He is supine in bed and does not seem to be in any distress but continues with painfully limited lumbar spine ROM and tenderness to palpation over lower thoracic and lumbar paraspinal muscles,sacroiliac joints bilaterally. He remains independent with his mobility and most of his ADLs at roller walker level. Assessment Assessment Problems Medical Problems: (1) Chronic back pain Status: Acute (2) Lower extremity weakness Status: Acute Plan Plan of [facility] with out patient physical therapy follow up when medically stable. Comment Review of Relevant I have reviewed the following items sandra (where applicable) has been applied. Labs Laboratory Tests Test 03/11/17 09:45 Sodium Level 142 mmol/L (136-145) Potassium Level 4.1 mmol/L (3.5-5.1) Chloride Level 105 mmol/L (98-107) Carbon Dioxide Level 27 mmol/L (21-32) Anion Gap 10 (6-14) Blood Urea Nitrogen 18 mg/dL (8-26) Creatinine 0.9 mg/dL (0.7-1.3) Estimated GFR (Cockcroft-Gault) 84.7 Glucose Level 66 mg/dL (70-99) Calcium Level 9.2 mg/dL (8.5-10.1) Laboratory Tests Test 03/11/17 09:45 Sodium Level 142 mmol/L (136-145) Potassium Level 4.1 mmol/L (3.5-5.1) Chloride Level 105 mmol/L (98-107) Carbon Dioxide Level 27 mmol/L (21-32) Anion Gap 10 (6-14) Blood Urea Nitrogen 18 mg/dL (8-26) Creatinine 0.9 mg/dL (0.7-1.3) Estimated GFR (Cockcroft-Gault) 84.7 Glucose Level 66 mg/dL (70-99) Calcium Level 9.2 mg/dL (8.5-10.1) Medications Current Medications Iohexol (Omnipaque 300 Mg/ml) 90 ml 1X ONCE IV Last administered on 19:42; Start 03/08/17 at 19:15; Stop 03/08/17 at 19:16; Status DC Tramadol HCl (Ultram) 50 mg 1X ONCE PO Last administered on 03/08/17 21:07; Start 03/08/17 at 21:15; Stop 03/08/17 at 21:16; Status DC Ondansetron HCl (Zofran) 4 mg PRN Q8HRS PRN IV NAUSEA/VOMITING; Start at 22:30; Stop 03/09/17 at 08:32; Status DC Ondansetron HCl (Zofran) 4 mg PRN Q8HRS PRN IV NAUSEA/VOMITING; Start at 08:30 Alprazolam (Xanax) 0.25 mg BID PO Last administered on 03/12/17 08:18; Start 03/09/17 at 09:00 Aspirin (Ecotrin) 81 mg DAILY PO Last administered on 03/12/17 08:18; Start 03/09/17 at 09:00 Acetaminophen/ Hydrocodone Bitart (Lortab 10/325) 1 tab PRN Q6HRS PRN PO SEVERE PAIN Last administered on 03/12/17 08:24; Start 03/09/17 at 08:30 Metoprolol Tartrate (Lopressor) 25 mg BID PO ; Start 03/09/17 at 09:00; Stop 03/09/17 at 09:00; Status DC Simvastatin (Zocor) 20 mg HS PO Last administered on 03/11/17 20:49; Start 03/09/17 at 21:00 Tamsulosin HCl (Flomax) 0.4 mg DAILY PO Last administered on 03/12/17 08:17; Start 03/09/17 at 09:00 Tramadol HCl (Ultram) 50 mg PRN Q6HRS PRN PO MILD - MODERATE PAIN; Start 03/09 at 08:30 Pantoprazole Sodium (Protonix) 40 mg DAILYAC PO Last administered on 08:19; Start 03/10/17 at 07:30 Flecainide Acetate (Tambocor) 50 mg Q12HR PO Last administered on 03/11/17 20 :48; Start 03/09/17 at 09:00 Potassium Chloride (Klor-Con) 40 meq 1X ONCE PO Last administered on 09:33; Start 03/09/17 at 09:00; Stop 03/09/17 at 09:01; Status DC Potassium Chloride (Klor-Con) 40 meq 1X ONCE PO ; Start 03/09/17 at 09:15; Stop 03/09/17 at 09:16; Status DC Potassium Chloride (Klor-Con) 20 meq 1X ONCE PO Last administered on 12:13; Start 03/09/17 at 13:00; Stop 03/09/17 at 13:01; Status DC Metoprolol Succinate (Toprol Xl) 12.5 mg DAILY PO Last administered on 08:38; Start 03/10/17 at 09:00 Methylprednisolone Acetate (DEPO-Medrol 40MG VIAL) 40 mg 1X ONCE IM ; Start at 10:30; Stop 03/09/17 at 10:34; Status DC Bupivacaine HCl (Sensorcaine-Mpf 0.25%) 10 ml 1X ONCE IJ ; Start 03/09/17 at 10:30; Stop 03/09/17 at 10:34; Status DC Cyanocobalamin (Vitamin B-12) 1,000 mcg DAILY IM Last administered on 08:19; Start 03/09/17 at 18:00 Methylprednisolone Acetate (DEPO-Medrol 40MG VIAL) 40 mg 1X ONCE IM ; Start at 17:30; Stop 03/10/17 at 17:31; Status DC Bupivacaine HCl (Sensorcaine-Mpf 0.25%) 10 ml 1X ONCE IJ ; Start 03/10/17 at 17:30; Stop 03/10/17 at 17:31; Status DC Cyclobenzaprine HCl (Flexeril) 10 mg PRN Q6HRS PRN PO MUSCLE SPASMS Last administered on 03/10/17 21:11; Start 03/10/17 at 17:45 Tizanidine HCl (Zanaflex) 4 mg PRN Q8HRS PRN PO MUSCLE SPASMS Last administered on 03/11/17t 20:49; Start 03/10/17 at 17:45 Active Scripts Active Cyanocobalamin Injection (Cyanocobalamin (Vitamin B-12)) 1,000 Mcg/1 Ml Vial 1, 000 Mcg IM DAILY IM daily for 4 days, then begin weekly injection for 4 weeks, then monthly injection. Vitamin D (Cholecalciferol (Vitamin D3)) 1,000 Unit Capsule 1 Cap PO DAILY Cyclobenzaprine Hcl 10 Mg Tablet 10 Mg PO PRN DAILY PRN PRN at HS Metoprolol Succinate ( Xl ) (Metoprolol Succinate) 25 Mg Tab.er.24h 12.5 Mg PO DAILY Flecainide Acetate 50 Mg Tablet 50 Mg PO Q12HR Tramadol Hcl 50 Mg Tablet 1 Tab PO PRN Q6HRS Aspir 81 (Aspirin) 81 Mg Tablet.dr 1 Tab PO DAILY Reported Simvastatin 20 Mg Tablet 20 Mg PO HS Tamsulosin Hcl 0.4 Mg Cap.er.24h 0.4 Mg PO DAILY Alprazolam 0.25 Mg Tablet 1 Tab PO BID Prilosec (Omeprazole) 20 Mg Capsule.dr 20 Mg PO DAILY Vitals/I & O Vital Sign - Last 24 Hours 03/11/17 03/11/17 03/11/17 03/11/17 10:40 14:40 19:00 19:55 Temp 97.4 96.3 97.7 97.4 96.3 97.7 Pulse 80 68 66 Resp 18 18 20 B/P (MAP) 109/60 (76) 98/60 (73) 107/59 (75) Pulse Ox 99 99 99 O2 Delivery Room Air Room Air Room Air 03/11/17 03/11/17 03/12/17 03/12/17 20:48 23:00 03:00 07:00 Temp 98.0 97.8 97.7 98.0 97.8 97.7 Pulse 66 65 66 63 Resp 16 16 18 B/P (MAP) 107/59 99/65 (76) 111/69 (83) 121/73 (89) Pulse Ox 97 96 98 O2 Delivery Room Air 03/12/17 03/12/17 03/12/17 07:05 07:10 08:24 Pulse 62 73 Resp 18 18 B/P (MAP) 95/62 (73) 89/67 (74) Pulse Ox 97 97 96 O2 Delivery Room Air Room Air Room Air Intake and Output 03/11/17 03/11/17 03/12/17 15:00 23:00 07:00 Intake Total 360 ml 120 ml Balance 360 ml 120 ml SAMSON SCHREIBER MD Mar 12, 2017 08:46
[2017-03-12] MEDS: FLECAINIDE ACETATE 50 MG TABLET. PO SCH (09:00)
[2017-03-12] MEDS: METOPROLOL SUCC 24HR ER 25 MG TAB.ER.24H. PO SCH (09:00)
[2017-03-12 11:00] VITALS: BP 107/64
== END 2017-03-12 13:01 | disposition home health service (06) | DRG 552 ==
LOC: ER 17:07 → 5 SOUTH 20:00
PROVIDERS: ADMIT Internal Medicine; ATTEND Internal Medicine
PROC: 3E0233Z Introduction of Anti-inflammatory into Muscle, Percutaneous Approach (ICD-10-PCS; principal; 2017-03-10)
PROC: 3E023BZ Introduction of Anesthetic Agent into Muscle, Percutaneous Approach (ICD-10-PCS; 2017-03-10)
DX: M54.16 Radiculopathy, lumbar region (principal); E44.0 Moderate protein-calorie malnutrition; D69.6 Thrombocytopenia, unspecified; M47.14 Other spondylosis with myelopathy, thoracic region; I27.20 Pulmonary hypertension, unspecified; I42.8 Other cardiomyopathies; K22.2 Esophageal obstruction; Q87.40 Marfan syndrome, unspecified; Z68.1 Body mass index [BMI] 19.9 or less, adult; E53.8 Deficiency of other specified B group vitamins; E55.9 Vitamin D deficiency, unspecified; F41.9 Anxiety disorder, unspecified; G89.29 Other chronic pain; M54.5 Low back pain; I25.2 Old myocardial infarction; Z98.1 Arthrodesis status; Z95.0 Presence of cardiac pacemaker; Z91.14 Patient's other noncompliance with medication regimen; Z86.73 Personal history of transient ischemic attack (TIA), and cerebral infarction without residual deficits; Z82.79 Family history of other congenital malformations, deformations and chromosomal abnormalities; Z82.49 Family history of ischemic heart disease and other diseases of the circulatory system; Z82.3 Family history of stroke; N40.0 Benign prostatic hyperplasia without lower urinary tract symptoms; N18.2 Chronic kidney disease, stage 2 (mild); I12.9 Hypertensive chronic kidney disease with stage 1 through stage 4 chronic kidney disease, or unspecified chronic kidney disease; I25.10 Atherosclerotic heart disease of native coronary artery without angina pectoris; J45.909 Unspecified asthma, uncomplicated; J44.9 Chronic obstructive pulmonary disease, unspecified; K57.30 Diverticulosis of large intestine without perforation or abscess without bleeding; M48.061 Spinal stenosis, lumbar region without neurogenic claudication; I95.1 Orthostatic hypotension; K21.9 Gastro-esophageal reflux disease without esophagitis; K44.9 Diaphragmatic hernia without obstruction or gangrene; K59.00 Constipation, unspecified
CPT/HCPCS: 36415; 70450; 71275; 72125; 72131; 74174; 80048; 80053; 80307; 81001; 82274; 82306; 82550; 82607; 83735; 83880; 84443; 84484; 85007; 85025; 85610; 85730; 93005; J1030; J3420; J3490; Q9967; 97110; 97116; 97530; 99285-25; G0479

== ENCOUNTER 2017-07-26 11:44 | Inpatient (IN) | payer BC ==
[2017-07-26 12:12] LABS: ADD MAN DIFF? NO
[2017-07-26 12:16] LABS: BASO # 0.1 x10^3/uL (0.0-0.2); BASO % 1 % (0-3); EOS # 0.2 x10^3/uL (0.0-0.7); EOS % 2 % (0-3); HEMATOCRIT 46.9 % (39.0-53.0); HEMOGLOBIN 16.2 g/dL (13.0-17.5); LYMPH # 2.3 x10^3/uL (1.0-4.8); LYMPH % 27 % (24-48); MEAN CORPUSCULAR HEMOGLOBIN 31 pg (25-35); MEAN CORPUSCULAR HGB CONC 35 g/dL (31-37); MEAN CORPUSCULAR VOLUME 89 fL (79-100); MONO # 0.9 x10^3/uL (0.0-1.1); MONO % 10 % (0-9); NEUT # 4.9 x10^3uL (1.8-7.7); NEUT % 59 % (31-73); PLATELET COUNT 116 x10^3/uL (140-400); RED BLOOD COUNT 5.25 x10^6/uL (4.30-5.70); RED CELL DISTRIBUTION WIDTH 13.5 % (11.5-14.5); WHITE BLOOD COUNT 8.3 x10^3/uL (4.0-11.0)
[2017-07-26 12:26] LABS: ANION GAP 11 (6-14); BLOOD UREA NITROGEN 20 mg/dL (8-26); CALCIUM 10.1 mg/dL (8.5-10.1); CARBON DIOXIDE 25 mmol/L (21-32); CHLORIDE 104 mmol/L (98-107); CREATININE 1.1 mg/dL (0.7-1.3); GFR 67.2; GLUCOSE 99 mg/dL (70-99); POTASSIUM 4.1 mmol/L (3.5-5.1); SODIUM 140 mmol/L (136-145)
[2017-07-26 12:32] LABS: ALBUMIN 4.1 g/dL (3.4-5.0); ALK PHOS 97 U/L (46-116); ALT (SGPT) 21 U/L (16-63); AST (SGOT) 18 U/L (15-37); DIRECT BILIRUBIN 0.1 mg/dL (0.0-0.2); LIPASE 139 U/L (73-393); TOTAL BILIRUBIN 0.5 mg/dL (0.2-1.0); TOTAL PROTEIN 8.1 g/dL (6.4-8.2)
[2017-07-26 12:34] LABS: TROPONINI < 0.017 ng/mL (0.000-0.055)
[2017-07-26 12:36] LABS: INR 1.2 (0.8-1.1); PARTIAL THROMBOPLASTIN TIME 35 SEC (24-38); PROTHROMBIN TIME PATIENT 14.2 SEC (11.7-14.0)
[2017-07-26 12:36] LABS: NT-PRO BNP 192 pg/mL (0-124)
[2017-07-26] MEDS: fentaNYL PF VIAL 100 MCG/2 ML VIAL IV (12:56)
[2017-07-26 12:58] LABS: PLT ESTIMATE DECREASED (ADEQUATE)
[2017-07-26] MEDS: IOHEXOL 300 MG/ML 100ML VIAL. IV (13:02)
[2017-07-26] MEDS ORDERED: CONTRAST GIVEN MC (13:15)
[2017-07-26] MEDS ORDERED: ONDANSETRON PF 4 MG/2 ML VIAL. IV (15:00)
[2017-07-26] MEDS ORDERED: hydrALAZINE 20 MG/ML VIAL. IVP (15:45)
[2017-07-26] MEDS: ASPIRIN ENTERIC COATED 81 MG TABLET.DR. PO (16:05)
[2017-07-26] MEDS: METOPROLOL SUCC 24HR ER 50 MG TAB.ER.24H. PO (16:05)
[2017-07-26] MEDS: IV NORMAL SALINE 1000ML BAG 1,000 ML IV (16:06)
[2017-07-26] MEDS: MORPHINE SULFATE 4 MG/ML DISP.SYRIN. IV ×2 (16:27→20:43)
[2017-07-26 19:47] LABS: TROPONINI < 0.017 ng/mL (0.000-0.055)
[2017-07-26] MEDS: FLECAINIDE ACETATE 50 MG TABLET. PO (20:39)
[2017-07-26] MEDS: SIMVASTATIN 20 MG TABLET PO (20:39)
[2017-07-26 21:46] LABS: TROPONINI < 0.017 ng/mL (0.000-0.055)
[2017-07-27] MEDS: IV NORMAL SALINE 1000ML BAG 1,000 ML IV (01:15)
[2017-07-27 05:35] LABS: ADD MAN DIFF? NO
[2017-07-27 05:42] LABS: BASO % 1 % (0-3); EOS # 0.3 x10^3/uL (0.0-0.7); EOS % 6 % (0-3); HEMOGLOBIN 13.3 g/dL (13.0-17.5); LYMPH % 36 % (24-48); MEAN CORPUSCULAR HEMOGLOBIN 31 pg (25-35); MEAN CORPUSCULAR HGB CONC 34 g/dL (31-37); MEAN CORPUSCULAR VOLUME 89 fL (79-100); MONO # 0.7 x10^3/uL (0.0-1.1); MONO % 12 % (0-9); NEUT # 2.6 x10^3uL (1.8-7.7); NEUT % 46 % (31-73); PLATELET COUNT 87 x10^3/uL (140-400); RED BLOOD COUNT 4.37 x10^6/uL (4.30-5.70); RED CELL DISTRIBUTION WIDTH 13.4 % (11.5-14.5); WHITE BLOOD COUNT 5.7 x10^3/uL (4.0-11.0)
[2017-07-27 06:02] LABS: ANION GAP 6 (6-14); BLOOD UREA NITROGEN 26 mg/dL (8-26); CALCIUM 8.5 mg/dL (8.5-10.1); CARBON DIOXIDE 26 mmol/L (21-32); CHLORIDE 108 mmol/L (98-107); CREATININE 0.9 mg/dL (0.7-1.3); GFR 84.7; GLUCOSE 83 mg/dL (70-99); POTASSIUM 3.7 mmol/L (3.5-5.1); SODIUM 140 mmol/L (136-145)
[2017-07-27] MEDS ORDERED: ONDANSETRON PF 4 MG/2 ML VIAL. IV (08:15)
[2017-07-27] MEDS: ALPRAZolam 0.25 MG TABLET PO ×2 (08:27→20:26)
[2017-07-27] MEDS: traMADol 50 MG TABLET PO (08:28)
[2017-07-27] MEDS: TAMSULOSIN 0.4 MG CAP.ER.24H. PO ×2 (08:28→20:26)
[2017-07-27] MEDS: PANTOPRAZOLE 40 MG TABLET.DR. PO (08:29)
[2017-07-27] MEDS: METOPROLOL SUCC 24HR ER 25 MG TAB.ER.24H. PO (08:29)
[2017-07-27] MEDS ORDERED: PROCHLORPERAZINE 10 MG/2 ML VIAL. IV (08:30)
[2017-07-27] MEDS: ASPIRIN ENTERIC COATED 81 MG TABLET.DR. PO (08:30)
[2017-07-27] MEDS: FLECAINIDE ACETATE 50 MG TABLET. PO ×2 (08:34→20:27)
[2017-07-27] MEDS: MULTIVITAMIN with MINERAL TABLET. PO (09:16)
[2017-07-27] MEDS: CYANOCOBALAMIN (VITAMIN B-12) 1,000 MCG/ML VIAL IM (09:16)
[2017-07-27] MEDS: DICLOFENAC SODIUM 1% TOPICAL GEL 100GM TUBE. TP ×4 (09:30→20:28)
[2017-07-27 09:40] LABS: FREE T4 0.93 ng/dL (0.76-1.46)
[2017-07-27 09:40] LABS: THYROID STIM HORMONE (TSH) 1.219 uIU/mL (0.358-3.74)
[2017-07-27] MEDS ORDERED: METOPROLOL TARTRATE 5 MG/5 ML VIAL. IVP (10:00)
[2017-07-27] MEDS ORDERED: DIGOXIN IV 500 MCG/2 ML AMPUL. IV (10:00)
[2017-07-27] MEDS: IPRATRPIUM/ALBUTEROL 0.5/2.5MG 3 ML NEBU. NEB ×3 (10:48→19:19)
[2017-07-27] MEDS: SIMVASTATIN 20 MG TABLET PO (20:27)
[2017-07-28] MEDS: PANTOPRAZOLE 40 MG TABLET.DR. PO (06:19)
[2017-07-28 07:32] LABS: ADD MAN DIFF? NO
[2017-07-28 07:36] LABS: BASO % 1 % (0-3); EOS # 0.3 x10^3/uL (0.0-0.7); EOS % 5 % (0-3); HEMATOCRIT 38.3 % (39.0-53.0); HEMOGLOBIN 13.4 g/dL (13.0-17.5); LYMPH # 1.6 x10^3/uL (1.0-4.8); LYMPH % 29 % (24-48); MEAN CORPUSCULAR HEMOGLOBIN 31 pg (25-35); MEAN CORPUSCULAR HGB CONC 35 g/dL (31-37); MEAN CORPUSCULAR VOLUME 89 fL (79-100); MONO # 0.7 x10^3/uL (0.0-1.1); MONO % 12 % (0-9); NEUT % 53 % (31-73); PLATELET COUNT 84 x10^3/uL (140-400); RED BLOOD COUNT 4.32 x10^6/uL (4.30-5.70); RED CELL DISTRIBUTION WIDTH 13.4 % (11.5-14.5); WHITE BLOOD COUNT 5.6 x10^3/uL (4.0-11.0)
[2017-07-28 08:13] LABS: ANION GAP 8 (6-14); BLOOD UREA NITROGEN 19 mg/dL (8-26); CALCIUM 8.9 mg/dL (8.5-10.1); CARBON DIOXIDE 24 mmol/L (21-32); CHLORIDE 107 mmol/L (98-107); CREATININE 0.9 mg/dL (0.7-1.3); GFR 84.7; GLUCOSE 89 mg/dL (70-99); MAGNESIUM 1.9 mg/dL (1.8-2.4); POTASSIUM 3.6 mmol/L (3.5-5.1); SODIUM 139 mmol/L (136-145)
[2017-07-28] MEDS: IPRATRPIUM/ALBUTEROL 0.5/2.5MG 3 ML NEBU. NEB ×4 (08:38→19:51)
[2017-07-28] MEDS: ASPIRIN ENTERIC COATED 81 MG TABLET.DR. PO (08:51)
[2017-07-28] MEDS: MULTIVITAMIN with MINERAL TABLET. PO (08:51)
[2017-07-28] MEDS: ALPRAZolam 0.25 MG TABLET PO ×2 (08:51→21:37)
[2017-07-28] MEDS: DICLOFENAC SODIUM 1% TOPICAL GEL 100GM TUBE. TP ×4 (08:56→21:36)
[2017-07-28] MEDS: traMADol 50 MG TABLET PO ×2 (08:59→18:10)
[2017-07-28] MEDS: FLECAINIDE ACETATE 50 MG TABLET. PO ×2 (11:12→21:45)
[2017-07-28] MEDS: FLUDROCORTISONE 0.1 MG TABLET PO (11:15)
[2017-07-28] MEDS: METOPROLOL SUCC 24HR ER 25 MG TAB.ER.24H. PO (12:18)
[2017-07-28] MEDS: TAMSULOSIN 0.4 MG CAP.ER.24H. PO (21:37)
[2017-07-28] MEDS: SIMVASTATIN 20 MG TABLET PO (21:37)
[2017-07-29] MEDS: PANTOPRAZOLE 40 MG TABLET.DR. PO (06:51)
[2017-07-29] MEDS: IPRATRPIUM/ALBUTEROL 0.5/2.5MG 3 ML NEBU. NEB ×2 (07:54→11:37)
[2017-07-29] MEDS: ASPIRIN ENTERIC COATED 81 MG TABLET.DR. PO (09:00)
[2017-07-29] MEDS: FLUDROCORTISONE 0.1 MG TABLET PO (09:01)
[2017-07-29] MEDS: FLECAINIDE ACETATE 50 MG TABLET. PO (09:02)
[2017-07-29] MEDS: MULTIVITAMIN with MINERAL TABLET. PO (09:03)
[2017-07-29] MEDS: METOPROLOL SUCC 24HR ER 25 MG TAB.ER.24H. PO (09:07)
[2017-07-29] MEDS: ALPRAZolam 0.25 MG TABLET PO (09:07)
[2017-07-29] MEDS: traMADol 50 MG TABLET PO (09:16)
[2017-07-29] MEDS: DICLOFENAC SODIUM 1% TOPICAL GEL 100GM TUBE. TP (09:22)
== END 2017-07-29 12:25 | disposition home health service (06) | DRG 189 ==
LOC: ER 11:44 → 5 NORTH 14:38
DX: J96.01 Acute respiratory failure with hypoxia (principal); E44.0 Moderate protein-calorie malnutrition; D69.6 Thrombocytopenia, unspecified; I42.9 Cardiomyopathy, unspecified; I27.20 Pulmonary hypertension, unspecified; I47.1 Supraventricular tachycardia; Z68.1 Body mass index [BMI] 19.9 or less, adult; J44.1 Chronic obstructive pulmonary disease with (acute) exacerbation; M54.10 Radiculopathy, site unspecified; R07.9 Chest pain, unspecified; I25.10 Atherosclerotic heart disease of native coronary artery without angina pectoris; I65.01 Occlusion and stenosis of right vertebral artery; K22.2 Esophageal obstruction; E53.8 Deficiency of other specified B group vitamins; E55.9 Vitamin D deficiency, unspecified; E78.00 Pure hypercholesterolemia, unspecified; E78.5 Hyperlipidemia, unspecified; E86.1 Hypovolemia; F41.9 Anxiety disorder, unspecified; G89.29 Other chronic pain; I12.9 Hypertensive chronic kidney disease with stage 1 through stage 4 chronic kidney disease, or unspecified chronic kidney disease; I34.1 Nonrheumatic mitral (valve) prolapse; I95.1 Orthostatic hypotension; K21.9 Gastro-esophageal reflux disease without esophagitis; M19.90 Unspecified osteoarthritis, unspecified site; M48.061 Spinal stenosis, lumbar region without neurogenic claudication; K57.90 Diverticulosis of intestine, part unspecified, without perforation or abscess without bleeding; M41.9 Scoliosis, unspecified; N18.2 Chronic kidney disease, stage 2 (mild); N40.0 Benign prostatic hyperplasia without lower urinary tract symptoms; Z79.82 Long term (current) use of aspirin; Z82.3 Family history of stroke; I25.2 Old myocardial infarction; Z82.79 Family history of other congenital malformations, deformations and chromosomal abnormalities; Z91.14 Patient's other noncompliance with medication regimen; Z87.891 Personal history of nicotine dependence; Z91.19 Patient's noncompliance with other medical treatment and regimen; Q67.6 Pectus excavatum; Z95.0 Presence of cardiac pacemaker; Z98.1 Arthrodesis status
CPT/HCPCS: 36415; 71045; 71275; 74174; 80048; 80076; 83690; 83735; 83880; 84439; 84443; 84484; 85025; 85610; 85730; 93005; 93306; 94640; 94760; 96374; 97116-GP; 97162-GP; 99285; 99285-25; J2270; J3010; J3420; J7030; J7620; Q9967

== ENCOUNTER → 2017-08-24 | Outpatient (CLI) | payer BC | END | disposition home or self-care (01) | LOC: RAD 16:09 | DX: S90.02XA Contusion of left ankle, initial encounter (principal); W19.XXXA Unspecified fall, initial encounter; Y93.89 Activity, other specified; Y92.89 Other specified places as the place of occurrence of the external cause; Y99.8 Other external cause status | CPT/HCPCS: 73610 ==

== ENCOUNTER 2017-09-26 17:48 | Emergency (ER) | payer BC | END 2017-09-26 19:45 | disposition home or self-care (01) | LOC: ER 17:48 | DX: S30.0XXA Contusion of lower back and pelvis, initial encounter (principal); S80.01XA Contusion of right knee, initial encounter; M47.816 Spondylosis without myelopathy or radiculopathy, lumbar region; G89.29 Other chronic pain; J44.9 Chronic obstructive pulmonary disease, unspecified; K21.9 Gastro-esophageal reflux disease without esophagitis; E78.00 Pure hypercholesterolemia, unspecified; I25.2 Old myocardial infarction; I10 Essential (primary) hypertension; Z95.0 Presence of cardiac pacemaker; W18.39XA Other fall on same level, initial encounter; Y93.89 Activity, other specified; Y99.8 Other external cause status; Y92.89 Other specified places as the place of occurrence of the external cause | CPT/HCPCS: 72131; 73562; 99284-25 ==

== ENCOUNTER → 2017-10-12 | Outpatient (CLI) | payer BC ==
[2017-10-12] MEDS: IOHEXOL 300 MG/ML 100ML VIAL. IV (10:45)
== END | disposition home or self-care (01) ==
LOC: ECHO 09:39
DX: I08.8 Other rheumatic multiple valve diseases (principal); I65.03 Occlusion and stenosis of bilateral vertebral arteries; J47.9 Bronchiectasis, uncomplicated; D71 Functional disorders of polymorphonuclear neutrophils; I12.9 Hypertensive chronic kidney disease with stage 1 through stage 4 chronic kidney disease, or unspecified chronic kidney disease; N18.2 Chronic kidney disease, stage 2 (mild); K21.9 Gastro-esophageal reflux disease without esophagitis; D64.9 Anemia, unspecified; J43.9 Emphysema, unspecified; E78.5 Hyperlipidemia, unspecified; E78.00 Pure hypercholesterolemia, unspecified; E87.6 Hypokalemia
CPT/HCPCS: 71275; 93306; Q9967

== ENCOUNTER 2017-11-18 15:08 | Inpatient (IN) | payer BC ==
[~2017-11-18] VITALS: Ht 188 cm; Wt 58.3 kg
[~2017-11-18 15:08] MED LIST changes: +CHOL100013 PO; +CYAN10002 IM; +CYCL10TA2 PO; +DICL100G18 TP; +FLEC50TA PO; +METO-239 PO; -SIMV80TA3 PO; +SIMV80TA7 PO
--- NOTE | 2017-11-18 15:55 | PHYS DOC ---
Past Medical History Past Medical History: Arthritis, COPD, GERD, High Cholesterol, Hypertension, [place] , Other Additional Past Medical Histor: Marfan syndrome,chronic pain,prostate problems, VERTIGO Past Surgical History: Pacemaker, Other Additional Past Surgical Histo: Lower Back, Neck Alcohol Use: Rarely Drug Use: None Adult General Chief Complaint Chief Complaint: DIZZY/LIGHT HEADED HPI HPI Patient is a 67 year old male with history of Marfan syndrome, COPD- chronic oxygen use, chewing tobacco, pacemaker, high cholesterol, hypertension, who presents today with multiple complaints. Patient is complaining of nausea, vomiting, generalized abdominal pain, 9/10 low back pain- chronic, headache frontal head, that began yesterday. He is also complaining of dizziness on position changes as well as mobilization but has been going on since yesterday. Patient denies any chest pain or shortness of breath. Denies any fever. Denies any hematemesis or melena or diarrhea. Patient denies any pain radiating to bilateral lower extremities, denies any numbness or tingling to bilateral lower extremities, denies any loss of bowel bladder function. PCP Dr. Jayson Meredith Review of Systems Review of Systems Constitutional: Denies fever or chills [] Eyes: Denies change in visual acuity, redness, or eye pain [] HENT: Denies nasal congestion or sore throat [] Respiratory: Denies cough or shortness of breath [] Cardiovascular: No additional information not addressed in HPI [] GI: Reports abdominal pain generalized, nausea and vomiting, denies bloody stools or diarrhea [] : Denies dysuria or hematuria [] Musculoskeletal: Reports chronic back pain Integument: Denies rash or skin lesions [] Neurologic: Reports dizziness. Denies headache, focal weakness or sensory changes [] All other systems were reviewed and found to be within normal limits, except as documented in this note. Current Medications Current Medications Current Medications Medications (Trade) Dose Ordered Sig/Marcia Start Time Stop Time Status Last Admin Dose Admin Dicyclomine HCl (Bentyl) 20 mg 1X ONCE 11/18/17 16:15 11/18/17 16:16 DC 11/18/17 16:13 20 MG Meclizine HCl (Antivert) 25 mg PRN BID PRN 11/18/17 17:45 Morphine Sulfate (Morphine Sulfate) 4 mg PRN Q2HR PRN 11/18/17 17:45 11/19/17 17:44 Ondansetron HCl (Zofran) 4 mg PRN Q8HRS PRN 11/18/17 17:45 11/19/17 17:44 Pantoprazole Sodium (PROTONIX VIAL for IV PUSH) 40 mg 1X ONCE 11/18/17 16:15 11/18/17 16:16 DC 11/18/17 16:14 40 MG Sodium Chloride 1,000 ml @ 75 mls/hr 1X ONCE 11/18/17 17:45 11/19/17 07:04 Allergies Allergies Allergies Coded Allergies Type Severity Reaction Last Updated Verified No Known Drug Allergies 02/10/16 No Physical Exam Physical Exam Constitutional: Thin appearing patient, no acute distress, non-toxic appearance. [] HENT: Normocephalic, atraumatic, bilateral external ears normal, oropharynx moist, no oral exudates, nose normal. [] Eyes: PERRLA, EOMI, conjunctiva normal, no discharge. [] Neck: Normal range of motion, no tenderness, supple, no stridor. [] Cardiovascular: Carved chest consistent with Marfan syndrome. Paced rhythm. Lungs & Thorax: Diminished breath sounds to posterior lung bases, patient is on oxygen 2 L-chronic Abdomen: Bowel sounds normal, soft, no tenderness, no masses, no pulsatile masses. [] Skin: Warm, dry, no erythema, no rash. [] Back: No tenderness, no CVA tenderness. [] Extremities: No tenderness, no cyanosis, no clubbing, ROM intact, no edema. [] Neurologic: Alert and oriented X 3, normal motor function, normal sensory function, no focal deficits noted. Cranial nerves II through XII intact Psychologic: Affect normal, judgement normal, mood normal. [] Current Patient Data Vital Signs Vital Signs Date Time Temp Pulse Resp B/P (MAP) Pulse Ox O2 Delivery O2 Flow Rate FiO2 11/18/17 17:09 85 15 100 11/18/17 15:20 97.4 138/86 (103) Nasal Cannula 2.0 97.4 Lab Values Laboratory Tests Test 11/18/17 16:04 11/18/17 17:15 White Blood Count 9.9 x10^3/uL (4.0-11.0) Red Blood Count 5.32 x10^6/uL (4.30-5.70) Hemoglobin 16.5 g/dL (13.0-17.5) Hematocrit 48.1 % (39.0-53.0) Mean Corpuscular Volume 90 fL (79-100) Mean Corpuscular Hemoglobin 31 pg (25-35) Mean Corpuscular Hemoglobin Concent 34 g/dL (31-37) Red Cell Distribution Width 13.7 % (11.5-14.5) Platelet Count 143 x10^3/uL (140-400) Neutrophils (%) (Auto) 68 % (31-73) Lymphocytes (%) (Auto) 22 % (24-48) L Monocytes (%) (Auto) 9 % (0-9) Eosinophils (%) (Auto) 1 % (0-3) Basophils (%) (Auto) 1 % (0-3) Neutrophils # (Auto) 6.7 x10^3uL (1.8-7.7) Lymphocytes # (Auto) 2.2 x10^3/uL (1.0-4.8) Monocytes # (Auto) 0.9 x10^3/uL (0.0-1.1) Eosinophils # (Auto) 0.1 x10^3/uL (0.0-0.7) Basophils # (Auto) 0.1 x10^3/uL (0.0-0.2) Platelet Estimate Adequate (ADEQUATE) Large Platelets Present Sodium Level 142 mmol/L (136-145) Potassium Level 3.7 mmol/L (3.5-5.1) Chloride Level 103 mmol/L (98-107) Carbon Dioxide Level 26 mmol/L (21-32) Anion Gap 13 (6-14) Blood Urea Nitrogen 13 mg/dL (8-26) Creatinine 1.2 mg/dL (0.7-1.3) Estimated GFR (Cockcroft-Gault) 60.6 BUN/Creatinine Ratio 11 (6-20) Glucose Level 101 mg/dL (70-99) H Calcium Level 9.9 mg/dL (8.5-10.1) Magnesium Level 1.7 mg/dL (1.8-2.4) L Total Bilirubin 0.4 mg/dL (0.2-1.0) Aspartate Amino Transferase (AST) 24 U/L (15-37) Alanine Aminotransferase (ALT) 34 U/L (16-63) Alkaline Phosphatase 97 U/L (46-116) Creatine Kinase 129 U/L (39-308) Creatine Kinase MB (Mass) 1.7 ng/mL (0.0-3.6) Creatine Kinase MB Relative Index 1.3 % (0-4) Troponin I Quantitative < 0.017 ng/mL (0.000-0.055) GU-Hvz-M-Type Natriuretic Peptide 151 pg/mL (0-124) H Total Protein 8.0 g/dL (6.4-8.2) Albumin 4.5 g/dL (3.4-5.0) Albumin/Globulin Ratio 1.3 (1.0-1.7) Lipase 137 U/L (73-393) Thyroid Stimulating Hormone (TSH) 0.704 uIU/mL (0.358-3.74) Urine Collection Type Unknown Urine Color Yellow Urine Clarity Hazy Urine pH 5.5 Urine Specific Tyler >=1.030 Urine Protein 30 mg/dL (NEG-TRACE) Urine Glucose (UA) Negative mg/dL (NEG) Urine Ketones (Stick) Negative mg/dL (NEG) Urine Blood Negative (NEG) Urine Nitrite Negative (NEG) Urine Bilirubin Negative (NEG) Urine Urobilinogen Dipstick 0.2 mg/dL (0.2 mg/dL) Urine Leukocyte Esterase Negative (NEG) Urine RBC Occ /HPF (0-2) Urine WBC 1-4 /HPF (0-4) Urine Amorphous Sediment Present /HPF Urine Bacteria 0 /HPF (0-FEW) Urine Hyaline Casts Few /HPF Urine Mucus Marked /LPF Urine Opiates Screen Neg (NEG) Urine Methadone Screen Neg (NEG) Urine Barbiturates Neg (NEG) Urine Phencyclidine Screen Neg (NEG) Urine Amphetamine/Methamphetamine Neg (NEG) Urine Benzodiazepines Screen Neg (NEG) Urine Cocaine Screen Neg (NEG) Urine Cannabinoids Screen Neg (NEG) Urine Ethyl Alcohol Neg (NEG) Laboratory Tests 11/18/17 16:04 Laboratory Tests 11/18/17 16:04 EKG EKG 16:[address] Galina colon, HR 95 no STEMI[] Radiology/Procedures Radiology/Procedures []PROCEDURE: ACUTE ABDOMEN SERIES Acute abdominal series. 11/18/2017 3:43 PM Indication: short of breath, dizzy and low abdominal pain x 1 days Comparison Study: CT angiography of the chest October 12, 2017. Discussion: No acute acute consolidation is seen. No pneumothorax or effusion is identified. Heart size is stable. Left-sided pacemaker is similar in appearance. No gross pneumoperitoneum is seen. The bowel gas pattern is nonspecific and nonobstructive. No acute osseous abnormality is identified. IMPRESSION: No radiographic evidence of acute cardiopulmonary intra-abdominal abnormality. Electronically signed by: Robson Wells MD (11/18/2017 4:08 PM) [facility] DICTATED and SIGNED BY: ROBSON WELLS MD DATE: 11/18/17 1605 Course & Med Decision Making Course & Med Decision Making Pertinent Labs and Imaging studies reviewed. (See chart for details) This is a 67-year-old male patient presenting to the ED today with multiple complaints including nausea, vomiting, generalized abdominal pain, chronic back pain, dizziness and headache. Symptoms began yesterday. Patient's labs are negative for any acute findings, acute abdominal series is negative, patient was given IV fluids medically sign Zofran and Protonix. He states he is feeling better but not able to go home. 17:[address] Tyler who accepted patient for admission. Dragon Disclaimer Dragon Disclaimer This electronic medical record was generated, in whole or in part, using a voice recognition dictation system. Departure Departure Impression: Primary Impression: Chronic back pain Additional Impressions: Vertigo Pectus excavatum Marfan syndrome Nausea and vomiting Abdominal pain Headache Disposition: ADMITTED INPATIENT Condition: STABLE Referrals: TIANA TYLER MD (PCP) Problem Qualifiers Primary Impression: Chronic back pain Back pain location: low back pain Back pain laterality: bilateral Sciatica presence: without sciatica Qualified Codes: M54.5 - Low back pain; G89.29 - Other chronic pain Additional Impressions: Nausea and vomiting Vomiting type: unspecified Vomiting Intractability: unspecified Qualified Codes: R11.2 - Nausea with vomiting, unspecified Abdominal pain Abdominal location: generalized Qualified Codes: R10.84 - Generalized abdominal pain Headache Headache type: unspecified Headache chronicity pattern: acute headache Intractability: not intractable Qualified Codes: R51 - Headache ADAM KENNEY SEAM CHECKER Nov 18, 2017 15:55
[2017-11-18] MEDS ORDERED: IV NORMAL SALINE 1000ML BAG 1,000 ML IV ONE ×2 (16:00→17:45)
--- NOTE | 2017-11-18 16:11 | RAD ---
Acute abdominal series. 11/18/2017 3:43 PM Indication: short of breath, dizzy and low abdominal pain x 1 days Comparison Study: CT angiography of the chest October 12, 2017. Discussion: No acute acute consolidation is seen. No pneumothorax or effusion is identified. Heart size is stable. Left-sided pacemaker is similar in appearance. No gross pneumoperitoneum is seen. The bowel gas pattern is nonspecific and nonobstructive. No acute osseous abnormality is identified. IMPRESSION: No radiographic evidence of acute cardiopulmonary intra-abdominal abnormality. Electronically signed by: Robson Dunn MD (11/18/2017 4:08 PM) [facility]
[2017-11-18 16:15] LABS: BASO # 0.1 x10^3/uL (0.0-0.2); BASO % 1 % (0-3); EOS # 0.1 x10^3/uL (0.0-0.7); EOS % 1 % (0-3); HEMATOCRIT 48.1 % (39.0-53.0); HEMOGLOBIN 16.5 g/dL (13.0-17.5); LYMPH # 2.2 x10^3/uL (1.0-4.8); LYMPH % 22 % (24-48); MEAN CORPUSCULAR HEMOGLOBIN 31 pg (25-35); MEAN CORPUSCULAR HGB CONC 34 g/dL (31-37); MEAN CORPUSCULAR VOLUME 90 fL (79-100); MONO # 0.9 x10^3/uL (0.0-1.1); MONO % 9 % (0-9); NEUT # 6.7 x10^3uL (1.8-7.7); NEUT % 68 % (31-73); PLATELET COUNT 143 x10^3/uL (140-400); RED BLOOD COUNT 5.32 x10^6/uL (4.30-5.70); RED CELL DISTRIBUTION WIDTH 13.7 % (11.5-14.5); WHITE BLOOD COUNT 9.9 x10^3/uL (4.0-11.0)
[2017-11-18] MEDS ORDERED: ONDANSETRON PF 4 MG/2 ML VIAL. IV ONE (16:15)
[2017-11-18] MEDS ORDERED: PANTOPRAZOLE IV PUSH 40 MG VIAL. IVP ONE (16:15)
[2017-11-18] MEDS ORDERED: DICYCLOMINE HCL 10 MG CAPSULE PO ONE (16:15)
--- NOTE | 2017-11-18 16:16 | EKG ---
[facility] [address] [place] [address] Test Date: 2017-11-18 Test Time: 16:09:23 Pat Name: MARNIE FRIEDMAN Department: Room: Gender: M [employer] Building [employer]: : [id number] Requested By: ADAM KENNEY Order Number: [id number] Reading MD: Jean Claude Guidry MD Measurements Intervals Meno Rate: 95 P: -7 [place]: 116 QRS: 2 QRSD: 88 T: 78 QT: 364 QTc: 461 Interpretive Statements SINUS RHYTHM ATRIAL PREMATURE COMPLEX(ES) NON-SPECIFIC ST/T CHANGES Electronically Signed On 11-19-2017 7:52:04 CDT by Jean Claude Guidry MD
[2017-11-18] MEDS ORDERED: MECLIZINE HCL 12.5 MG TABLET. PO ONE (16:30)
[2017-11-18 16:48] LABS: PLT ESTIMATE ADEQUATE (ADEQUATE)
[2017-11-18 16:53] LABS: CALCIUM 9.9 mg/dL (8.5-10.1); CREATININE 1.2 mg/dL (0.7-1.3); GFR 60.6; POTASSIUM 3.7 mmol/L (3.5-5.1)
[2017-11-18 17:01] LABS: ALBUMIN 4.5 g/dL (3.4-5.0); ALBUMIN/GLOBULIN RATIO 1.3 (1.0-1.7); MAGNESIUM 1.7 mg/dL (1.8-2.4); TOTAL BILIRUBIN 0.4 mg/dL (0.2-1.0)
[2017-11-18 17:23] LABS: BILIRUBIN,URINE NEGATIVE (NEG); COLOR,URINE YELLOW; NITRITE,URINE NEGATIVE (NEG); PH,URINE 5.5; PROTEIN,URINE 30 mg/dL (NEG-TRACE); UROBILINOGEN,URINE 0.2 mg/dL (0.2 mg/dL)
[2017-11-18 17:29] LABS: CLARITY,URINE HAZY
[2017-11-18 17:30] LABS: BARBITURATES NEG (NEG); BENZODIAZEPINES NEG (NEG); CANNABINOIDS NEG (NEG); COCAINE NEG (NEG); METHADONE NEG (NEG); OPIATES NEG (NEG); PHENCYCLIDINE NEG (NEG)
[2017-11-18 17:34] LABS: AMPHETAMINE/METHAMPHETAMINE NEG (NEG)
[2017-11-18 17:37] LABS: AMORPHOUS SEDIMENT,UR PRESENT /HPF; BACTERIA,URINE 0 /HPF (0-FEW); HYALINE CASTS, URINE FEW /HPF; RBC,URINE OCC /HPF (0-2)
[2017-11-18] MEDS ORDERED: ONDANSETRON PF 4 MG/2 ML VIAL. IV PRN (17:45)
[2017-11-18] MEDS ORDERED: MORPHINE SULFATE 4 MG/ML VIAL. IV PRN (17:45)
[2017-11-18] MEDS ORDERED: MECLIZINE HCL 12.5 MG TABLET. PO PRN (17:45)
[2017-11-18 19:30] VITALS: BP 118/92
--- NOTE | 2017-11-18 21:27 | PDOC ---
Provider Note Provider Note Patient seen. History and Physical dictated. See dictation# [id number] TIANA POTTER MD Nov 18, 2017 21:27
[2017-11-18] MEDS ORDERED: ACETAMINOPHEN 500 MG TABLET PO PRN (21:30)
[2017-11-18] MEDS: ALPRAZolam 0.25 MG TABLET PO SCH (21:33)
[2017-11-18] MEDS: DICLOFENAC SODIUM 1% TOPICAL GEL 100GM TUBE. TP SCH (21:34)
[2017-11-18] MEDS: FLECAINIDE ACETATE 50 MG TABLET. PO SCH (21:34)
[2017-11-18] MEDS: SIMVASTATIN 20 MG TABLET PO SCH (21:34)
--- NOTE | 2017-11-18 22:13 | HP ---
ADMIT DATE: 11/18/2017 HISTORY OF PRESENT ILLNESS: This 67-year-old male started having nausea, vomiting, abdominal pain and poor appetite that started yesterday. The patient has had a poor appetite and has not been able to eat. Because of the persistent nausea, vomiting, headaches, body aches, fever, chills, weakness and dizziness, the patient came to the Emergency Room. In the Emergency Room, the patient was evaluated and because of the dizziness, abdominal pain and increased weakness, the patient was admitted for further evaluation and management. SYSTEMS REVIEW: The patient is not a good historian. He denies any dysuria. He does have cough, but mucosa is clear. Denies any GI bleeding, diarrhea, melena or dysuria. Denies any chest pains, dyspnea or palpitations. He does admit to be getting very dizzy. Other systems reviewed and are negative. PAST MEDICAL HISTORY: The patient was last admitted here on 07/26/2017. At that time, the patient had hypoxic respiratory failure, likely due to orthostatic hypotension. He also had chest pain that was thought to be due to musculoskeletal pain. Past medical history includes hypertension; myocardial infarction in 2009; hyperlipidemia; valvular insufficiency; tricuspid regurgitation and mitral regurgitation; pulmonary hypertension, mild per echocardiogram; Marfan syndrome; nonischemic cardiomyopathy; chronic orthostatic hypotension; asthma; COPD with emphysema; diverticulosis; gastroesophageal reflux disease; Schatzki ring; esophageal stricture, with last dilatation in 01/2016; anemia; history of thrombocytopenia; anxiety; low back pain; lumbar spinal stenosis with radiculopathy to bilateral lower extremities; kyphosis; scoliosis; osteoarthritis; thoracic spondylosis and myelopathy; cervical neck pain with radiculopathy, bilateral upper extremity, chronic; musculoskeletal chest wall pain; chronic renal insufficiency; CKD 2 and benign prostatic hypertrophy. PAST SURGICAL HISTORY: Includes pacemaker placement. FAMILY HISTORY: Brother has Marfan syndrome. There is history of stroke in the family. SOCIAL HISTORY: The patient lives with brother. No history of smoking, alcoholism or drug abuse. The patient chews tobacco daily. ALLERGIES: None known any. MEDICATIONS: Reviewed. PHYSICAL EXAMINATION: GENERAL: The patient is an elderly male who is alert, oriented and not in acute distress. VITAL SIGNS: Temperature 97.7, pulse 84 per minute, respirations 20 per minute and blood pressure 118/92 mmHg. NECK: Supple. JVP normal. No thyromegaly. HEENT: Mild congestion of throat. SKIN: Warm and dry. LUNGS: Decreased breath sounds at bases. CARDIOVASCULAR SYSTEM: S1, S2 regular. ABDOMEN: Soft, nontender. No guarding, no rigidity. Bowel sounds present. EXTREMITIES: No edema. NEUROLOGIC: The patient is chronically ill. He is tall and thin. CENTRAL NERVOUS SYSTEM: Generalized weakness, otherwise unremarkable. LABORATORY DATA: WBC count 9.9, hemoglobin 16.5. Sodium 142, potassium 3.7, BUN 13 and creatinine 1.2. Cardiac enzymes are normal. BNP is 151. Albumin is 4.5. TSH is 0.074. Urinalysis is negative for UTI. Acute abdominal series shows no acute abnormalities in chest and abdomen. IMPRESSION: 1. Dizziness, multifactorial. 2. Acute gastroenteritis. 3. Chronic obstructive pulmonary disease. 4. Hypertension. 5. Orthostatic hypotension. 6. Chronic low back pain with radiculopathy; lower extremity weakness bilaterally, chronic. 7. Mild mitral valve prolapse. 8. Benign prostatic hypertrophy. 9. Sick sinus syndrome with permanent pacemaker. 10. Moderate chronic protein-calorie malnutrition. 11. Neck pain, chronic with radiculopathy, bilateral arms weakness, chronic. 12. Chronic kidney disease 2. 13. Chronic obstructive pulmonary disease with emphysema. 14. Diverticulosis. 15. Gastroesophageal reflux disease. 16. Schatzki ring. 17. Hiatal hernia. 18. History of esophageal stricture with dilatation, 02/10/2016. 19. Mild pulmonary hypertension. 20. Valvular insufficiency, mild mitral regurgitation and trace tricuspid regurgitation. 21. Coronary artery disease with ejection fraction of 55% to 60%. 22. History of chronic thrombocytopenia. 23. History of lucency about the C3-C4 lateral mass screws that appears chronic, with significant adjacent claudication; no change since 05/29/2016. 24. History of fracture of the left cuneiform bone. 25. History of severe left vertebral artery stenosis, aortic arch negative per CTA 2013 and also 2018. 26. B12 deficiency. 27. Vitamin D deficiency. 28. Status post fusion, C3-C7 cervical fusion. 29. Physical deconditioning. 30. High-grade right vertebral artery stenosis. PLAN: Recheck labs in a.m. Continue to monitor the patient's dizziness and blood pressure. The patient has been given one bag of IV fluids. The patient will also get meclizine, continue other medications. I will change pantoprazole to oral. Order PT, OT. Fall precautions. For details, please review the orders. Continue Florinef for his dizziness and orthostasis. Continue Xanax for anxiety. For details, please refer to the orders. BAHMANTIP Brooks POTTER MD DR: DAVE/jarocho JOB#: [id number] / [id number]
[2017-11-18 23:36] VITALS: BP 124/88
[2017-11-19] VITALS (8 sets, daily range): BP systolic 106–134; BP diastolic 67–86
[2017-11-19 06:18] LABS: BASO % 1 % (0-3); EOS # 0.2 x10^3/uL (0.0-0.7); EOS % 3 % (0-3); HEMATOCRIT 39.9 % (39.0-53.0); HEMOGLOBIN 13.7 g/dL (13.0-17.5); LYMPH # 2.4 x10^3/uL (1.0-4.8); LYMPH % 40 % (24-48); MEAN CORPUSCULAR HEMOGLOBIN 31 pg (25-35); MEAN CORPUSCULAR HGB CONC 34 g/dL (31-37); MEAN CORPUSCULAR VOLUME 90 fL (79-100); MONO # 0.6 x10^3/uL (0.0-1.1); MONO % 9 % (0-9); NEUT # 2.9 x10^3uL (1.8-7.7); NEUT % 48 % (31-73); PLATELET COUNT 105 x10^3/uL (140-400); RED BLOOD COUNT 4.44 x10^6/uL (4.30-5.70); RED CELL DISTRIBUTION WIDTH 13.7 % (11.5-14.5); WHITE BLOOD COUNT 6.2 x10^3/uL (4.0-11.0)
[2017-11-19 06:41] LABS: ALBUMIN 3.1 g/dL (3.4-5.0); ALBUMIN/GLOBULIN RATIO 1.1 (1.0-1.7); GFR 74.8; MAGNESIUM 1.6 mg/dL (1.8-2.4); POTASSIUM 3.4 mmol/L (3.5-5.1); TOTAL BILIRUBIN 0.4 mg/dL (0.2-1.0)
[2017-11-19] MEDS: FLECAINIDE ACETATE 50 MG TABLET. PO SCH ×2 (09:38→21:06)
[2017-11-19] MEDS: TAMSULOSIN 0.4 MG CAP.ER.24H. PO SCH (09:38)
[2017-11-19] MEDS: ASPIRIN ENTERIC COATED 81 MG TABLET.DR. PO SCH (09:39)
[2017-11-19] MEDS: traMADol 50 MG TABLET PO PRN ×2 (09:39→17:22)
[2017-11-19] MEDS: METOPROLOL SUCC 24HR ER 25 MG TAB.ER.24H. PO SCH (09:39)
[2017-11-19] MEDS: PANTOPRAZOLE 40 MG TABLET.DR. PO SCH (09:40)
[2017-11-19] MEDS: ALPRAZolam 0.25 MG TABLET PO SCH ×2 (09:40→21:06)
[2017-11-19] MEDS: FLUDROCORTISONE 0.1 MG TABLET PO SCH (09:40)
[2017-11-19] MEDS: DICLOFENAC SODIUM 1% TOPICAL GEL 100GM TUBE. TP SCH ×4 (09:44→21:06)
--- NOTE | 2017-11-19 10:52 | PDOC ---
IM PROGRESS NOTES- Subjective Subjective Patient is complaining of dizziness as soon as he sat up. No complaints of abdominal pain, nausea or vomiting. No complaints of fever or chills. Objective Vitals Vital Signs Date Time Temp Pulse Resp B/P (MAP) Pulse Ox O2 Delivery O2 Flow Rate FiO2 11/19/17 09:39 18 Room Air 11/19/17 09:39 62 130/81 11/19/17 07:48 97.8 99 2.0 97.8 Input & Output Intake and Output 11/19/17 07:00 Intake Total 1540 ml Output Total 350 ml Balance 1190 ml Intake Oral 540 ml IV Total 1000 ml Output Urine Total 350 ml Physical Exam Physical Exam GENERAL: The patient is an elderly male who is alert, oriented and not in acute distress. VITAL SIGNS: Temperature 97.7, pulse 84 per minute, respirations 20 per minute and blood pressure 118/92 mmHg. NECK: Supple. JVP normal. No thyromegaly. HEENT: Mild congestion of throat. SKIN: Warm and dry. LUNGS: Decreased breath sounds at bases. CARDIOVASCULAR SYSTEM: S1, S2 regular. ABDOMEN: Soft, nontender. No guarding, no rigidity. Bowel sounds present. EXTREMITIES: No edema. NEUROLOGIC: The patient is chronically ill. He is tall and thin. CENTRAL NERVOUS SYSTEM: Generalized weakness, otherwise unremarkable. Labs Laboratory Tests Test 11/18/17 16:04 11/18/17 17:15 11/19/17 05:50 White Blood Count 9.9 x10^3/uL (4.0-11.0) 6.2 x10^3/uL (4.0-11.0) Red Blood Count 5.32 x10^6/uL (4.30-5.70) 4.44 x10^6/uL (4.30-5.70) Hemoglobin 16.5 g/dL (13.0-17.5) 13.7 g/dL (13.0-17.5) Hematocrit 48.1 % (39.0-53.0) 39.9 % (39.0-53.0) Mean Corpuscular Volume 90 fL (79-100) 90 fL (79-100) Mean Corpuscular Hemoglobin 31 pg (25-35) 31 pg (25-35) Mean Corpuscular Hemoglobin Concent 34 g/dL (31-37) 34 g/dL (31-37) Red Cell Distribution Width 13.7 % (11.5-14.5) 13.7 % (11.5-14.5) Platelet Count 143 x10^3/uL (140-400) 105 x10^3/uL (140-400) Neutrophils (%) (Auto) 68 % (31-73) 48 % (31-73) Lymphocytes (%) (Auto) 22 % (24-48) 40 % (24-48) Monocytes (%) (Auto) 9 % (0-9) 9 % (0-9) Eosinophils (%) (Auto) 1 % (0-3) 3 % (0-3) Basophils (%) (Auto) 1 % (0-3) 1 % (0-3) Neutrophils # (Auto) 6.7 x10^3uL (1.8-7.7) 2.9 x10^3uL (1.8-7.7) Lymphocytes # (Auto) 2.2 x10^3/uL (1.0-4.8) 2.4 x10^3/uL (1.0-4.8) Monocytes # (Auto) 0.9 x10^3/uL (0.0-1.1) 0.6 x10^3/uL (0.0-1.1) Eosinophils # (Auto) 0.1 x10^3/uL (0.0-0.7) 0.2 x10^3/uL (0.0-0.7) Basophils # (Auto) 0.1 x10^3/uL (0.0-0.2) 0.0 x10^3/uL (0.0-0.2) Platelet Estimate Adequate (ADEQUATE) Large Platelets Present Sodium Level 142 mmol/L (136-145) 141 mmol/L (136-145) Potassium Level 3.7 mmol/L (3.5-5.1) 3.4 mmol/L (3.5-5.1) Chloride Level 103 mmol/L (98-107) 108 mmol/L (98-107) Carbon Dioxide Level 26 mmol/L (21-32) 25 mmol/L (21-32) Anion Gap 13 (6-14) 8 (6-14) Blood Urea Nitrogen 13 mg/dL (8-26) 14 mg/dL (8-26) Creatinine 1.2 mg/dL (0.7-1.3) 1.0 mg/dL (0.7-1.3) Estimated GFR (Cockcroft-Gault) 60.6 74.8 BUN/Creatinine Ratio 11 (6-20) 14 (6-20) Glucose Level 101 mg/dL (70-99) 84 mg/dL (70-99) Calcium Level 9.9 mg/dL (8.5-10.1) 8.0 mg/dL (8.5-10.1) Magnesium Level 1.7 mg/dL (1.8-2.4) 1.6 mg/dL (1.8-2.4) Total Bilirubin 0.4 mg/dL (0.2-1.0) 0.4 mg/dL (0.2-1.0) Aspartate Amino Transf (AST/SGOT) 24 U/L (15-37) 15 U/L (15-37) Alanine Aminotransferase (ALT/SGPT) 34 U/L (16-63) 24 U/L (16-63) Alkaline Phosphatase 97 U/L (46-116) 70 U/L (46-116) Creatine Kinase 129 U/L (39-308) Creatine Kinase MB (Mass) 1.7 ng/mL (0.0-3.6) Creatine Kinase MB Relative Index 1.3 % (0-4) Troponin I Quantitative < 0.017 ng/mL (0.000-0.055) YF-Tvm-C-Type Natriuretic Peptide 151 pg/mL (0-124) Total Protein 8.0 g/dL (6.4-8.2) 6.0 g/dL (6.4-8.2) Albumin 4.5 g/dL (3.4-5.0) 3.1 g/dL (3.4-5.0) Albumin/Globulin Ratio 1.3 (1.0-1.7) 1.1 (1.0-1.7) Lipase 137 U/L (73-393) Thyroid Stimulating Hormone (TSH) 0.704 uIU/mL (0.358-3.74) Urine Collection Type Unknown Urine Color Yellow Urine Clarity Hazy Urine pH 5.5 Urine Specific [place] >=1.030 Urine Protein 30 mg/dL (NEG-TRACE) Urine Glucose (UA) Negative mg/dL (NEG) Urine Ketones (Stick) Negative mg/dL (NEG) Urine Blood Negative (NEG) Urine Nitrite Negative (NEG) Urine Bilirubin Negative (NEG) Urine Urobilinogen Dipstick 0.2 mg/dL (0.2 mg/dL) Urine Leukocyte Esterase Negative (NEG) Urine RBC Occ /HPF (0-2) Urine WBC 1-4 /HPF (0-4) Urine Amorphous Sediment Present /HPF Urine Bacteria 0 /HPF (0-FEW) Urine Hyaline Casts Few /HPF Urine Mucus Marked /LPF Urine Opiates Screen Neg (NEG) Urine Methadone Screen Neg (NEG) Urine Barbiturates Neg (NEG) Urine Phencyclidine Screen Neg (NEG) Urine Amphetamine/Methamphetamine Neg (NEG) Urine Benzodiazepines Screen Neg (NEG) Urine Cocaine Screen Neg (NEG) Urine Cannabinoids Screen Neg (NEG) Urine Ethyl Alcohol Neg (NEG) Laboratory Tests Test 11/18/17 16:04 11/18/17 17:15 11/19/17 05:50 White Blood Count 9.9 x10^3/uL (4.0-11.0) 6.2 x10^3/uL (4.0-11.0) Red Blood Count 5.32 x10^6/uL (4.30-5.70) 4.44 x10^6/uL (4.30-5.70) Hemoglobin 16.5 g/dL (13.0-17.5) 13.7 g/dL (13.0-17.5) Hematocrit 48.1 % (39.0-53.0) 39.9 % (39.0-53.0) Mean Corpuscular Volume 90 fL (79-100) 90 fL (79-100) Mean Corpuscular Hemoglobin 31 pg (25-35) 31 pg (25-35) Mean Corpuscular Hemoglobin Concent 34 g/dL (31-37) 34 g/dL (31-37) Red Cell Distribution Width 13.7 % (11.5-14.5) 13.7 % (11.5-14.5) Platelet Count 143 x10^3/uL (140-400) 105 x10^3/uL (140-400) Neutrophils (%) (Auto) 68 % (31-73) 48 % (31-73) Lymphocytes (%) (Auto) 22 % (24-48) 40 % (24-48) Monocytes (%) (Auto) 9 % (0-9) 9 % (0-9) Eosinophils (%) (Auto) 1 % (0-3) 3 % (0-3) Basophils (%) (Auto) 1 % (0-3) 1 % (0-3) Neutrophils # (Auto) 6.7 x10^3uL (1.8-7.7) 2.9 x10^3uL (1.8-7.7) Lymphocytes # (Auto) 2.2 x10^3/uL (1.0-4.8) 2.4 x10^3/uL (1.0-4.8) Monocytes # (Auto) 0.9 x10^3/uL (0.0-1.1) 0.6 x10^3/uL (0.0-1.1) Eosinophils # (Auto) 0.1 x10^3/uL (0.0-0.7) 0.2 x10^3/uL (0.0-0.7) Basophils # (Auto) 0.1 x10^3/uL (0.0-0.2) 0.0 x10^3/uL (0.0-0.2) Platelet Estimate Adequate (ADEQUATE) Large Platelets Present Sodium Level 142 mmol/L (136-145) 141 mmol/L (136-145) Potassium Level 3.7 mmol/L (3.5-5.1) 3.4 mmol/L (3.5-5.1) Chloride Level 103 mmol/L (98-107) 108 mmol/L (98-107) Carbon Dioxide Level 26 mmol/L (21-32) 25 mmol/L (21-32) Anion Gap 13 (6-14) 8 (6-14) Blood Urea Nitrogen 13 mg/dL (8-26) 14 mg/dL (8-26) Creatinine 1.2 mg/dL (0.7-1.3) 1.0 mg/dL (0.7-1.3) Estimated GFR (Cockcroft-Gault) 60.6 74.8 BUN/Creatinine Ratio 11 (6-20) 14 (6-20) Glucose Level 101 mg/dL (70-99) 84 mg/dL (70-99) Calcium Level 9.9 mg/dL (8.5-10.1) 8.0 mg/dL (8.5-10.1) Magnesium Level 1.7 mg/dL (1.8-2.4) 1.6 mg/dL (1.8-2.4) Total Bilirubin 0.4 mg/dL (0.2-1.0) 0.4 mg/dL (0.2-1.0) Aspartate Amino Transf (AST/SGOT) 24 U/L (15-37) 15 U/L (15-37) Alanine Aminotransferase (ALT/SGPT) 34 U/L (16-63) 24 U/L (16-63) Alkaline Phosphatase 97 U/L (46-116) 70 U/L (46-116) Creatine Kinase 129 U/L (39-308) Creatine Kinase MB (Mass) 1.7 ng/mL (0.0-3.6) Creatine Kinase MB Relative Index 1.3 % (0-4) Troponin I Quantitative < 0.017 ng/mL (0.000-0.055) GN-Tek-C-Type Natriuretic Peptide 151 pg/mL (0-124) Total Protein 8.0 g/dL (6.4-8.2) 6.0 g/dL (6.4-8.2) Albumin 4.5 g/dL (3.4-5.0) 3.1 g/dL (3.4-5.0) Albumin/Globulin Ratio 1.3 (1.0-1.7) 1.1 (1.0-1.7) Lipase 137 U/L (73-393) Thyroid Stimulating Hormone (TSH) 0.704 uIU/mL (0.358-3.74) Urine Collection Type Unknown Urine Color Yellow Urine Clarity Hazy Urine pH 5.5 Urine Specific [place] >=1.030 Urine Protein 30 mg/dL (NEG-TRACE) Urine Glucose (UA) Negative mg/dL (NEG) Urine Ketones (Stick) Negative mg/dL (NEG) Urine Blood Negative (NEG) Urine Nitrite Negative (NEG) Urine Bilirubin Negative (NEG) Urine Urobilinogen Dipstick 0.2 mg/dL (0.2 mg/dL) Urine Leukocyte Esterase Negative (NEG) Urine RBC Occ /HPF (0-2) Urine WBC 1-4 /HPF (0-4) Urine Amorphous Sediment Present /HPF Urine Bacteria 0 /HPF (0-FEW) Urine Hyaline Casts Few /HPF Urine Mucus Marked /LPF Urine Opiates Screen Neg (NEG) Urine Methadone Screen Neg (NEG) Urine Barbiturates Neg (NEG) Urine Phencyclidine Screen Neg (NEG) Urine Amphetamine/Methamphetamine Neg (NEG) Urine Benzodiazepines Screen Neg (NEG) Urine Cocaine Screen Neg (NEG) Urine Cannabinoids Screen Neg (NEG) Urine Ethyl Alcohol Neg (NEG) Meds Current Medications Acetaminophen (Tylenol) 500 mg PRN Q6HRS PRN PO MILD PAIN / TEMP; Start at 21:30 Alprazolam (Xanax) 0.25 mg BID PO Last administered on 11/19/17 09:40; Start 11/18/17 at 21:00 Aspirin (Ecotrin) 81 mg DAILY PO Last administered on 11/19/17 09:39; Start at 09:00 Diclofenac Sodium (Voltaren) 1 jesus QID TP Last administered on 11/19/17 09:44 ; Start 11/18/17 at 21:00 Dicyclomine HCl (Bentyl) 20 mg 1X ONCE PO Last administered on 11/18/17 16:13 ; Start 11/18/17 at 16:15; Stop 11/18/17 at 16:16; Status DC Flecainide Acetate (Tambocor) 100 mg Q12HR PO Last administered on 11/19/17 09 :38; Start 11/18/17 at 21:00 Fludrocortisone Acetate (Florinef) 0.1 mg DAILY PO Last administered on 09:40; Start 11/19/17 at 09:00 Meclizine HCl (Antivert) 25 mg 1X ONCE PO Last administered on 11/18/17 16:13 ; Start 11/18/17 at 16:30; Stop 11/18/17 at 16:31; Status DC Meclizine HCl (Antivert) 25 mg PRN BID PRN PO DIZZINESS; Start 11/18/17 at 17: 45 Metoprolol Succinate (Toprol Xl) 12.5 mg DAILY PO Last administered on 8/24/ 18at 09:39; Start 11/19/17 at 09:00 Morphine Sulfate (Morphine Sulfate) 4 mg PRN Q2HR PRN IV PAIN Last administered on 11/18/17 21:33; Start 11/18/17 at 17:45; Stop 11/19/17 at 17:44 Ondansetron HCl (Zofran) 4 mg 1X ONCE IV Last administered on 11/18/17 16:12 ; Start 11/18/17 at 16:15; Stop 11/18/17 at 16:16; Status DC Ondansetron HCl (Zofran) 4 mg PRN Q8HRS PRN IV NAUSEA/VOMITING; Start 11/18/17 at 17:45; Stop 11/19/17 at 17:44 Pantoprazole Sodium (PROTONIX VIAL for IV PUSH) 40 mg 1X ONCE IVP Last administered on 11/18/17 16:14; Start 11/18/17 at 16:15; Stop 11/18/17 at 16:16 ; Status DC Pantoprazole Sodium (Protonix) 40 mg DAILYAC PO Last administered on 11/19/17 09:40; Start 11/19/17 at 07:30 Potassium Chloride/Sodium Chloride 1,000 ml @ 75 mls/hr [id number] IV Last administered on 11/19/17 10:29; Start 11/18/17 at 21:30 Simvastatin (Zocor) 20 mg HS PO Last administered on 11/18/17 21:34; Start at 21:00 Sodium Chloride 1,000 ml @ 75 mls/hr 1X ONCE IV Last administered on at 18:21; Start 11/18/17 at 17:45; Stop 11/19/17 at 07:04; Status DC Sodium Chloride 1,000 ml @ 1,000 mls/hr 1X ONCE IV Last administered on 16:12; Start 11/18/17 at 16:00; Stop 11/18/17 at 16:59; Status DC Tamsulosin HCl (Flomax) 0.4 mg DAILY PO Last administered on 11/19/17 09:38; Start 11/19/17 at 09:00 Tramadol HCl (Ultram) 50 mg PRN Q6HRS PRN PO MILD PAIN Last administered on 8/ 24/18at 09:39; Start 11/18/17 at 21:00 Assessment Assessment IMPRESSION: 1. Dizziness, multifactorial. 2. Acute gastroenteritis. 3. Chronic obstructive pulmonary disease. 4. Hypertension. 5. Orthostatic hypotension. 6. Chronic low back pain with radiculopathy; lower extremity weakness bilaterally, chronic. 7. Mild mitral valve prolapse. 8. Benign prostatic hypertrophy. 9. Sick sinus syndrome with permanent pacemaker. 10. Moderate chronic protein-calorie malnutrition. 11. Neck pain, chronic with radiculopathy, bilateral arms weakness, chronic. 12. Chronic kidney disease 2. 13. Chronic obstructive pulmonary disease with emphysema. 14. Diverticulosis. 15. Gastroesophageal reflux disease. 16. Schatzki ring. 17. Hiatal hernia. 18. History of esophageal stricture with dilatation, 02/10/2016. 19. Mild pulmonary hypertension. 20. Valvular insufficiency, mild mitral regurgitation and trace tricuspid regurgitation. 21. Coronary artery disease with ejection fraction of 55% to 60%. 22. History of chronic thrombocytopenia. 23. History of lucency about the C3-C4 lateral mass screws that appears chronic, with significant adjacent claudication; no change since 05/29/2016. 24. History of fracture of the left cuneiform bone. 25. History of severe left vertebral artery stenosis, aortic arch negative per CTA 2013 and also 2018. 26. B12 deficiency. 27. Vitamin D deficiency. 28. Status post fusion, C3-C7 cervical fusion. 29. Physical deconditioning. 30. High-grade right vertebral artery stenosis. PLAN: Recheck labs in a.m. Continue to monitor the patient's dizziness and blood pressure. The patient has been given one bag of IV fluids. The patient will also get meclizine, continue other medications. I will change pantoprazole to oral. Order PT, OT. Fall precautions. For details, please review the orders. Continue Florinef for his dizziness and orthostasis. Continue Xanax for anxiety. For details, please refer to the orders. Hypokalemiapotassium is 3.4 replaced. Hypomagnesemiamagnesium level is 1.7. I'll give him IV magnesium. Dizzinessmonitor orthostatic hypotension. Continue IV fluids. Continue PT OT. Acute gastroenteritis improving. Tolerating diet Plan Plan For more details regarding further plans, please refer to the orders. TIANA POTTER MD Nov 19, 2017 10:52
[2017-11-19] MEDS: POTASSIUM CHLORIDE 20 MEQ TABLET.ER. PO SCH ×2 (11:24→13:56)
[2017-11-19] MEDS ORDERED: MAGNESIUM SULFATE 2GM 50 ML IV ONE (11:30)
[2017-11-19] MEDS: SIMVASTATIN 20 MG TABLET PO SCH (21:06)
[2017-11-20 03:07] VITALS: BP 128/80
[2017-11-20 04:49] LABS: BASO % 1 % (0-3); EOS # 0.2 x10^3/uL (0.0-0.7); EOS % 4 % (0-3); HEMOGLOBIN 12.7 g/dL (13.0-17.5); LYMPH % 39 % (24-48); MEAN CORPUSCULAR HEMOGLOBIN 31 pg (25-35); MEAN CORPUSCULAR HGB CONC 34 g/dL (31-37); MEAN CORPUSCULAR VOLUME 89 fL (79-100); MONO # 0.5 x10^3/uL (0.0-1.1); MONO % 10 % (0-9); NEUT # 2.3 x10^3uL (1.8-7.7); NEUT % 46 % (31-73); PLATELET COUNT 87 x10^3/uL (140-400); RED BLOOD COUNT 4.14 x10^6/uL (4.30-5.70); RED CELL DISTRIBUTION WIDTH 13.2 % (11.5-14.5); WHITE BLOOD COUNT 5.1 x10^3/uL (4.0-11.0)
[2017-11-20 04:55] LABS: CALCIUM 8.1 mg/dL (8.5-10.1); CREATININE 0.9 mg/dL (0.7-1.3); GFR 84.4; POTASSIUM 3.7 mmol/L (3.5-5.1)
[2017-11-20 07:00] VITALS: BP 137/84
[2017-11-20] MEDS: TAMSULOSIN 0.4 MG CAP.ER.24H. PO SCH (08:09)
[2017-11-20] MEDS: ASPIRIN ENTERIC COATED 81 MG TABLET.DR. PO SCH (08:09)
[2017-11-20] MEDS: FLUDROCORTISONE 0.1 MG TABLET PO SCH (08:09)
[2017-11-20] MEDS: DICLOFENAC SODIUM 1% TOPICAL GEL 100GM TUBE. TP SCH ×4 (08:09→21:30)
[2017-11-20] MEDS: POTASSIUM CHLORIDE 20 MEQ TABLET.ER. PO SCH ×2 (08:09→15:30)
[2017-11-20] MEDS: ALPRAZolam 0.25 MG TABLET PO SCH ×2 (08:10→21:27)
[2017-11-20] MEDS: PANTOPRAZOLE 40 MG TABLET.DR. PO SCH (08:10)
[2017-11-20] MEDS: FLECAINIDE ACETATE 50 MG TABLET. PO SCH ×2 (08:10→21:27)
[2017-11-20] MEDS: METOPROLOL SUCC 24HR ER 25 MG TAB.ER.24H. PO SCH (08:11)
[2017-11-20] MEDS: traMADol 50 MG TABLET PO PRN ×2 (08:20→21:29)
[2017-11-20 11:00] VITALS: BP 140/84
--- NOTE | 2017-11-20 11:21 | PDOC ---
IM PROGRESS NOTES- Subjective Subjective Patient is complaining of dizziness when he sits up. He could not do physical therapy yesterday. No complaints of abdominal pain, nausea or vomiting. No complaints of fever or chills. Objective Vitals Vital Signs Date Time Temp Pulse Resp B/P (MAP) Pulse Ox O2 Delivery O2 Flow Rate FiO2 11/20/17 11:00 97.9 63 18 140/84 (102) 94 Nasal Cannula 2.0 97.9 Input & Output Intake and Output 11/20/17 07:00 Intake Total 800 ml Output Total 1775 ml Balance -975 ml Intake Oral 800 ml Output Urine Total 1775 ml Physical Exam Physical Exam GENERAL: The patient is an elderly male who is alert, oriented and not in acute distress. VITAL SIGNS: Temperature 97.7, pulse 84 per minute, respirations 20 per minute and blood pressure 118/92 mmHg. NECK: Supple. JVP normal. No thyromegaly. HEENT: Mild congestion of throat. SKIN: Warm and dry. LUNGS: Decreased breath sounds at bases. CARDIOVASCULAR SYSTEM: S1, S2 regular. ABDOMEN: Soft, nontender. No guarding, no rigidity. Bowel sounds present. EXTREMITIES: No edema. NEUROLOGIC: The patient is chronically ill. He is tall and thin. CENTRAL NERVOUS SYSTEM: Generalized weakness, otherwise unremarkable. Labs Laboratory Tests Test 11/18/17 16:04 11/18/17 17:15 11/19/17 05:50 11/20/17 04:05 White Blood Count 9.9 x10^3/uL (4.0-11.0) 6.2 x10^3/uL (4.0-11.0) 5.1 x10^3/uL (4.0-11.0) Red Blood Count 5.32 x10^6/uL (4.30-5.70) 4.44 x10^6/uL (4.30-5.70) 4.14 x10^6/uL (4.30-5.70) Hemoglobin 16.5 g/dL (13.0-17.5) 13.7 g/dL (13.0-17.5) 12.7 g/dL (13.0-17.5) Hematocrit 48.1 % (39.0-53.0) 39.9 % (39.0-53.0) 37.0 % (39.0-53.0) Mean Corpuscular Volume 90 fL (79-100) 90 fL (79-100) 89 fL (79-100) Mean Corpuscular Hemoglobin 31 pg (25-35) 31 pg (25-35) 31 pg (25-35) Mean Corpuscular Hemoglobin Concent 34 g/dL (31-37) 34 g/dL (31-37) 34 g/dL (31-37) Red Cell Distribution Width 13.7 % (11.5-14.5) 13.7 % (11.5-14.5) 13.2 % (11.5-14.5) Platelet Count 143 x10^3/uL (140-400) 105 x10^3/uL (140-400) 87 x10^3/uL (140-400) Neutrophils (%) (Auto) 68 % (31-73) 48 % (31-73) 46 % (31-73) Lymphocytes (%) (Auto) 22 % (24-48) 40 % (24-48) 39 % (24-48) Monocytes (%) (Auto) 9 % (0-9) 9 % (0-9) 10 % (0-9) Eosinophils (%) (Auto) 1 % (0-3) 3 % (0-3) 4 % (0-3) Basophils (%) (Auto) 1 % (0-3) 1 % (0-3) 1 % (0-3) Neutrophils # (Auto) 6.7 x10^3uL (1.8-7.7) 2.9 x10^3uL (1.8-7.7) 2.3 x10^3uL (1.8-7.7) Lymphocytes # (Auto) 2.2 x10^3/uL (1.0-4.8) 2.4 x10^3/uL (1.0-4.8) 2.0 x10^3/uL (1.0-4.8) Monocytes # (Auto) 0.9 x10^3/uL (0.0-1.1) 0.6 x10^3/uL (0.0-1.1) 0.5 x10^3/uL (0.0-1.1) Eosinophils # (Auto) 0.1 x10^3/uL (0.0-0.7) 0.2 x10^3/uL (0.0-0.7) 0.2 x10^3/uL (0.0-0.7) Basophils # (Auto) 0.1 x10^3/uL (0.0-0.2) 0.0 x10^3/uL (0.0-0.2) 0.0 x10^3/uL (0.0-0.2) Platelet Estimate Adequate (ADEQUATE) Large Platelets Present Sodium Level 142 mmol/L (136-145) 141 mmol/L (136-145) 139 mmol/L (136-145) Potassium Level 3.7 mmol/L (3.5-5.1) 3.4 mmol/L (3.5-5.1) 3.7 mmol/L (3.5-5.1) Chloride Level 103 mmol/L (98-107) 108 mmol/L (98-107) 107 mmol/L (98-107) Carbon Dioxide Level 26 mmol/L (21-32) 25 mmol/L (21-32) 25 mmol/L (21-32) Anion Gap 13 (6-14) 8 (6-14) 7 (6-14) Blood Urea Nitrogen 13 mg/dL (8-26) 14 mg/dL (8-26) 13 mg/dL (8-26) Creatinine 1.2 mg/dL (0.7-1.3) 1.0 mg/dL (0.7-1.3) 0.9 mg/dL (0.7-1.3) Estimated GFR (Cockcroft-Gault) 60.6 74.8 84.4 BUN/Creatinine Ratio 11 (6-20) 14 (6-20) Glucose Level 101 mg/dL (70-99) 84 mg/dL (70-99) 86 mg/dL (70-99) Calcium Level 9.9 mg/dL (8.5-10.1) 8.0 mg/dL (8.5-10.1) 8.1 mg/dL (8.5-10.1) Magnesium Level 1.7 mg/dL (1.8-2.4) 1.6 mg/dL (1.8-2.4) Total Bilirubin 0.4 mg/dL (0.2-1.0) 0.4 mg/dL (0.2-1.0) Aspartate Amino Transf (AST/SGOT) 24 U/L (15-37) 15 U/L (15-37) Alanine Aminotransferase (ALT/SGPT) 34 U/L (16-63) 24 U/L (16-63) Alkaline Phosphatase 97 U/L (46-116) 70 U/L (46-116) Creatine Kinase 129 U/L (39-308) Creatine Kinase MB (Mass) 1.7 ng/mL (0.0-3.6) Creatine Kinase MB Relative Index 1.3 % (0-4) Troponin I Quantitative < 0.017 ng/mL (0.000-0.055) NA-Bhb-E-Type Natriuretic Peptide 151 pg/mL (0-124) Total Protein 8.0 g/dL (6.4-8.2) 6.0 g/dL (6.4-8.2) Albumin 4.5 g/dL (3.4-5.0) 3.1 g/dL (3.4-5.0) Albumin/Globulin Ratio 1.3 (1.0-1.7) 1.1 (1.0-1.7) Lipase 137 U/L (73-393) Thyroid Stimulating Hormone (TSH) 0.704 uIU/mL (0.358-3.74) Urine Collection Type Unknown Urine Color Yellow Urine Clarity Hazy Urine pH 5.5 Urine Specific [place] >=1.030 Urine Protein 30 mg/dL (NEG-TRACE) Urine Glucose (UA) Negative mg/dL (NEG) Urine Ketones (Stick) Negative mg/dL (NEG) Urine Blood Negative (NEG) Urine Nitrite Negative (NEG) Urine Bilirubin Negative (NEG) Urine Urobilinogen Dipstick 0.2 mg/dL (0.2 mg/dL) Urine Leukocyte Esterase Negative (NEG) Urine RBC Occ /HPF (0-2) Urine WBC 1-4 /HPF (0-4) Urine Amorphous Sediment Present /HPF Urine Bacteria 0 /HPF (0-FEW) Urine Hyaline Casts Few /HPF Urine Mucus Marked /LPF Urine Opiates Screen Neg (NEG) Urine Methadone Screen Neg (NEG) Urine Barbiturates Neg (NEG) Urine Phencyclidine Screen Neg (NEG) Urine Amphetamine/Methamphetamine Neg (NEG) Urine Benzodiazepines Screen Neg (NEG) Urine Cocaine Screen Neg (NEG) Urine Cannabinoids Screen Neg (NEG) Urine Ethyl Alcohol Neg (NEG) Laboratory Tests Test 11/20/17 04:05 White Blood Count 5.1 x10^3/uL (4.0-11.0) Red Blood Count 4.14 x10^6/uL (4.30-5.70) Hemoglobin 12.7 g/dL (13.0-17.5) Hematocrit 37.0 % (39.0-53.0) Mean Corpuscular Volume 89 fL (79-100) Mean Corpuscular Hemoglobin 31 pg (25-35) Mean Corpuscular Hemoglobin Concent 34 g/dL (31-37) Red Cell Distribution Width 13.2 % (11.5-14.5) Platelet Count 87 x10^3/uL (140-400) Neutrophils (%) (Auto) 46 % (31-73) Lymphocytes (%) (Auto) 39 % (24-48) Monocytes (%) (Auto) 10 % (0-9) Eosinophils (%) (Auto) 4 % (0-3) Basophils (%) (Auto) 1 % (0-3) Neutrophils # (Auto) 2.3 x10^3uL (1.8-7.7) Lymphocytes # (Auto) 2.0 x10^3/uL (1.0-4.8) Monocytes # (Auto) 0.5 x10^3/uL (0.0-1.1) Eosinophils # (Auto) 0.2 x10^3/uL (0.0-0.7) Basophils # (Auto) 0.0 x10^3/uL (0.0-0.2) Sodium Level 139 mmol/L (136-145) Potassium Level 3.7 mmol/L (3.5-5.1) Chloride Level 107 mmol/L (98-107) Carbon Dioxide Level 25 mmol/L (21-32) Anion Gap 7 (6-14) Blood Urea Nitrogen 13 mg/dL (8-26) Creatinine 0.9 mg/dL (0.7-1.3) Estimated GFR (Cockcroft-Gault) 84.4 Glucose Level 86 mg/dL (70-99) Calcium Level 8.1 mg/dL (8.5-10.1) Meds Current Medications Magnesium Sulfate 50 ml @ 25 mls/hr 1X ONCE IV Last administered on 11/19/17at 11:29; Start 11/19/17 at 11:30; Stop 11/19/17 at 13:29; Status DC Potassium Chloride (Klor-Con) 20 meq [id number] PO Last administered on 11/20/17at 08 :09; Start 11/19/17 at 11:30 Assessment Assessment IMPRESSION: 1. Dizziness, multifactorial. 2. Acute gastroenteritis. 3. Chronic obstructive pulmonary disease. 4. Hypertension. 5. Orthostatic hypotension. 6. Chronic low back pain with radiculopathy; lower extremity weakness bilaterally, chronic. 7. Mild mitral valve prolapse. 8. Benign prostatic hypertrophy. 9. Sick sinus syndrome with permanent pacemaker. 10. Moderate chronic protein-calorie malnutrition. 11. Neck pain, chronic with radiculopathy, bilateral arms weakness, chronic. 12. Chronic kidney disease 2. 13. Chronic obstructive pulmonary disease with emphysema. 14. Diverticulosis. 15. Gastroesophageal reflux disease. 16. Schatzki ring. 17. Hiatal hernia. 18. History of esophageal stricture with dilatation, 02/10/2016. 19. Mild pulmonary hypertension. 20. Valvular insufficiency, mild mitral regurgitation and trace tricuspid regurgitation. 21. Coronary artery disease with ejection fraction of 55% to 60%. 22. History of chronic thrombocytopenia. 23. History of lucency about the C3-C4 lateral mass screws that appears chronic, with significant adjacent claudication; no change since 05/29/2016. 24. History of fracture of the left cuneiform bone. 25. History of severe left vertebral artery stenosis, aortic arch negative per CTA 2013 and also 2018. 26. B12 deficiency. 27. Vitamin D deficiency. 28. Status post fusion, C3-C7 cervical fusion. 29. Physical deconditioning. 30. High-grade right vertebral artery stenosis. PLAN: Recheck labs in a.m. Continue to monitor the patient's dizziness and blood pressure. The patient has been given one bag of IV fluids. The patient will also get meclizine, continue other medications. I will change pantoprazole to oral. Order PT, OT. Fall precautions. For details, please review the orders. Continue Florinef for his dizziness and orthostasis. Continue Xanax for anxiety. For details, please refer to the orders. Hypokalemiapotassium is 3.4 replaced. Check labs in a.m. Hypomagnesemiamagnesium level is 1.7. I'll give him IV magnesium. Check labs in a.m. Dizzinessmonitor orthostatic hypotension. Discussed with staff. Continue IV fluids. Continue PT OT. Acute gastroenteritis improving. Tolerating diet. Clinically improving slowly. Plan Plan For more details regarding further plans, please refer to the orders. TIANA POTTER MD Nov 20, 2017 11:20
[2017-11-20 15:00] VITALS: BP 127/70
[2017-11-20 19:55] VITALS: BP 136/84
[2017-11-20] MEDS: SIMVASTATIN 20 MG TABLET PO SCH (21:27)
[2017-11-20 23:29] VITALS: BP 136/85
[2017-11-21 03:50] VITALS: BP 132/76
[2017-11-21 05:43] LABS: BASO # 0.1 x10^3/uL (0.0-0.2); BASO % 1 % (0-3); EOS # 0.2 x10^3/uL (0.0-0.7); EOS % 4 % (0-3); HEMATOCRIT 37.9 % (39.0-53.0); HEMOGLOBIN 13.1 g/dL (13.0-17.5); LYMPH # 1.7 x10^3/uL (1.0-4.8); LYMPH % 32 % (24-48); MEAN CORPUSCULAR HEMOGLOBIN 31 pg (25-35); MEAN CORPUSCULAR HGB CONC 35 g/dL (31-37); MEAN CORPUSCULAR VOLUME 90 fL (79-100); MONO # 0.5 x10^3/uL (0.0-1.1); MONO % 10 % (0-9); NEUT % 54 % (31-73); PLATELET COUNT 96 x10^3/uL (140-400); RED BLOOD COUNT 4.22 x10^6/uL (4.30-5.70); RED CELL DISTRIBUTION WIDTH 13.2 % (11.5-14.5); WHITE BLOOD COUNT 5.5 x10^3/uL (4.0-11.0)
[2017-11-21 06:05] LABS: CALCIUM 8.6 mg/dL (8.5-10.1); CREATININE 0.9 mg/dL (0.7-1.3); GFR 84.4; MAGNESIUM 1.7 mg/dL (1.8-2.4); POTASSIUM 3.7 mmol/L (3.5-5.1)
[2017-11-21] MEDS: traMADol 50 MG TABLET PO PRN ×2 (07:11→17:13)
[2017-11-21 07:50] VITALS: BP 140/93
[2017-11-21] MEDS: ALPRAZolam 0.25 MG TABLET PO SCH ×2 (09:13→20:59)
[2017-11-21] MEDS: TAMSULOSIN 0.4 MG CAP.ER.24H. PO SCH (09:13)
[2017-11-21] MEDS: DICLOFENAC SODIUM 1% TOPICAL GEL 100GM TUBE. TP SCH ×4 (09:14→20:59)
[2017-11-21] MEDS: POTASSIUM CHLORIDE 20 MEQ TABLET.ER. PO SCH ×2 (09:15→14:48)
[2017-11-21] MEDS: FLECAINIDE ACETATE 50 MG TABLET. PO SCH ×2 (09:15→20:59)
[2017-11-21] MEDS: PANTOPRAZOLE 40 MG TABLET.DR. PO SCH (09:15)
[2017-11-21] MEDS: ASPIRIN ENTERIC COATED 81 MG TABLET.DR. PO SCH (09:16)
[2017-11-21] MEDS: FLUDROCORTISONE 0.1 MG TABLET PO SCH (09:16)
[2017-11-21] MEDS: METOPROLOL SUCC 24HR ER 25 MG TAB.ER.24H. PO SCH (09:16)
--- NOTE | 2017-11-21 11:10 | PDOC ---
IM PROGRESS NOTES- Subjective Subjective Still complains of dizziness. He did walk some with physical therapy in the hallways yesterday. As per staff he continued to have some orthostasis yesterday. Objective Vitals Vital Signs Date Time Temp Pulse Resp B/P (MAP) Pulse Ox O2 Delivery O2 Flow Rate FiO2 11/21/17 09:16 108 140/93 11/21/17 08:15 99 Nasal Cannula 2.0 11/21/17 07:50 98.2 18 98.2 Input & Output Intake and Output 11/21/17 07:00 Intake Total 1300 ml Output Total 3100 ml Balance -1800 ml Intake Oral 1300 ml Output Urine Total 3100 ml Physical Exam Physical Exam GENERAL: The patient is an elderly male who is alert, oriented and not in acute distress. VITAL SIGNS: Stable NECK: Supple. JVP normal. No thyromegaly. HEENT: Mild congestion of throat. SKIN: Warm and dry. LUNGS: Decreased breath sounds at bases. CARDIOVASCULAR SYSTEM: S1, S2 regular. ABDOMEN: Soft, nontender. No guarding, no rigidity. Bowel sounds present. EXTREMITIES: No edema. NEUROLOGIC: The patient is chronically ill. He is tall and thin. CENTRAL NERVOUS SYSTEM: Generalized weakness, otherwise unremarkable. Labs Laboratory Tests Test 11/20/17 04:05 11/21/17 04:30 White Blood Count 5.1 x10^3/uL (4.0-11.0) 5.5 x10^3/uL (4.0-11.0) Red Blood Count 4.14 x10^6/uL (4.30-5.70) 4.22 x10^6/uL (4.30-5.70) Hemoglobin 12.7 g/dL (13.0-17.5) 13.1 g/dL (13.0-17.5) Hematocrit 37.0 % (39.0-53.0) 37.9 % (39.0-53.0) Mean Corpuscular Volume 89 fL (79-100) 90 fL (79-100) Mean Corpuscular Hemoglobin 31 pg (25-35) 31 pg (25-35) Mean Corpuscular Hemoglobin Concent 34 g/dL (31-37) 35 g/dL (31-37) Red Cell Distribution Width 13.2 % (11.5-14.5) 13.2 % (11.5-14.5) Platelet Count 87 x10^3/uL (140-400) 96 x10^3/uL (140-400) Neutrophils (%) (Auto) 46 % (31-73) 54 % (31-73) Lymphocytes (%) (Auto) 39 % (24-48) 32 % (24-48) Monocytes (%) (Auto) 10 % (0-9) 10 % (0-9) Eosinophils (%) (Auto) 4 % (0-3) 4 % (0-3) Basophils (%) (Auto) 1 % (0-3) 1 % (0-3) Neutrophils # (Auto) 2.3 x10^3uL (1.8-7.7) 3.0 x10^3uL (1.8-7.7) Lymphocytes # (Auto) 2.0 x10^3/uL (1.0-4.8) 1.7 x10^3/uL (1.0-4.8) Monocytes # (Auto) 0.5 x10^3/uL (0.0-1.1) 0.5 x10^3/uL (0.0-1.1) Eosinophils # (Auto) 0.2 x10^3/uL (0.0-0.7) 0.2 x10^3/uL (0.0-0.7) Basophils # (Auto) 0.0 x10^3/uL (0.0-0.2) 0.1 x10^3/uL (0.0-0.2) Sodium Level 139 mmol/L (136-145) 136 mmol/L (136-145) Potassium Level 3.7 mmol/L (3.5-5.1) 3.7 mmol/L (3.5-5.1) Chloride Level 107 mmol/L (98-107) 104 mmol/L (98-107) Carbon Dioxide Level 25 mmol/L (21-32) 25 mmol/L (21-32) Anion Gap 7 (6-14) 7 (6-14) Blood Urea Nitrogen 13 mg/dL (8-26) 10 mg/dL (8-26) Creatinine 0.9 mg/dL (0.7-1.3) 0.9 mg/dL (0.7-1.3) Estimated GFR (Cockcroft-Gault) 84.4 84.4 Glucose Level 86 mg/dL (70-99) 88 mg/dL (70-99) Calcium Level 8.1 mg/dL (8.5-10.1) 8.6 mg/dL (8.5-10.1) Magnesium Level 1.7 mg/dL (1.8-2.4) Laboratory Tests Test 11/21/17 04:30 White Blood Count 5.5 x10^3/uL (4.0-11.0) Red Blood Count 4.22 x10^6/uL (4.30-5.70) Hemoglobin 13.1 g/dL (13.0-17.5) Hematocrit 37.9 % (39.0-53.0) Mean Corpuscular Volume 90 fL (79-100) Mean Corpuscular Hemoglobin 31 pg (25-35) Mean Corpuscular Hemoglobin Concent 35 g/dL (31-37) Red Cell Distribution Width 13.2 % (11.5-14.5) Platelet Count 96 x10^3/uL (140-400) Neutrophils (%) (Auto) 54 % (31-73) Lymphocytes (%) (Auto) 32 % (24-48) Monocytes (%) (Auto) 10 % (0-9) Eosinophils (%) (Auto) 4 % (0-3) Basophils (%) (Auto) 1 % (0-3) Neutrophils # (Auto) 3.0 x10^3uL (1.8-7.7) Lymphocytes # (Auto) 1.7 x10^3/uL (1.0-4.8) Monocytes # (Auto) 0.5 x10^3/uL (0.0-1.1) Eosinophils # (Auto) 0.2 x10^3/uL (0.0-0.7) Basophils # (Auto) 0.1 x10^3/uL (0.0-0.2) Sodium Level 136 mmol/L (136-145) Potassium Level 3.7 mmol/L (3.5-5.1) Chloride Level 104 mmol/L (98-107) Carbon Dioxide Level 25 mmol/L (21-32) Anion Gap 7 (6-14) Blood Urea Nitrogen 10 mg/dL (8-26) Creatinine 0.9 mg/dL (0.7-1.3) Estimated GFR (Cockcroft-Gault) 84.4 Glucose Level 88 mg/dL (70-99) Calcium Level 8.6 mg/dL (8.5-10.1) Magnesium Level 1.7 mg/dL (1.8-2.4) Assessment Assessment IMPRESSION: 1. Dizziness, multifactorial. 2. Acute gastroenteritis. 3. Chronic obstructive pulmonary disease. 4. Hypertension. 5. Orthostatic hypotension. 6. Chronic low back pain with radiculopathy; lower extremity weakness bilaterally, chronic. 7. Mild mitral valve prolapse. 8. Benign prostatic hypertrophy. 9. Sick sinus syndrome with permanent pacemaker. 10. Moderate chronic protein-calorie malnutrition. 11. Neck pain, chronic with radiculopathy, bilateral arms weakness, chronic. 12. Chronic kidney disease 2. 13. Chronic obstructive pulmonary disease with emphysema. 14. Diverticulosis. 15. Gastroesophageal reflux disease. 16. Schatzki ring. 17. Hiatal hernia. 18. History of esophageal stricture with dilatation, 02/10/2016. 19. Mild pulmonary hypertension. 20. Valvular insufficiency, mild mitral regurgitation and trace tricuspid regurgitation. 21. Coronary artery disease with ejection fraction of 55% to 60%. 22. History of chronic thrombocytopenia. 23. History of lucency about the C3-C4 lateral mass screws that appears chronic, with significant adjacent claudication; no change since 05/29/2016. 24. History of fracture of the left cuneiform bone. 25. History of severe left vertebral artery stenosis, aortic arch negative per CTA 2013 and also 2018. 26. B12 deficiency. 27. Vitamin D deficiency. 28. Status post fusion, C3-C7 cervical fusion. 29. Physical deconditioning. 30. High-grade right vertebral artery stenosis. PLAN: Recheck labs in a.m. Continue to monitor the patient's dizziness and blood pressure. The patient has been given one bag of IV fluids. The patient will also get meclizine, continue other medications. I will change pantoprazole to oral. Order PT, OT. Fall precautions. For details, please review the orders. Continue Florinef for his dizziness and orthostasis. Continue Xanax for anxiety. For details, please refer to the orders. Hypokalemiapotassium is 3.7 today. Hypomagnesemiamagnesium level is 1.7. I will give him 2 g of IV magnesium sulfate today and start magnesium oxide 400 mg by mouth 3 times a day Dizzinessmonitor orthostatic hypotension. Discussed with staff. Continue IV fluids. Continue PT OT. is also getting Florinef. Condition treatment extensively discussed with the patient. Continue physical therapy today. If patient is stable tomorrow he will be discharged home. If not he should consider going to a long-term facility tomorrow. Acute gastroenteritis resolved. Tolerating diet. Clinically improving slowly. Plan Plan For more details regarding further plans, please refer to the orders. TIANA POTTER MD Nov 21, 2017 11:10
[2017-11-21] MEDS ORDERED: MAGNESIUM SULFATE 2GM 50 ML IV ONE (11:15)
[2017-11-21] MEDS ORDERED: MAGN400T22 PO (11:15)
[2017-11-21] MEDS ORDERED: POTA20TA4 PO (11:15)
--- NOTE | 2017-11-21 11:23 | DISCH ---
DISCHARGE WITH HOME HEALTH DISCHARGE INFORMATION: Final Diagnosis: Problems Medical Problems: (1) Abdominal pain Status: Acute (2) Chronic back pain Status: Acute (3) Headache Status: Acute (4) Marfan syndrome Status: Acute (5) Nausea and vomiting Status: Acute (6) Pectus excavatum Status: Acute Condition on Discharge: Stable HOME HEALTH: Face to Face: I certify this patient is under my care and that I, or a nurse practitioner or physician's marketing assistant working with me, had a face to face encounter that meets the physician face to face encounter requirements with this patient on October. Medical Condition(s): COPD Mcc For: Medication Management Physical Therapy For: Evalulation/Treatment Occupational Therapy For: Evaluation/Treatment Patient meets Homebound Statu: Poor coordination w/ amb. POST DISCHARGE ORDERS: Activity Instructions for Disc: Activity as tolerated (to ambulate with walker) Weight Bearing Status after Di: As tolerated DIET AFTER DISCHARGE: Regular CHECKS AFTER DISCHARGE: Checks after discharge: Check blood press - daily FOLLOW-UP: Follow up with: Dr. TIANA Potter in 5 days TREATMENT/EQUIPMENT ORDERS: Adaptive Equipment Issued: Walker CERTIFICATION STATEMENT: Certification Statement: Certification Statement: Based on the above finding, I certify that this patient is confined to the home and needs intermittent group home care, physical therapy and/or speech therapy, or continues to need occupational therapy.~ This patient is under my care, and I have initiated the establishment of the plan of care.~ This patient will be followed by myself or a community physician who will periodically review the plan of care. Home Meds Active Scripts Fludrocortisone Acetate (FLUDROCORTISONE ACETATE) 0.1 Mg Tablet, 0.1 MG PO DAILY for 30 Days, #30 TAB 5 Refills Prov:TIANA POTTER MD 07/29/17 Diclofenac Sodium (VOLTAREN) 100 Gm Gel..gram., 1 CARSON TP QID for CHEST PAIN for 30 Days, #100 EACH 5 Refills Prov:TIANA POTTER MD 07/29/17 Flecainide Acetate (FLECAINIDE ACETATE) 50 Mg Tablet, 100 MG PO Q12HR for 30 Days, #60 TAB 5 Refills Prov:TIANA POTTER MD 07/29/17 Metoprolol Succinate (METOPROLOL SUCCINATE ( XL )) 25 Mg Tab.er.24h, 12.5 MG PO DAILY, #30 TAB.SR Prov:GAYATHRI FAIRCHILD DRAFTER [employer] 03/10/17 Tramadol Hcl (TRAMADOL HCL) 50 Mg Tablet, 1 TAB PO PRN Q6HRS, #90 TAB Prov:GAYATHRI FIARCHILD DRAFTER [employer] 08/14/16 Aspirin (ASPIR 81) 81 Mg Tablet.dr, 1 TAB PO DAILY, #90 TAB 5 Refills Prov:GAYATHRI FAIRCHILD [employer] 05/29/16 Reported Medications Simvastatin (SIMVASTATIN) 20 Mg Tablet, 20 MG PO HS for FOR CHOLESTEROL, #30 TAB 0 Refills 08/13/16 Tamsulosin Hcl (TAMSULOSIN HCL) 0.4 Mg Cap.er.24h, 0.4 MG PO DAILY, TAB 02/10/16 Alprazolam (ALPRAZOLAM) 0.25 Mg Tablet, 1 TAB PO BID, #60 TAB 02/10/16 Omeprazole (PRILOSEC) 20 Mg Capsule., 20 MG PO DAILY 04/06/13 TIANA POTTER MD Nov 21, 2017 11:23
[2017-11-21 11:34] VITALS: BP 146/86
[2017-11-21] MEDS: MAGNESIUM OXIDE 400 MG TABLET PO SCH ×2 (14:47→20:59)
[2017-11-21 15:20] VITALS: BP 126/77
[2017-11-21 19:50] VITALS: BP 111/75
[2017-11-21] MEDS: SIMVASTATIN 20 MG TABLET PO SCH (20:59)
[2017-11-21 23:45] VITALS: BP 126/80
[2017-11-22 03:38] VITALS: BP 128/81
[2017-11-22 05:32] VITALS: BP 141/89
[2017-11-22 05:33] VITALS: BP_SYST 108; BP_SYST 114; BP_DIAS 74; BP_DIAS 84
[2017-11-22 05:33] LABS: CALCIUM 8.4 mg/dL (8.5-10.1); CREATININE 0.8 mg/dL (0.7-1.3); GFR 96.7; MAGNESIUM 2.1 mg/dL (1.8-2.4); POTASSIUM 3.7 mmol/L (3.5-5.1)
[2017-11-22 05:34] VITALS: BP 121/86
[2017-11-22 06:59] VITALS: BP 145/99
[2017-11-22] MEDS: TAMSULOSIN 0.4 MG CAP.ER.24H. PO SCH (08:38)
[2017-11-22] MEDS: ALPRAZolam 0.25 MG TABLET PO SCH (08:38)
[2017-11-22] MEDS: PANTOPRAZOLE 40 MG TABLET.DR. PO SCH (08:38)
[2017-11-22] MEDS: POTASSIUM CHLORIDE 20 MEQ TABLET.ER. PO SCH (08:39)
[2017-11-22] MEDS: FLECAINIDE ACETATE 50 MG TABLET. PO SCH (08:39)
[2017-11-22] MEDS: ASPIRIN ENTERIC COATED 81 MG TABLET.DR. PO SCH (08:41)
[2017-11-22] MEDS: METOPROLOL SUCC 24HR ER 25 MG TAB.ER.24H. PO SCH (08:41)
[2017-11-22] MEDS: traMADol 50 MG TABLET PO PRN (08:42)
[2017-11-22] MEDS: FLUDROCORTISONE 0.1 MG TABLET PO SCH (08:42)
[2017-11-22] MEDS: DICLOFENAC SODIUM 1% TOPICAL GEL 100GM TUBE. TP SCH (08:45)
[2017-11-22] MEDS: MAGNESIUM OXIDE 400 MG TABLET PO SCH (08:46)
--- NOTE | 2017-11-22 10:33 | PDOC3 ---
DISCHARGE SUMMARY Date of Admission Date of Admission Date of Admission: Nov 18, 2017 at 17:32 Date of Discharge Date of Discharge November 23, 2017 Primary Diagnosis Primary Diagnosis 1. Dizziness, multifactorial. 2. Acute gastroenteritis. 3. Chronic obstructive pulmonary disease. 4. Hypertension. 5. Orthostatic hypotension. 6. Chronic low back pain with radiculopathy; lower extremity weakness bilaterally, chronic. 7. Mild mitral valve prolapse. 8. Benign prostatic hypertrophy. 9. Sick sinus syndrome with permanent pacemaker. 10. Moderate chronic protein-calorie malnutrition. 11. Neck pain, chronic with radiculopathy, bilateral arms weakness, chronic. 12. Chronic kidney disease 2. 13. Chronic obstructive pulmonary disease with emphysema. 14. Diverticulosis. 15. Gastroesophageal reflux disease. 16. Schatzki ring. 17. Hiatal hernia. 18. History of esophageal stricture with dilatation, 02/10/2016. 19. Mild pulmonary hypertension. 20. Valvular insufficiency, mild mitral regurgitation and trace tricuspid regurgitation. 21. Coronary artery disease with ejection fraction of 55% to 60%. 22. History of chronic thrombocytopenia. 23. History of lucency about the C3-C4 lateral mass screws that appears chronic, with significant adjacent claudication; no change since 05/29/2016. 24. History of fracture of the left cuneiform bone. 25. History of severe left vertebral artery stenosis, aortic arch negative per CTA 2013 and also 2018. 26. B12 deficiency. 27. Vitamin D deficiency. 28. Status post fusion, C3-C7 cervical fusion. 29. Physical deconditioning. 30. High-grade right vertebral artery stenosis. 31. Hypokalemia 32. Hypomagnesemia Consults Consults Labs Labs Laboratory Tests Test 11/20/17 04:05 11/21/17 04:30 11/22/17 03:30 White Blood Count 5.1 x10^3/uL (4.0-11.0) 5.5 x10^3/uL (4.0-11.0) Red Blood Count 4.14 x10^6/uL (4.30-5.70) 4.22 x10^6/uL (4.30-5.70) Hemoglobin 12.7 g/dL (13.0-17.5) 13.1 g/dL (13.0-17.5) Hematocrit 37.0 % (39.0-53.0) 37.9 % (39.0-53.0) Mean Corpuscular Volume 89 fL (79-100) 90 fL (79-100) Mean Corpuscular Hemoglobin 31 pg (25-35) 31 pg (25-35) Mean Corpuscular Hemoglobin Concent 34 g/dL (31-37) 35 g/dL (31-37) Red Cell Distribution Width 13.2 % (11.5-14.5) 13.2 % (11.5-14.5) Platelet Count 87 x10^3/uL (140-400) 96 x10^3/uL (140-400) Neutrophils (%) (Auto) 46 % (31-73) 54 % (31-73) Lymphocytes (%) (Auto) 39 % (24-48) 32 % (24-48) Monocytes (%) (Auto) 10 % (0-9) 10 % (0-9) Eosinophils (%) (Auto) 4 % (0-3) 4 % (0-3) Basophils (%) (Auto) 1 % (0-3) 1 % (0-3) Neutrophils # (Auto) 2.3 x10^3uL (1.8-7.7) 3.0 x10^3uL (1.8-7.7) Lymphocytes # (Auto) 2.0 x10^3/uL (1.0-4.8) 1.7 x10^3/uL (1.0-4.8) Monocytes # (Auto) 0.5 x10^3/uL (0.0-1.1) 0.5 x10^3/uL (0.0-1.1) Eosinophils # (Auto) 0.2 x10^3/uL (0.0-0.7) 0.2 x10^3/uL (0.0-0.7) Basophils # (Auto) 0.0 x10^3/uL (0.0-0.2) 0.1 x10^3/uL (0.0-0.2) Sodium Level 139 mmol/L (136-145) 136 mmol/L (136-145) 137 mmol/L (136-145) Potassium Level 3.7 mmol/L (3.5-5.1) 3.7 mmol/L (3.5-5.1) 3.7 mmol/L (3.5-5.1) Chloride Level 107 mmol/L (98-107) 104 mmol/L (98-107) 105 mmol/L (98-107) Carbon Dioxide Level 25 mmol/L (21-32) 25 mmol/L (21-32) 26 mmol/L (21-32) Anion Gap 7 (6-14) 7 (6-14) 6 (6-14) Blood Urea Nitrogen 13 mg/dL (8-26) 10 mg/dL (8-26) 9 mg/dL (8-26) Creatinine 0.9 mg/dL (0.7-1.3) 0.9 mg/dL (0.7-1.3) 0.8 mg/dL (0.7-1.3) Estimated GFR (Cockcroft-Gault) 84.4 84.4 96.7 Glucose Level 86 mg/dL (70-99) 88 mg/dL (70-99) 83 mg/dL (70-99) Calcium Level 8.1 mg/dL (8.5-10.1) 8.6 mg/dL (8.5-10.1) 8.4 mg/dL (8.5-10.1) Magnesium Level 1.7 mg/dL (1.8-2.4) 2.1 mg/dL (1.8-2.4) Brief hospital course Brief hospital course This 67 year old male who presented with abdominal pain, dizziness and weakness. During the stay in the hospital he was treated for acute gastroenteritis, hypokalemia, hypomagnesemia and orthostatic hypotension. For more details regarding the past history, family history, social history, surgical history and other details, please refer to History and Physical. Hypokalemiapotassium is 3.7 today. Hypomagnesemiamagnesium level is 1.7. I will give him 2 g of IV magnesium sulfate today and start magnesium oxide 400 mg by mouth 3 times a day Dizzinessmonitor orthostatic hypotension. Discussed with staff. Continue IV fluids. Continue PT OT. The patient is also getting Florinef. Condition treatment extensively discussed with the patient. Continue physical therapy today. Acute gastroenteritis resolved. Tolerating diet. Patient continued to do better and also stress is improved and blood pressure actually increased. IV fluids have been discontinued and patient is going to be discharged today. Condition at the time of discharge improving. Disposition home with home healthcare services and PT and OT Medications Medications reviewed and reconciled for discharge. Allergy Allergies Coded Allergies Type Severity Reaction Last Updated Verified No Known Drug Allergies 02/10/16 No Follow up in 5 days. DISPOSITION: Home health services (with PT OT) Comments Discharge Management - 35 minutes. For other details please refer to discharge instructions TIANA POTTER MD Nov 22, 2017 10:32
[2017-11-22 10:43] VITALS: BP 126/76
== END 2017-11-22 13:34 | disposition home health service (06) | DRG 312 ==
LOC: ER 15:08 → 6 SOUTH 17:32 → ER 19:02
PROVIDERS: ADMIT Internal Medicine; ATTEND Internal Medicine
DX: I95.1 Orthostatic hypotension (principal); E44.0 Moderate protein-calorie malnutrition; I42.9 Cardiomyopathy, unspecified; Z68.1 Body mass index [BMI] 19.9 or less, adult; K52.9 Noninfective gastroenteritis and colitis, unspecified; E53.8 Deficiency of other specified B group vitamins; E78.00 Pure hypercholesterolemia, unspecified; E78.5 Hyperlipidemia, unspecified; E83.42 Hypomagnesemia; E87.6 Hypokalemia; G89.29 Other chronic pain; I08.1 Rheumatic disorders of both mitral and tricuspid valves; I12.9 Hypertensive chronic kidney disease with stage 1 through stage 4 chronic kidney disease, or unspecified chronic kidney disease; I25.10 Atherosclerotic heart disease of native coronary artery without angina pectoris; I25.2 Old myocardial infarction; I27.20 Pulmonary hypertension, unspecified; I49.5 Sick sinus syndrome; I65.01 Occlusion and stenosis of right vertebral artery; F41.9 Anxiety disorder, unspecified; M19.90 Unspecified osteoarthritis, unspecified site; M48.061 Spinal stenosis, lumbar region without neurogenic claudication; M54.16 Radiculopathy, lumbar region; M54.30 Sciatica, unspecified side; J44.9 Chronic obstructive pulmonary disease, unspecified; K21.9 Gastro-esophageal reflux disease without esophagitis; K22.2 Esophageal obstruction; K44.9 Diaphragmatic hernia without obstruction or gangrene; K57.90 Diverticulosis of intestine, part unspecified, without perforation or abscess without bleeding; M54.10 Radiculopathy, site unspecified; N18.2 Chronic kidney disease, stage 2 (mild); N40.0 Benign prostatic hyperplasia without lower urinary tract symptoms; Q67.6 Pectus excavatum; Z72.0 Tobacco use; Z82.3 Family history of stroke; Z82.79 Family history of other congenital malformations, deformations and chromosomal abnormalities; Z95.0 Presence of cardiac pacemaker; Z98.1 Arthrodesis status; Z99.81 Dependence on supplemental oxygen
CPT/HCPCS: 36415; 74022; 80048; 80053; 80307; 81001; 82553; 83690; 83735; 83880; 84443; 84484; 85025; 93005; 96361; 96365; 96375; C9113; J2270; J2405; J3475; J7030; J8597; 97110; 97116; 99285-25; G0479

== ENCOUNTER 2018-02-12 17:17 | Emergency (ER) | payer BC ==
[~2018-02-12] VITALS: Ht 188 cm; Wt 59.9 kg
[~2018-02-12 17:17] MED LIST changes: +HYDR-3135 PO; +HYDR-3164 PO; -HYDR-963 PO; -HYDR-971 PO; +MAGN400T22 PO; +POTA20TA4 PO
--- NOTE | 2018-02-12 18:58 | PHYS DOC ---
Past Medical History Past Medical History: Arthritis, COPD, GERD, High Cholesterol, Hypertension, [place] , Other Additional Past Medical Histor: Marfan syndrome,chronic pain,prostate problems, VERTIGO Past Surgical History: Pacemaker, Other Additional Past Surgical Histo: Lower Back, Neck Additional Information: CHEWING TOBACCO Alcohol Use: Rarely Drug Use: None Adult General Chief Complaint Chief Complaint: LOWER EXT PAIN HPI HPI Patient is a 67 year old male who presents with stating his right lower leg is been itching a lot and continued itching his right lower leg of which now he has a open infected scratch sandra. He has several scratch vieira that are healed over. The open area purulent drainage. He states it's been going on for last 4 days. Denies fevers. Patient rates his pain 9 out of 10 but states he's been out of his Tylenol but usually takes. Alert and oriented. No known drug allergies. Patient denies being a diabetic and states he has hypertension, arthritis, high cholesterol, emphysema, chronic pain. Patient is ambulatory. Review of Systems Review of Systems Constitutional: Denies fever or chills [] Eyes: Denies change in visual acuity, redness, or eye pain [] HENT: Denies nasal congestion or sore throat [] Respiratory: Denies cough or shortness of breath [] Cardiovascular: No additional information not addressed in HPI [] GI: Denies abdominal pain, nausea, vomiting, bloody stools or diarrhea [] : Denies dysuria or hematuria [] Musculoskeletal: Denies back pain or joint pain [] Integument: Scratch to lower leg over right ankle pain that has purulent drainage. Denies rash or skin lesions [] Neurologic: Denies headache, focal weakness or sensory changes [] Endocrine: Denies polyuria or polydipsia [] All other systems were reviewed and found to be within normal limits, except as documented in this note. Current Medications Current Medications Current Medications Medications (Trade) Dose Ordered Sig/Marcia Start Time Stop Time Status Last Admin Dose Admin Acetaminophen (Tylenol) 650 mg 1X ONCE 02/12/18 19:00 02/12/18 19:01 DC 02/12/18 19:08 650 MG Allergies Allergies Allergies Coded Allergies Type Severity Reaction Last Updated Verified No Known Drug Allergies 02/10/16 No Physical Exam Physical Exam Constitutional: Well developed, well nourished, no acute distress, non-toxic appearance. [] HENT: Normocephalic, atraumatic, bilateral external ears normal, oropharynx moist, no oral exudates, nose normal. [] Eyes: PERRLA, EOMI, conjunctiva normal, no discharge. [] Neck: Normal range of motion, no tenderness, supple, no stridor. [] Cardiovascular:Heart rate regular rhythm, no murmur [] Lungs & Thorax: Bilateral breath sounds clear to auscultation [] Abdomen: Bowel sounds normal, soft, no tenderness, no masses, no pulsatile masses. [] Skin: Right lower ankle scratch that has turned into an infected wound with purulent drainage. Warm, dry, no erythema, no rash. [] Back: No tenderness, no CVA tenderness. [] Extremities: No tenderness, no cyanosis, no clubbing, ROM intact, no edema. [] Neurologic: Alert and oriented X 3, normal motor function, normal sensory function, no focal deficits noted. [] Psychologic: Affect normal, judgement normal, mood normal. [] Current Patient Data Vital Signs Vital Signs Date Time Temp Pulse Resp B/P (MAP) Pulse Ox O2 Delivery O2 Flow Rate FiO2 02/12/18 19:54 60 125/79 (94) Room Air 02/12/18 18:20 97.8 18 98 97.8 EKG EKG [] Radiology/Procedures Radiology/Procedures [] Impressions: [facility] [address] [place] [address] IMAGING REPORT Signed PATIENT: MARNIE FRIEDMAN ACCOUNT: [id number] : 1950 LOCATION: ER AGE: 67 SEX: M EXAM STATUS: REG ER ORD. PHYSICIAN: DOT MENDOZA APRN REASON: wound PROCEDURE: ANKLE RIGHT 3V EXAM: AP, oblique and lateral views of the right ankle DATE: 02/12/2018 6:57 PM INDICATION: Ankle superficial laceration and infection COMPARISON: 07/24/2016, 08/24/2017 FINDINGS/ IMPRESSION: Soft tissue swelling overlying the ankle joint without subjacent osseous erosive/destructive change or periostitis. No evidence of acute fracture or dislocation. Ankle mortise is congruent. Talar dome is intact. Calcaneal enthesopathy Electronically signed by: Gaston Roy MD (02/12/2018 7:54 PM) [facility] DICTATED and SIGNED BY: GASTON ROY MD DATE: 02/12/181951 Course & Med Decision Making Course & Med Decision Making Patient is a 67 year old male who presents with stating his right lower leg is been itching a lot and continued itching his right lower leg of which now he has a open infected scratch sandra. He has several scratch vieira that are healed over. The open area purulent drainage. Scrap that is infected is approximately 4 -5 inches in length. Edges are approximated, superficial. There is no redness or cellulitis around the infected skin. He states it's been going on for last 4 days. Denies fevers. Patient rates his pain 9 out of 10 but states he's been out of his Tylenol but usually takes. Alert and oriented. No known drug allergies. Patient denies being a diabetic and states he has hypertension, arthritis, high cholesterol, emphysema, chronic pain. Patient is ambulatory. Afebrile. Skin is pink warm and dry. Pedal pulse present and strong the right leg. There is no swelling in any of his extremities. Lungs are clear to auscultation. X-ray of the right lower leg and ankle show Soft tissue swelling overlying the ankle joint without subjacent osseous erosive/destructive change or periostitis. No evidence of acute fracture or dislocation. Ankle mortise is congruent. Talar dome is intact. Calcaneal enthesopathy. Patient will be given an antibiotic and that we will be cleaned with Betadine and saline. I will refer the patient to infectious disease for wound care continuation. Also to the patient should come back in 48 hours to the ED so that we can recheck his wound to make sure it is getting better and not worse. Dragon Disclaimer Dragon Disclaimer This electronic medical record was generated, in whole or in part, using a voice recognition dictation system. Departure Departure Impression: Primary Impression: Skin infection Disposition: 01 HOME, SELF-CARE Condition: STABLE Referrals: TIANA POTTER MD (PCP) Patient Instructions: Wound Infection Additional Instructions: Follow-up with her primary care doctor or return to the ED in 48 hours for a wound check. Take medications as prescribed. Scripts Cephalexin (KEFLEX) 500 Mg Capsule 500 MG PO QID for 7 Days, #28 CAP Prov: DOT MENDOZA APRN 02/12/18 Attending Signature Attending Signature I have reviewed the PA/CIRCULATION MANAGER's note and plan of care. I was available for consultation as needed during the patient's visit in the emergency department. I agree with the clinical impression, plan, and disposition. DOT MENDOZA APRN Feb 12, 2018 18:58 PRATIMA TELLES DO Feb 14, 2018 11:00
[2018-02-12] MEDS ORDERED: ACETAMINOPHEN 325 MG TABLET. PO ONE (19:00)
[2018-02-12 19:54] VITALS: BP 125/79
--- NOTE | 2018-02-12 19:57 | RAD ---
EXAM: AP, oblique and lateral views of the right ankle DATE: 02/12/2018 6:57 PM INDICATION: Ankle superficial laceration and infection COMPARISON: 07/24/2016, 08/24/2017 FINDINGS/ IMPRESSION: Soft tissue swelling overlying the ankle joint without subjacent osseous erosive/destructive change or periostitis. No evidence of acute fracture or dislocation. Ankle mortise is congruent. Talar dome is intact. Calcaneal enthesopathy Electronically signed by: Gaston Manuel MD (02/12/2018 7:54 PM) [facility]
[2018-02-12] MEDS ORDERED: CEPH-264 PO (20:13)
== END 2018-02-12 20:32 | disposition home or self-care (01) ==
LOC: ER 17:17
DX: L08.89 Other specified local infections of the skin and subcutaneous tissue (principal); K21.9 Gastro-esophageal reflux disease without esophagitis; E78.00 Pure hypercholesterolemia, unspecified; J44.9 Chronic obstructive pulmonary disease, unspecified; I10 Essential (primary) hypertension; G89.29 Other chronic pain; I25.2 Old myocardial infarction; Q87.40 Marfan syndrome, unspecified; Z95.0 Presence of cardiac pacemaker; F17.220 Nicotine dependence, chewing tobacco, uncomplicated
CPT/HCPCS: 73610; 99284

== ENCOUNTER 2018-08-15 11:51 | Emergency (ER) | payer BC ==
[~2018-08-15] VITALS: Ht 172.7 cm; Wt 59.9 kg
[~2018-08-15 11:51] MED LIST changes: +CEPH-264 PO; -HYDR-2758 PO; +HYDR-2761 PO; +SIMV80TA17 PO; -SIMV80TA7 PO
[2018-08-15 13:19] LABS: BASO % 1 % (0-3); EOS # 0.1 x10^3/uL (0.0-0.7); EOS % 1 % (0-3); HEMOGLOBIN 15.2 g/dL (13.0-17.5); LYMPH # 1.5 x10^3/uL (1.0-4.8); LYMPH % 21 % (24-48); MEAN CORPUSCULAR HEMOGLOBIN 31 pg (25-35); MEAN CORPUSCULAR HGB CONC 33 g/dL (31-37); MEAN CORPUSCULAR VOLUME 92 fL (79-100); MONO # 0.7 x10^3/uL (0.0-1.1); MONO % 10 % (0-9); NEUT # 4.8 x10^3uL (1.8-7.7); NEUT % 68 % (31-73); PLATELET COUNT 118 x10^3/uL (140-400); RED BLOOD COUNT 4.98 x10^6/uL (4.30-5.70); RED CELL DISTRIBUTION WIDTH 13.7 % (11.5-14.5); WHITE BLOOD COUNT 7.1 x10^3/uL (4.0-11.0)
--- NOTE | 2018-08-15 13:21 | RAD ---
Examination single frontal view of the chest HISTORY: History of chest pain COMPARISON: 07/26/2017 FINDINGS: The cardiomediastinal silhouette grossly appears unremarkable. Hyperinflated lungs likely changes of COPD. Left-sided cardiac pacer is identified IMPRESSION: 1. Changes of COPD. Electronically signed by: John Choi MD (08/15/2018 1:18 PM) [facility]
[2018-08-15 13:23] LABS: CALCIUM 9.8 mg/dL (8.5-10.1); GFR 74.8; POTASSIUM 4.6 mmol/L (3.5-5.1)
[2018-08-15 13:29] LABS: ALBUMIN/GLOBULIN RATIO 1.3 (1.0-1.7); TOTAL BILIRUBIN 0.5 mg/dL (0.2-1.0)
[2018-08-15] MEDS ORDERED: IOHEXOL 350 MG/ML 100 ML VIAL. IV ONE (13:30)
[2018-08-15 13:45] LABS: PROTHROMBIN TIME PATIENT 14.1 SEC (11.7-14.0)
--- NOTE | 2018-08-15 14:10 | PHYS DOC ---
Past Medical History Past Medical History: Arthritis, COPD, GERD, High Cholesterol, Hypertension, PR, Other Additional Past Medical Histor: Marfan syndrome,chronic pain,prostate problems,VERTIGO Past Surgical History: Pacemaker, Other Additional Past Surgical Histo: Lower Back, Neck Alcohol Use: Rarely Drug Use: None Adult General Chief Complaint Chief Complaint: NEURO SYMPTOMS/DEFICITS HPI HPI Patient is a 67 year old male who presents with chief complaint of chest pain and left leg weakness. Apparently this patient has frequent visits for similar complaints. He has a history of known Marfan's disease he says he's had chest pain since this morning comes and goes he said it, feels like when he has to come to the hospital he gets nervous it causes chest pain He says the pain is coming just sharp in the center of the chest and on the upper chest nonradiating last night he was sitting watching a show and he noticed some left leg weakness and numbness. This is usually] research shooting pains down his legs before but this seemed to come on pretty suddenly no trauma he says his left leg still feels numb no bowel or bladder incontinence. He does walk with a walker he is still unable to do that. He reports mild headache Review of Systems Review of Systems Constitutional: Denies fever or chills [] Eyes: Denies change in visual acuity, redness, or eye pain [] HENT: Denies nasal congestion or sore throat [] Respiratory: Denies cough or shortness of breath [] Musculoskeletal: Endocrine: Denies polyuria or polydipsia [] All other systems were reviewed and found to be within normal limits, except as documented in this note. Current Medications Current Medications Current Medications Medications (Trade) Dose Ordered Sig/Marcia Start Time Stop Time Status Last Admin Dose Admin Iohexol (Omnipaque 350 Mg/ml) 90 ml 1X ONCE 08/15/18 13:30 08/15/18 13:31 DC 08/15/18 13:30 90 ML Allergies Allergies Allergies Coded Allergies Type Severity Reaction Last Updated Verified No Known Drug Allergies 02/10/16 No Physical Exam Physical Exam Constitutional: Patient has obvious stigmata of Marfan syndrome HENT: Normocephalic, atraumatic, bilateral external ears normal, oropharynx moist, no oral exudates, nose normal. [] Eyes: PERRLA, EOMI, conjunctiva normal, no discharge. [] Neck: Normal range of motion, no tenderness, supple, no stridor. [] Cardiovascular:Heart rate regular rhythm, 2/6 systolic ejection murmur noted Lungs & Thorax: Bilateral breath sounds clear to auscultation [] Abdomen: Bowel sounds normal, soft, no tenderness, no masses, no pulsatile masses. [] Skin: Warm, dry, no erythema, no rash. [] Back: No tenderness, no CVA tenderness. [] Extremities: No tenderness, no cyanosis, no clubbing, ROM intact, no edema. [] Neurologic: There is some decreased sensation to light touch in the left lower extremity I would say there is subtle drift of the left lower extremity but could be related to some discomfort and pain. When I asked him to repeated the exam did improve upper extremity is intact throughout strength and sensation cardioversion tach Psychologic: Affect normal, judgement normal, mood normal. [] Current Patient Data Vital Signs Vital Signs Date Time Temp Pulse Resp B/P (MAP) Pulse Ox O2 Delivery O2 Flow Rate FiO2 08/15/18 15:30 46 127/85 (99) 100 Room Air 08/15/18 12:33 97.7 17 97.7 Lab Values Laboratory Tests Test 08/15/18 12:50 White Blood Count 7.1 x10^3/uL (4.0-11.0) Red Blood Count 4.98 x10^6/uL (4.30-5.70) Hemoglobin 15.2 g/dL (13.0-17.5) Hematocrit 46.0 % (39.0-53.0) Mean Corpuscular Volume 92 fL (79-100) Mean Corpuscular Hemoglobin 31 pg (25-35) Mean Corpuscular Hemoglobin Concent 33 g/dL (31-37) Red Cell Distribution Width 13.7 % (11.5-14.5) Platelet Count 118 x10^3/uL (140-400) L Neutrophils (%) (Auto) 68 % (31-73) Lymphocytes (%) (Auto) 21 % (24-48) L Monocytes (%) (Auto) 10 % (0-9) H Eosinophils (%) (Auto) 1 % (0-3) Basophils (%) (Auto) 1 % (0-3) Neutrophils # (Auto) 4.8 x10^3uL (1.8-7.7) Lymphocytes # (Auto) 1.5 x10^3/uL (1.0-4.8) Monocytes # (Auto) 0.7 x10^3/uL (0.0-1.1) Eosinophils # (Auto) 0.1 x10^3/uL (0.0-0.7) Basophils # (Auto) 0.0 x10^3/uL (0.0-0.2) Platelet Estimate Pending Prothrombin Time 14.1 SEC (11.7-14.0) H Prothrombin Time INR 1.1 (0.8-1.1) Sodium Level 142 mmol/L (136-145) Potassium Level 4.6 mmol/L (3.5-5.1) Chloride Level 106 mmol/L (98-107) Carbon Dioxide Level 25 mmol/L (21-32) Anion Gap 11 (6-14) Blood Urea Nitrogen 22 mg/dL (8-26) Creatinine 1.0 mg/dL (0.7-1.3) Estimated GFR (Cockcroft-Gault) 74.8 BUN/Creatinine Ratio 22 (6-20) H Glucose Level 101 mg/dL (70-99) H Calcium Level 9.8 mg/dL (8.5-10.1) Total Bilirubin 0.5 mg/dL (0.2-1.0) Aspartate Amino Transferase (AST) 18 U/L (15-37) Alanine Aminotransferase (ALT) 24 U/L (16-63) Alkaline Phosphatase 76 U/L (46-116) Troponin I Quantitative < 0.017 ng/mL (0.000-0.055) Total Protein 7.0 g/dL (6.4-8.2) Albumin 4.0 g/dL (3.4-5.0) Albumin/Globulin Ratio 1.3 (1.0-1.7) Laboratory Tests 08/15/18 12:50 Laboratory Tests 08/15/18 12:50 EKG EKG []EKG shows a normal sinus rhythm with a rate of [address] elevation was noted nonspecific changes high lateral no STEMI Radiology/Procedures Radiology/Procedures [] Impressions: CT scan I did receive a paper report that said head CT was negative acute and CT angiogram of the chest abdomen pelvis showed no aortic dissection Course & Med Decision Making Course & Med Decision Making Pertinent Labs and Imaging studies reviewed. (See chart for details) []67-year-old male frequent ER visits he has a pacemaker he has Marfan syndrome he has DJD of the low back is complaining of tingling and some weakness left lower extremity this is likely radicular in nature. Chest pain sounds atypical has frequent ER visits for same. I spoke with Dr. Potter the patient's primary care doctorthis patient very well as well as the above complaints feels that given the negative workup it's okay to send the patient home I agree Dragon Disclaimer Dragon Disclaimer This electronic medical record was generated, in whole or in part, using a voice recognition dictation system. Departure Departure Impression: Primary Impression: Chronic back pain Disposition: HOME, SELF-CARE Condition: STABLE Referrals: TIANA POTTER MD (PCP) CHICO SUERO MD August 15, 2018 14:10
[2018-08-15 15:30] VITALS: BP 127/85
[2018-08-15 18:40] LABS: ANISOCYTOSIS SLIGHT; PLT ESTIMATE ADEQUATE (ADEQUATE)
--- NOTE | 2018-08-16 09:45 | EKG ---
[facility] [address] [place] [address] Test Date: 2018-08-15 Test Time: 12:43:32 Pat Name: MARNIE FRIEDMAN Department: Room: Gender: M Director Emergency Department: : 1950 Requested By: CHICO SUERO Order Number: [id number] Reading MD: Measurements Intervals [place] Rate: 81 P: 56 RI: 234 QRS: -51 QRSD: 100 T: 94 QT: 390 QTc: 458 Interpretive Statements SINUS RHYTHM PROLONGED RI INTERVAL INDETERMINATE AXIS INCOMPLETE RIGHT BUNDLE BRANCH BLOCK ST & T ABNORMALITY, CONSIDER HIGH LATERAL ISCHEMIA OR LEFT VENTRICULAR STRAIN NON SPECIFIC ST-T ABNORMALITY (ELEVATION) ABNORMAL ECG Compared to ECG 11/18/2017 16:09:23 First degree AV block now present Indeterminate axis now present
--- NOTE | 2018-08-16 09:46 | RAD ---
CT HEAD WO CONTRAST Clinical indications: Left leg weakness. COMPARISON: March 08, 2017. Technique: Noncontrast axial cross sectional scanning of the head was performed. PQRS compliance Statement One or more of the following individualized dose reduction techniques were utilized for this study: 1. Automated exposure control 2. Adjustment of the mA and/or kV according to patient size 3. Use of iterative reconstruction technique Findings: No acute intracranial hemorrhage or midline shift or mass-effect or hydrocephalus or extra-axial fluid collection is seen. Mild chronic periventricular white matter hypodensity is seen consistent with chronic small vessel ischemic disease in this age group. No skull fracture or pneumocephalus is seen. No opacification of the mastoid sinuses or the paranasal sinuses is seen. The maxillary sinuses are not completely seen in this study. Impression: No acute intracranial abnormality is seen. Mild chronic small vessel ischemic disease. Electronically signed by: Manny Huertas MD (08/15/2018 1:54 PM) [id number]
--- NOTE | 2018-08-16 09:48 | RAD ---
CTA OF THE CHEST ABDOMEN AND PELVIS WITH AND WITHOUT CONTRAST Clinical indications: Chest pain. Left leg weakness. History of Marfan's disease. Comparison is made to prior studies dated June 29, 2017 and October 12, 2017. TECHNIQUE: Noncontrast helical CT scanning of the chest and abdomen and pelvis was performed. After IV infusion of 70 mL of Omnipaque 350, repeat helical CT scanning of the chest and abdomen and pelvis was performed. Multiplanar 2-D NIP reconstructions were generated. Using a MIP algorithm, a 3-D reconstructed thoracic and abdominal aortogram was generated. PQRS compliance Statement One or more of the following individualized dose reduction techniques were utilized for this study: 1. Automated exposure control 2. Adjustment of the mA and/or kV according to patient size 3. Use of iterative reconstruction technique CHEST CTA FINDINGS: Again seen is narrowing of the origin of the vertebral arteries on both sides. Otherwise both vertebral arteries enhance. The right vertebral artery is dominant. No thoracic aortic dissection or focal aneurysmal dilatation is evident. Caliber of the ascending aorta is 3.5 cm. The transverse dimension of the heart is accentuated due to a severe pectus deformity. No pericardial effusion is seen otherwise. No enlarged thoracic lymphadenopathy is evident. Biapical pleural thickening is seen. No pleural effusion or pneumothorax is evident. No lung mass or lung consolidation is evident. Proximal bronchial tree is patent. No acute lung infiltrate is seen. ABDOMEN AND PELVIS CTA FINDINGS: No abdominal aortic dissection or focal aneurysmal dilatation is seen. The SMA and EKTA and celiac arteries are patent without significant stenosis. Both main renal arteries are patent without significant stenosis. There is an accessory inferior renal artery on the right side. There is calcified plaque formation within the left common iliac artery which is less than 50%. The spleen is not enlarged. This pancreas and liver are unremarkable. The gallbladder is small in size. No extra hepatic biliary ductal dilatation is seen. No adrenal mass is evident. Both kidneys are normal. No enlarged abdominal or pelvic lymphadenopathy is evident. No obstructive bowel pattern is seen. The appendix is normal. No free air or free fluid or mesenteric edema is seen. The prostate gland is enlarged. There is nodularity of the floor of the urinary bladder contiguous with the prostate gland. The prostate gland measures 6.2 cm transversely. No lytic process is seen. IMPRESSION: No thoracic or abdominal aortic aneurysm/dissection is seen. Enlarged prostate gland. There is a nodule within the base of the urinary bladder which is contiguous with the enlarged prostate gland. Therefore, this may be related to prostatic enlargement. Urinary bladder neoplasm cannot be excluded. This was seen previously and is unchanged. It measures 3.0 cm transversely and 2.2 cm in AP dimension. Electronically signed by: Manny Huertas MD (08/15/2018 2:35 PM) [id number]
== END 2018-08-15 17:01 | disposition home or self-care (01) ==
LOC: ER 11:51
DX: M54.5 Low back pain (principal); G89.29 Other chronic pain; R07.89 Other chest pain; R53.1 Weakness; R20.0 Anesthesia of skin; R51 Headache; J44.9 Chronic obstructive pulmonary disease, unspecified; K21.9 Gastro-esophageal reflux disease without esophagitis; M19.90 Unspecified osteoarthritis, unspecified site; E78.00 Pure hypercholesterolemia, unspecified; I10 Essential (primary) hypertension; I25.2 Old myocardial infarction; Z95.0 Presence of cardiac pacemaker; Z98.890 Other specified postprocedural states
CPT/HCPCS: 36415; 70450; 71045; 71275; 74174; 80053; 84484; 85025; 85610; 93005; 99285; Q9967

== ENCOUNTER 2018-11-12 15:50 | Emergency (ER) | payer BC ==
[~2018-11-12] VITALS: Ht 188 cm; Wt 60.3 kg
[~2018-11-12 15:50] MED LIST changes: +METH4TAB2 PO
--- NOTE | 2018-11-12 16:06 | PHYS DOC ---
Past Medical History Past Medical History: Arthritis, COPD, GERD, High Cholesterol, Hypertension, [place], Other Additional Past Medical Histor: Marfan syndrome,chronic pain,prostate problems,VERTIGO Past Surgical History: Pacemaker, Other Additional Past Surgical Histo: Lower Back, Neck Alcohol Use: Rarely Drug Use: None Adult General Chief Complaint Chief Complaint: LOWER EXT PAIN HPI HPI Patient is a 68 year old male who presents to the ER with complaints of left low back pain that radiates down his left leg to his ankle for the last 2 days. Pt states that his leg has given out twice today, the first time he fell and landed on his left hip. The second time he was here in the ER and the triage nurse caught him. PT states that the pain began before he had any injury. He currently rates his pain a 10/10 on the pain scale. He also complaints of some dull chest pain that he states he always has with his Marfan's syndrome. Review of Systems Review of Systems Constitutional: Denies fever or chills [] Eyes: Denies change in visual acuity, redness, or eye pain [] HENT: Denies nasal congestion or sore throat [] Respiratory: Denies cough or shortness of breath [] Cardiovascular: No additional information not addressed in HPI, denies palpitations, denies extremity swelling[] GI: Denies abdominal pain, nausea, vomiting, or diarrhea [] : Denies dysuria or hematuria [] Musculoskeletal: see HPI Integument: Denies rash or skin lesions [] Neurologic: Denies headache, focal weakness or sensory changes [] Complete systems were reviewed and found to be within normal limits, except as documented in this note. Current Medications Current Medications Current Medications Medications (Trade) Dose Ordered Sig/Marcia Start Time Stop Time Status Last Admin Dose Admin Dexamethasone Sodium Phosphate (Decadron) 20 mg STK-MED ONCE 11/12/18 17:37 11/12/18 17:37 DC Ketorolac Tromethamine (Toradol Im) 30 mg 1X ONCE 11/12/18 17:30 11/12/18 17:31 Cancel Orphenadrine Citrate (Norflex) 60 mg 1X ONCE 11/12/18 17:30 11/12/18 17:40 DC 11/12/18 17:36 60 MG Allergies Allergies Allergies Coded Allergies Type Severity Reaction Last Updated Verified No Known Drug Allergies 02/10/16 No Physical Exam Physical Exam Constitutional: Well developed, well nourished, no acute distress, non-toxic appearance. [] HENT: Normocephalic, atraumatic, bilateral external ears normal, nose normal. [] Eyes: conjunctiva normal, no discharge. [] Neck: Normal range of motion, no stridor. [] Cardiovascular:Heart rate regular rhythm Lungs & Thorax: Bilateral breath sounds clear to auscultation [] Skin: Warm, dry, no erythema, no rash. [] Back: left lumbar paraspinal TTP, increased pain in LLE with straight leg lift; no CVA tenderness. Extremities: No cyanosis, no clubbing, ROM intact, no edema; Left hip TTP, no deformity or crepitus Neurologic: Alert and oriented X 3, no focal deficits noted. [] Psychologic: Affect normal, judgement normal, mood normal. [] Current Patient Data Vital Signs Vital Signs Date Time Temp Pulse Resp B/P (MAP) Pulse Ox O2 Delivery O2 Flow Rate FiO2 11/12/18 19:10 70 20 162/93 (116) 99 Room Air 11/12/18 15:58 97.7 97.7 Lab Values Laboratory Tests Test 11/12/18 16:10 11/12/18 17:24 White Blood Count 5.8 x10^3/uL (4.0-11.0) Red Blood Count 4.62 x10^6/uL (4.30-5.70) Hemoglobin 14.4 g/dL (13.0-17.5) Hematocrit 42.0 % (39.0-53.0) Mean Corpuscular Volume 91 fL (79-100) Mean Corpuscular Hemoglobin 31 pg (25-35) Mean Corpuscular Hemoglobin Concent 34 g/dL (31-37) Red Cell Distribution Width 13.6 % (11.5-14.5) Platelet Count 88 x10^3/uL (140-400) L Neutrophils (%) (Auto) 63 % (31-73) Lymphocytes (%) (Auto) 23 % (24-48) L Monocytes (%) (Auto) 10 % (0-9) H Eosinophils (%) (Auto) 3 % (0-3) Basophils (%) (Auto) 1 % (0-3) Neutrophils # (Auto) 3.7 x10^3/uL (1.8-7.7) Lymphocytes # (Auto) 1.3 x10^3/uL (1.0-4.8) Monocytes # (Auto) 0.6 x10^3/uL (0.0-1.1) Eosinophils # (Auto) 0.2 x10^3/uL (0.0-0.7) Basophils # (Auto) 0.0 x10^3/uL (0.0-0.2) Prothrombin Time 13.7 SEC (11.7-14.0) Prothrombin Time INR 1.1 (0.8-1.1) Activated Partial Thromboplast Time 30 SEC (24-38) D-Dimer (Alexandra) 0.39 ug/mlFEU (0.00-0.50) Sodium Level 142 mmol/L (136-145) Potassium Level 3.6 mmol/L (3.5-5.1) Chloride Level 105 mmol/L (98-107) Carbon Dioxide Level 27 mmol/L (21-32) Anion Gap 10 (6-14) Blood Urea Nitrogen 17 mg/dL (8-26) Creatinine 1.1 mg/dL (0.7-1.3) Estimated GFR (Cockcroft-Gault) 66.8 BUN/Creatinine Ratio 15 (6-20) Glucose Level 122 mg/dL (70-99) H Calcium Level 9.4 mg/dL (8.5-10.1) Magnesium Level 1.8 mg/dL (1.8-2.4) Total Bilirubin 0.4 mg/dL (0.2-1.0) Aspartate Amino Transferase (AST) 16 U/L (15-37) Alanine Aminotransferase (ALT) 22 U/L (16-63) Alkaline Phosphatase 68 U/L (46-116) Creatine Kinase 97 U/L (39-308) Creatine Kinase MB (Mass) 0.7 ng/mL (0.0-3.6) Creatine Kinase MB Relative Index 0.7 % (0-4) Troponin I Quantitative < 0.017 ng/mL (0.000-0.055) LF-Sle-N-Type Natriuretic Peptide 154 pg/mL (0-124) H Total Protein 7.2 g/dL (6.4-8.2) Albumin 3.8 g/dL (3.4-5.0) Albumin/Globulin Ratio 1.1 (1.0-1.7) Urine Collection Type Unknown Urine Color Yellow Urine Clarity Cloudy Urine pH 8.0 Urine Specific [place] 1.020 Urine Protein Negative mg/dL (NEG-TRACE) Urine Glucose (UA) Negative mg/dL (NEG) Urine Ketones (Stick) Negative mg/dL (NEG) Urine Blood Negative (NEG) Urine Nitrite Negative (NEG) Urine Bilirubin Negative (NEG) Urine Urobilinogen Dipstick 1.0 mg/dL (0.2 mg/dL) Urine Leukocyte Esterase Negative (NEG) Urine RBC 0 /HPF (0-2) Urine WBC 0 /HPF (0-4) Urine Amorphous Sediment Present /HPF Urine Bacteria 0 /HPF (0-FEW) Urine Hyaline Casts Occasional /HPF Urine Mucus Mod /LPF Laboratory Tests 11/12/18 16:10 Laboratory Tests 11/12/18 16:10 EKG EKG 1619- SR rate 77, Abnormal left axis deviation, consider right ventricular hypertrophy, T abnormality in high lateral leads, prolonged QT. NO STEMI read by Dr. Gaspar [] Radiology/Procedures Radiology/Procedures PROCEDURE: HIP LEFT 2V WITH PELVIS Exam: Left hip 2 views with AP pelvis INDICATION: Left hip pain after fall TECHNIQUE: Frontal view of the pelvis with frontal and lateral views of the left hip. Comparisons: None FINDINGS: Bone mineralization is normal. No acute or healed fractures. Soft tissues are unremarkable. Joint spaces are well-maintained. IMPRESSION: No acute osseous abnormality.[] Course & Med Decision Making Course & Med Decision Making Pertinent Labs and Imaging studies reviewed. (See chart for details) dx: Left low back pain with sciatica L hip xray negative for acute findings or fracture. EKG no acute changes. CBC unremarkable, CMP: glucose 122, BNP 154, troponin <0.017, PT/INR normal, UA negative EKG no acute changes Pt was given orphenadrine and decadron in the ER. Reports some relief of pain and was able with walk with Jack COLINDRES in the ER. Pt states he has a walker to use at home. He lives with his brother. Prescription written for prednisone and orphenadrine. Recommend pt follow up with Dr. Cunningham for further management of his chronic pain. Patient verbalized an understanding of home care, medications, follow-up, and return to ED instructions and was in agreement with the plan of care. [] Dragon Disclaimer Dragon Disclaimer This electronic medical record was generated, in whole or in part, using a voice recognition dictation system. Departure Departure Impression: Primary Impression: Left low back pain Disposition: HOME, SELF-CARE Condition: STABLE Referrals: TIANA POTTER MD (PCP) SAURAV CUNNINGHAM MD Patient Instructions: Sciatica, [id number] Additional Instructions: FILL THE PRESCRIPTION AND USE DIRECTED. FOLLOW UP WITH DR. CUNNINGHAM FOR FURTHER PAIN MANAGEMENT, RETURN TO THE ER IF SYMPTOMS WORSEN. USE YOUR WALKER AT HOME. Scripts Orphenadrine Citrate (ORPHENADRINE CITRATE) 100 Mg Tablet.er 1 TAB PO BID PRN for PAIN for 10 Days, #20 TAB 0 Refills Prov: RAQUEL KEVIN APRN 11/12/18 Prednisone (PREDNISONE) 20 Mg Tablet 2 TAB PO DAILY for 4 Days, #8 TAB 0 Refills START TAKING ON 11/13/18 Prov: RAQUEL KEVIN APRN 11/12/18 Problem Qualifiers Primary Impression: Left low back pain Chronicity: acute Sciatica presence: with sciatica Sciatica laterality: sciatica of left side Qualified Codes: M54.42 - Lumbago with sciatica, left side RAQUEL KEVIN TECHNICAL INTERN Nov 12, 2018 16:06
[2018-11-12 16:39] LABS: BASO % 1 % (0-3); EOS # 0.2 x10^3/uL (0.0-0.7); EOS % 3 % (0-3); HEMOGLOBIN 14.4 g/dL (13.0-17.5); LYMPH # 1.3 x10^3/uL (1.0-4.8); LYMPH % 23 % (24-48); MEAN CORPUSCULAR HEMOGLOBIN 31 pg (25-35); MEAN CORPUSCULAR HGB CONC 34 g/dL (31-37); MEAN CORPUSCULAR VOLUME 91 fL (79-100); MONO # 0.6 x10^3/uL (0.0-1.1); MONO % 10 % (0-9); NEUT # 3.7 x10^3/uL (1.8-7.7); NEUT % 63 % (31-73); PLATELET COUNT 88 x10^3/uL (140-400); RED BLOOD COUNT 4.62 x10^6/uL (4.30-5.70); RED CELL DISTRIBUTION WIDTH 13.6 % (11.5-14.5); WHITE BLOOD COUNT 5.8 x10^3/uL (4.0-11.0)
[2018-11-12 16:46] LABS: PROTHROMBIN TIME PATIENT 13.7 SEC (11.7-14.0)
[2018-11-12 16:53] LABS: CALCIUM 9.4 mg/dL (8.5-10.1); CREATININE 1.1 mg/dL (0.7-1.3)
[2018-11-12 16:54] LABS: GFR 66.8; POTASSIUM 3.6 mmol/L (3.5-5.1)
[2018-11-12 16:58] LABS: D-DIMER 0.39 ug/mlFEU (0.00-0.50)
[2018-11-12 17:00] LABS: ALBUMIN 3.8 g/dL (3.4-5.0); ALBUMIN/GLOBULIN RATIO 1.1 (1.0-1.7); MAGNESIUM 1.8 mg/dL (1.8-2.4); TOTAL BILIRUBIN 0.4 mg/dL (0.2-1.0); TOTAL PROTEIN 7.2 g/dL (6.4-8.2)
--- NOTE | 2018-11-12 17:26 | EKG ---
[facility] [address] [place] [address] Test Date: 2018-11-12 Test Time: 16:19:59 Pat Name: MARNIE FRIEDMAN Department: Room: Gender: M Wharf Operator: : 1950 Requested By: RAQUEL KEVIN Order Number: [id number] Reading MD: Jean Claude Guidry MD Measurements Intervals [place] Rate: 77 P: 44 ID: [id number] QRS: -61 QRSD: 106 T: 85 QT: 416 QTc: 472 Interpretive Statements SINUS RHYTHM Electronically Signed On 11-18-2018 9:45:34 CDT by Jean Claude Guidry MD
[2018-11-12] MEDS ORDERED: ORPHENADRINE CITRATE 60 MG/2 ML VIAL. IV ONE (17:30)
[2018-11-12] MEDS ORDERED: KETOROLAC 60 MG/2 ML VIAL. IM ONE (17:30)
[2018-11-12] MEDS ORDERED: ORPHENADRINE CITRATE 60 MG/2 ML VIAL. IM ONE (17:30)
[2018-11-12] MEDS ORDERED: DEXAMETHASONE SOD PHOS 4 MG/ML VIAL IV ONE (17:30)
[2018-11-12 17:31] LABS: BILIRUBIN,URINE NEGATIVE (NEG); CLARITY,URINE CLOUDY; COLOR,URINE YELLOW; NITRITE,URINE NEGATIVE (NEG); PROTEIN,URINE NEGATIVE (NEG-TRACE)
[2018-11-12] MEDS ORDERED: DEXAMETHASONE SOD PHOS 20 MG/5 ML VIAL. ONE (17:37)
[2018-11-12 18:01] LABS: BACTERIA,URINE 0 /HPF (0-FEW); RBC,URINE 0 /HPF (0-2); WBC,URINE 0 /HPF (0-4)
[2018-11-12 18:02] LABS: AMORPHOUS SEDIMENT,UR PRESENT /HPF; HYALINE CASTS, URINE OCCASIONAL /HPF
--- NOTE | 2018-11-12 18:21 | RAD ---
Exam: Left hip 2 views with AP pelvis INDICATION: Left hip pain after fall TECHNIQUE: Frontal view of the pelvis with frontal and lateral views of the left hip. Comparisons: None FINDINGS: Bone mineralization is normal. No acute or healed fractures. Soft tissues are unremarkable. Joint spaces are well-maintained. IMPRESSION: No acute osseous abnormality. Electronically signed by: Rochelle Bird MD (11/12/2018 6:18 PM) [facility]
[2018-11-12 19:10] VITALS: BP 162/93
[2018-11-12] MEDS ORDERED: PRED20TA PO (19:18)
[2018-11-12] MEDS ORDERED: ORPH100T PO (19:18)
== END 2018-11-12 19:31 | disposition home or self-care (01) ==
LOC: ER 15:50
DX: M54.42 Lumbago with sciatica, left side (principal); G89.11 Acute pain due to trauma; M25.552 Pain in left hip; K21.9 Gastro-esophageal reflux disease without esophagitis; J44.9 Chronic obstructive pulmonary disease, unspecified; I10 Essential (primary) hypertension; I25.2 Old myocardial infarction; G89.29 Other chronic pain; Q87.40 Marfan syndrome, unspecified; Z95.0 Presence of cardiac pacemaker; W18.39XA Other fall on same level, initial encounter; Y93.89 Activity, other specified; Y92.89 Other specified places as the place of occurrence of the external cause; Y99.8 Other external cause status
CPT/HCPCS: 36415; 73502; 80053; 81001; 82553; 83735; 83880; 84484; 85025; 85379; 85610; 85730; 93005; 96374; 96375; 99285; J1100; J2360

== ENCOUNTER → 2018-12-14 | Outpatient (CLI) | payer BC, MEDICAID ==
[~2018-12-14] MED LIST changes: +ORPH100T PO; +PRED20TA PO; +REGADENOSON 0.4 MG/5 ML DISP.SYRIN. IV ONE
--- NOTE | 2018-12-14 11:48 | CARD ---
MR#: [id number] Date of Study: 12/14/2018 Ordering Physician: KAMARI MENON, Referring Physician: Froylan DUKE: Alice Quinn RDCS APPROVED REPORT EXAM: Two-dimensional and M-mode echocardiogram with Doppler and color Doppler. Other Information Quality : Technically Limited Technically limited study due to body habitus. INDICATION Mitral Valve Disease Marphan Syndrome Surgery/Intervention ICD/Pacemaker: 2D DIMENSIONS RVDd2.0 (2.9-3.5cm)Left Atrium(2D)1.9 (1.6-4.0cm) IVSd0.5 (0.7-1.1cm)Aortic Root(2D)3.0 (2.0-3.7cm) LVDd3.6 (3.9-5.9cm)LVOT Diameter2.0 (1.8-2.4cm) PWd0.6 (0.7-1.1cm)LVDs2.1 (2.5-4.0cm) FS (%) 30.0 %SV38.5 ml LVEF(%)60.0 (>50%) Aortic Valve AoV Peak Dao.55.4cm/sAoV VTI9.1cm AO Peak GR.1.2mmHgAO Mean GR.1mmHg Mitral Valve MV E Ijrxjzcc10.1cm/sMV DECEL [id number] MV A Paaqxhdr87.8cm/sE/A Ratio0.8 Tricuspid Valve TR P. Njnpnhec229sh/sRAP PAYJATRI5zkSk TR Peak Gr.[id number] LEFT VENTRICLE The left ventricle is normal size. There is normal left ventricular wall thickness. Left ventricle sy stolic function is grossly normal. The Ejection Fraction is 50-55%. Septal motion suggestive of condu ction defect. Transmitral Doppler flow pattern is Grade I-abnormal relaxation pattern. RIGHT VENTRICLE The right ventricle is normal size. The right ventricular systolic function is normal. There is a pac emaker lead in the right ventricle. ATRIA The left atrium size is normal. The right atrium size is normal. A pacemaker is seen in the right atr ium consistent with history. The interatrial septum is intact with no evidence for an atrial septal d efect or patent foramen ovale as noted on 2-D or Doppler imaging. AORTIC VALVE The aortic valve is calcified but opens well. Doppler and Color Flow revealed no significant aortic r egurgitation. There is no significant aortic valvular stenosis. MITRAL VALVE The anterior mitral valve leaflet appears myxomatous. A moderate anterior mitral valve prolapse is pr esent. There is no mitral valve stenosis. Doppler and Color-flow revealed trace to mild mitral eccent magalie regurgitation. TRICUSPID VALVE The tricuspid valve is normal in structure and function. Doppler and Color Flow revealed mild tricusp id regurgitation. The PA pressure was estimated at 17 mmHg. There is no tricuspid valve stenosis. PULMONIC VALVE The pulmonic valve is not well visualized. Doppler and Color Flow revealed mild pulmonic valvular reg urgitation. There is no pulmonic valvular stenosis. GREAT VESSELS The aortic root is normal in size. The ascending aorta is normal in size. The IVC is normal in size a nd collapses >50% with inspiration. PERICARDIAL EFFUSION There is no evidence of significant pericardial effusion. Critical Notification Critical Value: No <Conclusion> Left ventricle systolic function is grossly normal. The Ejection Fraction is 50-55%. Septal motion suggestive of conduction defect. There is a pacemaker lead in the right ventricle. The anterior mitral valve leaflet appears myxomatous. Doppler and Color-flow revealed trace to mild mitral eccentric regurgitation. Signed by : Jean Claude Guidry, Electronically Approved : 12/14/2018 11:48:04
--- NOTE | 2018-12-14 14:05 | RAD ---
MR#: [id number] Date of Study: 12/14/2018 Ordering Physician: KAMARI MENON, Referring Physician: NAEEM DUKE Tech: LIANNA Poe ARRT (R) (N) APPROVED REPORT Test Type: Pharmacological Stress Nurse/Tech: Lien Johnston R.N. Test Indications: a flutter Cardiac History: marfans syndrome, concave chest, htn, cad, high chol Medications: see ehr Medical History: see ehr Resting ECG: pacemaker regular Resting Heart Rate: 93 bpm Resting Blood Pressure: 97/64mmHg Pretest Chest Pain: No chest pain Nurse/Tech Notes lungs cta, heart tones regular Consent: The procedure was explained to the patient in lay terms. Informed consent was witnessed. Keon eout was entered into Xamarin. History and Stress Test performed by CAROLINA Hatch Pharm. Details Pharmacologic stress testing was performed using 0.4mg per 5ml of regadenoson given intravenously ove r 7-10 seconds. Stress Symptoms No chest pain or symptoms. POST EXERCISE Reason for Termination: Infusion complete Target HR: No Max HR: 124 bpm Max Blood Pressure: 116/65mmHg Chest Pain: No. Arrhythmia: No. ST Change: No. INTERPRETATION Stress EKG Conclusion: Baseline EKG showed sinus rhythm. No ischemic changes at peak stress. No arr hythmias. Imaging Protocol IMAGE PROTOCOL: Rest Tc-99m/stress Tc-99m 1 day Rest: Stress: Viability: Radiopharm.Tc99m YpmqkyjroDp94m Sestamibi Dose10.4mCi 33mCi Img Date 12/14/2018 12/14/2018 Inj-Img Whok16cmo. 60min. Rest Admin Site:IV - Right AntecubitalAdministrator:LIANNA Poe ARRT (R)(N) Stress Admin Site: IV - Right AntecubitalAdministrator: CAROLINA Hatch STRESS DATA End Diast. Vol.35.0mlAv. Heart Hzha261.0bpm End Syst. Vol.2.0mlCO Index BSA0.0L/min Myocardial Mass91.0gEject. Dkbmtjbc58.0% Stress Rates Pk. Fill Rate3.94EDV/secLVtime Pk. Fill 134.70msec Pk. Empty Rate6.01ESV/secLVtime Pk. Jyfze534.50msec 1/3 Pk. Fill1.20EDV/sec Stress Scores Regional WT1.00Summed WT9.00 Regional WM0.00Summed WM0.00 Study quality was good. Left Ventricular size was Normal at Rest and Stress. Lung uptake was . Left Ventricular ejection fraction is 91%. The rest and stress images show normal perfusion, normal contraction and thickening. LV Perf. Quant 17 Seg. SSS0.00 17 Seg. SRS1.00 17 Seg. SDS0.00 Stress Defect Extent (% LAD)0.00Rest Defect Extent (% LAD)0.00Rev. Defect Extent (% LAD)0.00 Stress Defect Extent (% LCX) 0.00Rest Defect Extent (% LCX)17.50Rev. Defect Extent (% LCX)0.00 Stress Defect Extent (% RCA)0.00Rest Defect Extent (% RCA)0.00Rev. Defect Extent (% RCA)0.00 Stress Defect Extent (% BENJAMIN)0.00Rest Defect Extent (% BENJAMIN)3.00Rev. Defect Extent (% BENJAMIN)0.00 Conclusion 1. Regadenoson cardioisotope stress test did not show any evidence of ischemia or infarct. 2. Normal left ventricular systolic function with ejection fraction calculated at 91%. 3. Low risk for cardiac events. Signed by : Kamari Menon, Electronically Approved : 12/14/2018 14:04:49
== END | disposition home or self-care (01) ==
LOC: NM 09:27
PROVIDERS: ATTEND Internal Medicine Cardiovascular Disease
DX: I08.8 Other rheumatic multiple valve diseases (principal); I48.92 Unspecified atrial flutter; Q87.40 Marfan syndrome, unspecified; I10 Essential (primary) hypertension; I25.10 Atherosclerotic heart disease of native coronary artery without angina pectoris; Z95.0 Presence of cardiac pacemaker
CPT/HCPCS: 78452; 93017; 93306; A9500; J2785

== ENCOUNTER → 2019-06-14 | Outpatient (CLI) | payer BC, OTHER ==
[~2019-06-14] MED LIST changes: +CONTRAST GIVEN. MC PRN; +IOHEXOL 350 MG/ML 100 ML VIAL. IV ONE; -REGADENOSON 0.4 MG/5 ML DISP.SYRIN. IV ONE; +SIMV20TA18 PO; -SIMV20TA3 PO
[2019-06-14 09:54] LABS: CREATININE 1.1 mg/dL (0.7-1.3); GFR 66.8
--- NOTE | 2019-06-14 13:44 | RAD ---
PQRS Compliance Statement: One or more of the following individualized dose reduction techniques were utilized for this examination: 1. Automated exposure control 2. Adjustment of the mA and/or kV according to patient size 3. Use of iterative reconstruction technique CT ANGIOGRAPHY CHEST Clinical Indication: Aortic dilatation. Comparison: CT chest with contrast, September 15. TECHNIQUE: Helical CT imaging of the chest is performed after 84 cc of Omnipaque 350 using angiogram protocol. 3-D MIP and volume rendering reconstructions of the thoracic aorta. Findings: There is left chest dual-chamber pacer. Visualized thyroid is symmetric. There is no adenopathy in the chest. Calcified right hilar lymph nodes. Severe pectus excavatum deformity is redemonstrated. The cardiac size is normal. No pericardial effusion. There is no thoracic aortic dissection. The ascending thoracic aorta measures 3.2 cm. There is pulsation artifact limiting evaluation but diameter at the sinuses of Valsalva is approximately 3.8 cm. Diameter at the sinotubular junction is 2.9 cm. Aortic arch branches are patent. The ascending thoracic aorta is normal caliber. Celiac artery, SMA, right renal artery, and 2 right renal arteries are patent. The upper abdominal aorta is normal caliber. Pleural parenchymal scarring in the lung apices is stable. Calcified granulomas right lower lobe. No lung consolidation. Groundglass opacities in the right lung on the prior study are no longer seen. The visualized upper abdomen is unremarkable. Anterior and posterior cervical spine fusion hardware, incompletely imaged. There is mild left convexity thoracic scoliosis. IMPRESSION: 1. The ascending thoracic aorta is normal caliber. 2. Groundglass opacities in the right lung noted on the prior study have resolved. Electronically signed by: Salazar Griggs MD (06/14/2019 1:41 PM) [id number]
== END | disposition home or self-care (01) ==
LOC: CT 10:14
PROVIDERS: ATTEND Internal Medicine Cardiovascular Disease
DX: M95.4 Acquired deformity of chest and rib (principal); J84.10 Pulmonary fibrosis, unspecified; I77.819 Aortic ectasia, unspecified site
CPT/HCPCS: 36415; 71275; 82565; 84520; Q9967

== ENCOUNTER 2019-11-05 16:30 | Emergency (ER) | payer OTHER ==
[~2019-11-05] VITALS: Ht 188 cm; Wt 60.4 kg
[~2019-11-05 16:30] MED LIST changes: -CONTRAST GIVEN. MC PRN; -DICL100G18 TP; +DICL100G54 TP; -IOHEXOL 350 MG/ML 100 ML VIAL. IV ONE
--- NOTE | 2019-11-05 17:05 | PHYS DOC ---
Past Medical History Past Medical History: Arthritis, COPD, GERD, High Cholesterol, Heart Disease, Hypertension, [place], Other Additional Past Medical Histor: Marfan syndrome,chronic pain,prostate problem s,VERTIGO Past Surgical History: Pacemaker, Other Additional Past Surgical Histo: Lower Back, Neck Smoking Status: Former Smoker Alcohol Use: Rarely Drug Use: None General Adult EDM: Chief Complaint: HAND PROBLEM HPI: HPI: Patient is a 69 year old male who presents for evaluation following a fall. Patient had a fall down a couple stairs 2 days ago. Patient hit his head did not have loss of consciousness but has had some mild headache since then patient primarily complains of left wrist and hand pain. Patient also says he is got chronic pain in the left knee but did not injure it. Pain is described as moderate worse with palpation and the left wrist pain radiates up to the left arm. Review of Systems: Review of Systems: Constitutional: Denies fever or chills. [] Eyes: Denies change in visual acuity. [] HENT: Denies nasal congestion or sore throat. [] Respiratory: Denies cough or shortness of breath. [] Cardiovascular: Denies chest pain or edema. [] GI: Denies abdominal pain, nausea, vomiting, bloody stools or diarrhea. [] : Denies dysuria. [] Musculoskeletal: Denies back pain or joint pain. [] Integument: Denies rash. [] Neurologic: Complains of headache but no, focal weakness or sensory changes. [] Endocrine: Denies polyuria or polydipsia. [] Lymphatic: Denies swollen glands. [] Psychiatric: Denies depression or anxiety. [] Heart Score: Risk Factors: Risk Factors: DM, Current or recent (<one month) smoker, HTN, HLP, family history of CAD, obesity. Risk Scores: Score 0 - 3: 2.5% MACE over next 6 weeks - Discharge Home Score 4 - 6: 20.3% MACE over next 6 weeks - Admit for Clinical Observation Score 7 - 10: 72.7% MACE over next 6 weeks - Early Invasive Strategies Allergies: Allergies: Allergies Coded Allergies Type Severity Reaction Last Updated Verified No Known Drug Allergies 02/10/16 No Physical Exam: PE: Constitutional: Well developed, well nourished, no acute distress, non-toxic appearance. [] HENT: Normocephalic, atraumatic, bilateral external ears normal, no trismus nose normal. [] Eyes: PERRLA, EOMI, conjunctiva normal, no discharge. [] Neck: Normal range of motion, no tenderness, supple, no stridor. [] Cardiovascular:Heart rate regular rhythm, pulses intact Lungs & Thorax: Bilateral breath sounds clear no respiratory distress Abdomen: Bowel sounds normal, soft, no tenderness, no masses, no pulsatile masses. [] Skin: Warm, dry, no erythema, no rash. [] Back: No tenderness, no CVA tenderness. [] Extremities: Minimal tenderness left knee. Mild tenderness to the left wrist and hand without obvious deformity. No snuffbox tenderness. Neurovascular intact distally. Neurologic: Alert and oriented X 3, normal motor function, normal sensory function, no focal deficits noted. [] Psychologic: Affect normal, judgement normal, mood normal. [] Current Patient Data: Vital Signs: Vital Signs Date Time Temp Pulse Resp B/P (MAP) Pulse Ox O2 Delivery O2 Flow Rate FiO2 11/05/19 17:09 98.1 93 16 126/72 (90) 99 Room Air 98.1 Vital Signs Date Time Temp Pulse Resp B/P (MAP) Pulse Ox O2 Delivery O2 Flow Rate FiO2 11/05/19 17:09 98.1 93 16 126/72 (90) 99 Room Air 98.1 EKG: EKG: [] Radiology/Procedures: Radiology/Procedures: [][facility] [address] [place] [address] IMAGING REPORT Signed PATIENT: MARNIE FRIEDMAN ACCOUNT: [id number] : 1950 LOCATION: ER AGE: 69 SEX: M EXAM STATUS: PRE ER ORD. PHYSICIAN: JILLIAN TELLEZ MD REASON: fall PROCEDURE: HAND LEFT 3V WRIST 3V LEFT, HAND LEFT 3V 11/05/2019 5:05 PM INDICATION: Fall COMPARISON: None available. TECHNIQUE: 3 views the right hand and 3 views the right wrist are provided. FINDINGS/ IMPRESSION: Mild joint space no involving the first carpometacarpal joint compatible with mild osteoarthrosis. Mild joint space narrowing involving interphalangeal joints of the second through fifth digits suggestive of mild osteoarthrosis. No acute fracture or dislocation. Bone mineralization is within normal limits. No significant soft tissue swelling. Electronically signed by: Mitzi Ames MD (11/05/2019 5:33 PM) [facility] DICTATED and SIGNED BY: MITZI AMES MD DATE: 11/05/191732 [facility] [address] [place] [address] IMAGING REPORT Signed PATIENT: MARNIE FRIEDMAN ACCOUNT: [id number] : 1950 LOCATION: ER AGE: 69 SEX: M EXAM STATUS: PRE ER ORD. PHYSICIAN: JILLIAN TELLEZ MD REASON: FELL DOWN STAIRS 2 DAYS AGO. PROCEDURE: CT HEAD WO CONTRAST Exam: CT head INDICATION: Fall downstairs TECHNIQUE: Sequential axial images through the head were obtained without the administration of IV contrast. Comparisons: None FINDINGS: No focal parenchymal lesion or hemorrhage is identified. There is no midline shift or sulcal effacement. Mild patchy hypodensity in the periventricular white matter. No acute vascular territory infarction is identified. Elder-white distinction is preserved. The ventricular system is within normal limits without compression hydrocephalus. The basal cisterns are well maintained. The visualized portions of the paranasal sinuses and mastoid air cells are well-pneumatized. No acute fractures. IMPRESSION: Mild small vessel ischemic change. No sequela of acute traumatic injury identified in the head. Exposure: One or more of the following in the visualized dose reduction techniques were utilized for this examination: 1. Automated exposure control 2. Adjustment of the MA and/or KV according to patient size Use of iterative of reconstructive technique Electronically signed by: Rochelle Wooten MD (11/05/2019 5:31 PM) [id number] DICTATED and SIGNED BY: ROCHELLE WOOTEN MD DATE: 11/05/191730 Course & Med Decision Making: Course & Med Decision Making Pertinent Labs and Imaging studies reviewed. (See chart for details) [] 69-year-old male presents with a fall and left wrist injury. No snuffbox tenderness. Patient will be given a Velcro splint. Head CT was done due to head strike and age over 65. Patient stable for discharge outpatient follow-up. Dragon Disclaimer: Dragrosy Disclaimer: This electronic medical record was generated, in whole or in part, using a voice recognition dictation system. Departure Departure Impression: Primary Impression: Left wrist sprain Additional Impression: Head injury Disposition: 01 HOME, SELF-CARE Condition: STABLE Referrals: TIANA POTTER MD (PCP) GREG REGALADO MD 2-3 days Patient Instructions: Wrist Sprain with [facility] Additional Instructions: EMERGENCY DEPARTMENT GENERAL DISCHARGE INSTRUCTIONS THANK YOU for coming to [facility] Emergency Department (ED) today and trusting us with your care. We trust that you had a positive experience in our Emergency Department. If you wish to speak to the department Management you can contact the checking department supervisor at . YOUR FOLLOW UP INSTRUCTIONS ARE FOLLOWS: Do you have a private doctor? If you do not have a private doctor, please ask for a resource list of physicians or clinics that may be able to assist you with follow up care. The Emergency Physician has interpreted your x-rays. The X-ray specialist will also review them. If there is a change in the findings you will be notified in 48 hours when at all possible. A lab test or lab culture may have been done, your results will be reviewed and you will be notified if you need a change in treatment. ADDITIONAL INSTRUCTIONS AND INFORMATION Your care today has been supervised by a physician who is specially trained in emergency care. Many problems require more than one evaluation for a complete diagnosis and treatment. We recommend that you schedule your follow up appointment as recommended to ensure complete treatment of your illness or injury. If you are unable to obtain follow up care and continue to have a problem, or if your condition worsens we recommend that you return to the ED. We are not able to safely determine your condition over the phone nor are we able to give sound medical advice over the phone. For these safety reasons, if you call for medical advice we will ask you to come to the ED for further evaluation If you have any questions regarding these discharge instructions please call the ED at . SAFETY INFORMATION In the interest of safety, wellness, and injury prevention; we encourage you to wear your seatbelt, if you smoke; quit smoking, and we encourage your family to use protective helmet for bicycling and other sporting events that present an increased risk for head injury. IF YOUR SYMPTOMS WORSEN OR NEW SYMPTOMS DEVELOP, OR YOU HAVE CONCERNS ABOUT YOUR CONDITION; OR IF YOUR CONDITION WORSENS WHILE YOU ARE WAITING FOR YOUR FOLLOW UP APPOINTMENT; EITHER CONTACT YOUR PRIMARY CARE DOCTOR, THE PHYSICIAN WHOSE NAME AND NUMBER YOU WERE GIVEN, OR RETURN TO THE ED IMMEDIATELY. Scripts Hydrocodone/Apap 5-325 (NORCO 5-325 TABLET) 1 Each Tablet 1-2 EACH PO PRN Q6HRS PRN for PAIN, #15 as needed for pain Prov: JILLIAN TELLEZ MD 11/05/19 Ibuprofen (IBUPROFEN) 600 Mg Tablet 600 MG PO PRN Q6HRS PRN for PAIN, #20 TAB take with food or milk Prov: JILLIAN TELLEZ MD 11/05/19 Justicifation of Admission Dx: Justifications for Admission: Justification of Admission Dx: N/A JILLIAN TELLEZ MD Nov 05, 2019 17:04
[2019-11-05 17:09] VITALS: BP 126/72
--- NOTE | 2019-11-05 17:34 | RAD ---
Exam: CT head INDICATION: Fall downstairs TECHNIQUE: Sequential axial images through the head were obtained without the administration of IV contrast. Comparisons: None FINDINGS: No focal parenchymal lesion or hemorrhage is identified. There is no midline shift or sulcal effacement. Mild patchy hypodensity in the periventricular white matter. No acute vascular territory infarction is identified. Elder-white distinction is preserved. The ventricular system is within normal limits without compression hydrocephalus. The basal cisterns are well maintained. The visualized portions of the paranasal sinuses and mastoid air cells are well-pneumatized. No acute fractures. IMPRESSION: Mild small vessel ischemic change. No sequela of acute traumatic injury identified in the head. Exposure: One or more of the following in the visualized dose reduction techniques were utilized for this examination: 1. Automated exposure control 2. Adjustment of the MA and/or KV according to patient size Use of iterative of reconstructive technique Electronically signed by: Rochelle Bird MD (11/05/2019 5:31 PM) [id number]
--- NOTE | 2019-11-05 17:36 | RAD ---
WRIST 3V LEFT, HAND LEFT 3V 11/05/2019 5:05 PM INDICATION: Fall COMPARISON: None available. TECHNIQUE: 3 views the right hand and 3 views the right wrist are provided. FINDINGS/ IMPRESSION: Mild joint space no involving the first carpometacarpal joint compatible with mild osteoarthrosis. Mild joint space narrowing involving interphalangeal joints of the second through fifth digits suggestive of mild osteoarthrosis. No acute fracture or dislocation. Bone mineralization is within normal limits. No significant soft tissue swelling. Electronically signed by: Farzana Benton MD (11/05/2019 5:33 PM) VALDEZ
[2019-11-05] MEDS ORDERED: HYDR-3164 PO (17:53)
[2019-11-05] MEDS ORDERED: IBUP-1007 PO (17:53)
== END 2019-11-05 18:19 | disposition home or self-care (01) ==
LOC: ER 16:30
DX: S63.592A Other specified sprain of left wrist, initial encounter (principal); S09.8XXA Other specified injuries of head, initial encounter; M19.90 Unspecified osteoarthritis, unspecified site; K21.9 Gastro-esophageal reflux disease without esophagitis; J44.9 Chronic obstructive pulmonary disease, unspecified; E78.00 Pure hypercholesterolemia, unspecified; I25.2 Old myocardial infarction; I11.9 Hypertensive heart disease without heart failure; G89.29 Other chronic pain; Z95.0 Presence of cardiac pacemaker; Z98.890 Other specified postprocedural states; Z87.891 Personal history of nicotine dependence; W10.8XXA Fall (on) (from) other stairs and steps, initial encounter; Y93.89 Activity, other specified; Y92.89 Other specified places as the place of occurrence of the external cause; Y99.8 Other external cause status
CPT/HCPCS: 29125; 70450; 73110; 73130; 99284

== ENCOUNTER 2019-12-04 12:19 | Inpatient (IN) | payer OTHER ==
[~2019-12-04] VITALS: Ht 188 cm; Wt 61.3 kg
[~2019-12-04 12:19] MED LIST changes: +IBUP-1007 PO
[2019-12-04 14:03] LABS: PROTHROMBIN TIME PATIENT 13.7 SEC (11.7-14.0)
[2019-12-04 14:05] LABS: CALCIUM 9.1 mg/dL (8.5-10.1); CREATININE 0.9 mg/dL (0.7-1.3); GFR 83.9; POTASSIUM 3.6 mmol/L (3.5-5.1)
--- NOTE | 2019-12-04 14:07 | RAD ---
AP chest portable 12/04/2019. Reason for exam: Chest pain. Comparison is made with a study of 09/15/2018. A pacemaker device remains in place. No new infiltrate or effusion is seen. Haziness projecting over the right midlung is similar to the prior exam and probably relates overlying soft tissues. Heart size is normal. IMPRESSION: No acute abnormality. Electronically signed by: Eder Junior Jr., MD (12/04/2019 2:04 PM) [facility]
[2019-12-04 14:11] LABS: ALBUMIN 3.9 g/dL (3.4-5.0); ALBUMIN/GLOBULIN RATIO 1.2 (1.0-1.7); TOTAL BILIRUBIN 0.4 mg/dL (0.2-1.0); TOTAL PROTEIN 7.1 g/dL (6.4-8.2)
[2019-12-04 14:17] LABS: BASO % 0 % (0-3); EOS # 0.1 x10^3/uL (0.0-0.7); EOS % 1 % (0-3); HEMATOCRIT 41.8 % (39.0-53.0); LYMPH # 1.4 x10^3/uL (1.0-4.8); LYMPH % 20 % (24-48); MEAN CORPUSCULAR HEMOGLOBIN 31 pg (25-35); MEAN CORPUSCULAR HGB CONC 33 g/dL (31-37); MEAN CORPUSCULAR VOLUME 94 fL (79-100); MONO # 0.7 x10^3/uL (0.0-1.1); MONO % 10 % (0-9); NEUT # 4.8 x10^3/uL (1.8-7.7); NEUT % 68 % (31-73); PLATELET COUNT 104 x10^3/uL (140-400); RED BLOOD COUNT 4.47 x10^6/uL (4.30-5.70); RED CELL DISTRIBUTION WIDTH 13.6 % (11.5-14.5); WHITE BLOOD COUNT 7.1 x10^3/uL (4.0-11.0)
--- NOTE | 2019-12-04 15:09 | PHYS DOC ---
Past Medical History Past Medical History: Arthritis, COPD, GERD, High Cholesterol, Heart Disease, Hypertension, [place], Other Additional Past Medical Histor: Marfan syndrome,chronic pain,prostate problems,VERTIGO Past Surgical History: Pacemaker, Other Additional Past Surgical Histo: Lower Back, Neck, AICD Smoking Status: Former Smoker Additional Information: CHEWING TOBACCO Alcohol Use: Rarely Drug Use: None General Adult EDM: Chief Complaint: DIZZY/LIGHT HEADED HPI: HPI: Patient is a 69 year old male who presented to ER today for evaluation substernal chest pain associated with some nausea and dizziness since waking up this morning. Patient also had mild headache. Patient denies any nausea vomiting, no trouble breathing no cough, no fever. Review of Systems: Review of Systems: Constitutional: Denies fever or chills. [] Eyes: Denies change in visual acuity. [] HENT: Denies nasal congestion or sore throat. [] Respiratory: Denies cough or shortness of breath. [] Cardiovascular: Positive chest pain GI: Denies abdominal pain, nausea, vomiting, bloody stools or diarrhea. [] : Denies dysuria. [] Musculoskeletal: Denies back pain or joint pain. [] Integument: Denies rash. [] Neurologic: Positive for headache and dizziness, no focal neurological deficits. Endocrine: Denies polyuria or polydipsia. [] Lymphatic: Denies swollen glands. [] Psychiatric: Denies depression or anxiety. [] Heart Score: HEART Score for Chest Pain: HEART Score for Chest Pain Response (Comments) Value History Moderately Suspicious 1 ECG Nonspecific Repolarizatio 1 Age >45 - < 65 1 Risk Factors >3 Risk Factors or Hx CAD 2 Troponin < Normal Limit 0 Total 5 Risk Factors: Risk Factors: DM, Current or recent (<one month) smoker, HTN, HLP, family history of CAD, obesity. Risk Scores: Score 0 - 3: 2.5% MACE over next 6 weeks - Discharge Home Score 4 - 6: 20.3% MACE over next 6 weeks - Admit for Clinical Observation Score 7 - 10: 72.7% MACE over next 6 weeks - Early Invasive Strategies Allergies: Allergies: Allergies Coded Allergies Type Severity Reaction Last Updated Verified No Known Drug Allergies 02/10/16 No Physical Exam: PE: Constitutional: Well developed, well nourished, no acute distress, non-toxic appearance. [] HENT: Normocephalic, atraumatic, bilateral external ears normal, oropharynx moist, no oral exudates, nose normal. [] Eyes: PERRLA, EOMI, conjunctiva normal, no discharge. [] Neck: Normal range of motion, no tenderness, supple, no stridor. [] Cardiovascular:Heart rate regular rhythm, no murmur [] Lungs & Thorax: Bilateral breath sounds clear to auscultation [] Abdomen: Bowel sounds normal, soft, no tenderness, no masses, no pulsatile masses. [] Skin: Warm, dry, no erythema, no rash. [] Back: No tenderness, no CVA tenderness. [] Extremities: No tenderness, no cyanosis, no clubbing, ROM intact, no edema. [] Neurologic: Alert and oriented X 3, normal motor function, normal sensory function, no focal deficits noted. [] Psychologic: Affect normal, judgement normal, mood normal. [] Current Patient Data: Labs: Laboratory Tests Test 12/04/19 13:36 White Blood Count 7.1 x10^3/uL (4.0-11.0) Red Blood Count 4.47 x10^6/uL (4.30-5.70) Hemoglobin 14.0 g/dL (13.0-17.5) Hematocrit 41.8 % (39.0-53.0) Mean Corpuscular Volume 94 fL (79-100) Mean Corpuscular Hemoglobin 31 pg (25-35) Mean Corpuscular Hemoglobin Concent 33 g/dL (31-37) Red Cell Distribution Width 13.6 % (11.5-14.5) Platelet Count 104 x10^3/uL (140-400) L Neutrophils (%) (Auto) 68 % (31-73) Lymphocytes (%) (Auto) 20 % (24-48) L Monocytes (%) (Auto) 10 % (0-9) H Eosinophils (%) (Auto) 1 % (0-3) Basophils (%) (Auto) 0 % (0-3) Neutrophils # (Auto) 4.8 x10^3/uL (1.8-7.7) Lymphocytes # (Auto) 1.4 x10^3/uL (1.0-4.8) Monocytes # (Auto) 0.7 x10^3/uL (0.0-1.1) Eosinophils # (Auto) 0.1 x10^3/uL (0.0-0.7) Basophils # (Auto) 0.0 x10^3/uL (0.0-0.2) Platelet Estimate Pending Prothrombin Time 13.7 SEC (11.7-14.0) Prothrombin Time INR 1.1 (0.8-1.1) Activated Partial Thromboplast Time 30 SEC (24-38) Sodium Level 143 mmol/L (136-145) Potassium Level 3.6 mmol/L (3.5-5.1) Chloride Level 106 mmol/L (98-107) Carbon Dioxide Level 30 mmol/L (21-32) Anion Gap 7 (6-14) Blood Urea Nitrogen 19 mg/dL (8-26) Creatinine 0.9 mg/dL (0.7-1.3) Estimated GFR (Cockcroft-Gault) 83.9 BUN/Creatinine Ratio 21 (6-20) H Glucose Level 102 mg/dL (70-99) H Calcium Level 9.1 mg/dL (8.5-10.1) Magnesium Level 2.0 mg/dL (1.8-2.4) Total Bilirubin 0.4 mg/dL (0.2-1.0) Aspartate Amino Transferase (AST) 21 U/L (15-37) Alanine Aminotransferase (ALT) 27 U/L (16-63) Alkaline Phosphatase 67 U/L (46-116) Troponin I Quantitative < 0.017 ng/mL (0.000-0.055) JJ-Aoj-T-Type Natriuretic Peptide 311 pg/mL (0-124) H Total Protein 7.1 g/dL (6.4-8.2) Albumin 3.9 g/dL (3.4-5.0) Albumin/Globulin Ratio 1.2 (1.0-1.7) Lipase 123 U/L (73-393) Laboratory Tests 12/04/19 13:36 Laboratory Tests 12/04/19 13:36 Vital Signs: Vital Signs Date Time Temp Pulse Resp B/P (MAP) Pulse Ox O2 Delivery O2 Flow Rate FiO2 12/04/19 13:35 97.7 104 18 164/95 (118) 100 Room Air 97.7 EKG: EKG: EKG was done at 1332, heart rate of 61 beats per minutes, sinus rhythm, no ST segment elevation. Radiology/Procedures: Radiology/Procedures: [][facility] [address] [place] [address] IMAGING REPORT Signed PATIENT: MARNIE FRIEDMAN ACCOUNT: [id number] : 1950 LOCATION: ER AGE: 69 SEX: M EXAM STATUS: REG ER ORD. PHYSICIAN: TIFFANIE COLEMAN DO REASON: chest pain PROCEDURE: PORTABLE CHEST 1V AP chest portable 12/04/2019. Reason for exam: Chest pain. Comparison is made with a study of 09/15/2018. A pacemaker device remains in place. No new infiltrate or effusion is seen. Haziness projecting over the right midlung is similar to the prior exam and probably relates overlying soft tissues. Heart size is normal. IMPRESSION: No acute abnormality. Electronically signed by: Rey Junior Jr., MD (12/04/2019 2:04 PM) [facility] DICTATED and SIGNED BY: REY JUNIOR Jr, MD DATE: 12/04/19 1404 Course & Med Decision Making: Course & Med Decision Making Pertinent Labs and Imaging studies reviewed. (See chart for details) Patient is a 61-year-old male who presented to ER today for evaluation of chest pain and dizziness. EKG and lab work come back normal so far. Patient will be admitted to hospital for further evaluation. Dragon Disclaimer: Dragrosy Disclaimer: This electronic medical record was generated, in whole or in part, using a voice recognition dictation system. Departure Departure Impression: Primary Impression: Chest pain Disposition: ADMITTED INPATIENT Admitting Physician: Tiana Tyler Condition: STABLE Referrals: TIANA TYLER MD (PCP) Justicifation of Admission Dx: Justifications for Admission: Justification of Admission Dx: TIFFANIE Hdz DO Dec 04, 2019 15:09
--- NOTE | 2019-12-04 15:28 | RAD ---
CT HEAD WO CONTRAST History: Reason: dizziness / Spl. Instructions: / History: Comparison: November 05, 2019 Technique: Noncontrast CT imaging was performed of the head. Exposure: One or more of the following individualized dose reduction techniques were utilized for this examination: 1. Automated exposure control 2. Adjustment of the mA and/or kV according to patient size 3. Use of iterative reconstruction technique. Findings: No intracranial hemorrhage. No mass effect. No hydrocephalus. Mild foci of decreased attenuation within the hemispheric white matter, most often due to chronic microvascular ischemia, unchanged. Imaged orbits are unremarkable. Imaged paranasal sinuses and mastoid air cells are clear. No acute calvarial fracture. Impression: 1. No acute intracranial abnormality. Electronically signed by: Miguel Eisenberg DO (12/04/2019 3:25 PM) [facility]
[2019-12-04] MEDS ORDERED: NITROGLYCERIN SUBLINGUAL 0.4 MG BOTTLE OF 25. SL ONE (15:55)
[2019-12-04] MEDS: NITROGLYCERIN SUBLINGUAL 0.4 MG BOTTLE OF 25. SL PRN ×2 (15:57→16:09)
[2019-12-04 18:08] LABS: PLT ESTIMATE DECREASED (ADEQUATE)
--- NOTE | 2019-12-04 20:17 | NUR ---
Patient states that the sublingual nitroglycerin "did not help much."
[2019-12-04 20:22] VITALS: BP 142/87
[2019-12-04] MEDS ORDERED: ACETAMINOPHEN 325 MG TABLET. PO PRN (20:45)
[2019-12-04 21:15] LABS: ALBUMIN 3.5 g/dL (3.4-5.0); ALBUMIN/GLOBULIN RATIO 1.1 (1.0-1.7); CALCIUM 8.4 mg/dL (8.5-10.1); CREATININE 0.9 mg/dL (0.7-1.3); GFR 83.9; POTASSIUM 3.3 mmol/L (3.5-5.1); TOTAL BILIRUBIN 0.5 mg/dL (0.2-1.0); TOTAL PROTEIN 6.6 g/dL (6.4-8.2)
[2019-12-04] MEDS: MAGNESIUM OXIDE 400 MG TABLET PO SCH (22:07)
[2019-12-04] MEDS: DICLOFENAC SODIUM 1% TOPICAL GEL 100GM TUBE. TP SCH (22:07)
[2019-12-04] MEDS: FLECAINIDE ACETATE 50 MG TABLET. PO SCH (22:08)
[2019-12-04] MEDS: SIMVASTATIN 20 MG TABLET PO SCH (22:08)
[2019-12-04] MEDS: HYDROcodone/APAP 7.5/325MG 1 TAB TABLET PO PRN (22:08)
[2019-12-04 22:34] VITALS: BP 158/90
[2019-12-04 23:49] LABS: BASO % 1 % (0-3); EOS # 0.2 x10^3/uL (0.0-0.7); EOS % 3 % (0-3); HEMATOCRIT 36.7 % (39.0-53.0); HEMOGLOBIN 12.3 g/dL (13.0-17.5); LYMPH % 31 % (24-48); MEAN CORPUSCULAR HEMOGLOBIN 31 pg (25-35); MEAN CORPUSCULAR HGB CONC 34 g/dL (31-37); MEAN CORPUSCULAR VOLUME 93 fL (79-100); MONO # 0.7 x10^3/uL (0.0-1.1); MONO % 11 % (0-9); NEUT # 3.5 x10^3/uL (1.8-7.7); NEUT % 55 % (31-73); PLATELET COUNT 95 x10^3/uL (140-400); RED BLOOD COUNT 3.93 x10^6/uL (4.30-5.70); RED CELL DISTRIBUTION WIDTH 13.7 % (11.5-14.5); WHITE BLOOD COUNT 6.4 x10^3/uL (4.0-11.0)
[2019-12-05] VITALS (8 sets, daily range): BP systolic 100–136; BP diastolic 50–87
[2019-12-05] MEDS: HYDROcodone/APAP 7.5/325MG 1 TAB TABLET PO PRN ×3 (03:09→16:43)
[2019-12-05] MEDS: MAGNESIUM OXIDE 400 MG TABLET PO SCH ×3 (08:25→21:37)
[2019-12-05] MEDS: ASPIRIN ENTERIC COATED 81 MG TABLET.DR. PO SCH (08:25)
[2019-12-05] MEDS: traMADol 50 MG TABLET PO PRN (08:25)
[2019-12-05] MEDS: PANTOPRAZOLE 40 MG TABLET.DR. PO SCH (08:25)
[2019-12-05] MEDS: FLECAINIDE ACETATE 50 MG TABLET. PO SCH ×2 (08:26→21:36)
[2019-12-05] MEDS: FLUDROCORTISONE 0.1 MG TABLET PO SCH (08:26)
[2019-12-05] MEDS: METOPROLOL SUCC 24HR ER 25 MG TAB.ER.24H. PO SCH (08:26)
[2019-12-05] MEDS: POTASSIUM CHLORIDE 20 MEQ TABLET.ER. PO SCH ×2 (08:26→13:16)
[2019-12-05] MEDS: TAMSULOSIN 0.4 MG CAP.ER.24H. PO SCH (08:27)
[2019-12-05] MEDS: DICLOFENAC SODIUM 1% TOPICAL GEL 100GM TUBE. TP SCH ×4 (08:27→21:36)
--- NOTE | 2019-12-05 10:51 | PDOC2 ---
DESTINY HANNON MELTING OPERATOR 12/05/19 1051: CARDIAC CONSULT DATE OF CONSULT Date of Consult DATE: 12/05/19 TIME: 10:42 REASON FOR CONSULT Reason for Consult: Chest pain REFERRING PHYSICIAN Referring Physician: Dr. Tyler SOURCE Source: Chart review, Patient HISTORY OF PRESENT ILLNESS HISTORY OF PRESENT ILLNESS This is a 69 yo male who presented secondary to chest pain and dizziness. Patient reports right sided chest pain for the last day or so. Worse with certain movements. No associated shortness of breath, diaphoresis, or nausea/vomiting. Also report dizziness upon standing. Does have a h/o orthostatic hypotension. PAST MEDICAL HISTORY Past Medical History Cardiovascular: HTN, Hyperlipidemia, Valve insufficiency (mitral valve prolapse), Other (Marfan's syndrome, NICM, ), Tachy-Jay syndrome Pulmonary: No pertinent hx, Other (emphysema ) GI: No pertinent hx Heme/Onc: Anemia NOS Musculoskeletal: Osteoarthritis, cervical and lumbar radiculopathy Infectious disease: No pertinent hx ENT: No pertinent hx Renal/: Benign prostatic enlarg. Endocrine: No pertinent hx Dermatology: No pertinent hx PAST SURGICAL HISTORY Past Surgical History PPM, cervical fusion, back surgery FAMILY HISTORY Family History: Stroke SOCIAL HISTORY Social History Smoke: No ALCOHOL: none Drugs: None Lives: with Family CURRENT MEDICATIONS CURRENT MEDICATIONS Current Medications Medications (Trade) Dose Ordered Sig/Marcia Route PRN Reason Start Time Stop Time Status Last Admin Dose Admin Nitroglycerin (Nitrostat) 0.4 mg PRN Q5MIN PRN SL CHEST PAIN 12/04/19 16:00 12/04/19 16:09 Aspirin (Ecotrin) 81 mg DAILY PO 12/05/19 09:00 12/05/19 08:25 Diclofenac Sodium (Voltaren) 1 jesus QID TP 12/04/19 22:00 12/05/19 08:27 Flecainide Acetate (Tambocor) 100 mg Q12HR PO 12/04/19 21:00 12/05/19 08:26 Fludrocortisone Acetate (Florinef) 0.2 mg DAILY PO 12/05/19 09:00 12/05/19 08:26 Metoprolol Succinate (Toprol Xl) 12.5 mg DAILY PO 12/05/19 09:00 12/05/19 08:26 Potassium Chloride (Klor-Con) 20 meq BID92 PO 12/05/19 09:00 12/05/19 08:26 Simvastatin (Zocor) 20 mg HS PO 12/04/19 21:00 12/04/19 22:08 Tamsulosin HCl (Flomax) 0.4 mg DAILY PO 12/05/19 09:00 12/05/19 08:27 Tramadol HCl (Ultram) 50 mg PRN Q6HRS PRN PO MILD PAIN 1-3 12/04/19 20:30 12/05/19 08:25 Magnesium Oxide (Magnesium Oxide) 400 mg TID PO 12/04/19 21:00 12/05/19 08:25 Pantoprazole Sodium (Protonix) 40 mg DAILYAC PO 12/05/19 07:30 12/05/19 08:25 Acetaminophen/ Hydrocodone Bitart (Lortab 7.5/325) 1 tab PRN Q6HRS PRN PO MODERATE/SEVERE PAIN 12/04/19 20:45 12/05/19 10:00 ALLERGIES ALLERGIES: Coded Allergies: No Known Drug Allergies (Unverified , 02/10/16) ROS Review of System 14 point ROS conducted with pertinent positives noted above in HPI PHYSICAL EXAM PHYSICAL EXAM HEENT: Atraumatic, Mucous membr. moist/pink Lungs: Clear to auscultation, Normal air movement. Right chest tenderness upon palpitation Heart: Regular rate (SR), Normal S1, Normal S2, Other (3/6 systolic murmur to LLS border) Abdomen: Soft, No tenderness Extremities: No cyanosis, No edema Skin: No breakdown, No significant lesion Neuro: Normal speech, Sensation intact Psych/Mental Status: Mental status NL, Mood NL MUSCULOSKELETAL: Other (pectus excavatum) VITALS/I&O VITALS/I&O: Vital Signs Date Time Temp Pulse Resp B/P (MAP) Pulse Ox O2 Delivery O2 Flow Rate FiO2 12/05/19 10:40 97.5 63 18 126/79 (95) 100 Room Air 97.5 12/05/19 03:09 1.0 I & O 12/04/19 12/04/19 12/05/19 15:00 23:00 07:00 Intake Total 480 ml 400 ml Output Total 350 ml 325 ml 325 ml Balance -350 ml 155 ml 75 ml LABS Lab: Laboratory Tests Test 12/04/19 13:36 12/04/19 18:48 12/04/19 22:52 White Blood Count 7.1 x10^3/uL (4.0-11.0) 6.4 x10^3/uL (4.0-11.0) Red Blood Count 4.47 x10^6/uL (4.30-5.70) 3.93 x10^6/uL (4.30-5.70) L Hemoglobin 14.0 g/dL (13.0-17.5) 12.3 g/dL (13.0-17.5) L Hematocrit 41.8 % (39.0-53.0) 36.7 % (39.0-53.0) L Mean Corpuscular Volume 94 fL (79-100) 93 fL (79-100) Mean Corpuscular Hemoglobin 31 pg (25-35) 31 pg (25-35) Mean Corpuscular Hemoglobin Concent 33 g/dL (31-37) 34 g/dL (31-37) Red Cell Distribution Width 13.6 % (11.5-14.5) 13.7 % (11.5-14.5) Platelet Count 104 x10^3/uL (140-400) L 95 x10^3/uL (140-400) L Neutrophils (%) (Auto) 68 % (31-73) 55 % (31-73) Lymphocytes (%) (Auto) 20 % (24-48) L 31 % (24-48) Monocytes (%) (Auto) 10 % (0-9) H 11 % (0-9) H Eosinophils (%) (Auto) 1 % (0-3) 3 % (0-3) Basophils (%) (Auto) 0 % (0-3) 1 % (0-3) Neutrophils # (Auto) 4.8 x10^3/uL (1.8-7.7) 3.5 x10^3/uL (1.8-7.7) Lymphocytes # (Auto) 1.4 x10^3/uL (1.0-4.8) 2.0 x10^3/uL (1.0-4.8) Monocytes # (Auto) 0.7 x10^3/uL (0.0-1.1) 0.7 x10^3/uL (0.0-1.1) Eosinophils # (Auto) 0.1 x10^3/uL (0.0-0.7) 0.2 x10^3/uL (0.0-0.7) Basophils # (Auto) 0.0 x10^3/uL (0.0-0.2) 0.0 x10^3/uL (0.0-0.2) Platelet Estimate Decreased (ADEQUATE) Prothrombin Time 13.7 SEC (11.7-14.0) Prothrombin Time INR 1.1 (0.8-1.1) Activated Partial Thromboplast Time 30 SEC (24-38) Sodium Level 143 mmol/L (136-145) 142 mmol/L (136-145) Potassium Level 3.6 mmol/L (3.5-5.1) 3.3 mmol/L (3.5-5.1) L Chloride Level 106 mmol/L (98-107) 107 mmol/L (98-107) Carbon Dioxide Level 30 mmol/L (21-32) 30 mmol/L (21-32) Anion Gap 7 (6-14) 5 (6-14) L Blood Urea Nitrogen 19 mg/dL (8-26) 19 mg/dL (8-26) Creatinine 0.9 mg/dL (0.7-1.3) 0.9 mg/dL (0.7-1.3) Estimated GFR (Cockcroft-Gault) 83.9 83.9 BUN/Creatinine Ratio 21 (6-20) H 21 (6-20) H Glucose Level 102 mg/dL (70-99) H 90 mg/dL (70-99) Calcium Level 9.1 mg/dL (8.5-10.1) 8.4 mg/dL (8.5-10.1) L Magnesium Level 2.0 mg/dL (1.8-2.4) Total Bilirubin 0.4 mg/dL (0.2-1.0) 0.5 mg/dL (0.2-1.0) Aspartate Amino Transferase (AST) 21 U/L (15-37) 20 U/L (15-37) Alanine Aminotransferase (ALT) 27 U/L (16-63) 25 U/L (16-63) Alkaline Phosphatase 67 U/L (46-116) 61 U/L (46-116) Troponin I Quantitative < 0.017 ng/mL (0.000-0.055) < 0.017 ng/mL (0.000-0.055) UD-Trf-G-Type Natriuretic Peptide 311 pg/mL (0-124) H Total Protein 7.1 g/dL (6.4-8.2) 6.6 g/dL (6.4-8.2) Albumin 3.9 g/dL (3.4-5.0) 3.5 g/dL (3.4-5.0) Albumin/Globulin Ratio 1.2 (1.0-1.7) 1.1 (1.0-1.7) Lipase 123 U/L (73-393) Laboratory Tests 12/04/19 13:36 12/04/19 22:52 Laboratory Tests 12/04/19 13:36 12/04/19 18:48 ECHOCARDIOGRAM ECHOCARDIOGRAM <Conclusion> Left ventricle systolic function is grossly normal. The Ejection Fraction is 50- 55%. Septal motion suggestive of conduction defect. There is a pacemaker lead in the right ventricle. The anterior mitral valve leaflet appears myxomatous. Doppler and Color-flow revealed trace to mild mitral eccentric regurgitation. DATE: 12/14/18 1135 STRESS TEST STRESS TEST Conclusion 1. Regadenoson cardioisotope stress test did not show any evidence of ischemia or infarct. 2. Normal left ventricular systolic function with ejection fraction calculated at 91%. 3. Low risk for cardiac events. DATE: 12/14/18 1217 ASSESSMENT/PLAN ASSESSMENT/PLAN 1. Atypical chest pain; AMI ruled out. MPI last year without any evidence of ischemia or infarct. Echo at that time with preserved LV systolic function 2. Dizziness, hx of orthostasis on Florinef 2. Tachy/jay syndrome s/p PPM (Biotronik) 3. Hx of NICM: with LV recovery with EF 50-55% (12/15) 5. Marfan syndrome/pectus excavatum/scoliosis 6. COPD 7. Hyperlipidemia Recommendations Orthostatics Encourage oral hydration and limit coffee intake Interrogate device Continue metoprolol/flecainide for rhythm maintenance Continue secondary prevention Outpatient echo [facility] Follow up in clinic with KAMARI Werner MD 9/8/20 1931: CARDIAC CONSULT ASSESSMENT/PLAN ASSESSMENT/PLAN Patient seen and examined. Agree with LIBRARY CLERK TALKING BOOKS's assessment and plan. CP with atypical features and most prob musculoskeletal since it is reproducible to palpation. NE ruled out Tachy-jay s/p PPM, device check showed normal function. Continue flecainide for rhythm maintenance Plan ischemic evaluation as outpatient Thank you for your consultation DESTINY HANNON APRN Dec 05, 2019 10:51 KAMARI MENON MD Dec 05, 2019 19:31
--- NOTE | 2019-12-05 11:47 | PDOC ---
Provider Note Date of Service: DATE: 12/05/19 TIME: 11:46 Provider Note H&P dictated #[id number] Justifications for Admission Other Justification TIANA POTTER MD Dec 05, 2019 11:47
--- NOTE | 2019-12-05 12:05 | NUR ---
SS following for discharge planning. SS reviewed pt chart and discussed with pt RN. Pt is from home with brother and is currently on room air. Cardiology and Hematology consulted. SS will continue to follow for discharge planning.
--- NOTE | 2019-12-05 12:05 | HP ---
ADMIT DATE: 12/04/2019 HISTORY OF PRESENT ILLNESS: This is a 69-year-old male who has a history of Marfan syndrome, dizziness, and history of frequent falls, started having chest pains yesterday. He also had dizziness, weakness, and shortness of breath. Because of the chest pains and multiple symptoms, he came to the Emergency Room. In the Emergency Room, cardiac enzymes were normal. His potassium was 3.6. CT scans of head and chest were negative for any acute changes. His potassium is 3.3 today. Yesterday, it was 3.6. BUN 19, creatinine 0.9. BNP 311. WBC count 7.1; hemoglobin 14, today the hemoglobin has decreased to 12.3; and platelet count is 95,000. Because of his multiple symptoms, the patient was admitted for further evaluation and management. PAST MEDICAL HISTORY: The patient was last admitted here in 08/2018. He has a history of dizziness that is multifactorial, hypoxic respiratory failure, orthostatic hypotension, hyperlipidemia, hypertension, myocardial infarction in 2009, tricuspid regurgitation, mitral regurgitation, pulmonary hypertension, Marfan syndrome, nonischemic cardiomyopathy, asthma, COPD with emphysema, chronic orthostatic hypotension, diverticulosis, GERD, Schatzki ring, esophageal stricture with last dilatation in 01/2016, anemia, history of thrombocytopenia, anxiety, low back pain, lumbar spinal stenosis with radiculopathy to bilateral lower extremities, kyphosis, scoliosis, osteoarthritis, thoracic spondylosis and myelopathy, cervical neck pain with radiculopathy, bilateral upper extremity pain, chronic musculoskeletal chest wall pain, chronic renal insufficiency, CKD 2, and benign prostatic hypertrophy. PAST SURGICAL HISTORY: Includes pacemaker placement. FAMILY HISTORY: Brother has Marfan syndrome. SOCIAL HISTORY: The patient lives with brother. The patient chews tobacco daily. No history of smoking, alcoholism, or drug abuse. ALLERGIES: None known any. MEDICATIONS: Reviewed. PHYSICAL EXAMINATION: GENERAL: The patient is an elderly male who is alert, oriented, not in any acute distress. He has chronic cognitive deficits. VITAL SIGNS: Temperature 98, pulse 67 per minute, respirations 18 per minute, and blood pressure 142/87 mmHg. EYES: Pupils reacting to light. Conjunctivae pink. Sclerae white. HEENT: Unremarkable. NECK: JVP normal. No thyromegaly. Trachea midline. LUNGS: Decreased breath sounds at bases. CARDIOVASCULAR: S1, S2 regular. The patient has a significant deformity of the chest. ABDOMEN: Soft, nontender. No guarding, no rigidity. Bowel sounds present. EXTREMITIES: No edema. CENTRAL NERVOUS SYSTEM: The patient is thin, lean, tall, malnourished, and weak. He has difficulty walking. LABORATORY FINDINGS: As noted earlier. IMPRESSION: 1. Chest pain. 2. Dizziness. 3. History of cardiac arrhythmia, status post permanent pacemaker. 4. Orthostatic hypotension. 5. History of hypertension. 6. Chronic obstructive pulmonary disease. 7. Marfan syndrome. 8. History of supraventricular tachycardia. 9. Chronic low back pain. 10. History of cervical radiculopathy and status post fusion at C3-C7. 11. Mild mitral valve prolapse. 12. Benign prostatic hypertrophy. 13. Chronic protein-calorie malnutrition. 14. Chronic kidney disease 2. 15. Emphysema. 16. Diverticulosis. 17. Gastroesophageal reflux disease. 18. Schatzki ring. 19. Hiatal hernia. 20. Coronary artery disease with ejection fraction of 55-60%. 21. History of chronic thrombocytopenia. 22. History of severe left vertebral artery stenosis, aortic arch negative per CT in 2014 and also 2018. 23. B12 deficiency. 24. Physical deconditioning. 25. Vitamin D deficiency. PLAN: Consult Dr. Perales for cardiology evaluation and management and Dr. Renteria for hematology evaluation and management due to thrombocytopenia. We will order physical therapy and occupational therapy. For details, please refer to the orders. Prognosis of this patient is poor due to his multiple medical problems. Monitor for orthostasis. TIANA POTTER MD DR: DAVE/jarocho JOB#: [id number] / [id number]
--- NOTE | 2019-12-05 15:37 | EKG ---
[facility] [address] [place] [address] Test Date: 2019-12-04 Test Time: 13:32:46 Pat Name: MARNIE FRIEDMAN Department: Room: Gender: M College Administrator: : 1950 Requested By: TIFFANIE COLEMAN Order Number: [id number] Reading MD: Measurements Intervals [place] Rate: 61 P: [place]: QRS: 30 QRSD: 102 T: 82 QT: 436 QTc: 440 Interpretive Statements ACCELERATED JUNCTIONAL RHYTHM T ABNORMALITY IN HIGH LATERAL LEADS ABNORMAL ECG RI6.02 No previous ECG available for comparison
--- NOTE | 2019-12-05 18:58 | PDOC2 ---
CONSULT Date of Consult Date of Consult DATE: 12/05/19 TIME: 18:39 Reason for Consult Reason for Consult: Thrombocytopenia Referring Physician Referring Physician: Dr Tyler Identification/Chief Complaint Chief Complaint Chest pain Source Source: Chart review, Patient History of Present Illness Reason for Visit: Ezekiel Leone is a 69 year old male who has been admitted for further evaluation of chest pain. He reports the development of substernal and right sided sharp chest pain yesterday evening that developed while he was resting watching TV. He notes associated SOA but denies nausea and emesis. He states that the pain radiates to the left shoulder. Initial EKG and troponin were negative. He has been admitted for evaluation for further cardiac evaluation. CBC obtained at admission showed thrombocytopenia. A review of his lab studies shows thrombocytopenia dating back to with platelets ranging from 100-150. He does not recall seeing a expert witness in the past. He denies increased bleeding/bruising He has a complicated medical hx that includes Marfans syndrome, myocardial infarction in 2009, tricuspid regurgitation, mitral regurgitation, pulmonary hypertension, nonischemic cardiomyopathy, asthma, COPD with emphysema, Past Medical History Cardiovascular: HTN, NC, Hyperlipidemia, Valve insufficiency, Pulmonary hypertension, Other Pulmonary: Asthma, COPD GI: Diverticulosis, GERD, Other Heme/Onc: Anemia NOS, Other Psych: Anxiety Musculoskeletal: low back pain, Osteoarthritis, Other Renal/: Chronic renal insuff, Benign prostatic enlarg. Past Surgical History Past Surgical History: Pacemaker Family History Family History: Stroke Social History ALCOHOL: none Drugs: None Lives: with Family Domestic Violence: Neg Current Problem List Problem List Problems Medical Problems: (1) Chest pain Status: Acute Current Medications Current Medications Current Medications Nitroglycerin (Nitrostat) 0.4 mg PRN Q5MIN PRN SL CHEST PAIN Last administered on 12/04/19at 16:09; Start 12/04/19 at 16:00 Nitroglycerin (Nitrostat) 0.4 mg STK-MED ONCE SL ; Start 12/04/19 at 15:55; Stop 12/04/19 at 15:56; Status DC Aspirin (Ecotrin) 81 mg DAILY PO Last administered on 12/05/19at 08:25; Start 12/05/19 at 09:00 Diclofenac Sodium (Voltaren) 1 tanvi QID TP Last administered on 12/05/19at 16:43; Start 12/04/19 at 22:00 Flecainide Acetate (Tambocor) 100 mg Q12HR PO Last administered on 12/05/19 08:26; Start 12/04/19 at 21:00 Fludrocortisone Acetate (Florinef) 0.2 mg DAILY PO Last administered on 12/05/19 08:26; Start 12/05/19 at 09:00 Metoprolol Succinate (Toprol Xl) 12.5 mg DAILY PO Last administered on 12/05/19 08:26; Start 12/05/19 at 09:00 Potassium Chloride (Klor-Con) 20 meq BID92 PO Last administered on 12/05/19 13:16; Start 12/05/19 at 09:00 Simvastatin (Zocor) 20 mg HS PO Last administered on 12/04/19 22:08; Start 12/04/19 at 21:00 Tamsulosin HCl (Flomax) 0.4 mg DAILY PO Last administered on 12/05/19 08:27; Start 12/05/19 at 09:00 Tramadol HCl (Ultram) 50 mg PRN Q6HRS PRN PO MODERATE PAIN Last administered on 12/05/19 08:25; Start 12/04/19 at 20:30 Magnesium Oxide (Magnesium Oxide) 400 mg TID PO Last administered on 12/05/19 13:20; Start 12/04/19 at 21:00 Pantoprazole Sodium (Protonix) 40 mg DAILYAC PO Last administered on 12/05/19 08:25; Start 12/05/19 at 07:30 Acetaminophen/ Hydrocodone Bitart (Lortab 7.5/325) 1 tab PRN Q6HRS PRN PO SEVERE PAIN Last administered on 12/05/19at 16:43; Start 12/04/19 at 20:45 Acetaminophen (Tylenol) 650 mg PRN Q6HRS PRN PO MILD PAIN 1-3; Start 12/04/19 at 20:45 Cyanocobalamin (Vitamin B-12) 1,000 mcg DAILY IM ; Start 12/05/19 at 19:30 Active Scripts Active Ibuprofen 600 Mg Tablet 600 Mg PO PRN Q6HRS PRN take with food or milk Fludrocortisone Acetate 0.1 Mg Tablet 0.2 Mg PO DAILY 30 Days Klor-Con M20 (Potassium Chloride) 20 Meq Tab.er.prt 20 Meq PO BID92 30 Days Mag-Oxide (Magnesium Oxide) 400 Mg Tablet 400 Mg PO TID 30 Days Voltaren (Diclofenac Sodium) 100 Gm Gel..gram. 1 Tanvi TP QID 30 Days Flecainide Acetate 50 Mg Tablet 100 Mg PO Q12HR 30 Days Metoprolol Succinate ( Xl ) (Metoprolol Succinate) 25 Mg Tab.er.24h 12.5 Mg PO DAILY Tramadol Hcl 50 Mg Tablet 1 Tab PO PRN Q6HRS Aspir 81 (Aspirin) 81 Mg Tablet.dr 1 Tab PO DAILY Reported Simvastatin 20 Mg Tablet 20 Mg PO HS Tamsulosin Hcl 0.4 Mg Cap.er.24h 0.4 Mg PO DAILY Prilosec (Omeprazole) 20 Mg Capsule.dr 20 Mg PO DAILY Allergies Allergies: Coded Allergies: No Known Drug Allergies (Unverified , 02/10/16) ROS General: No: Chills, Night Sweats PSYCHOLOGICAL ROS: No: Anxiety, Behavioral Disorder Eyes: No Blurry vision, No Decreased vision HEENT: No: Heacaches, Visual Changes ALLERGY AND IMMUNOLOGY: No: Hives, Nasal Congestion Hematological and Lymphatic: No: Brusing ENDOCRINE: No: Hot Flashes, Malaise/lethargy Respiratory: No: Cough, Shortness of breath, Sputum Changes Cardiovascular: yes Chest Pain; No Palpitations, No Orthopnea Gastrointestinal: No Nausea, No Vomiting, No Abdominal Pain Genitourinary: No Dysuria Musculoskeletal: Yes Other Neurological: Yes Dizziness, Yes Gait Disturbance Skin: Yes Dry Skin, Yes Rash Physical Exam General: Alert, Oriented X3 HEENT: Atraumatic Lungs: Clear to auscultation, Other (Pectus excavatum secondary to Marfan's) Heart: Regular rate, No murmurs Abdomen: Normal bowel sounds, Soft Skin: No rashes Neuro: Normal gait MUSCULOSKELETAL: No swelling Vitals VITALS Vital Signs Date Time Temp Pulse Resp B/P (MAP) Pulse Ox O2 Delivery O2 Flow Rate FiO2 12/05/19 15:06 68 100/70 (80) 12/05/19 15:00 97.5 16 98 Room Air 97.5 12/05/19 03:09 1.0 Labs Labs Laboratory Tests Test 12/04/19 13:36 12/04/19 18:48 12/04/19 22:52 12/05/19 12:30 White Blood Count 7.1 x10^3/uL (4.0-11.0) 6.4 x10^3/uL (4.0-11.0) Red Blood Count 4.47 x10^6/uL (4.30-5.70) 3.93 x10^6/uL (4.30-5.70) 4.20 x10^6/uL (4.30-5.70) Hemoglobin 14.0 g/dL (13.0-17.5) 12.3 g/dL (13.0-17.5) Hematocrit 41.8 % (39.0-53.0) 36.7 % (39.0-53.0) Mean Corpuscular Volume 94 fL (79-100) 93 fL (79-100) Mean Corpuscular Hemoglobin 31 pg (25-35) 31 pg (25-35) Mean Corpuscular Hemoglobin Concent 33 g/dL (31-37) 34 g/dL (31-37) Red Cell Distribution Width 13.6 % (11.5-14.5) 13.7 % (11.5-14.5) Platelet Count 104 x10^3/uL (140-400) 95 x10^3/uL (140-400) Neutrophils (%) (Auto) 68 % (31-73) 55 % (31-73) Lymphocytes (%) (Auto) 20 % (24-48) 31 % (24-48) Monocytes (%) (Auto) 10 % (0-9) 11 % (0-9) Eosinophils (%) (Auto) 1 % (0-3) 3 % (0-3) Basophils (%) (Auto) 0 % (0-3) 1 % (0-3) Neutrophils # (Auto) 4.8 x10^3/uL (1.8-7.7) 3.5 x10^3/uL (1.8-7.7) Lymphocytes # (Auto) 1.4 x10^3/uL (1.0-4.8) 2.0 x10^3/uL (1.0-4.8) Monocytes # (Auto) 0.7 x10^3/uL (0.0-1.1) 0.7 x10^3/uL (0.0-1.1) Eosinophils # (Auto) 0.1 x10^3/uL (0.0-0.7) 0.2 x10^3/uL (0.0-0.7) Basophils # (Auto) 0.0 x10^3/uL (0.0-0.2) 0.0 x10^3/uL (0.0-0.2) Platelet Estimate Decreased (ADEQUATE) Prothrombin Time 13.7 SEC (11.7-14.0) Prothromb Time International Ratio 1.1 (0.8-1.1) Activated Partial Thromboplast Time 30 SEC (24-38) Sodium Level 143 mmol/L (136-145) 142 mmol/L (136-145) Potassium Level 3.6 mmol/L (3.5-5.1) 3.3 mmol/L (3.5-5.1) Chloride Level 106 mmol/L (98-107) 107 mmol/L (98-107) Carbon Dioxide Level 30 mmol/L (21-32) 30 mmol/L (21-32) Anion Gap 7 (6-14) 5 (6-14) Blood Urea Nitrogen 19 mg/dL (8-26) 19 mg/dL (8-26) Creatinine 0.9 mg/dL (0.7-1.3) 0.9 mg/dL (0.7-1.3) Estimated GFR (Cockcroft-Gault) 83.9 83.9 BUN/Creatinine Ratio 21 (6-20) 21 (6-20) Glucose Level 102 mg/dL (70-99) 90 mg/dL (70-99) Calcium Level 9.1 mg/dL (8.5-10.1) 8.4 mg/dL (8.5-10.1) Magnesium Level 2.0 mg/dL (1.8-2.4) Total Bilirubin 0.4 mg/dL (0.2-1.0) 0.5 mg/dL (0.2-1.0) Aspartate Amino Transf (AST/SGOT) 21 U/L (15-37) 20 U/L (15-37) Alanine Aminotransferase (ALT/SGPT) 27 U/L (16-63) 25 U/L (16-63) Alkaline Phosphatase 67 U/L (46-116) 61 U/L (46-116) Troponin I Quantitative < 0.017 ng/mL (0.000-0.055) < 0.017 ng/mL (0.000-0.055) NE-Gsq-A-Type Natriuretic Peptide 311 pg/mL (0-124) Total Protein 7.1 g/dL (6.4-8.2) 6.6 g/dL (6.4-8.2) Albumin 3.9 g/dL (3.4-5.0) 3.5 g/dL (3.4-5.0) Albumin/Globulin Ratio 1.2 (1.0-1.7) 1.1 (1.0-1.7) Lipase 123 U/L (73-393) Absolute Reticulocyte Count 0.042 x10^6/uL (0.020-0.120) Percent Reticulocyte Count 1.0 % (0.5-2.3) Immature Reticulocyte Fraction 0.35 (0.20-0.60) Lactate Dehydrogenase 146 U/L (85-227) Vitamin B12 Level 173 pg/mL (247-911) Laboratory Tests Test 12/04/19 18:48 12/04/19 22:52 12/05/19 12:30 Sodium Level 142 mmol/L (136-145) Potassium Level 3.3 mmol/L (3.5-5.1) Chloride Level 107 mmol/L (98-107) Carbon Dioxide Level 30 mmol/L (21-32) Anion Gap 5 (6-14) Blood Urea Nitrogen 19 mg/dL (8-26) Creatinine 0.9 mg/dL (0.7-1.3) Estimated GFR (Cockcroft-Gault) 83.9 BUN/Creatinine Ratio 21 (6-20) Glucose Level 90 mg/dL (70-99) Calcium Level 8.4 mg/dL (8.5-10.1) Total Bilirubin 0.5 mg/dL (0.2-1.0) Aspartate Amino Transf (AST/SGOT) 20 U/L (15-37) Alanine Aminotransferase (ALT/SGPT) 25 U/L (16-63) Alkaline Phosphatase 61 U/L (46-116) Troponin I Quantitative < 0.017 ng/mL (0.000-0.055) Total Protein 6.6 g/dL (6.4-8.2) Albumin 3.5 g/dL (3.4-5.0) Albumin/Globulin Ratio 1.1 (1.0-1.7) White Blood Count 6.4 x10^3/uL (4.0-11.0) Red Blood Count 3.93 x10^6/uL (4.30-5.70) 4.20 x10^6/uL (4.30-5.70) Hemoglobin 12.3 g/dL (13.0-17.5) Hematocrit 36.7 % (39.0-53.0) Mean Corpuscular Volume 93 fL (79-100) Mean Corpuscular Hemoglobin 31 pg (25-35) Mean Corpuscular Hemoglobin Concent 34 g/dL (31-37) Red Cell Distribution Width 13.7 % (11.5-14.5) Platelet Count 95 x10^3/uL (140-400) Neutrophils (%) (Auto) 55 % (31-73) Lymphocytes (%) (Auto) 31 % (24-48) Monocytes (%) (Auto) 11 % (0-9) Eosinophils (%) (Auto) 3 % (0-3) Basophils (%) (Auto) 1 % (0-3) Neutrophils # (Auto) 3.5 x10^3/uL (1.8-7.7) Lymphocytes # (Auto) 2.0 x10^3/uL (1.0-4.8) Monocytes # (Auto) 0.7 x10^3/uL (0.0-1.1) Eosinophils # (Auto) 0.2 x10^3/uL (0.0-0.7) Basophils # (Auto) 0.0 x10^3/uL (0.0-0.2) Absolute Reticulocyte Count 0.042 x10^6/uL (0.020-0.120) Percent Reticulocyte Count 1.0 % (0.5-2.3) Immature Reticulocyte Fraction 0.35 (0.20-0.60) Lactate Dehydrogenase 146 U/L (85-227) Vitamin B12 Level 173 pg/mL (247-911) Assessment/Plan Assessment/Plan Assessment: Thrombocytopenia Normocytic anemia Chest pain Marfans syndrome CAD Recommendations: -Ordered and personally reviewed peripheral smear. Noted platelet clumps. Will request repeat CBC with heparin tube to reevaluate platelet count -Checked B12 level and noted low level. Will initiate IM B12 supplementation 1000 mcg daily -Check iron panel -Evaluation of chest pain per cardiology -Will follow Dexter Castanon MD Medical Oncology/Hematology KELTON ACSTANON MD Dec 05, 2019 18:58
[2019-12-05] MEDS: CYANOCOBALAMIN (VITAMIN B-12) 1,000 MCG/ML VIAL IM SCH (21:35)
[2019-12-05] MEDS: SIMVASTATIN 20 MG TABLET PO SCH (21:37)
[2019-12-06 03:02] VITALS: BP 131/72
[2019-12-06 05:29] LABS: BASO % 1 % (0-3); EOS # 0.2 x10^3/uL (0.0-0.7); EOS % 4 % (0-3); HEMATOCRIT 39.1 % (39.0-53.0); HEMOGLOBIN 13.2 g/dL (13.0-17.5); LYMPH # 1.6 x10^3/uL (1.0-4.8); LYMPH % 29 % (24-48); MEAN CORPUSCULAR HEMOGLOBIN 31 pg (25-35); MEAN CORPUSCULAR HGB CONC 34 g/dL (31-37); MEAN CORPUSCULAR VOLUME 93 fL (79-100); MONO # 0.6 x10^3/uL (0.0-1.1); MONO % 11 % (0-9); NEUT % 56 % (31-73); PLATELET COUNT 97 x10^3/uL (140-400); RED BLOOD COUNT 4.21 x10^6/uL (4.30-5.70); RED CELL DISTRIBUTION WIDTH 13.8 % (11.5-14.5); WHITE BLOOD COUNT 5.4 x10^3/uL (4.0-11.0)
[2019-12-06 05:36] LABS: CALCIUM 8.2 mg/dL (8.5-10.1); GFR 74.3; POTASSIUM 3.7 mmol/L (3.5-5.1)
[2019-12-06] MEDS: HYDROcodone/APAP 7.5/325MG 1 TAB TABLET PO PRN ×3 (06:29→21:32)
[2019-12-06 07:00] VITALS: BP 132/74
[2019-12-06] MEDS: MAGNESIUM OXIDE 400 MG TABLET PO SCH ×3 (09:05→21:32)
[2019-12-06] MEDS: METOPROLOL SUCC 24HR ER 25 MG TAB.ER.24H. PO SCH (09:05)
[2019-12-06] MEDS: PANTOPRAZOLE 40 MG TABLET.DR. PO SCH (09:05)
[2019-12-06] MEDS: ASPIRIN ENTERIC COATED 81 MG TABLET.DR. PO SCH (09:06)
[2019-12-06] MEDS: CYANOCOBALAMIN (VITAMIN B-12) 1,000 MCG/ML VIAL IM SCH (09:06)
[2019-12-06] MEDS: FLUDROCORTISONE 0.1 MG TABLET PO SCH (09:06)
[2019-12-06] MEDS: TAMSULOSIN 0.4 MG CAP.ER.24H. PO SCH (09:06)
[2019-12-06] MEDS: DICLOFENAC SODIUM 1% TOPICAL GEL 100GM TUBE. TP SCH ×4 (09:06→21:38)
[2019-12-06] MEDS: POTASSIUM CHLORIDE 20 MEQ TABLET.ER. PO SCH ×2 (09:06→13:35)
[2019-12-06] MEDS: FLECAINIDE ACETATE 50 MG TABLET. PO SCH ×2 (09:31→21:00)
[2019-12-06] MEDS ORDERED: CYAN100031 PO (09:46)
[2019-12-06] MEDS ORDERED: NITR0.4T24 SL (09:46)
--- NOTE | 2019-12-06 09:49 | SNU/HH DC ---
DISCHARGE WITH HOME HEALTH DISCHARGE INFORMATION: Final Diagnosis: Problems Medical Problems: (1) Chest pain Status: Acute Condition on Discharge: Stable HOME HEALTH: Face to Face: I certify this patient is under my care and that I, or a nurse practitioner or physician's construction assistant working with me, had a face to face encounter that meets the physician face to face encounter requirements with this patient on []. Medical Complications: COPD RN For Eval/Treatment: Yes Physical Therapy For: Evalulation/Treatment Occupational Therapy For: Evaluation/Treatment Pt Meets Homebound Status: Unsteady balance w/ amb, POST DISCHARGE ORDERS: Activity Instructions for Disc: Activity as tolerated (With walker) Weight Bearing Status after Di: As tolerated DIET AFTER DISCHARGE: Regular CHECKS AFTER DISCHARGE: Checks after discharge: Check blood press - daily FOLLOW-UP: PCP to follow Home Health: Yes Follow up with: Dr.Pratip Potter in 5 days TREATMENT/EQUIPMENT ORDERS: Adaptive Equipment Issued: None, Walker Discharge Respiratory Equipmen: Oxygen (2 lit/min) CERTIFICATION STATEMENT: Certification Statement: Certification Statement: Based on the above finding, I certify that this patient is confined to the home and needs intermittent jail care, physical therapy and/or speech therapy, or continues to need occupational therapy.~ This patient is under my care, and I have initiated the establishment of the plan of care.~ This patient will be followed by myself or a community physician who will periodically review the plan of care. Home Meds Active Scripts Cyanocobalamin (Vitamin B-12) (B-12) 1,000 Mcg Tablet.er, 1 TAB PO DAILY for B12 deficiency for 30 Days, #30 TAB 0 Refills Prov:TIANA POTTER MD 12/06/19 Nitroglycerin (NITROSTAT) 0.4 Mg Tab.subl, 0.4 MG SL PRN Q5MIN PRN for CHEST PAIN, #25 TAB Prov:TIANA POTTER MD 12/06/19 Fludrocortisone Acetate (FLUDROCORTISONE ACETATE) 0.1 Mg Tablet, 0.2 MG PO DAILY for hypotension for 30 Days, #30 TAB 5 Refills Prov:TIANA POTTER MD 09/19/18 Potassium Chloride (KLOR-CON M20) 20 Meq Tab.er.prt, 20 MEQ PO BID92 for 30 Days, #60 TAB.SR Prov:TIANA POTTER MD 11/21/17 Magnesium Oxide (MAG-OXIDE) 400 Mg Tablet, 400 MG PO TID for 30 Days, #90 TAB 5 Refills Prov:TIANA POTTER MD 11/21/17 Diclofenac Sodium (VOLTAREN) 100 Gm Gel..gram., 1 CARSON TP QID for CHEST PAIN for 30 Days, #100 EACH 5 Refills Prov:TIANA POTTER MD 07/29/17 Flecainide Acetate (FLECAINIDE ACETATE) 50 Mg Tablet, 100 MG PO Q12HR for 30 Days, #60 TAB 5 Refills Prov:TIANA POTTER MD 07/29/17 Metoprolol Succinate (METOPROLOL SUCCINATE ( XL )) 25 Mg Tab.er.24h, 12.5 MG PO DAILY, #30 TAB.SR Prov:GAYATHRI FAIRCHILD APRN 03/10/17 Tramadol Hcl (TRAMADOL HCL) 50 Mg Tablet, 1 TAB PO PRN Q6HRS, #90 TAB Prov:GAYATHRI FAIRCHILD APRN 08/14/16 Aspirin (ASPIR 81) 81 Mg Tablet.dr, 1 TAB PO DAILY, #90 TAB 5 Refills Prov:GAYATHRI FAIRCHILD APRN 05/29/16 Reported Medications Simvastatin (SIMVASTATIN) 20 Mg Tablet, 20 MG PO HS for FOR CHOLESTEROL, #30 TAB 0 Refills 08/13/16 Tamsulosin Hcl (TAMSULOSIN HCL) 0.4 Mg Cap.er.24h, 0.4 MG PO DAILY, TAB 02/10/16 Omeprazole (PRILOSEC) 20 Mg Capsule.dr, 20 MG PO DAILY 04/06/13 Discontinued Scripts Ibuprofen (IBUPROFEN) 600 Mg Tablet, 600 MG PO PRN Q6HRS PRN for PAIN, #20 TAB take with food or milk Prov:JILLIAN TELLEZ MD 11/05/19 TIANA POTTER MD Dec 06, 2019 09:49
--- NOTE | 2019-12-06 10:21 | PDOC3 ---
IM DISCHARGE SUMMARY Date of Admission Date of Admission Date of Admission: Dec 04, 2019 at 23:00 Date of Discharge Date of Discharge December 06, 2019 Primary Diagnosis Primary Diagnosis 1. Chest pain. 2. Dizziness. 3. History of cardiac arrhythmia, status post permanent pacemaker. 4. Orthostatic hypotension. 5. History of hypertension. 6. Chronic obstructive pulmonary disease. 7. Marfan syndrome. 8. History of supraventricular tachycardia. 9. Chronic low back pain. 10. History of cervical radiculopathy and status post fusion at C3-C7. 11. Mild mitral valve prolapse. 12. Benign prostatic hypertrophy. 13. Chronic protein-calorie malnutrition. 14. Chronic kidney disease 2. 15. Emphysema. 16. Diverticulosis. 17. Gastroesophageal reflux disease. 18. Schatzki ring. 19. Hiatal hernia. 20. Coronary artery disease with ejection fraction of 55-60%. 21. History of chronic thrombocytopenia. 22. History of severe left vertebral artery stenosis, aortic arch negative per CT in 2014 and also 2018. 23. B12 deficiency. 24. Physical deconditioning. 25. Vitamin D deficiency. Consults Consults Jack Dillard Dpm; Jean Claude Guidry MD; Samantha Ballesteros MD Labs Labs Laboratory Tests Test 12/05/19 12:30 12/06/19 04:50 Red Blood Count 4.20 x10^6/uL (4.30-5.70) L 4.21 x10^6/uL (4.30-5.70) L Absolute Reticulocyte Count 0.042 x10^6/uL (0.020-0.120) Percent Reticulocyte Count 1.0 % (0.5-2.3) Immature Reticulocyte Fraction 0.35 (0.20-0.60) Haptoglobin 111 mg/dL (32-363) Lactate Dehydrogenase 146 U/L (85-227) Vitamin B12 Level 173 pg/mL (247-911) L White Blood Count 5.4 x10^3/uL (4.0-11.0) Hemoglobin 13.2 g/dL (13.0-17.5) Hematocrit 39.1 % (39.0-53.0) Mean Corpuscular Volume 93 fL (79-100) Mean Corpuscular Hemoglobin 31 pg (25-35) Mean Corpuscular Hemoglobin Concent 34 g/dL (31-37) Red Cell Distribution Width 13.8 % (11.5-14.5) Platelet Count 97 x10^3/uL (140-400) L Neutrophils (%) (Auto) 56 % (31-73) Lymphocytes (%) (Auto) 29 % (24-48) Monocytes (%) (Auto) 11 % (0-9) H Eosinophils (%) (Auto) 4 % (0-3) H Basophils (%) (Auto) 1 % (0-3) Neutrophils # (Auto) 3.0 x10^3/uL (1.8-7.7) Lymphocytes # (Auto) 1.6 x10^3/uL (1.0-4.8) Monocytes # (Auto) 0.6 x10^3/uL (0.0-1.1) Eosinophils # (Auto) 0.2 x10^3/uL (0.0-0.7) Basophils # (Auto) 0.0 x10^3/uL (0.0-0.2) Sodium Level 138 mmol/L (136-145) Potassium Level 3.7 mmol/L (3.5-5.1) Chloride Level 105 mmol/L (98-107) Carbon Dioxide Level 28 mmol/L (21-32) Anion Gap 5 (6-14) L Blood Urea Nitrogen 18 mg/dL (8-26) Creatinine 1.0 mg/dL (0.7-1.3) Estimated GFR (Cockcroft-Gault) 74.3 Glucose Level 88 mg/dL (70-99) Calcium Level 8.2 mg/dL (8.5-10.1) L Iron Level 83 ug/dL (65-175) Total Iron Binding Capacity 229 ug/dL (250-450) L Iron Saturation 36 % (15-34) H Ferritin 74 ng/mL (26-388) Laboratory Tests 12/06/19 04:50 Laboratory Tests 12/06/19 04:50 Brief hospital course Brief hospital course This is a 69-year-old male who has a history of Marfan syndrome, dizziness, and history of frequent falls, started having chest pains yesterday. He also had dizziness, weakness, and shortness of breath. Because of the chest pains and multiple symptoms, he came to the Emergency Room. In the Emergency Room, cardiac enzymes were normal. His potassium was 3.6. CT scans of head and chest were negative for any acute changes. His potassium is 3.3 today. Yesterday, it was 3.6. BUN 19, creatinine 0.9. BNP 311. WBC count 7.1; hemoglobin 14, today the hemoglobin has decreased to 12.3; and platelet count is 95,000. Because of his multiple symptoms, the patient was admitted for further evaluation and management. For more details regarding the past history, family history, social history, surgical history and other details, please refer to History and Physical. Consult Dr. Perales for cardiology evaluation and management and Dr. Renteria for hematology evaluation and management due to thrombocytopenia. We will order physical therapy and occupational therapy. For details, please refer to the orders. Prognosis of this patient is poor due to his multiple medical problems. Monitor for orthostasis. Patient is atypical chest pain and no further work-up is recommended. However patient remains very weak and PT OT is recommended group home placement. Patient is agreeable for that. Transfer to group home unit when bed is available. Thrombocytopenia-platelets may be aggregated Vitamin B12 deficiency -restart vitamin B12. Give injections while in the hospital Medications Current Medications Medications (Trade) Dose Ordered Sig/Marcia Route PRN Reason Start Time Stop Time Status Last Admin Dose Admin Cyanocobalamin (Vitamin B-12) 1,000 mcg DAILY IM 12/05/19 19:30 12/06/19 09:06 Medications reviewed and reconciled for discharge. Allergy Allergies Coded Allergies Type Severity Reaction Last Updated Verified No Known Drug Allergies 02/10/16 No Follow up in 5 days. DISPOSITION: Residential facility Comments Discharge Management - 35 minutes. For other details please refer to discharge instructions Justicifation of Admission Dx: Justifications for Admission: Justification of Admission Dx: No TIANA POTTER MD Dec 06, 2019 10:21
--- NOTE | 2019-12-06 10:22 | SNU/HH DC ---
DISCHARGE ORDERS DISCHARGE INFORMATION: FINAL DIAGNOSIS Problems Medical Problems: (1) Chest pain Status: Acute CONDITION ON DISCHARGE: Stable POST DISCHARGE ORDERS: ACTIVITY ORDERS: Activity as tolerated (With walker) WEIGHT BEARING STATUS: As tolerated DIET AFTER DISCHARGE: Regular CHECKS AFTER DISCHARGE: CHECKS AFTER DISCHARGE: Check blood press - daily FOLLOW-UP: PHYSICIAN FOLLOW-UP: Dr.Pratip Potter in 5 days TREATMENT/EQUIPMENT ORDERS: ADAPTIVE EQUIPMENT NEEDED: None, Walker RESPIRATORY EQUIPMENT NEEDED: Oxygen (2 lit/min) Physical Therapy For: Evalulation/Treatment Occupational Therapy For: Evaluation/Treatment DISCHARGE MEDICATIONS: Home Meds Active Scripts Cyanocobalamin (Vitamin B-12) (B-12) 1,000 Mcg Tablet.er, 1 TAB PO DAILY for B12 deficiency for 30 Days, #30 TAB 0 Refills Prov:TIANA POTTER MD 12/06/19 Nitroglycerin (NITROSTAT) 0.4 Mg Tab.subl, 0.4 MG SL PRN Q5MIN PRN for CHEST PAIN, #25 TAB Prov:TIANA POTTER MD 12/06/19 Fludrocortisone Acetate (FLUDROCORTISONE ACETATE) 0.1 Mg Tablet, 0.2 MG PO DAILY for hypotension for 30 Days, #30 TAB 5 Refills Prov:TIANA POTTER MD 09/19/18 Potassium Chloride (KLOR-CON M20) 20 Meq Tab.er.prt, 20 MEQ PO BID92 for 30 Days, #60 TAB.SR Prov:TIANA POTTER MD 11/21/17 Magnesium Oxide (MAG-OXIDE) 400 Mg Tablet, 400 MG PO TID for 30 Days, #90 TAB 5 Refills Prov:TIANA POTTER MD 11/21/17 Diclofenac Sodium (VOLTAREN) 100 Gm Gel..gram., 1 CARSON TP QID for CHEST PAIN for 30 Days, #100 EACH 5 Refills Prov:TIANA POTTER MD 07/29/17 Flecainide Acetate (FLECAINIDE ACETATE) 50 Mg Tablet, 100 MG PO Q12HR for 30 Days, #60 TAB 5 Refills Prov:TIANA POTTER MD 07/29/17 Metoprolol Succinate (METOPROLOL SUCCINATE ( XL )) 25 Mg Tab.er.24h, 12.5 MG PO DAILY, #30 TAB.SR Prov:GAYATHRI FAIRCHILD APRN 03/10/17 Tramadol Hcl (TRAMADOL HCL) 50 Mg Tablet, 1 TAB PO PRN Q6HRS, #90 TAB Prov:GAYATHRI FAIRCHILD PHARMACY TECH CUSTOMER SERVICE 08/14/16 Aspirin (ASPIR 81) 81 Mg Tablet.dr, 1 TAB PO DAILY, #90 TAB 5 Refills Prov:GAYATHRI FAIRCHILD PHARMACY TECH CUSTOMER SERVICE 05/29/16 Reported Medications Simvastatin (SIMVASTATIN) 20 Mg Tablet, 20 MG PO HS for FOR CHOLESTEROL, #30 TAB 0 Refills 08/13/16 Tamsulosin Hcl (TAMSULOSIN HCL) 0.4 Mg Cap.er.24h, 0.4 MG PO DAILY, TAB 02/10/16 Omeprazole (PRILOSEC) 20 Mg Capsule.dr, 20 MG PO DAILY 04/06/13 Discontinued Scripts Ibuprofen (IBUPROFEN) 600 Mg Tablet, 600 MG PO PRN Q6HRS PRN for PAIN, #20 TAB take with food or milk Prov:JILLIAN TELLEZ MD 11/05/19 TIANA POTTER MD Dec 06, 2019 10:22
[2019-12-06 11:00] VITALS: BP 101/71
--- NOTE | 2019-12-06 11:05 | PDOC ---
DESTINY HANNON WELLNESS ASSISTANT 12/06/19 1105: CARDIO Progress Notes Date and Time Date of Service 12/06/19 Time of Evaluation 1100 Subjective Subjective: No shortness of breath, No Palpitations, No Dizziness Vitals Vitals Vital Signs Date Time Temp Pulse Resp B/P (MAP) Pulse Ox O2 Delivery O2 Flow Rate FiO2 12/06/19 09:31 85 12/06/19 08:05 Room Air 12/06/19 07:00 97.5 18 132/74 (93) 98 97.5 Weight Weight [ ] Input and Output Intake and Output Intake and Output 12/06/19 07:00 Intake Total 590 ml Output Total 1375 ml Balance -785 ml Intake Oral 590 ml Output Urine Total 1375 ml Laboratory Labs Laboratory Tests Test 12/05/19 12:30 12/06/19 04:50 Red Blood Count 4.20 x10^6/uL (4.30-5.70) 4.21 x10^6/uL (4.30-5.70) Absolute Reticulocyte Count 0.042 x10^6/uL (0.020-0.120) Percent Reticulocyte Count 1.0 % (0.5-2.3) Immature Reticulocyte Fraction 0.35 (0.20-0.60) Haptoglobin 111 mg/dL (32-363) Lactate Dehydrogenase 146 U/L (85-227) Vitamin B12 Level 173 pg/mL (247-911) White Blood Count 5.4 x10^3/uL (4.0-11.0) Hemoglobin 13.2 g/dL (13.0-17.5) Hematocrit 39.1 % (39.0-53.0) Mean Corpuscular Volume 93 fL (79-100) Mean Corpuscular Hemoglobin 31 pg (25-35) Mean Corpuscular Hemoglobin Concent 34 g/dL (31-37) Red Cell Distribution Width 13.8 % (11.5-14.5) Platelet Count 97 x10^3/uL (140-400) Neutrophils (%) (Auto) 56 % (31-73) Lymphocytes (%) (Auto) 29 % (24-48) Monocytes (%) (Auto) 11 % (0-9) Eosinophils (%) (Auto) 4 % (0-3) Basophils (%) (Auto) 1 % (0-3) Neutrophils # (Auto) 3.0 x10^3/uL (1.8-7.7) Lymphocytes # (Auto) 1.6 x10^3/uL (1.0-4.8) Monocytes # (Auto) 0.6 x10^3/uL (0.0-1.1) Eosinophils # (Auto) 0.2 x10^3/uL (0.0-0.7) Basophils # (Auto) 0.0 x10^3/uL (0.0-0.2) Sodium Level 138 mmol/L (136-145) Potassium Level 3.7 mmol/L (3.5-5.1) Chloride Level 105 mmol/L (98-107) Carbon Dioxide Level 28 mmol/L (21-32) Anion Gap 5 (6-14) Blood Urea Nitrogen 18 mg/dL (8-26) Creatinine 1.0 mg/dL (0.7-1.3) Estimated GFR (Cockcroft-Gault) 74.3 Glucose Level 88 mg/dL (70-99) Calcium Level 8.2 mg/dL (8.5-10.1) Iron Level 83 ug/dL (65-175) Total Iron Binding Capacity 229 ug/dL (250-450) Iron Saturation 36 % (15-34) Ferritin 74 ng/mL (26-388) Physical Exam Chest: Symmetric LUNGS: Clear to Auscultation, Other (right chest tenderness upon palpitation) Heart: S1S2, RRR Abdomen: Soft N/T Extremities: No Edema Neurology: alert, oriented, follow commands Assessment Assessment 1. Atypical chest pain; AMI ruled out. MPI last year without any evidence of ischemia or infarct. Echo at that time with preserved LV systolic function. Most probable MSK in origin 2. Dizziness, hx of orthostasis on Florinef. No significant orthostasis noted 2. Tachy/zahida syndrome s/p PPM (Biotronik). Device check with normal function 3. Hx of NICM: with LV recovery with EF 50-55% (12/15) 5. Marfan syndrome/pectus excavatum/scoliosis 6. COPD 7. Hyperlipidemia Recommendations Reinforced importance of oral hydration and limiting coffee intake Continue flecainide for rhythm maintenance Secondary prevention Outpateint ischemic evaluation scheduled with NexBioiscan MPI Follow up in clinic with Dr. Perales as scheduled Justicifation of Admission Dx: Justifications for Admission: Justification of Admission Dx: No KAMARI PERALES MD 12/07/19 0911: CARDIO Progress Notes Assessment Assessment Patient seen and examined 12/06/19. Agree with TIE SAWYER's assessment and plan. Chest pain with atypical features and most probably musculoskeletal. Agree with outpatient ischemic evaluation. Tachy-bradycardia syndrome s/p PPM, device check showed normal function. Okay for DC from cardiac standpoint DESTINY HANNON APRN Dec 06, 2019 11:05 KAMARI PERALES MD Dec 07, 2019 09:11
--- NOTE | 2019-12-06 12:38 | NUR ---
SS following up with discharge planning. SS reviewed pt chart and discussed with pt RN. Pt is currently on room air. PT/OT recommended senior living unit. SS met with pt and spoke with pt's POA, Tracy Elder, . Pt and pt's POA both agreeable to senior living unit and requested [facility], ; fax [phone], by . COVID19 test requested for senior living unit. SS phoned and faxed referral to [facility]. SS will await acceptance decision and insurance determination and will proceed accordingly with discharge planning. Pt's RN notified.
--- NOTE | 2019-12-06 13:30 | NUR ---
SS following up with discharge planning. Pt accepted at [facility] pending insurance authorization and COVID19 test result. SS will continue to follow for discharge planning.
--- NOTE | 2019-12-06 13:57 | NUR ---
Discharge: Patient assisted off of unit via wheelchair accompanied [facility]. Copy of chart sent with patient Addendum: 12/07/19 at 0953 by RICHARD ALLAN RN WRONG PATIENT.
[2019-12-06 15:00] VITALS: BP 107/64
[2019-12-06 19:47] VITALS: BP 88/41
[2019-12-06] MEDS: SIMVASTATIN 20 MG TABLET PO SCH (21:32)
[2019-12-06 22:59] VITALS: BP 115/62
[2019-12-07 03:15] VITALS: BP 124/79
[2019-12-07 07:00] VITALS: BP 129/85
[2019-12-07] MEDS: ASPIRIN ENTERIC COATED 81 MG TABLET.DR. PO SCH (08:55)
[2019-12-07] MEDS: HYDROcodone/APAP 7.5/325MG 1 TAB TABLET PO PRN ×2 (08:55→15:34)
[2019-12-07] MEDS: FLECAINIDE ACETATE 50 MG TABLET. PO SCH ×2 (08:55→21:39)
[2019-12-07] MEDS: POTASSIUM CHLORIDE 20 MEQ TABLET.ER. PO SCH ×2 (08:55→15:34)
[2019-12-07] MEDS: FLUDROCORTISONE 0.1 MG TABLET PO SCH (08:56)
[2019-12-07] MEDS: TAMSULOSIN 0.4 MG CAP.ER.24H. PO SCH (08:56)
[2019-12-07] MEDS: METOPROLOL SUCC 24HR ER 25 MG TAB.ER.24H. PO SCH (08:56)
[2019-12-07] MEDS: PANTOPRAZOLE 40 MG TABLET.DR. PO SCH (08:56)
[2019-12-07] MEDS: MAGNESIUM OXIDE 400 MG TABLET PO SCH ×3 (08:56→21:39)
[2019-12-07] MEDS: DICLOFENAC SODIUM 1% TOPICAL GEL 100GM TUBE. TP SCH ×4 (08:57→21:40)
[2019-12-07] MEDS: CYANOCOBALAMIN (VITAMIN B-12) 1,000 MCG/ML VIAL IM SCH (08:57)
--- NOTE | 2019-12-07 09:54 | PDOC ---
IM PROGRESS NOTES- Subjective Subjective No complaints of chest pains or dyspnea.. Objective Vitals/I&O Vital Signs Date Time Temp Pulse Resp B/P (MAP) Pulse Ox O2 Delivery O2 Flow Rate FiO2 12/07/19 08:56 85 12/07/19 07:40 Room Air 12/07/19 07:00 97.7 18 129/85 (100) 100 97.7 I & O 12/06/19 12/06/19 12/07/19 15:00 23:00 07:00 Intake Total 180 ml 300 ml 550 ml Output Total 600 ml 425 ml 950 ml Balance -420 ml -125 ml -400 ml Physical Exam Physical Exam General appearance - alert, chronically ill appearing, and in no distress and oriented to person, place, and time Mental Status - alert, oriented to person, place, and time, affect appropriate to mood Head - normal Chest -decreased breath sounds at base Heart - S1 and S2 normal Abdomen - soft, nontender, Neurological - alert and oriented He is tall and thin Extremities - no pedal edema Skin - warm and dry Assessment Assessment 1. Chest pain. 2. Dizziness. 3. History of cardiac arrhythmia, status post permanent pacemaker. 4. Orthostatic hypotension. 5. History of hypertension. 6. Chronic obstructive pulmonary disease. 7. Marfan syndrome. 8. History of supraventricular tachycardia. 9. Chronic low back pain. 10. History of cervical radiculopathy and status post fusion at C3-C7. 11. Mild mitral valve prolapse. 12. Benign prostatic hypertrophy. 13. Chronic protein-calorie malnutrition. 14. Chronic kidney disease 2. 15. Emphysema. 16. Diverticulosis. 17. Gastroesophageal reflux disease. 18. Schatzki ring. 19. Hiatal hernia. 20. Coronary artery disease with ejection fraction of 55-60%. 21. History of chronic thrombocytopenia. 22. History of severe left vertebral artery stenosis, aortic arch negative per CT in 2014 and also 2018. 23. B12 deficiency. 24. Physical deconditioning. 25. Vitamin D deficiency. PLAN: Consult Dr. Perales for cardiology evaluation and management and Dr. Renteria for hematology evaluation and management due to thrombocytopenia. We will order physical therapy and occupational therapy. For details, please refer to the orders. Prognosis of this patient is poor due to his multiple medical problems. Monitor for orthostasis. Clinically improving but remains weak. Transfer to [facility] when accepted. Long-term as well as short-term prognosis remains poor due to his multiple medical problems. Discharge management 35 minutes. Plan Plan For more details regarding further plans, please refer to the orders. Justifications for Admission Other Justification Nutrition Consultation Dietary Evaluation: Recommendations by RD: Dietary education by RD, Increase Calorie Intake, Protein supplementation Comments: Continue w/cardiac diet as ordered, honor food preferences, provide sncaks as requested REC Ensure (any flavor) BID Expected Outcomes/Goals: PO intake to meet >75% est needs Malnutrition Findings: Body Fat Depletion (Non Severe: Mild Depletion Weight Status: Underweight TIANA POTTER MD Dec 07, 2019 09:54
[2019-12-07 11:00] VITALS: BP 124/78
--- NOTE | 2019-12-07 11:31 | PDOC ---
DESTINY HANNON APRN 12/07/19 1131: CARDIO Progress Notes Date and Time Date of Service 12/07/19 Time of Evaluation 1120 Subjective Subjective: No shortness of breath, No Palpitations, No Dizziness Vitals Vitals Vital Signs Date Time Temp Pulse Resp B/P (MAP) Pulse Ox O2 Delivery O2 Flow Rate FiO2 12/07/19 08:56 85 12/07/19 07:40 Room Air 12/07/19 07:00 97.7 18 129/85 (100) 100 97.7 Weight Weight [ ] Input and Output Intake and Output Intake and Output 12/07/19 07:00 Intake Total 1030 ml Output Total 1975 ml Balance -945 ml Intake Oral 1030 ml Output Urine Total 1975 ml Physical Exam HEENT: Neck Supple W Full Motion Chest: Symmetric LUNGS: Clear to Auscultation, Other (right chest tenderness upon palpitation) Heart: S1S2, RRR Abdomen: Soft N/T Extremities: No Edema Neurology: alert, oriented, follow commands Assessment Assessment 1. Atypical chest pain; AMI ruled out. MPI last year without any evidence of ischemia or infarct. Echo at that time with preserved LV systolic function. Most probable MSK in origin 2. Dizziness, hx of orthostasis on Florinef. No significant orthostasis noted 2. Tachy/zahida syndrome s/p PPM (Biotronik). Device check with normal function. 3. Hx of NICM: with LV recovery with EF 50-55% (12/15) 4. PAFIB/flutter; maintaining SR 5. Marfan syndrome/pectus excavatum/scoliosis 6. COPD 7. Hyperlipidemia Recommendations Continue flecainide for rhythm maintenance Secondary prevention measures Outpateint ischemic evaluation with lexiscan MPI as scheduled Plans for SNU upon discharge Okay to discharge from CV standpoint Follow up in clinic with Dr. Perales as scheduled. Justicifation of Admission Dx: Justifications for Admission: Justification of Admission Dx: No KAMARI PERALES MD 12/07/19 1950: CARDIO Progress Notes Assessment Assessment Patient seen and examined. Agree with INSURANCE ACCOUNT SPECIALIST's assessment and plan. Chest pain with atypical features and most probably musculoskeletal. Agree with outpatient ischemic evaluation. Tachy-bradycardia syndrome s/p PPM, device check showed normal function. Follow up as scheduled DESTINY HANNON APRN Dec 07, 2019 11:31 KAMARI PERALES MD Dec 07, 2019 19:50
--- NOTE | 2019-12-07 11:53 | PDOC ---
PROGRESS NOTES Date of Service DATE: 12/07/19 TIME: 11:49 Subjective Subjective Ezekiel was seen in a follow-up visit today. He reports no new symptoms today. Denies fevers, chills, shortness of breath, nausea, vomiting, diarrhea, hematemesis, melena, hematochezia. He continues to have chest pain. Objective Objective Vital Signs Date Time Temp Pulse Resp B/P (MAP) Pulse Ox O2 Delivery O2 Flow Rate FiO2 12/07/19 08:56 85 12/07/19 07:40 Room Air 12/07/19 07:00 97.7 18 129/85 (100) 100 97.7 12/05/19 03:09 1.0 Intake and Output 12/07/19 07:00 Intake Total 1030 ml Output Total 1975 ml Balance -945 ml Intake Oral 1030 ml Output Urine Total 1975 ml Physical Exam Abdomen: Normal bowel sounds, Soft Heart: Regular rate, Normal S1 Extremities: No clubbing General: Alert, Oriented X3, Cooperative HEENT: Atraumatic Lungs: Clear to auscultation, Other (Pectus excavatum noted) MUSCULOSKELETAL: No joint tenderness, No deformity Neck: Supple, No JVD Neuro: Normal gait, Normal speech Psych/Mental Status: Mental status NL Skin: No rashes Assessment Assessment B12 deficiency Thrombocytopenia Normocytic anemia Chest pain Marfans syndrome CAD Plan Plan of Care -Noted persistent thrombocytopenia on repeat CBC in heparin tube -I ordered and reviewed results of B12 levels. I discussed with the patient his lab findings suggestive of B12 deficiency. -Continue IM B12 supplementation 1000 mcg daily -I recommended to the patient that he take a multivitamin daily following his hospital discharge -Rest per hospitalist Dexter Castanon MD Medical Oncology/Hematology Comment Review of Relevant I have reviewed the following items sandra (where applicable) has been applied. Labs Laboratory Tests Test 12/05/19 12:30 12/06/19 04:50 Red Blood Count 4.20 x10^6/uL (4.30-5.70) 4.21 x10^6/uL (4.30-5.70) Absolute Reticulocyte Count 0.042 x10^6/uL (0.020-0.120) Percent Reticulocyte Count 1.0 % (0.5-2.3) Immature Reticulocyte Fraction 0.35 (0.20-0.60) Haptoglobin 111 mg/dL (32-363) Lactate Dehydrogenase 146 U/L (85-227) Vitamin B12 Level 173 pg/mL (247-911) White Blood Count 5.4 x10^3/uL (4.0-11.0) Hemoglobin 13.2 g/dL (13.0-17.5) Hematocrit 39.1 % (39.0-53.0) Mean Corpuscular Volume 93 fL (79-100) Mean Corpuscular Hemoglobin 31 pg (25-35) Mean Corpuscular Hemoglobin Concent 34 g/dL (31-37) Red Cell Distribution Width 13.8 % (11.5-14.5) Platelet Count 97 x10^3/uL (140-400) Neutrophils (%) (Auto) 56 % (31-73) Lymphocytes (%) (Auto) 29 % (24-48) Monocytes (%) (Auto) 11 % (0-9) Eosinophils (%) (Auto) 4 % (0-3) Basophils (%) (Auto) 1 % (0-3) Neutrophils # (Auto) 3.0 x10^3/uL (1.8-7.7) Lymphocytes # (Auto) 1.6 x10^3/uL (1.0-4.8) Monocytes # (Auto) 0.6 x10^3/uL (0.0-1.1) Eosinophils # (Auto) 0.2 x10^3/uL (0.0-0.7) Basophils # (Auto) 0.0 x10^3/uL (0.0-0.2) Sodium Level 138 mmol/L (136-145) Potassium Level 3.7 mmol/L (3.5-5.1) Chloride Level 105 mmol/L (98-107) Carbon Dioxide Level 28 mmol/L (21-32) Anion Gap 5 (6-14) Blood Urea Nitrogen 18 mg/dL (8-26) Creatinine 1.0 mg/dL (0.7-1.3) Estimated GFR (Cockcroft-Gault) 74.3 Glucose Level 88 mg/dL (70-99) Calcium Level 8.2 mg/dL (8.5-10.1) Iron Level 83 ug/dL (65-175) Total Iron Binding Capacity 229 ug/dL (250-450) Iron Saturation 36 % (15-34) Ferritin 74 ng/mL (26-388) Medications Current Medications Nitroglycerin (Nitrostat) 0.4 mg PRN Q5MIN PRN SL CHEST PAIN Last administered on 12/04/19 16:09; Start 12/04/19 at 16:00 Nitroglycerin (Nitrostat) 0.4 mg STK-MED ONCE SL ; Start 12/04/19 at 15:55; Stop 12/04/19 at 15:56; Status DC Aspirin (Ecotrin) 81 mg DAILY PO Last administered on 12/07/19 08:55; Start 12/05/19 at 09:00 Diclofenac Sodium (Voltaren) 1 tanvi QID TP Last administered on 12/07/19 08:57; Start 12/04/19 at 22:00 Flecainide Acetate (Tambocor) 100 mg Q12HR PO Last administered on 12/07/19 08:55; Start 12/04/19 at 21:00 Fludrocortisone Acetate (Florinef) 0.2 mg DAILY PO Last administered on 12/07/19 08:56; Start 12/05/19 at 09:00 Metoprolol Succinate (Toprol Xl) 12.5 mg DAILY PO Last administered on 12/07/19 08:56; Start 12/05/19 at 09:00 Potassium Chloride (Klor-Con) 20 meq BID92 PO Last administered on 12/07/19 08:55; Start 12/05/19 at 09:00 Simvastatin (Zocor) 20 mg HS PO Last administered on 12/06/19at 21:32; Start 12/04/19 at 21:00 Tamsulosin HCl (Flomax) 0.4 mg DAILY PO Last administered on 12/07/19 08:56; Start 12/05/19 at 09:00 Tramadol HCl (Ultram) 50 mg PRN Q6HRS PRN PO MODERATE PAIN Last administered on 12/05/19 08:25; Start 12/04/19 at 20:30 Magnesium Oxide (Magnesium Oxide) 400 mg TID PO Last administered on 12/07/19 08:56; Start 12/04/19 at 21:00 Pantoprazole Sodium (Protonix) 40 mg DAILYAC PO Last administered on 12/07/19at 08:56; Start 12/05/19 at 07:30 Acetaminophen/ Hydrocodone Bitart (Lortab 7.5/325) 1 tab PRN Q6HRS PRN PO SEVERE PAIN Last administered on 12/07/19at 08:55; Start 12/04/19 at 20:45 Acetaminophen (Tylenol) 650 mg PRN Q6HRS PRN PO MILD PAIN 1-3; Start 12/04/19 at 20:45 Cyanocobalamin (Vitamin B-12) 1,000 mcg DAILY IM Last administered on 12/07/19at 08:57; Start 12/05/19 at 19:30 Active Scripts Active B-12 (Cyanocobalamin (Vitamin B-12)) 1,000 Mcg Tablet.er 1 Tab PO DAILY 30 Days Nitrostat (Nitroglycerin) 0.4 Mg Tab.subl 0.4 Mg SL PRN Q5MIN PRN Fludrocortisone Acetate 0.1 Mg Tablet 0.2 Mg PO DAILY 30 Days Klor-Con M20 (Potassium Chloride) 20 Meq Tab.er.prt 20 Meq PO BID92 30 Days Mag-Oxide (Magnesium Oxide) 400 Mg Tablet 400 Mg PO TID 30 Days Voltaren (Diclofenac Sodium) 100 Gm Gel..gram. 1 Tanvi TP QID 30 Days Flecainide Acetate 50 Mg Tablet 100 Mg PO Q12HR 30 Days Metoprolol Succinate ( Xl ) (Metoprolol Succinate) 25 Mg Tab.er.24h 12.5 Mg PO DAILY Tramadol Hcl 50 Mg Tablet 1 Tab PO PRN Q6HRS Aspir 81 (Aspirin) 81 Mg Tablet. 1 Tab PO DAILY Reported Simvastatin 20 Mg Tablet 20 Mg PO HS Tamsulosin Hcl 0.4 Mg Cap.er.24h 0.4 Mg PO DAILY Prilosec (Omeprazole) 20 Mg Capsule.dr 20 Mg PO DAILY Vitals/I & O Vital Sign - Last 24 Hours 12/06/19 12/06/19 12/06/19 12/06/19 15:00 19:47 20:00 21:00 Temp 97.7 97.8 97.7 97.8 Pulse 63 63 63 Resp 18 18 B/P (MAP) 107/64 (78) 88/41 (57) 88/41 Pulse Ox 99 99 O2 Delivery Room Air Room Air Room Air 12/06/19 12/07/19 12/07/19 12/07/19 22:59 03:15 07:00 07:40 Temp 97.8 97.7 97.7 97.8 97.7 97.7 Pulse 80 73 72 Resp 18 18 18 B/P (MAP) 115/62 (79) 124/79 (94) 129/85 (100) Pulse Ox 98 99 100 O2 Delivery Room Air Room Air Room Air Room Air 12/07/19 12/07/19 08:55 08:56 Pulse 85 85 Intake and Output 12/06/19 12/06/19 12/07/19 15:00 23:00 07:00 Intake Total 180 ml 300 ml 550 ml Output Total 600 ml 425 ml 950 ml Balance -420 ml -125 ml -400 ml Justifications for Admission Other Justification Nutrition Consultation Dietary Evaluation: Recommendations by RD: Dietary education by RD, Increase Calorie Intake, Protein supplementation Comments: Continue w/cardiac diet as ordered, honor food preferences, provide sncaks as requested REC Ensure (any flavor) BID Expected Outcomes/Goals: PO intake to meet >75% est needs Malnutrition Findings: Body Fat Depletion (Non Severe: Mild Depletion Weight Status: Underweight KELTON CASTANON MD Dec 07, 2019 11:53
[2019-12-07 15:00] VITALS: BP 104/68
[2019-12-07 19:50] VITALS: BP 112/67
[2019-12-07] MEDS: SIMVASTATIN 20 MG TABLET PO SCH (21:39)
[2019-12-07] MEDS: traMADol 50 MG TABLET PO PRN (21:39)
[2019-12-07 22:30] VITALS: BP 119/61
[2019-12-08 02:55] VITALS: BP 120/76
[2019-12-08] MEDS: HYDROcodone/APAP 7.5/325MG 1 TAB TABLET PO PRN ×2 (02:59→09:12)
[2019-12-08 07:00] VITALS: BP 133/78
[2019-12-08] MEDS: TAMSULOSIN 0.4 MG CAP.ER.24H. PO SCH (09:03)
[2019-12-08] MEDS: METOPROLOL SUCC 24HR ER 25 MG TAB.ER.24H. PO SCH (09:04)
[2019-12-08] MEDS: POTASSIUM CHLORIDE 20 MEQ TABLET.ER. PO SCH ×2 (09:04→13:46)
[2019-12-08] MEDS: FLUDROCORTISONE 0.1 MG TABLET PO SCH (09:04)
[2019-12-08] MEDS: MAGNESIUM OXIDE 400 MG TABLET PO SCH ×2 (09:04→13:46)
[2019-12-08] MEDS: CYANOCOBALAMIN (VITAMIN B-12) 1,000 MCG/ML VIAL IM SCH (09:05)
[2019-12-08] MEDS: ASPIRIN ENTERIC COATED 81 MG TABLET.DR. PO SCH (09:05)
[2019-12-08] MEDS: FLECAINIDE ACETATE 50 MG TABLET. PO SCH (09:05)
[2019-12-08] MEDS: PANTOPRAZOLE 40 MG TABLET.DR. PO SCH (09:05)
[2019-12-08] MEDS: DICLOFENAC SODIUM 1% TOPICAL GEL 100GM TUBE. TP SCH ×2 (09:12→13:46)
--- NOTE | 2019-12-08 10:27 | PDOC ---
IM PROGRESS NOTES- Subjective Subjective No complaints of chest pains or dyspnea.. Objective Vitals/I&O Vital Signs Date Time Temp Pulse Resp B/P (MAP) Pulse Ox O2 Delivery O2 Flow Rate FiO2 12/08/19 09:12 Room Air 12/08/19 09:05 73 120/76 12/08/19 07:00 97.6 20 98 97.6 12/08/19 02:59 1.0 I & O 12/07/19 12/07/19 12/08/19 15:00 23:00 07:00 Intake Total 250 ml 900 ml 800 ml Output Total 1250 ml 550 ml Balance 250 ml -350 ml 250 ml Physical Exam Physical Exam General appearance - alert, chronically ill appearing, and in no distress and oriented to person, place, and time Mental Status - alert, oriented to person, place, and time, affect appropriate to mood Head - normal Chest -decreased breath sounds at base Heart - S1 and S2 normal Abdomen - soft, nontender, Neurological - alert and oriented He is tall and thin Extremities - no pedal edema Skin - warm and dry Assessment Assessment 1. Chest pain. 2. Dizziness. 3. History of cardiac arrhythmia, status post permanent pacemaker. 4. Orthostatic hypotension. 5. History of hypertension. 6. Chronic obstructive pulmonary disease. 7. Marfan syndrome. 8. History of supraventricular tachycardia. 9. Chronic low back pain. 10. History of cervical radiculopathy and status post fusion at C3-C7. 11. Mild mitral valve prolapse. 12. Benign prostatic hypertrophy. 13. Chronic protein-calorie malnutrition. 14. Chronic kidney disease 2. 15. Emphysema. 16. Diverticulosis. 17. Gastroesophageal reflux disease. 18. Schatzki ring. 19. Hiatal hernia. 20. Coronary artery disease with ejection fraction of 55-60%. 21. History of chronic thrombocytopenia. 22. History of severe left vertebral artery stenosis, aortic arch negative per CT in 2014 and also 2018. 23. B12 deficiency. 24. Physical deconditioning. 25. Vitamin D deficiency. PLAN: Consult Dr. Perales for cardiology evaluation and management and Dr. Renteria for hematology evaluation and management due to thrombocytopenia. We will order physical therapy and occupational therapy. For details, please refer to the orders. Prognosis of this patient is poor due to his multiple medical problems. Monitor for orthostasis. Clinically improving but remains weak. Transfer to snf unit when accepted. Long-term as well as short-term prognosis remains poor due to his multiple medical problems. Discharge management 35 minutes. Plan Plan For more details regarding further plans, please refer to the orders. Justifications for Admission Other Justification Nutrition Consultation Dietary Evaluation: Recommendations by RD: Dietary education by RD, Increase Calorie Intake, Protein supplementation Comments: Continue w/cardiac diet as ordered, honor food preferences, provide sncaks as requested REC Ensure (any flavor) BID Expected Outcomes/Goals: PO intake to meet >75% est needs Malnutrition Findings: Body Fat Depletion (Non Severe: Mild Depletion Weight Status: Underweight TIANA POTTER MD Dec 08, 2019 10:27
[2019-12-08 10:30] VITALS: BP 120/73
[2019-12-08 15:00] VITALS: BP 112/62
--- NOTE | 2019-12-08 17:12 | NUR ---
Discharge Note: MARNIE FRIEDMAN [address] Discharge instructions and discharge home medications reviewed with Other facility and a copy given. All questions have been answered and understanding verbalized. The following instructions and handouts were given: report given to SNU via telephone. Packet handed to transportation team Discontinued lines and drains: IV discontinued, dressing clean, dry and intact. Patient discharged to SNU with transport via wheelchair
== END 2019-12-08 17:17 | DRG 206 ==
LOC: ER 12:19 → ED HOLD 15:07 → 2 SOUTH 16:25 → OBSVTOIN 23:00
PROVIDERS: ADMIT Internal Medicine; ATTEND Internal Medicine
DX: M94.0 Chondrocostal junction syndrome [Tietze] (principal); I42.8 Other cardiomyopathies; Q87.418 Marfan syndrome with other cardiovascular manifestations; I48.92 Unspecified atrial flutter; E44.0 Moderate protein-calorie malnutrition; D64.9 Anemia, unspecified; E53.8 Deficiency of other specified B group vitamins; D69.6 Thrombocytopenia, unspecified; E55.9 Vitamin D deficiency, unspecified; G89.29 Other chronic pain; I12.9 Hypertensive chronic kidney disease with stage 1 through stage 4 chronic kidney disease, or unspecified chronic kidney disease; I25.10 Atherosclerotic heart disease of native coronary artery without angina pectoris; I25.2 Old myocardial infarction; I27.20 Pulmonary hypertension, unspecified; I48.0 Paroxysmal atrial fibrillation; I95.1 Orthostatic hypotension; J43.9 Emphysema, unspecified; K21.9 Gastro-esophageal reflux disease without esophagitis; K22.2 Esophageal obstruction; K44.9 Diaphragmatic hernia without obstruction or gangrene; K57.90 Diverticulosis of intestine, part unspecified, without perforation or abscess without bleeding; F41.9 Anxiety disorder, unspecified; M19.90 Unspecified osteoarthritis, unspecified site; R07.89 Other chest pain; M41.9 Scoliosis, unspecified; N18.2 Chronic kidney disease, stage 2 (mild); N40.0 Benign prostatic hyperplasia without lower urinary tract symptoms; Z82.3 Family history of stroke; Z82.79 Family history of other congenital malformations, deformations and chromosomal abnormalities; Z95.0 Presence of cardiac pacemaker; Z98.1 Arthrodesis status; Z20.828 Contact with and (suspected) exposure to other viral communicable diseases
CPT/HCPCS: 36415; 70450; 71045; 80048; 80053; 82607; 82728; 83010; 83540; 83550; 83615; 83690; 83735; 83880; 84484; 85025; 85045; 85610; 85730; 93005; 99285; G0378; G0379; J3420; 97110-GO; 97110-GP; 97116-GP; 97530-GO; 97535-GO; U0003-CS

== ENCOUNTER → 2020-01-02 | Outpatient (CLI) | payer OTHER ==
[2019-12-08 15:00] VITALS: BP 112/62
[~2020-01-02] MED LIST changes: +CYAN100031 PO; +NITR0.4T24 SL
[2020-01-02 13:43] LABS: BASO % 1 % (0-3); EOS # 0.1 x10^3/uL (0.0-0.7); EOS % 2 % (0-3); HEMOGLOBIN 14.2 g/dL (13.0-17.5); LYMPH # 1.6 x10^3/uL (1.0-4.8); LYMPH % 23 % (24-48); MEAN CORPUSCULAR HEMOGLOBIN 31 pg (25-35); MEAN CORPUSCULAR HGB CONC 34 g/dL (31-37); MEAN CORPUSCULAR VOLUME 93 fL (79-100); MONO # 0.8 x10^3/uL (0.0-1.1); MONO % 11 % (0-9); NEUT # 4.4 x10^3/uL (1.8-7.7); NEUT % 63 % (31-73); PLATELET COUNT 107 x10^3/uL (140-400); RED BLOOD COUNT 4.54 x10^6/uL (4.30-5.70); RED CELL DISTRIBUTION WIDTH 13.3 % (11.5-14.5)
== END ==
LOC: ONCLAB 08:00
PROVIDERS: ATTEND Internal Medicine Hematology & Oncology
DX: D50.9 Iron deficiency anemia, unspecified (principal)
CPT/HCPCS: 36415; 82607; 82746; 85025

== ENCOUNTER → 2020-02-12 | Outpatient (CLI) | payer OTHER ==
[~2020-02-12] MED LIST changes: +REGADENOSON 0.4 MG/5 ML DISP.SYRIN. IV ONE
--- NOTE | 2020-02-12 13:30 | RAD ---
MR#: [id number] Date of Study: 02/12/2020 Ordering Physician: KAMARI MENON, Referring Physician: NAEEM DUKE Tech: CAROLINA Hatch APPROVED REPORT Test Type: Pharmacological Stress Nurse/Tech: Jasmina Phillips R.N. Test Indications: CAD Cardiac History: Family history, CAD, Pacemaker Medications: See Electronic Medical Record Medical History: See Electronic Medical Record Resting ECG: Paced Resting Heart Rate: 67 bpm Resting Blood Pressure: 146/70mmHg Pretest Chest Pain: No chest pain Nurse/Tech Notes S1S2. lungs sound clear Consent: The procedure was explained to the patient in lay terms. Informed consent was witnessed. Keon eout was entered into [employer]. History and Stress Test performed by Jasmina Phillips R.N. Pharm. Details Pharmacologic stress testing was performed using 0.4mg per 5ml of regadenoson given intravenously ove r 7-10 seconds. Stress Symptoms Dyspnea POST EXERCISE Reason for Termination: Infusion complete Target HR: 129 Max HR: 88 bpm Max Blood Pressure: 144/76mmHg Blood Pressure response to exercise: Normal blood pressure response during stress. Chest Pain: No. Arrhythmia: No. ST Change: No. INTERPRETATION Stress EKG Conclusion: Baseline EKG showed atrial paced rhythm. No diagnostic changes of ischemia at peak stress. No arrhythmias. Imaging Protocol IMAGE PROTOCOL: Rest Tc-99m/stress Tc-99m 1 day Rest: Stress: Viability: Radiopharm.Tc99m CwczpflmsDz99w Sestamibi Onwc14dBt 33mCi Duration 15min. 13min. Img Date 02/12/2020 02/12/2020 Inj-Img [id number]. 60min. Rest Admin Site:IV - Left AntecubitalAdministrator:CAROLINA Hatch Stress Admin Site: IV - Left AntecubitalAdministrator: LIANNA Poe, ARRT (R)(N) STRESS DATA End Diast. Vol.89.0mlLVEDV index BSA48.0ml End Syst. Vol.31.0mlLVESV index BSA17.0ml Myocardial Swod371.0gEject. Oabqtwvd50.0% Stress Scores Regional WT1.00Summed WT8.00 Regional WM1.00Summed WM8.00 Study quality was good. Left Ventricular size was Normal at Rest and Stress. Lung uptake was . Left Ventricular ejection fraction is 65%. The rest and stress images show normal perfusion, normal contraction and thickening. LV Perf. Quant 17 Seg. SSS0.00 17 Seg. SRS0.00 17 Seg. SDS0.00 Stress Defect Extent (% LAD)0.00Rest Defect Extent (% LAD)0.00Rev. Defect Extent (% LAD)0.00 Stress Defect Extent (% LCX) 0.00Rest Defect Extent (% LCX)0.00Rev. Defect Extent (% LCX)0.00 Stress Defect Extent (% RCA)0.00Rest Defect Extent (% RCA)0.00Rev. Defect Extent (% RCA)0.00 Stress Defect Extent (% BENJAMIN)0.00Rest Defect Extent (% BENJAMIN)0.00Rev. Defect Extent (% BENJAMIN)0.00 Conclusion 1. Regadenoson cardioisotope stress test did not show any evidence of ischemia or infarct. 2. Normal left ventricular systolic function with ejection fraction calculated at 65%. 3. Low risk for cardiac events. Signed by : Kamari Menon, Electronically Approved : 02/12/2020 13:30:10
--- NOTE | 2020-02-12 13:44 | CARD ---
MR#: [id number] Date of Study: 02/12/2020 Ordering Physician: KAMARI PERALES, Referring Physician: KAMARI PERALES, Tech: Caty Marin APPROVED REPORT EXAM: Two-dimensional and M-mode echocardiogram with Doppler and color Doppler. Other Information Quality : AverageHR: 104bpm Technically limited study due to body habitus. INDICATION Atrial Fibrillation Surgery/Intervention Pacemaker: Date: 2016 RISK FACTORS Hypertension Hyperlipidemia 2D DIMENSIONS RVDd2.2 (2.9-3.5cm)Left Atrium(2D)2.1 (1.6-4.0cm) IVSd0.6 (0.7-1.1cm)Aortic Root(2D)3.4 (2.0-3.7cm) LVDd4.0 (3.9-5.9cm)LVOT Diameter1.9 (1.8-2.4cm) PWd0.7 (0.7-1.1cm)LVDs2.9 (2.5-4.0cm) FS (%) 28.2 %SV38.3 ml LVEF(%)55.0 (>50%) Aortic Valve AoV Peak Dao.99.2cm/sAoV VTI19.7cm AO Peak GR.3.9mmHgLVOT Peak Dao.62.1cm/s LVOT VTI 13.47cmAO Mean GR.2mmHg VINAY (VMAX)1.43gy4QBS (VTI)1.95cm2 Mitral Valve MV E Cokhinbl08.4cm/sMV DECEL XYYQ536hg MV A Pbyeyhhn39.7cm/sMV XOZ12xn E/A Ratio1.1MVA (PHT)2.57cm2 TDI E/Lateral E'9.6E/Medial E'12.3 Pulmonary Valve PV Peak Gqcsadlt20.3cm/sPV Peak Grad.2mmHg Tricuspid Valve TR P. Inxurmen834bl/sRAP CZUBMJUD2rzOm TR Peak Gr.43ofExMTXV54ziLo Pulmonary Vein S1 Wuusgqoc64.5cm/sD2 Chblgydt10.7cm/s LEFT VENTRICLE The left ventricle is normal size. There is normal left ventricular wall thickness. The left ventricu lar systolic function is normal. The Ejection Fraction is 50-55%. Septal wall motion consistent with conduction abnormality. Transmitral Doppler flow pattern is Grade II-pseudonormal filling dynamics. RIGHT VENTRICLE The right ventricle is normal size. There is normal right ventricular wall thickness. The right ventr icular systolic function is normal. There is a pacemaker lead in the right ventricle. ATRIA The left atrium size is normal. The right atrium size is normal. The interatrial septum is intact wit h no evidence for an atrial septal defect or patent foramen ovale as noted on 2-D or Doppler imaging. AORTIC VALVE The aortic valve is thickened but opens well. Doppler and Color Flow revealed no significant aortic r egurgitation. There is no significant aortic valvular stenosis. Calculated aortic valve area is 2.25 cm2 with maximum pressure gradient of 5 mmHg and mean pressure gradient of 2 mmHg. MITRAL VALVE Anterior mitral leaflet appears myxomatous. Moderate anterior mitral valve leaflet prolapse is presen t. There is no mitral valve stenosis. Doppler and Color Flow revealed mild mitral valve regurgitation . TRICUSPID VALVE The tricuspid valve is normal in structure and function. Doppler and Color Flow revealed trace tricus pid regurgitation with an estimated PAP of 20 mmHg. There is no tricuspid valve stenosis. PULMONIC VALVE The pulmonic valve is not well visualized. Doppler and Color Flow revealed trace to mild pulmonic adina vular regurgitation. GREAT VESSELS The aortic root is normal in size. The IVC is normal in size and collapses >50% with inspiration. PERICARDIAL EFFUSION There is no evidence of significant pericardial effusion. Critical Notification Critical Value: No <Conclusion> The left ventricular systolic function is normal. The Ejection Fraction is 50-55%. Septal wall motion consistent with conduction abnormality. Transmitral Doppler flow pattern is Grade II-pseudonormal filling dynamics. Pacer lead noted RA/RV. Moderate anterior MV leaflet prolapse with mild mitral regurgitation. Trace tricuspid regurgitation with an estimated PAP of 20 mmHg. There is no evidence of significant pericardial effusion. Signed by : Kamari Perales, Electronically Approved : 02/12/2020 13:43:55
== END ==
LOC: NM 08:30
PROVIDERS: ATTEND Internal Medicine Cardiovascular Disease
DX: I08.8 Other rheumatic multiple valve diseases (principal); I48.92 Unspecified atrial flutter; I25.10 Atherosclerotic heart disease of native coronary artery without angina pectoris; Z95.0 Presence of cardiac pacemaker
CPT/HCPCS: 78452; 93017; 93306; A9500; J2785

== ENCOUNTER → 2020-07-26 | Outpatient (CLI) | payer BC, OTHER ==
[~2020-07-26] MED LIST changes: -REGADENOSON 0.4 MG/5 ML DISP.SYRIN. IV ONE
[2020-07-26 10:16] LABS: BASO % 1 % (0-3); EOS # 0.1 x10^3/uL (0.0-0.7); EOS % 2 % (0-3); HEMOGLOBIN 15.7 g/dL (13.0-17.5); LYMPH % 30 % (24-48); MEAN CORPUSCULAR HEMOGLOBIN 31 pg (25-35); MEAN CORPUSCULAR HGB CONC 33 g/dL (31-37); MEAN CORPUSCULAR VOLUME 91 fL (79-100); MONO # 0.7 x10^3/uL (0.0-1.1); MONO % 10 % (0-9); NEUT # 3.8 x10^3/uL (1.8-7.7); NEUT % 57 % (31-73); PLATELET COUNT 136 x10^3/uL (140-400); RED BLOOD COUNT 5.16 x10^6/uL (4.30-5.70); RED CELL DISTRIBUTION WIDTH 13.3 % (11.5-14.5); WHITE BLOOD COUNT 6.7 x10^3/uL (4.0-11.0)
[2020-07-26 11:09] LABS: PLT ESTIMATE DECREASED (ADEQUATE)
[2020-07-26 11:18] LABS: LACTATE DEHYDROGENASE 183 U/L (85-227)
[2020-07-26 11:21] LABS: C-REACTIVE PROTEIN < 0.5 mg/L (0-3.3)
[2020-07-26 16:45] LABS: ANION GAP 18 (6-14); BLOOD UREA NITROGEN 13 mg/dL (8-26); BUN/CREATININE RATIO 13 (6-20); CALCIUM 9.2 mg/dL (8.5-10.1); CARBON DIOXIDE 21 mmol/L (21-32); CHLORIDE 107 mmol/L (98-107); GFR 74.3; GLUCOSE 103 mg/dL (70-99); POTASSIUM 4.5 mmol/L (3.5-5.1); SODIUM 146 mmol/L (136-145)
[2020-07-26 16:51] LABS: ALBUMIN 4.7 g/dL (3.4-5.0); ALBUMIN/GLOBULIN RATIO 1.7 (1.0-1.7); ALK PHOS 86 U/L (46-116); ALT (SGPT) 31 U/L (16-63); AST (SGOT) 22 U/L (15-37); TOTAL BILIRUBIN 0.5 mg/dL (0.2-1.0); TOTAL PROTEIN 7.4 g/dL (6.4-8.2)
[2020-07-26 23:08] LABS: RHEUMATOID FACTOR <10.0 IU/mL (0.0-13.9)
[2020-07-27 15:13] LABS: KAPPA FREE 12.9 mg/L (3.3-19.4); KAPPA LAMBDA RATIO 1.26 (0.26-1.65); LAMBDA FREE 10.2 mg/L (5.7-26.3)
[2020-07-29 15:12] LABS: H PYLORI IGA <9.0 units (0.0-8.9); H PYLORI IGM <9.0 units (0.0-8.9)
[2020-07-29 16:10] LABS: ANA INTERP Negative (.)
[2020-07-29 18:10] LABS: ALBUM 4.1 g/dL (2.9-4.4); ALPHA 1 0.3 g/dL (0.0-0.4); ALPHA 2 0.8 g/dL (0.4-1.0); PROTEIN TOTAL 7.2 g/dL (6.0-8.5); SPEP AG RATIO 1.3 (0.7-1.7)
[2020-07-30 03:12] LABS: CYCLIC CITRULLIN PEP AB 2 units (0-19)
[2020-07-31 18:26] LABS: METHYLMALONIC ACID 174 nmol/L (0-378)
== END ==
LOC: ONCLAB 09:06
PROVIDERS: ATTEND Internal Medicine
DX: D50.9 Iron deficiency anemia, unspecified (principal)
CPT/HCPCS: 36415; 80053; 82525; 82607; 82728; 82746; 83520; 83540; 83550; 83615; 83921; 84165; 85025; 85651; 86038; 86140; 86200; 86317; 86431; 86677; 86704; 86803; 87340

== ENCOUNTER → 2020-08-05 | Outpatient (CLI) | payer BC, MEDICARE, OTHER ==
--- NOTE | 2020-08-05 12:44 | RAD ---
US ABDOMEN COMPLETE History: NORMOCYTIC ANEMIA / Spl. Instructions: ABDOMEN WITH FOCUS ON LIVER AND SPLEEN. Comparison: None. Technique: Sonographic examination of the abdomen. Findings: Pancreas: Poorly visualized. Liver: The liver measures 15.1 cm. Liver echotexture is mildly increased. No focal hepatic lesions. Hepatopetal flow in the portal vein. Gallbladder: No gallstones, wall thickening or pericholecystic fluid. Sonographic Shetty's sign is re portedly negative. Bile ducts: The common duct is not visualized. No intrahepatic biliary ductal dilatation. Right kidney: 11.4 cm in length. No focal lesion, calculi or hydronephrosis. Left kidney: 10.7 cm in length. No calculi or hydronephrosis. Benign interpolar cyst. Spleen: 10.9 cm in length. No focal lesion. Aorta/IVC: Visualized portions are unremarkable. Other: No ascites. Impression: 1. Mildly echogenic liver may represent steatosis. No hepatomegaly. 2. Normal spleen. Electronically signed by: Eric Villanueva MD (08/05/2020 12:42 PM) [facility]
== END ==
LOC: US 10:16
PROVIDERS: ATTEND Internal Medicine
DX: D50.9 Iron deficiency anemia, unspecified (principal); K76.0 Fatty (change of) liver, not elsewhere classified
CPT/HCPCS: 76700

== ENCOUNTER 2020-08-29 12:57 | Emergency (ER) | payer BC ==
[~2020-08-29] VITALS: Ht 188 cm; Wt 64.0 kg
[2020-08-29 13:17] VITALS: BP 144/88
[2020-08-29] MEDS ORDERED: traMADol 50 MG TABLET PO ONE (13:30)
--- NOTE | 2020-08-29 14:03 | RAD ---
XR LUMBAR SPINE 2-3V 08/29/2020 1:28 PM INDICATION: Back pain COMPARISON: None available. TECHNIQUE: 3 views of the lumbar spine are provided. FINDINGS: There are 5 nonrib-bearing lumbar type vertebral bodies. There is minimal retrolisthesis of L4 on L5 measuring 2 mm. A 6 a convex scoliosis of the lumbar spine. Vertebral body heights are maintained. No acute fractures identified. Moderate disc height loss at L4-L5 and L5-S1. Mild endplate sclerosis at L5-S1. Moderate facet arthropathy noted in the lower lumbar spine. Sacroiliac joints are well aligne d. Nonobstructed bowel gas pattern. IMPRESSION: Dextroconvex scoliosis of the lumbar spine. No acute fractures identified. Electronically signed by: Farzana Benton MD (08/29/2020 2:00 PM) [id number]
--- NOTE | 2020-08-29 14:29 | PHYS DOC ---
Past Medical History Past Medical History: Arthritis, COPD, GERD, High Cholesterol, Heart Disease, Hypertension, [place], Other Additional Past Medical Histor: Marfan syndrome,chronic pain,prostate problem s,VERTIGO, "lump in liver" Past Surgical History: Pacemaker, Other Additional Past Surgical Histo: Lower Back, Neck, AICD Smoking Status: Former Smoker Additional Information: chewing tobacco Alcohol Use: Sober Drug Use: None General Adult EDM: Chief Complaint: LOWER BACK PAIN OR INJURY HPI: HPI: Patient is a 69 year old male with history of COPD, hypertension, NV, Marfan syndrome, among other illnesses who presents to the ED today complaining of bilateral low back pain radiating to bilateral hips, symptoms began 2 days ago. Patient states he was trying to get out of his chair when the pain began. He reports history of chronic low back pain and takes tramadol for it. Denies any loss of bowel/bladder function. Denies any injuries Review of Systems: Review of Systems: Constitutional: Denies fever or chills. [] GI: Denies abdominal pain, nausea, vomiting, bloody stools or diarrhea. [] : Denies dysuria. [] Musculoskeletal: Reports low back pain Integument: Denies rash. [] Neurologic: Denies headache, focal weakness or sensory changes. [] Psychiatric: Denies depression or anxiety. [] Heart Score: C/O Chest Pain: N/A Risk Factors: Risk Factors: DM, Current or recent (<one month) smoker, HTN, HLP, family history of CAD, obesity. Risk Scores: Score 0 - 3: 2.5% MACE over next 6 weeks - Discharge Home Score 4 - 6: 20.3% MACE over next 6 weeks - Admit for Clinical Observation Score 7 - 10: 72.7% MACE over next 6 weeks - Early Invasive Strategies Current Medications: Current Medications Medications (Trade) Dose Ordered Sig/Marcia Start Time Stop Time Status Last Admin Dose Admin Tramadol HCl (Ultram) 50 mg 1X ONCE 08/29/20 13:30 08/29/20 13:31 DC 08/29/20 13:41 50 MG Allergies: Allergies: Allergies Coded Allergies Type Severity Reaction Last Updated Verified No Known Drug Allergies 02/10/16 No Physical Exam: PE: Constitutional: Well developed, well nourished, no acute distress, non-toxic appearance. [] Abdomen: Bowel sounds normal, soft, no tenderness, no masses, no pulsatile masses. [] Skin: Warm, dry, no erythema, no rash. [] Back: Diffuse paraspinal muscle tenderness to bilateral lumbar spine, no midline lumbar spine tenderness, no CVA tenderness. Positive straight leg raises bi laterally Extremities: No tenderness, no cyanosis, no clubbing, ROM intact, no edema. [] Neurologic: Alert and oriented X 3, normal motor function, normal sensory function, no focal deficits noted. [] Psychologic: Affect normal, judgement normal, mood normal. [] Current Patient Data: Vital Signs: Vital Signs Date Time Temp Pulse Resp B/P (MAP) Pulse Ox O2 Delivery O2 Flow Rate FiO2 08/29/20 13:17 98.0 79 12 144/88 (106) 98 Room Air 98.0 EKG: EKG: [] Radiology/Procedures: Radiology/Procedures: []PROCEDURE: LUMBAR SPINE 2-3V XR LUMBAR SPINE 2-3V 08/29/2020 1:28 PM INDICATION: Back pain COMPARISON: None available. TECHNIQUE: 3 views of the lumbar spine are provided. FINDINGS: There are 5 nonrib-bearing lumbar type vertebral bodies. There is minimal retrolisthesis of L4 on L5 measuring 2 mm. A 6 a convex scoliosis of the lumbar spine. Vertebral body heights are maintained. No acute fractures identified. Moderate disc height loss at L4-L5 and L5-S1. Mild endplate sclerosis at L5-S1. Moderate facet arthropathy noted in the lower lumbar spine. Sacroiliac joints are well aligned. Nonobstructed bowel gas pattern. IMPRESSION: Dextroconvex scoliosis of the lumbar spine. No acute fractures identified. Electronically signed by: Mitzi Benton MD (08/29/2020 2:00 PM) [id number] DICTATED and SIGNED BY: MITZI BENTON MD DATE: 08/29/20 [id number] 0 Course & Med Decision Making: Course & Med Decision Making Pertinent Labs and Imaging studies reviewed. (See chart for details) This is a 69-year-old male patient presented to the ED today with bilateral low back pain radiating to bilateral hips, history of chronic back pain, no known injury. Lumbar spine x-rays are negative for any acute findings. Patient has tramadol at home. She was discharged with instructions to take it. Recommended heating pad or ice packs to his low back. Nataliia Disclaimer: Nataliia Disclaimer: This electronic medical record was generated, in whole or in part, using a voice recognition dictation system. Departure Departure Impression: Primary Impression: Chronic back pain Qualified Codes: M54.42 - Lumbago with sciatica, left side; M54.41 - Lumbago with sciatica, right side; G89.29 - Other chronic pain Disposition: HOME / SELF CARE / HOMELESS Condition: STABLE Referrals: TIANA POTTER MD (PCP) follow up next week Patient Instructions: Back Pain, Adult, [id number]-[id number] Additional Instructions: You were seen for low back pain with sciatica. Please follow up with your doctor in 1 week. Take Tramadol for pain ADAM KENNEY [employer] Aug 29, 2020 14:29
== END 2020-08-29 14:46 | disposition home or self-care (01) ==
LOC: ER 12:57
DX: G89.29 Other chronic pain (principal); M54.5 Low back pain; M25.551 Pain in right hip; M25.552 Pain in left hip; J44.9 Chronic obstructive pulmonary disease, unspecified; I10 Essential (primary) hypertension; I25.2 Old myocardial infarction; K21.9 Gastro-esophageal reflux disease without esophagitis; I11.9 Hypertensive heart disease without heart failure; F17.220 Nicotine dependence, chewing tobacco, uncomplicated; Z95.810 Presence of automatic (implantable) cardiac defibrillator
CPT/HCPCS: 72100; 99283

== ENCOUNTER 2020-11-13 10:26 | Emergency (ER) | payer BC, MEDICARE ==
[~2020-11-13] VITALS: Ht 190.5 cm; Wt 67.0 kg
--- NOTE | 2020-11-13 13:16 | RAD ---
XR RIBS MIN 3 VIEWS RT W/PA CHEST History: Right-sided rib pain. No known injury. Comparison: Chest x-ray 09/15/2018 Technique: PA chest with 4 views of the right ribs. Findings: The lungs are hyperinflated. Left upper chest dual-chamber pacemaker. No airspace consolidation, pleu ral effusion or pneumothorax. Cardiomediastinal silhouette and pulmonary vasculature are within jayden l limits. No rib fracture or acute osseous lesion identified. Soft tissues are unremarkable. Partiall y visualized lower cervical fixation. Impression: 1. No acute cardiopulmonary process. No rib fracture or sequela identified. Electronically signed by: Eric Villanueva MD (11/13/2020 1:14 PM) [id number]
--- NOTE | 2020-11-13 13:20 | PHYS DOC ---
Past Medical History Past Medical History: Arthritis, COPD, GERD, High Cholesterol, Heart Disease, Hypertension, [place], Other Additional Past Medical Histor: chronic pain, Marfan's syndrome Past Surgical History: Other Additional Past Surgical Histo: Lower Back, Neck, AICD Smoking Status: Former Smoker Alcohol Use: None Drug Use: None General Adult EDM: Chief Complaint: BACK PAIN OR INJURY HPI: HPI: Patient is a 70 year old male who present to ER for evaluation of right-sided rib cage pain that been going on for 4 months. Patient denies any injury. Patient denies any trouble breathing. Patient said he had pain whenever he came to be breath. Patient denies any cough or fever. Patient denies any abdominal pain, no nausea vomiting. Patient denies any bowel or bladder incontinence. Review of Systems: Review of Systems: Constitutional: Denies fever or chills. [] Eyes: Denies change in visual acuity. [] HENT: Denies nasal congestion or sore throat. [] Respiratory: Denies cough or shortness of breath. [] Cardiovascular: Denies chest pain or edema. [] GI: Denies abdominal pain, nausea, vomiting, bloody stools or diarrhea. [] : Denies dysuria. [] Musculoskeletal: Denies back pain or joint pain. Positive for right side rib cage pain Integument: Denies rash. [] Neurologic: Denies headache, focal weakness or sensory changes. [] Endocrine: Denies polyuria or polydipsia. [] Lymphatic: Denies swollen glands. [] Psychiatric: Denies depression or anxiety. [] Heart Score: C/O Chest Pain: N/A Risk Factors: Risk Factors: DM, Current or recent (<one month) smoker, HTN, HLP, family history of CAD, obesity. Risk Scores: Score 0 - 3: 2.5% MACE over next 6 weeks - Discharge Home Score 4 - 6: 20.3% MACE over next 6 weeks - Admit for Clinical Observation Score 7 - 10: 72.7% MACE over next 6 weeks - Early Invasive Strategies Allergies: Allergies: Allergies Coded Allergies Type Severity Reaction Last Updated Verified No Known Drug Allergies 11/13/20 No Physical Exam: PE: Constitutional: Well developed, well nourished, no acute distress, non-toxic appearance. [] HENT: Normocephalic, atraumatic, bilateral external ears normal, oropharynx moist, no oral exudates, nose normal. [] Eyes: PERRLA, EOMI, conjunctiva normal, no discharge. [] Neck: Normal range of motion, no tenderness, supple, no stridor. [] Cardiovascular:Heart rate regular rhythm, no murmur. Right side lower rib cage is tender to palpation, there is no crepitus, no deformity noted. Lungs & Thorax: Bilateral breath sounds clear to auscultation [] Abdomen: Bowel sounds normal, soft, no tenderness, no masses, no pulsatile masses. [] Skin: Warm, dry, no erythema, no rash. [] Back: No tenderness, no CVA tenderness. [] Extremities: No tenderness, no cyanosis, no clubbing, ROM intact, no edema. [] Neurologic: Alert and oriented X 3, normal motor function, normal sensory function, no focal deficits noted. [] Psychologic: Affect normal, judgement normal, mood normal. [] Current Patient Data: Vital Signs: Vital Signs Date Time Temp Pulse Resp B/P (MAP) Pulse Ox O2 Delivery O2 Flow Rate FiO2 11/13/20 12:19 97.7 85 16 177/90 100 Room Air 97.7 EKG: EKG: [] Radiology/Procedures: Radiology/Procedures: [][facility] [address] [place], [place] [id number] IMAGING REPORT Signed PATIENT: MARNIE FRIEDMAN ACCOUNT: [id number] : 1950 LOCATION: ER AGE: 70 SEX: M EXAM STATUS: REG ER ORD. PHYSICIAN: TIFFANIE COLEMAN DO REASON: right side ribs pain, no known injury PROCEDURE: RIBS RIGHT AND PA CHEST XR RIBS MIN 3 VIEWS RT W/PA CHEST History: Right-sided rib pain. No known injury. Comparison: Chest x-ray 09/15/2018 Technique: PA chest with 4 views of the right ribs. Findings: The lungs are hyperinflated. Left upper chest dual-chamber pacemaker. No airspace consolidation, pleural effusion or pneumothorax. Cardiomediastinal silhouette and pulmonary vasculature are within normal limits. No rib fracture or acute osseous lesion identified. Soft tissues are unremarkable. Partially visualized lower cervical fixation. Impression: 1. No acute cardiopulmonary process. No rib fracture or sequela identified. Electronically signed by: Eric Bustos MD (11/13/2020 1:14 PM) [id number] DICTATED and SIGNED BY: ERIC BUSTOS MD DATE: 11/13/20 [id number] 0 Course & Med Decision Making: Course & Med Decision Making Pertinent Labs and Imaging studies reviewed. (See chart for details) Patient is a 70-year-old male who present to ER due to right-sided lower rib cage pain that been going on for 4 months. X-ray did not show any acute fracture or dislocation or infection. There is no obvious cause of his pain. This is chronic pain, patient will need to follow-up with his family physician for further evaluation and treatment. Dragon Disclaimer: Dragon Disclaimer: This electronic medical record was generated, in whole or in part, using a voice recognition dictation system. Departure Departure Impression: Primary Impression: Flank pain, chronic Disposition: HOME / SELF CARE / HOMELESS Condition: STABLE Referrals: TIANA POTTER MD (PCP) Follow up with your family doctor as needed Patient Instructions: Flank Pain Additional Instructions: Thank you for visiting our Emergency Department. We appreciate you trusting us with your care. If any additional problems come up don't hesitate to return to visit us. Please follow up with your primary care provider so they can plan additional care if needed and know about the problem that you had. If symptoms worsen come back to the Emergency Department. Any concerning symptoms that start such as chest pain, shortness of air, weakness or numbness on one side of the body, running high fevers or any other concerning symptoms return to the ER. TIFFANIE COLEMAN DO Nov 13, 2020 13:20
[2020-11-13 14:21] VITALS: BP 157/85
== END 2020-11-13 14:23 | disposition home or self-care (01) ==
LOC: ER 10:26
DX: R10.9 Unspecified abdominal pain (principal); G89.29 Other chronic pain; J44.9 Chronic obstructive pulmonary disease, unspecified; K21.9 Gastro-esophageal reflux disease without esophagitis; E78.00 Pure hypercholesterolemia, unspecified; I11.9 Hypertensive heart disease without heart failure; I25.2 Old myocardial infarction; Z87.891 Personal history of nicotine dependence
CPT/HCPCS: 71101; 99283

== ENCOUNTER → 2021-02-12 | Outpatient (CLI) | payer MEDICARE ==
[~2021-02-12] MED LIST changes: +CYCL10TA19 PO; -CYCL10TA2 PO; +POTA-121 PO; -POTA20TA4 PO
[2021-02-12 12:07] LABS: BASO % 1 % (0-3); EOS # 0.1 x10^3/uL (0.0-0.7); EOS % 2 % (0-3); HEMATOCRIT 44.5 % (39.0-53.0); HEMOGLOBIN 14.8 g/dL (13.0-17.5); LYMPH # 1.7 x10^3/uL (1.0-4.8); LYMPH % 20 % (24-48); MEAN CORPUSCULAR HEMOGLOBIN 30 pg (25-35); MEAN CORPUSCULAR HGB CONC 33 g/dL (31-37); MEAN CORPUSCULAR VOLUME 91 fL (79-100); MONO # 0.9 x10^3/uL (0.0-1.1); MONO % 11 % (0-9); NEUT # 5.7 x10^3/uL (1.8-7.7); NEUT % 67 % (31-73); PLATELET COUNT 102 x10^3/uL (140-400); RED BLOOD COUNT 4.87 x10^6/uL (4.30-5.70); RED CELL DISTRIBUTION WIDTH 13.5 % (11.5-14.5); WHITE BLOOD COUNT 8.6 x10^3/uL (4.0-11.0)
[2021-02-12 12:10] LABS: CALCIUM 9.1 mg/dL (8.5-10.1); CREATININE 1.1 mg/dL (0.7-1.3)
[2021-02-12 12:11] LABS: GFR 66.4; POTASSIUM 3.7 mmol/L (3.5-5.1)
[2021-02-12 12:18] LABS: ALBUMIN 4.2 g/dL (3.4-5.0); ALBUMIN/GLOBULIN RATIO 1.2 (1.0-1.7); TOTAL BILIRUBIN 0.7 mg/dL (0.2-1.0); TOTAL PROTEIN 7.7 g/dL (6.4-8.2)
== END ==
LOC: ONCLAB 16:08
PROVIDERS: ATTEND Internal Medicine Hematology & Oncology
DX: D50.9 Iron deficiency anemia, unspecified (principal); D69.59 Other secondary thrombocytopenia
CPT/HCPCS: 36415; 80053; 82607; 85025

== ENCOUNTER → 2021-02-28 | Outpatient (CLI) | payer MEDICARE ==
--- NOTE | 2021-03-02 13:40 | CARD ---
MR#: [id number] Date of Study: 02/28/2021 Ordering Physician: KAMARI MENON, Referring Physician: KAMARI MENON Tech: Vania Veliz [facility] APPROVED REPORT EXAM: Two-dimensional and M-mode echocardiogram with Doppler and color Doppler. Other Information Quality : AverageHR: 67bpm Rhythm : NSR INDICATION Mitral Valve Prolapse RISK FACTORS Hypertension Hyperlipidemia 2D DIMENSIONS RVDd1.7 (2.9-3.5cm)Left Atrium(2D)2.5 (1.6-4.0cm) IVSd0.8 (0.7-1.1cm)Aortic Root(2D)3.5 (2.0-3.7cm) LVDd4.0 (3.9-5.9cm)LVOT Diameter2.2 (1.8-2.4cm) PWd0.7 (0.7-1.1cm)LVDs2.9 (2.5-4.0cm) FS (%) 27.2 %SV37.2 ml Aortic Valve AoV Peak Dao.113.7cm/sAoV VTI23.0cm AO Peak GR.5.2mmHgLVOT Peak Dao.70.7cm/s AO Mean GR.3mmHgAVA (VMAX)2.28cm2 Mitral Valve MV E Dtjhyycm36.7cm/sMV DECEL NSML255cd MV A Jrebvwfd66.7cm/sE/A Ratio1.0 Pulmonary Valve PV Peak Noawqiob824.1cm/s Tricuspid Valve TR P. Ibedswzs299ct/sTR Peak Gr.21mmHg LEFT VENTRICLE The left ventricle is normal size. There is normal left ventricular wall thickness. The left ventricu lar systolic function is normal and the ejection fraction is within normal range. LV ejection fractio n is 55 to 60%. There is normal LV segmental wall motion. Transmitral Doppler flow pattern is Grade I -abnormal relaxation pattern. RIGHT VENTRICLE The right ventricle is normal size. There is normal right ventricular wall thickness. The right ventr icular systolic function is normal. ATRIA The left atrium size is normal. The right atrium size is normal. The interatrial septum is intact wit h no evidence for an atrial septal defect or patent foramen ovale as noted on 2-D or Doppler imaging. AORTIC VALVE The aortic valve is normal in structure and function. Doppler and Color Flow revealed no significant aortic regurgitation. There is no significant aortic valvular stenosis. MITRAL VALVE The mitral valve is normal in structure and function. A moderate mitral valve prolapse is present. Th ere is no mitral valve stenosis. Doppler and Color-flow revealed mild mitral regurgitation. TRICUSPID VALVE The tricuspid valve is normal in structure and function. Doppler and Color Flow revealed no tricuspid valve regurgitation noted. PULMONIC VALVE The pulmonary valve is normal in structure and function. Doppler and Color Flow revealed mild pulmoni c valvular regurgitation. GREAT VESSELS The aortic root is normal in size. The ascending aorta is normal in size. The IVC is normal in size a nd collapses >50% with inspiration. PERICARDIAL EFFUSION There is no evidence of significant pericardial effusion. Critical Notification Critical Value: No <Conclusion> The left ventricle is normal size. The left ventricular systolic function is normal and the ejection fraction is within normal range. LV ejection fraction is 55 to 60%. Doppler and Color Flow revealed no significant aortic regurgitation. There is no significant aortic valvular stenosis. Doppler and Color-flow revealed mild mitral regurgitation. Doppler and Color Flow revealed no tricuspid valve regurgitation noted. Signed by : Eder Villegas MD Electronically Approved : 03/02/2021 13:40:19
== END ==
LOC: ECHO 11:32
PROVIDERS: ATTEND Internal Medicine Cardiovascular Disease
DX: I34.0 Nonrheumatic mitral (valve) insufficiency (principal); I37.1 Nonrheumatic pulmonary valve insufficiency; Q87.40 Marfan syndrome, unspecified
CPT/HCPCS: 93306

== ENCOUNTER 2021-07-22 15:32 | Emergency (ER) | payer MEDICARE ==
[~2021-07-22] VITALS: Ht 188 cm; Wt 64.4 kg
[2021-07-22 15:50] VITALS: BP 186/118
--- NOTE | 2021-07-22 17:08 | RAD ---
Exam: CT cervical spine without contrast INDICATION: Pain for 2 weeks TECHNIQUE: Sequential axial images through the cervical spine obtained without IV contrast. Sagittal and coronal reformatted images were reconstructed from the axial data and reviewed. Exposure: One or more of the following in the visualized dose reduction techniques were utilized for this examination: 1. Automated exposure control 2. Adjustment of the MA and/or KV according to patient size 3. Use of iterative of reconstructive technique Comparisons: None FINDINGS: Visualized intracranial structures are unremarkable. Anterior cervical fusion hardware from C5 through C6. Posterior cervical fusion from C3 to C6 with tr ansition facet screws and interconnecting vertical stabilization rods. Fracture through the cervical spine is not identified. Reversal the normal cervical lordosis. Vertebral body heights are well-maintained. Visualized paraspinal soft tissues are unremarkable. IMPRESSION: Negative CT C-spine for acute traumatic injury. Electronically signed by: Rochelle Bird MD (07/22/2021 5:06 PM) [facility]
--- NOTE | 2021-07-22 17:50 | RAD ---
3 views right knee and 3 views bilateral feet HISTORY: Pain AP lateral oblique views were obtained of the right knee and of the feet bilaterally 3 views right knee: The visualized osseous structures appear normal. IMPRESSION: No acute findings. End of impression 3 views bilateral feet AP lateral oblique views There is a lytic lesion in the medial tuft of the little toe on the right. The remaining visualized o sseous structures appear normal. IMPRESSION: Lytic lesion in the tuft of the little toe on the right could be a cyst however recommend correlation for possible tenderness to suggest an aggressive lesion and correlate with possible signs or symptom s of infection. Electronically signed by: Enrique Muniz III, MD (07/22/2021 5:47 PM) [facility]
--- NOTE | 2021-07-22 18:41 | PHYS DOC ---
Past Medical History Past Medical History: Arthritis, COPD, GERD, High Cholesterol, Heart Disease, Hypertension, [place], Other Additional Past Medical Histor: chronic pain, Marfan's syndrome Past Surgical History: No Surgical History Additional Past Surgical Histo: Lower Back, Neck, AICD Smoking Status: Former Smoker Alcohol Use: None Drug Use: None General Adult EDM: Chief Complaint: LOWER EXT PAIN HPI: HPI: Patient is a 70 year old male with history of hypertension, high cholesterol, Marfan syndrome, [place], COPD, chronic neck pain, chronic knee pain, chronic lower extremity pain who presents the ED today complaining of 10 out of 10 chronic neck pain, chronic right knee pain and chronic bilateral feet pain, patient states symptoms got worse in the last 2 weeks. He states falls frequently and fell down 2 weeks ago. Patient denies any chest pain, shortness of breath. Denies anything specifically exacerbating or relieving his pain. Denies any back pain, denies any pain radiating to bilateral upper extremities or lower extremities. Denies hitting his head on the ground when he fell. Review of Systems: Review of Systems: Constitutional: Denies fever or chills. [] HENT: Denies nasal congestion or sore throat. [] Respiratory: Denies cough or shortness of breath. [] Cardiovascular: Denies chest pain or edema. [] GI: Denies abdominal pain, nausea, vomiting, bloody stools or diarrhea. [] : Denies dysuria. [] Musculoskeletal: Reports chronic neck pain, right knee pain, bilateral feet pain Integument: Denies rash. [] Neurologic: Denies headache, focal weakness or sensory changes. [] Psychiatric: Denies depression or anxiety. [] Heart Score: C/O Chest Pain: N/A Risk Factors: Risk Factors: DM, Current or recent (<one month) smoker, HTN, HLP, family history of CAD, obesity. Risk Scores: Score 0 - 3: 2.5% MACE over next 6 weeks - Discharge Home Score 4 - 6: 20.3% MACE over next 6 weeks - Admit for Clinical Observation Score 7 - 10: 72.7% MACE over next 6 weeks - Early Invasive Strategies Allergies: Allergies: Allergies Coded Allergies Type Severity Reaction Last Updated Verified No Known Drug Allergies 07/22/21 No Physical Exam: PE: Constitutional: Thin appearing Marfan patient, no acute distress, non-toxic a ppearance. [] HENT: Normocephalic, bilateral external ears normal, oropharynx moist, no oral exudates, nose normal. [] Neck: Normal range of motion, no tenderness, supple, no stridor. [] Cardiovascular:Heart rate regular rhythm Lungs & Thorax: Bilateral breath sounds clear to auscultation [] Abdomen: Bowel sounds normal, soft, no tenderness, no masses, no pulsatile masses. [] Skin: Warm, dry, no erythema, no rash. [] Back: No tenderness, no CVA tenderness. [] Extremities: long unkept bilateral toenails, no tenderness, no signs of infection, no cyanosis, no clubbing, ROM intact, no edema. [] Neurologic: Alert and oriented X 3, normal motor function, normal sensory function, no focal deficits noted. [] Psychologic: Affect normal, judgement normal, mood normal. [] Current Patient Data: Vital Signs: Vital Signs Date Time Temp Pulse Resp B/P (MAP) Pulse Ox O2 Delivery O2 Flow Rate FiO2 07/22/21 15:50 97.4 115 18 186/118 (140) 99 Room Air 97.4 EKG: EKG: [] Radiology/Procedures: Radiology/Procedures: []PROCEDURE: KNEE RIGHT 3V 3 views right knee and 3 views bilateral feet HISTORY: Pain AP lateral oblique views were obtained of the right knee and of the feet bilater ally 3 views right knee: The visualized osseous structures appear normal. IMPRESSION: No acute findings. End of impression 3 views bilateral feet AP lateral oblique views There is a lytic lesion in the medial tuft of the little toe on the right. The remaining visualized osseous structures appear normal. IMPRESSION: Lytic lesion in the tuft of the little toe on the right could be a cyst however recommend correlation for possible tenderness to suggest an aggressive lesion and correlate with possible signs or symptoms of infection. Electronically signed by: Greg Martin III, MD (07/22/2021 5:47 PM) [facility] DICTATED and SIGNED BY: GREG MARTIN III, MD DATE: 07/22/21 174 PROCEDURE: CT CERVICAL SPINE WO CONTRAST Exam: CT cervical spine without contrast INDICATION: Pain for 2 weeks TECHNIQUE: Sequential axial images through the cervical spine obtained without IV contrast. Sagittal and coronal reformatted images were reconstructed from the axial data and reviewed. Exposure: One or more of the following in the visualized dose reduction techniques were utilized for this examination: 1. Automated exposure control 2. Adjustment of the MA and/or KV according to patient size 3. Use of iterative of reconstructive technique Comparisons: None FINDINGS: Visualized intracranial structures are unremarkable. Anterior cervical fusion hardware from C5 through C6. Posterior cervical fusion from C3 to C6 with transition facet screws and interconnecting vertical s tabilization rods. Fracture through the cervical spine is not identified. Reversal the normal cervical lordosis. Vertebral body heights are well- maintained. Visualized paraspinal soft tissues are unremarkable. IMPRESSION: Negative CT C-spine for acute traumatic injury. Electronically signed by: Rochelle Wooten MD (07/22/2021 5:06 PM) [facility] DICTATED and SIGNED BY: ROCHELLE WOOTEN MD DATE: 07/22/211657 Course & Med Decision Making: Course & Med Decision Making Pertinent Labs and Imaging studies reviewed. (See chart for details) This is a 70-year-old male patient well-known to this ED presenting today complaining of chronic neck pain, chronic right knee pain and chronic bilateral feet pain, symptoms began 2 weeks ago, he reports falling as well. He has history of multiple falls. CT of the cervical spine is negative for any acute findings. Right knee x-rays are negative for any acute findings, bilateral feet x-rays were noted for lytic lesion in the tuft of the little toe on the right could be a cyst however recommend correlation for possible tenderness to suggest an aggressive lesion and correlate with possible signs or symptoms of infection. Patient has no redness, tenderness or signs of infection to the toe mentioned on x-ray. He was given a bank appraiser and discharged to home. Dragon Disclaimer: Nataliia Disclaimer: This electronic medical record was generated, in whole or in part, using a voice recognition dictation system. Departure Departure Impression: Primary Impression: Chronic neck pain Additional Impressions: DJD (degenerative joint disease) of cervical spine Qualified Codes: M47.812 - Spondylosis without myelopathy or radiculopathy, cervical region Right knee pain Qualified Codes: M25.561 - Pain in right knee; G89.29 - Other chronic pain Foot pain, bilateral Disposition: 01 HOME / SELF CARE / HOMELESS Condition: STABLE Referrals: TIANA POTTER MD (PCP) follow up next week Patient Instructions: Arthritis, Degenerative-Brief Additional Instructions: You were evaluated in the emergency room, your CT of the cervical spine, x-rays of the right knee and bilateral feet were negative for any acute findings. Please consider following up with a bank appraiser to have your toenails cut and cared for. Follow-up with your primary care doctor in the next 1 week. ADAM KENNEY APRN Jul 22, 2021 18:41
== END 2021-07-22 18:57 | disposition home or self-care (01) ==
LOC: ER 15:32
DX: M47.812 Spondylosis without myelopathy or radiculopathy, cervical region (principal); G89.29 Other chronic pain; M54.2 Cervicalgia; M25.561 Pain in right knee; M79.672 Pain in left foot; M79.671 Pain in right foot; J44.9 Chronic obstructive pulmonary disease, unspecified; K21.9 Gastro-esophageal reflux disease without esophagitis; E78.00 Pure hypercholesterolemia, unspecified; I11.9 Hypertensive heart disease without heart failure; I25.2 Old myocardial infarction; I10 Essential (primary) hypertension; Z87.891 Personal history of nicotine dependence
CPT/HCPCS: 72125; 73562; 73630-50; 99284-25

== ENCOUNTER → 2021-08-13 | Outpatient (CLI) | payer MEDICARE ==
[2021-07-22 15:50] VITALS: BP 186/118
[2021-08-13 10:52] LABS: BASO % 1 % (0-3); EOS # 0.1 x10^3/uL (0.0-0.7); EOS % 2 % (0-3); HEMATOCRIT 44.9 % (39.0-53.0); HEMOGLOBIN 15.2 g/dL (13.0-17.5); LYMPH # 1.7 x10^3/uL (1.0-4.8); LYMPH % 28 % (24-48); MEAN CORPUSCULAR HEMOGLOBIN 31 pg (25-35); MEAN CORPUSCULAR HGB CONC 34 g/dL (31-37); MEAN CORPUSCULAR VOLUME 91 fL (79-100); MONO # 0.7 x10^3/uL (0.0-1.1); MONO % 11 % (0-9); NEUT # 3.6 x10^3/uL (1.8-7.7); NEUT % 59 % (31-73); PLATELET COUNT 117 x10^3/uL (140-400); RED BLOOD COUNT 4.97 x10^6/uL (4.30-5.70); RED CELL DISTRIBUTION WIDTH 13.5 % (11.5-14.5); WHITE BLOOD COUNT 6.1 x10^3/uL (4.0-11.0)
== END ==
LOC: ONCLAB 10:30
PROVIDERS: ATTEND Internal Medicine Hematology & Oncology
DX: D69.59 Other secondary thrombocytopenia (principal); D50.9 Iron deficiency anemia, unspecified
CPT/HCPCS: 36415; 85025